=== PATIENT | male | born 1955 | race Caucasian/White ===

== ENCOUNTER → 2017-11-13 | Outpatient (CLI) | payer OTHER ==
[2017-11-13 12:43] LABS: HCT 47.3 % (39.0-53.0); HGB 15.1 gm/dL (13.0-17.5); MCH 33.3 pg (25.0-35.0); MCV 104.2 fL (80.0-100.0); Macrocytosis Slight; Mean Platelet Volume 8.4; Platelet Count 100 k/uL (150-450); RBC 4.54 m/uL (4.30-5.90); RDW 13.2 % (11.5-15.5); WBC 3.9 k/uL (3.8-10.6)
[2017-11-13 12:55] LABS: ALT 40 U/L (21-72); AST 31 U/L (17-59); Albumin 4.3 g/dL (3.5-5.0); Alkaline Phosphatase 77 U/L (38-126); Anion Gap 8 mmol/L; Blood Urea Nitrogen 22 mg/dL (9-20); Calcium 9.7 mg/dL (8.4-10.2); Carbon Dioxide 36 mmol/L (22-30); Chloride 96 mmol/L (98-107); Cholesterol 157 mg/dL (<200); Glucose 138 mg/dL (74-99); HDL Cholesterol 59 mg/dL (40-60); LDL Cholesterol,Calculated 84 mg/dL (0-99); Potassium 4.5 mmol/L (3.5-5.1); Sodium 140 mmol/L (137-145); Total Bilirubin 0.5 mg/dL (0.2-1.3); Total Protein 6.4 g/dL (6.3-8.2); Triglycerides 70 mg/dL (<150)
[2017-11-13 14:10] LABS: Band Neutrophils % 1 %; Eosinophils # (M) 0.27 k/uL (0-0.7); Lymphocytes # (M) 0.98 k/uL (1.0-4.8); Monocytes # (M) 0.31 k/uL (0-1.0); Neutrophils % (M) 59 %; Nucleated Red Blood Cells 0 /100 WBC (0-0); Poikilocytosis (M) Present; Total Cells Counted 100
== END | disposition home or self-care (01) ==
LOC: LABMAIN 12:02
PROVIDERS: ATTEND Nurse Practitioner Family
DX: E55.9 Vitamin D deficiency, unspecified (principal); E78.5 Hyperlipidemia, unspecified; R53.81 Other malaise; Z13.220 Encounter for screening for lipoid disorders
CPT/HCPCS: 36415; 80053; 80061; 82306; 84439; 84443; 85025

== ENCOUNTER → 2018-02-03 | Outpatient (CLI) | payer OTHER ==
[2018-02-03 14:47] LABS: ALT 34 U/L (21-72); AST 28 U/L (17-59); Albumin 3.9 g/dL (3.5-5.0); Alkaline Phosphatase 60 U/L (38-126); Anion Gap 7 mmol/L; Blood Urea Nitrogen 13 mg/dL (9-20); Carbon Dioxide 37 mmol/L (22-30); Chloride 94 mmol/L (98-107); Cholesterol 125 mg/dL (<200); Glucose 163 mg/dL (74-99); HDL Cholesterol 53 mg/dL (40-60); LDL Cholesterol,Calculated 62 mg/dL (0-99); Magnesium 1.8 mg/dL (1.6-2.3); Sodium 138 mmol/L (137-145); Total Bilirubin 0.5 mg/dL (0.2-1.3); Triglycerides 52 mg/dL (<150)
[2018-02-03 14:51] LABS: Basophils % (A) 0 %; Eosinophils # (A) 0.7 k/uL (0-0.7); Eosinophils % (A) 10 %; HCT 41.4 % (39.0-53.0); Hypochromasia Slight; Lymphocytes # (A) 0.9 k/uL (1.0-4.8); Lymphocytes % (A) 13 %; MCH 33.3 pg (25.0-35.0); MCHC 31.5 g/dL (31.0-37.0); MCV 105.7 fL (80.0-100.0); Macrocytosis Moderate; Monocytes # (A) 0.5 k/uL (0-1.0); Monocytes % (A) 7 %; Neutrophils # (A) 4.8 k/uL (1.3-7.7); Neutrophils % (A) 68 %; Platelet Count 121 k/uL (150-450); RBC 3.91 m/uL (4.30-5.90); RDW 14.3 % (11.5-15.5)
[2018-02-03 15:04] LABS: T4, Free (Free Thyroxine) 1.15 ng/dL (0.78-2.19)
[2018-02-03 15:18] LABS: Prostate Specific Antigen 0.17 ng/mL (0.00-4.00)
[2018-02-04 01:07] LABS: HIV AB P24 Non-Reactive (Non-Reactive); HIV P24 AG Non-Reactive (Non-Reactive); Hepatitis A Antibody IgM Non-Reactive (Non-Reactive); Hepatitis B Core IgM Non-Reactive (Non-Reactive)
[2018-02-04 01:36] LABS: Hemoglobin A1C 6.3 % (4.0-6.0)
== END | disposition home or self-care (01) ==
LOC: LABWHC1 13:09
PROVIDERS: ATTEND Physician Assistant Medical
DX: E78.5 Hyperlipidemia, unspecified (principal); B18.2 Chronic viral hepatitis C; Z12.5 Encounter for screening for malignant neoplasm of prostate
CPT/HCPCS: 36415; 80053; 80061; 80074; 82306; 82607; 83036; 83735; 84153; 84439; 84443; 85025; 87390

== ENCOUNTER → 2018-02-21 | Outpatient (CLI) | payer OTHER ==
--- NOTE | 2018-02-21 12:39 | XR ---
EXAMINATION TYPE: XR chest 2V DATE OF EXAM: 02/21/2018 COMPARISON: 09/09/2013 HISTORY: Follow-up for pneumonia. TECHNIQUE: Frontal and lateral views of the chest are obtained. FINDINGS: Although there is no recent exam for comparison in comparison to the prior 2013 there is w orsening right perihilar interstitial airspace disease. There is also pulmonary hyperinflation and bi apical lucency suggesting underlying COPD. Cardia mediastinal silhouette is within normal limits. Deg enerative changes of the right shoulder are similar to the prior with diffuse osseous demineralizatio n. Compression deformities appear similar to the prior with multilevel vertebral augmentation. Cholec ystectomy clips are again present. IMPRESSION: Right perihilar airspace disease most likely representing the patient's known underlying pneumonia. No recent prior for comparison to evaluate for change however this is new from the exam 2013. Continued follow-up to resolution is recommended if there is underlying COPD.
== END | disposition home or self-care (01) ==
LOC: RADXRMAIN 12:10
PROVIDERS: ATTEND Physician Assistant Medical
DX: J98.4 Other disorders of lung (principal)
CPT/HCPCS: 71046

== ENCOUNTER 2018-04-27 16:19 | Emergency (ER) | payer OTHER ==
[2018-04-27 16:30] VITALS: BP 127/76; PULSE 86; RESP 20; TEMP 98.5
--- NOTE | 2018-04-27 16:52 | ED ---
General Adult HPI - General Chief complaint: Psychiatric Symptoms Stated complaint: Mental health Source: patient Mode of arrival: ambulatory Limitations: no limitations - History of Present Illness Initial comments: Dictation was produced using [employer] dictation software. please excuse any grammatical, word or spelling errors. Chief Complaint: 62-year-old male past medical history diabetes and hypertension presents with depression History of Present Illness: A 62-year-old male with allegedly psychiatric history. He has had multiple suicide attempts in the past. Patient states that he's been hearing voices and seeing things. Patient is a poor historian at this time. Patient doesn't have any suicidal or homicidal ideation. He states he does hear voices in his head that are slightly more prominent than usual. Patient states he is going through a lot of changes. The ROS documented in this emergency department record has been reviewed and confirmed by me. Those systems with pertinent positive or negative responses have been documented in the HPI. All other systems are other negative and/or noncontributory. - Related Data Home Medications Medication Instructions Recorded Confirmed Benztropine Mesylate 1 mg PO BID 04/27/18 04/27/18 Cholecalciferol [Vitamin D3] 5,000 unit PO DAILY 04/27/18 04/27/18 Hydrocodone/Acetaminophen [[place] 1 tab PO DAILY PRN 04/27/18 04/27/18 5-325] Lisinopril [Zestril] 10 mg PO DAILY 04/27/18 04/27/18 Montelukast Sodium [Singulair] 10 mg PO HS 04/27/18 04/27/18 Allergies Allergy/AdvReac Type Severity Reaction Status Date / Time No Known Allergies Allergy Verified 04/27/18 16:44 Review of Systems ROS Statement: Those systems with pertinent positive or pertinent negative responses have been documented in the HPI. ROS Other: All systems not noted in ROS Statement are negative. Past Medical History Past Medical History: Hypertension History of Any Multi-Drug Resistant Organisms: None Reported Past Surgical History: Back Surgery Past Psychological History: Anxiety Smoking Status: Current every day smoker Past Alcohol Use History: Occasional Past Drug Use History: Marijuana General Exam - General Exam Comments Initial Comments: PHYSICAL EXAM: General Impression: Alert and oriented x3, not in acute distress HEENT: Normocephalic atraumatic, extra-ocular movements intact, pupils equal and reactive to light bilaterally, mucous membranes moist, mild scleral icterus Cardiovascular: Heart regular rate and rhythm, S1&S2 audible, no murmurs, rubs or gallops Chest: Lungs clear to auscultation bilaterally, no rhonchi, no wheeze, no rales Abdomen: Bowel sounds present, abdomen soft, non-tender, non-distended, no organomegaly Musculoskeletal: Pulses present and equal in all extremities, no peripheral edema Motor: Power 5/5 bilaterally, no focal deficits noted Neurological: CN II-XII grossly intact, no focal motor or sensory deficits noted Skin: Intact with no visualized rashes Psych: Tangential speech Limitations: no limitations Course Vital Signs 04/27/18 16:24 Temperature 98.5 F Pulse Rate 86 Respiratory 20 Rate Blood Pressure 127/76 O2 Sat by Pulse 94 L Oximetry Medical Decision Making - Medical Decision Making ED course: 62-year-old male with clinical presentation consistent with psychosis. Patient is a poor historian. There are no old charts on this patient. Patient is having voices in his head. Laboratory evaluation obtained. There is macrocytic anemia. Patient given multivitamin. Metabolic panel is unremarkable. Rapid urine drug shows opiates and marijuana. Pending EPS recommendations. Patient is sent out to oncoming physician for follow-up of EPS or conditions. Patient value by EPS. The recommendation was for discharge. More information was obtained by EPS nurse. She recommends that patient is likely seeking drugs. He does however have a history of schizophrenia. Patient is cooperative. Patient told that patient is going to be discharge. He is told to follow-up with outpatient [facility] for further care physician schizophrenia. Patient agreeable however did not entirely satisfied with the plan however he states that he will follow up with outpatient [facility]. - Lab Data Result diagrams: 04/27/18 17:20 04/27/18 17:20 Lab Results 04/27/18 04/27/18 04/27/18 Range/Units 17:20 17:20 17:20 WBC 3.8 (3.8-10.6) k/uL RBC 4.05 L (4.30-5.90) m/uL Hgb 13.6 (13.0-17.5) gm/dL Hct 41.6 (39.0-53.0) % MCV 102.7 H (80.0-100.0) fL MCH 33.6 (25.0-35.0) pg MCHC 32.8 (31.0-37.0) g/dL RDW 13.7 (11.5-15.5) % Plt Count 135 L (150-450) k/uL Neutrophils % 57 % Lymphocytes % 27 % Monocytes % 8 % Eosinophils % 4 % Basophils % 0 % Neutrophils # 2.2 (1.3-7.7) k/uL Lymphocytes # 1.0 (1.0-4.8) k/uL Monocytes # 0.3 (0-1.0) k/uL Eosinophils # 0.2 (0-0.7) k/uL Basophils # 0.0 (0-0.2) k/uL Macrocytosis Slight Sodium 138 (137-145) mmol/L Potassium 4.5 (3.5-5.1) mmol/L Chloride 102 (98-107) mmol/L Carbon Dioxide 29 (22-30) mmol/L Anion Gap 7 mmol/L BUN 15 (9-20) mg/dL Creatinine 0.71 (0.66-1.25) mg/dL Est GFR (CKD-EPI)AfAm >90 (>60 ml/min/1.73 sqM) Est GFR (CKD-EPI)NonAf >90 (>60 ml/min/1.73 sqM) Glucose 104 H (74-99) mg/dL Calcium 9.8 (8.4-10.2) mg/dL Total Bilirubin 0.5 (0.2-1.3) mg/dL AST 35 (17-59) U/L ALT 39 (21-72) U/L Alkaline Phosphatase 51 (38-126) U/L Total Protein 7.0 (6.3-8.2) g/dL Albumin 4.5 (3.5-5.0) g/dL Urine Opiates Screen Detected H (NotDetected) Ur Oxycodone Screen Not Detected (NotDetected) Urine Methadone Screen Not Detected (NotDetected) Ur Propoxyphene Screen Not Detected (NotDetected) Ur Barbiturates Screen Not Detected (NotDetected) U Tricyclic Antidepress Not Detected (NotDetected) Ur Phencyclidine Scrn Not Detected (NotDetected) Ur Amphetamines Screen Not Detected (NotDetected) U Methamphetamines Scrn Not Detected (NotDetected) U Benzodiazepines Scrn Not Detected (NotDetected) Urine Cocaine Screen Not Detected (NotDetected) U Marijuana (THC) Screen Detected H (NotDetected) Disposition Clinical Impression: Acute anxiety Disposition: HOME SELF-CARE Condition: Good Is patient prescribed a controlled substance at d/c from ED?: No Referrals: None,Stated [Primary Care Provider] - 1-2 days Time of Disposition: 21:04
[2018-04-27 17:31] LABS: Basophils % (A) 0 %; Eosinophils # (A) 0.2 k/uL (0-0.7); Eosinophils % (A) 4 %; HCT 41.6 % (39.0-53.0); HGB 13.6 gm/dL (13.0-17.5); Lymphocytes % (A) 27 %; MCH 33.6 pg (25.0-35.0); MCHC 32.8 g/dL (31.0-37.0); MCV 102.7 fL (80.0-100.0); Macrocytosis Slight; Mean Platelet Volume 7.9; Monocytes # (A) 0.3 k/uL (0-1.0); Monocytes % (A) 8 %; Neutrophils # (A) 2.2 k/uL (1.3-7.7); Neutrophils % (A) 57 %; Platelet Count 135 k/uL (150-450); RBC 4.05 m/uL (4.30-5.90); RDW 13.7 % (11.5-15.5); WBC 3.8 k/uL (3.8-10.6)
[2018-04-27 17:39] LABS: ALT 39 U/L (21-72); AST 35 U/L (17-59); Albumin 4.5 g/dL (3.5-5.0); Alkaline Phosphatase 51 U/L (38-126); Anion Gap 7 mmol/L; Blood Urea Nitrogen 15 mg/dL (9-20); Calcium 9.8 mg/dL (8.4-10.2); Carbon Dioxide 29 mmol/L (22-30); Chloride 102 mmol/L (98-107); Glucose 104 mg/dL (74-99); Potassium 4.5 mmol/L (3.5-5.1); Sodium 138 mmol/L (137-145); Total Bilirubin 0.5 mg/dL (0.2-1.3)
[2018-04-27 17:43] LABS: Amphetamine Screen,Urine Not Detected (NotDetected); Barbiturate Screen,Urine Not Detected (NotDetected); Benzodiazepines Screen,Urine Not Detected (NotDetected); Cocaine Screen,Urine Not Detected (NotDetected); Methadone Screen, Urine Not Detected (NotDetected); Opiate Screen,Urine Detected (NotDetected); Oxycodone Screen, Urine Not Detected (NotDetected); Phencyclidine Screen,Urine Not Detected (NotDetected); Tricyclic Antidepressant,Urine Not Detected (NotDetected); Urn Cannabinoid Scrn Detected (NotDetected)
== END 2018-04-27 21:25 | disposition home or self-care (01) ==
LOC: EC 16:19
DX: F41.9 Anxiety disorder, unspecified (principal); F20.9 Schizophrenia, unspecified; F32.9 Major depressive disorder, single episode, unspecified; D50.9 Iron deficiency anemia, unspecified; I10 Essential (primary) hypertension; F17.200 Nicotine dependence, unspecified, uncomplicated; Z79.899 Other long term (current) drug therapy
CPT/HCPCS: 36415; 80053; 80306; 85025; 99284

== ENCOUNTER → 2018-05-26 | Outpatient (CLI) | payer OTHER ==
--- NOTE | 2018-05-26 22:49 | MR ---
EXAMINATION TYPE: MR yogesh/lskurt wo con DATE OF EXAM: 05/26/2018 COMPARISON: CT abdomen and pelvis September 09, 2013 HISTORY: Cervicalgia and lumbago per order. Headache with neck pain and mid and low back pain radiati ng to both lower extremities per patient. TECHNIQUE: Multiplanar, multisequence imaging of the thoracic and lumbar spine are performed without IV contrast. FINDINGS: C-SPINE: FINDINGS: Coronal images show dextroconvex scoliotic curvature positioning centered in the upper to m id thoracic spine. Sagittal images of the cervical spine show the craniocervical junction to appear w ithin normal limits. The cervical and upper thoracic spinal cord is normal in course, caliber, and s ignal. There is reversal of normal cervical curvature and sagittal images. The vertebral body height s are normal. . Moderate disc space narrowing with mild to moderate anterior spurring at C4-C5 throug h C6-C7 levels. Small posterior disc herniations are seen at these levels effacing the anterior theca l sac on sagittal images. Heterogeneous Modic type I degenerative changes are seen at the C4-C5 disc space level. Axial images show the C2-C3 level to appear within normal limits. Axial images at C3-C4 level show left paracentral/foraminal spur disc complex effacing the anterolate ral thecal sac and causing asymmetric moderate left-sided neural foraminal narrowing. Right-sided sana ral foramen is patent. Axial images at C4-C5 level showed broad based posterior disc protrusion and posterior spurring effac e the anterior thecal sac and causing moderate bilateral neural foraminal narrowing, right greater th an left. Axial images at C5-C6 levels with broad-based posterior disc protrusion effaces the anterior thecal s ac and causing advanced right and moderate left-sided neural foraminal narrowing with some marginal s purring present. Axial images at C6-C7 levels with broad-based posterior disc protrusion effaces the anterior thecal s ac and causing moderate to advanced bilateral neural foraminal narrowing with some marginal spurring present, right greater than left. Axial images at C7-T1 levels are felt within normal limits. IMPRESSION: Loss of normal cervical curvature with multilevel degenerative changes most prominent at C4-C5 through C6-C7 levels as detailed above. L-SPINE: Sagittal images of the lumbar spine show persistent moderate height loss and vertebral plasty changes T12 and L2, and L4 levels. There is artifact degradation from posterior fusion hardware at L3-L5 lev els. Alignment is straightened. Some disc desiccation is seen but this space heights are fairly well- maintained. No large posterior disc herniations are seen on sagittal images The conus medullaris is n ormal in position and signal ending T12-L1 disc space level. The bone marrow signal intensity is ove rall heterogeneous. Note is made of new moderate height loss at T11 vertebra. Axial images show the T12-L1 and L1-L2 disc spaces to appear within normal limits. There is effacemen t of the anterior thecal sac due to posterior retropulsion of superior L2 level axial image 22. Axial images at L2-L3 level show artifact from posterior fusion hardware. There is broad-based floor service worker spring ior disc protrusion mildly facing anterior thecal sac. Bilateral neural foramina are patent. Axial images at the L3-L4 level and L4-L5 level are suboptimally evaluated due to marked artifact. Axial images at the L5-S1 level show artifact from posterior fusion hardware. Some distortion artifac t is present. Spinal canal is grossly preserved. Bilateral neural foramina are patent. No suspicious incidental retroperitoneal findings are seen. IMPRESSION: Exam noted suboptimal due to artifact degradation related to postsurgical change. There i s straightening of the lumbar spine with redemonstration of several moderate sized compression fractu res and multilevel vertebroplasty. Note is made of new moderate compression fracture T11 level.
== END | disposition home or self-care (01) ==
LOC: RADMRIMAIN 17:20
PROVIDERS: ATTEND Psychiatry & Neurology Pain Medicine
DX: S22.080A Wedge compression fracture of T11-T12 vertebra, initial encounter for closed fracture (principal); M47.812 Spondylosis without myelopathy or radiculopathy, cervical region; Z98.1 Arthrodesis status; Z98.890 Other specified postprocedural states
CPT/HCPCS: 72141; 72148

== ENCOUNTER 2018-07-23 10:12 | Emergency (ER) | payer OTHER ==
[2018-07-23 10:27] VITALS: BP 154/87; PULSE 90; RESP 18; TEMP 97.6
[2018-07-23] MEDS ORDERED: ACET/COD 300 MG/30 MG STARTER PACK 6 TAB BTL PO STA (11:19)
--- NOTE | 2018-07-23 11:19 | ED ---
Back Pain HPI - General Chief Complaint: Back Pain/Injury Stated Complaint: back pain, elevated BP Time Seen by Provider: 07/23/18 10:48 Source: patient, RN notes reviewed Mode of arrival: ambulatory Limitations: no limitations - History of Present Illness Initial Comments: 63-year-old male presents emergency Department chief complaint of low back pain. Patient states she has chronic back pain states he had a prior fracture with surgery in his lower thoracic and lumbar region. He was on chronic pain meds until he was discharged recently for using marijuana. Patient states that his last pain was 2 days ago. Patient states that he cannot tolerate the pain is time. Denies any chest pain or shortness of breath. Denies any headache or dizziness. Patient offers no other complaints. patient has no bowel bladder incontinence or retention. Denies any saddle anesthesias - Related Data Home Medications Medication Instructions Recorded Confirmed Benztropine Mesylate 1 mg PO BID 04/27/18 04/27/18 Cholecalciferol [Vitamin D3] 5,000 unit PO DAILY 04/27/18 04/27/18 Hydrocodone/Acetaminophen [[place] 1 tab PO DAILY PRN 04/27/18 04/27/18 5-325] Lisinopril [Zestril] 10 mg PO DAILY 04/27/18 04/27/18 Montelukast Sodium [Singulair] 10 mg PO HS 04/27/18 04/27/18 Allergies Allergy/AdvReac Type Severity Reaction Status Date / Time No Known Allergies Allergy Verified 07/23/18 10:28 Review of Systems ROS Statement: Those systems with pertinent positive or pertinent negative responses have been documented in the HPI. ROS Other: All systems not noted in ROS Statement are negative. Past Medical History Past Medical History: Hypertension History of Any Multi-Drug Resistant Organisms: None Reported Past Surgical History: Back Surgery Past Psychological History: Anxiety Smoking Status: Current every day smoker Past Alcohol Use History: Occasional Past Drug Use History: Marijuana General Exam Limitations: no limitations General appearance: alert, in no apparent distress Head exam: Present: atraumatic, normocephalic, normal inspection Respiratory exam: Present: normal lung sounds bilaterally. Absent: respiratory distress, wheezes, rales, rhonchi, stridor Cardiovascular Exam: Present: regular rate, normal rhythm, normal heart sounds. Absent: systolic murmur, diastolic murmur, rubs, gallop, clicks GI/Abdominal exam: Present: soft, normal bowel sounds. Absent: distended, tenderness, guarding, rebound, rigid Extremities exam: Present: other ( lower extremity neurovascular intact, full range of motion full-strength.) Back exam: Present: full ROM, tenderness ( mild lumbar tenderness), paraspinal tenderness. Absent: normal inspection ( old surgical scar noted), vertebral tenderness Neurological exam: Present: alert, oriented X3, CN II-XII intact, reflexes normal. Absent: motor sensory deficit Course Vital Signs 07/23/18 10:24 Temperature 97.6 F Pulse Rate 90 Respiratory 18 Rate Blood Pressure 154/87 O2 Sat by Pulse 98 Oximetry Medical Decision Making - Medical Decision Making 63-year-old presented for low back pain. He has chronic back pain no new injury. He is neurologically intact, no red flag symptoms. Patient will be given [facility] emergency Department and will be discharged with follow-up with PCP. Disposition Clinical Impression: Chronic back pain Disposition: HOME SELF-CARE Condition: Stable Instructions: Chronic Back Pain (ED) Additional Instructions: Please return for any worsen symptoms Is patient prescribed a controlled substance at d/c from ED?: No Referrals: None,Stated [Primary Care Provider] - 1-2 days Rolando Arndt MD [STAFF PHYSICIAN] - 1-2 days Time of Disposition: 11:19
== END 2018-07-23 11:28 | disposition home or self-care (01) ==
LOC: EC 10:12
DX: G89.29 Other chronic pain (principal); M54.5 Low back pain; I10 Essential (primary) hypertension; F17.200 Nicotine dependence, unspecified, uncomplicated; Z79.899 Other long term (current) drug therapy; Z98.890 Other specified postprocedural states
CPT/HCPCS: 99283

== ENCOUNTER 2018-08-02 21:29 | Inpatient (IN) | payer MEDICAID, OTHER ==
[2018-08-02] MEDS ORDERED: IPRATROPIUM-ALBUTEROL 3 ML NEB INHALATION STA (21:37)
[2018-08-02] MEDS ORDERED: methylPREDNISolone SOD SUCCI 125 MG/2 ML VIAL IV STA (21:37)
--- NOTE | 2018-08-02 21:40 | ED ---
General Adult HPI <Sacha Levy - Last Filed: 08/02/18 23:42> - General Source: police, EMS, RN notes reviewed Mode of arrival: EMS Limitations: no limitations <Chandrakant Rodrigues - Last Filed: 08/03/18 02:46> - General Stated complaint: Mental Health Time Seen by Provider: 08/02/18 21:31 - History of Present Illness Initial comments: This a 63-year-old male with past medical history of COPD, schizophrenia presents emergency from with police and EMS for change in behavior. Patient reportedly was not acting appropriate home, was smearing feces on the blair, and I even with family. Patient noted to have feces on himself upon arrival. Patient does complain of left ankle pain, shortness of breath. He does have a history of COPD and is, short of breath. Denies any chest pain, fever, chills, URI symptoms. Patient denies any homicidal or suicidal ideation at this time. Denies any illicit drug use no alcohol abuse. (Chandrakant Rodrigues) - Related Data Home Medications Medication Instructions Recorded Confirmed Benztropine Mesylate 1 mg PO BID 04/27/18 08/02/18 Cholecalciferol [Vitamin D3] 5,000 unit PO DAILY 04/27/18 08/02/18 Hydrocodone/Acetaminophen [[place] 1 tab PO DAILY 04/27/18 08/02/18 5-325] Lisinopril [Zestril] 10 mg PO DAILY 04/27/18 08/02/18 Albuterol Inhaler [Ventolin Hfa 1 - 2 puff INHALATION RT-Q6H PRN 08/02/18 Inhaler] Haloperidol Decanoate [Haldol 50 mg IM Q28D 08/02/18 08/02/18 Decanoate] Ipratropium/Albuterol Sulfate 1 puff INHALATION RT-QID 08/02/18 08/02/18 [Combivent Respimat Inhaler] Allergies Allergy/AdvReac Type Severity Reaction Status Date / Time No Known Allergies Allergy Verified 08/02/18 23:28 Review of Systems ROS Other: All systems not noted in ROS Statement are negative. <Sacha Levy - Last Filed: 08/02/18 23:42> ROS Other: All systems not noted in ROS Statement are negative. <Chandrakant Rodrigues - Last Filed: 08/03/18 02:46> ROS Statement: Those systems with pertinent positive or pertinent negative responses have been documented in the HPI. Past Medical History Past Medical History: Hypertension History of Any Multi-Drug Resistant Organisms: None Reported Past Surgical History: Back Surgery Past Psychological History: Anxiety Smoking Status: Current every day smoker Past Alcohol Use History: Occasional Past Drug Use History: Marijuana <Chandrakant Rodrigues - Last Filed: 08/03/18 02:46> General Exam General appearance: alert, in no apparent distress Head exam: Present: atraumatic, normocephalic, normal inspection Eye exam: Present: normal appearance, PERRL, EOMI. Absent: scleral icterus, conjunctival injection, periorbital swelling Neck exam: Present: normal inspection, full ROM. Absent: tenderness, meningismus, lymphadenopathy Respiratory exam: Present: wheezes. Absent: normal lung sounds bilaterally, respiratory distress, rales, rhonchi, stridor Cardiovascular Exam: Present: regular rate, normal rhythm, normal heart sounds. Absent: systolic murmur, diastolic murmur, rubs, gallop, clicks GI/Abdominal exam: Present: soft, normal bowel sounds. Absent: distended, tenderness, guarding, rebound, rigid Extremities exam: Present: other (Mild left foot tenderness) Neurological exam: Present: alert, oriented X3, CN II-XII intact, reflexes normal. Absent: motor sensory deficit Psychiatric exam: Present: flat affect Skin exam: Present: warm, dry, intact, normal color. Absent: rash <Chandrakant Rodrigues - Last Filed: 08/03/18 02:46> Course <Sacha Levy - Last Filed: 08/02/18 23:42> <Chandrakant Rodrigues - Last Filed: 08/03/18 02:46> Vital Signs 08/02/18 08/02/18 08/02/18 21:38 22:31 22:45 Temperature 98.2 F Pulse Rate 94 109 H 149 H Respiratory 20 20 20 Rate Blood Pressure 149/93 O2 Sat by Pulse 98 Oximetry 08/02/18 23:58 Temperature Pulse Rate 87 Respiratory 20 Rate Blood Pressure 137/90 O2 Sat by Pulse 96 Oximetry - Reevaluation(s) Reevaluation #1: 08/02/18 23:43 Patient was seen by mental health services with plans for either admission or transfer. Patient reevaluated by myself, Dr. Levy. Patient resting comfortably in bed. Patient admits to having problems. Patient admits to not taking his medications recently. Patient is having racing thoughts and states it is hard to concentrate. Patient does have some hallucinations however will not further provide detail on that. Patient states he does occasionally have suicidal thoughts. Positive clinical certificate completed. (Sacha Levy) Medical Decision Making - Lab Data Result diagrams: 08/02/18 22:46 <Sacha Levy - Last Filed: 08/02/18 23:42> - Lab Data Result diagrams: 08/02/18 22:46 08/02/18 22:46 <Chandrakant Rodrigues - Last Filed: 08/03/18 02:46> - Lab Data Lab Results 08/02/18 08/02/18 08/03/18 Range/Units 22:46 22:46 02:17 WBC 5.3 (3.8-10.6) k/uL RBC 4.51 (4.30-5.90) m/uL Hgb 15.0 (13.0-17.5) gm/dL Hct 50.0 (39.0-53.0) % MCV 110.7 H (80.0-100.0) fL MCH 33.3 (25.0-35.0) pg MCHC 30.0 L (31.0-37.0) g/dL RDW 12.9 (11.5-15.5) % Plt Count 112 L (150-450) k/uL Neutrophils % (Manual) 79 % Lymphocytes % (Manual) 12 % Monocytes % (Manual) 8 % Eosinophils % (Manual) 1 % Neutrophils # (Manual) 4.19 (1.3-7.7) k/uL Lymphocytes # (Manual) 0.64 L (1.0-4.8) k/uL Monocytes # (Manual) 0.42 (0-1.0) k/uL Eosinophils # (Manual) 0.05 (0-0.7) k/uL Nucleated RBCs 0 (0-0) /100 WBC Manual Slide Review Performed Hypochromasia Moderate Macrocytosis Marked Sodium 142 (137-145) mmol/L Potassium 4.4 (3.5-5.1) mmol/L Chloride 97 L (98-107) mmol/L Carbon Dioxide 38 H (22-30) mmol/L Anion Gap 7 mmol/L BUN 30 H (9-20) mg/dL Creatinine 0.72 (0.66-1.25) mg/dL Est GFR (CKD-EPI)AfAm >90 (>60 ml/min/1.73 sqM) Est GFR (CKD-EPI)NonAf >90 (>60 ml/min/1.73 sqM) Glucose 137 H (74-99) mg/dL POC Glucose (mg/dL) 149 H (75-99) mg/dL POC Glu Power Shovel Mechanic ID Zaida Cavazos Calcium 9.5 (8.4-10.2) mg/dL Total Bilirubin 0.7 (0.2-1.3) mg/dL AST 28 (17-59) U/L ALT 23 (21-72) U/L Alkaline Phosphatase 50 (38-126) U/L Total Protein 7.3 (6.3-8.2) g/dL Albumin 4.6 (3.5-5.0) g/dL Lipase 58 (23-300) U/L Disposition <Sacha Levy - Last Filed: 08/02/18 23:42> <Chandrakant Rodrigues - Last Filed: 08/03/18 02:46> Clinical Impression: Schizophrenia Disposition: ADMITTED IP TO THIS HOSP Condition: Stable Referrals: None,Stated [Primary Care Provider] - 1-2 days
--- NOTE | 2018-08-02 22:17 | XR ---
EXAMINATION: XR chest 1V portable DATE AND TIME: 08/02/2018 10:03 PM CLINICAL INDICATION: PHH; Cough/pain TECHNIQUE: Departmental protocol COMPARISON: 02/21/2018 FINDINGS: Prominent emphysematous changes are redemonstrated. There is diffuse hyperinflation. The lungs are cl ear. The pleural spaces are negative. The cardiac silhouette is not enlarged. The remainder of the mediastinal silhouette is unremarkable. The skeletal structures and soft tissues are negative for acute findings. IMPRESSION: NO ACUTE PLEURAL/PULMONARY PROCESS.
--- NOTE | 2018-08-02 22:23 | XR ---
EXAMINATION TYPE: XR foot complete LT DATE OF EXAM: 08/02/2018 COMPARISON: NONE HISTORY: Foot pain TECHNIQUE: 3 views FINDINGS: Metatarsals are intact. I see no fracture nor dislocation. Joint spaces are normal. IMPRESSION: Negative left foot exam.
[2018-08-02] MEDS ORDERED: methylPREDNISolone SOD SUCCI 125 MG/2 ML VIAL IM ONE (22:33)
[2018-08-02 23:30] LABS: Hypochromasia Moderate; MCH 33.3 pg (25.0-35.0); MCV 110.7 fL (80.0-100.0); Macrocytosis Marked; Mean Platelet Volume 7.4; Platelet Count 112 k/uL (150-450); RBC 4.51 m/uL (4.30-5.90); RDW 12.9 % (11.5-15.5); WBC 5.3 k/uL (3.8-10.6)
[2018-08-02 23:56] LABS: ALT 23 U/L (21-72); AST 28 U/L (17-59); Albumin 4.6 g/dL (3.5-5.0); Alkaline Phosphatase 50 U/L (38-126); Anion Gap 7 mmol/L; Blood Urea Nitrogen 30 mg/dL (9-20); Calcium 9.5 mg/dL (8.4-10.2); Carbon Dioxide 38 mmol/L (22-30); Chloride 97 mmol/L (98-107); Glucose 137 mg/dL (74-99); Lipase 58 U/L (23-300); Potassium 4.4 mmol/L (3.5-5.1); Sodium 142 mmol/L (137-145); Total Bilirubin 0.7 mg/dL (0.2-1.3); Total Protein 7.3 g/dL (6.3-8.2)
[2018-08-03] LABS: Eosinophils # (M) 0.05 k/uL (0-0.7); Lymphocytes # (M) 0.64 k/uL (1.0-4.8); Monocytes # (M) 0.42 k/uL (0-1.0); Neutrophils # (M) 4.19 k/uL (1.3-7.7); Neutrophils % (M) 79 %; Nucleated Red Blood Cells 0 /100 WBC (0-0); Total Cells Counted 100
[2018-08-03] MEDS ORDERED: LORazepam 1 MG TAB PO STA (01:05)
[2018-08-03 02:21] LABS: Glucose,Whole Blood 149 mg/dL (75-99)
[2018-08-03] MEDS ORDERED: MAG HYDROX/AL HYDROX/SIMETH 30 ML CUP PO PRN (03:31)
[2018-08-03] MEDS ORDERED: ACETAMINOPHEN TAB 325 MG TAB PO PRN (03:31)
[2018-08-03] MEDS ORDERED: MAGNESIUM HYDROXIDE 2,400 MG/10 ML CUP PO PRN (03:31)
[2018-08-03] MEDS ORDERED: ALBUTEROL INHALER 60 PUFF/8 GM INHALER INHALATION PRN (03:32)
[2018-08-03] MEDS ORDERED: LORazepam 2 MG/ML INJ IM PRN (03:35)
[2018-08-03] MEDS ORDERED: LORazepam 0.5 MG TAB PO PRN (03:36)
[2018-08-03] MEDS ORDERED: ZIPRASIDONE 20 MG VIAL IM PRN (03:36)
[2018-08-03] MEDS ORDERED: HYDROcodone/APAP 5-325MG 1 EACH TAB PO PRN (03:39)
[2018-08-03 06:33] LABS: Appearance,Urine Clear (Clear); Bilirubin,Urine Negative (Negative); Blood,Urine Negative (Negative); Color,Urine Yellow; Glucose,Urine (UA) 4+ (Negative); Ketones,Urine 1+ (Negative); Leukocyte Esterase,Urine Negative (Negative); Nitrite,Urine Negative (Negative); Protein,Urine Negative (Negative); Urobilinogen,Urine <2.0 mg/dL (<2.0)
[2018-08-03 06:43] LABS: Amphetamine Screen,Urine Not Detected (NotDetected); Barbiturate Screen,Urine Not Detected (NotDetected); Benzodiazepines Screen,Urine Detected (NotDetected); Cocaine Screen,Urine Not Detected (NotDetected); Methadone Screen, Urine Not Detected (NotDetected); Opiate Screen,Urine Not Detected (NotDetected); Oxycodone Screen, Urine Not Detected (NotDetected); Phencyclidine Screen,Urine Not Detected (NotDetected); Tricyclic Antidepressant,Urine Not Detected (NotDetected); Urn Cannabinoid Scrn Detected (NotDetected)
[2018-08-03 06:52] LABS: Glucose,Whole Blood 406 mg/dL (75-99)
[2018-08-03] MEDS ORDERED: IPRATROPIUM-ALBUTEROL 3 ML NEB INHALATION PRN (07:21)
[2018-08-03] MEDS ORDERED: INSULIN ASPART 100 UNIT/ML 1 ML 10 ML VIAL SQ SCH (07:30)
--- NOTE | 2018-08-03 07:32 | P.CONS ---
History of Present Illness - Reason for Consult Consult date: 08/03/18 Shortness of breath Requesting physician: Julio Vasquez - Chief Complaint Abnormal behavior - History of Present Illness 63-year-old male C3-year-old male with history of COPD, hypertension, and schizophrenia Patient was brought into the hospital by police and EMS, family notified authority due to abnormal behavior at home. Patient was being inappropriate smearing feces all over the wall and even on family. Patient is unable to giving me any meaningful history at this time but he does report shortness of breath. Denies any chest pain. Denies any coughing. Patient seems to be slightly confused. Patient denies any fevers or chills denies any abdominal pain nausea vomiting or headache. Upon arrival to the ED he was covered with feces and was short of breath improved after breathing treatment. Review of Systems Pertinent positives as noted in HPI. All other systems were reviewed and are negative Past Medical History Past Medical History: Hypertension History of Any Multi-Drug Resistant Organisms: None Reported Past Surgical History: Back Surgery Smoking Status: Current every day smoker Medications and Allergies Home Medications Medication Instructions Recorded Confirmed Type Benztropine Mesylate 1 mg PO BID 04/27/18 08/03/18 History Cholecalciferol [Vitamin D3] 5,000 unit PO DAILY 04/27/18 08/03/18 History Hydrocodone/Acetaminophen [[place] 1 tab PO DAILY 04/27/18 08/03/18 History 5-325] Lisinopril [Zestril] 10 mg PO DAILY 04/27/18 08/03/18 History Albuterol Inhaler [Ventolin Hfa 1 - 2 puff INHALATION RT-Q6H PRN 08/02/18 History Inhaler] Haloperidol Decanoate [Haldol 50 mg IM Q28D 08/02/18 08/03/18 History Decanoate] Ipratropium/Albuterol Sulfate 1 puff INHALATION RT-QID 08/02/18 08/03/18 History [Combivent Respimat Inhaler] Allergies Allergy/AdvReac Type Severity Reaction Status Date / Time No Known Allergies Allergy Verified 08/03/18 04:13 Physical Exam Vitals: Vital Signs Temp Pulse Pulse Resp BP BP Pulse Ox 08/03/18 07:16 98 F 87 18 138/74 92 L 08/03/18 03:56 98.1 F 87 16 139/81 90 L 08/02/18 23:58 87 20 137/90 96 08/02/18 22:45 149 H 20 08/02/18 22:31 109 H 20 08/02/18 21:38 98.2 F 94 20 149/93 98 Intake and Output 08/02/18 08/03/18 08/03/18 22:59 06:59 14:59 Other: Weight 68.039 kg Constitutional: No acute distress, alert but confused, reports some shortness of breath Eyes: Anicteric sclerae, moist conjunctiva, no lid-lag Pupils equal round reactive to light ENMT: NC/AT Oropharynx clear, no erythema, exudates Neck: Supple, FROM, no masses, or JVD No carotid bruits No thyromegaly Lungs: Decreased breath sounds with prolonged expiratory phase and diffuse wheezing Clear to percussion Patient using accessory muscle of respiration Cardiovascular: Heart regular in rate and rhythm, No murmurs, gallops, or rubs No peripheral edema Abdominal: Soft Nontender, no guarding, rebound or rigidity Abdomen moving with respiration Normoactive bowel sounds No hepatomegaly, No splenomegaly No palpable mass No abdominal wall hernia noted Skin: Normal temperature, tone, texture, turgor No induration No subcutaneous nodules No rash, lesions No ulcers Extremities: No digital cyanosis No clubbing Pedal pulses intact and symmetrical Radial pulses intact and symmetrical No calf tenderness Psychiatric: Alert but seems to be confused Neuro Muscles Strength 5/5 in all 4 extremities Sensation to light touch grossly present throughout Cranial nerves II-XII grossly intact No focal sensory deficits Lymphatics: no palpable cervical or supraclavicular , or inguinal lymph nodes Results CBC & Chem 7: 08/02/18 22:46 08/02/18 22:46 Labs: Abnormal Lab Results - Last 24 Hours (Table) 08/02/18 08/02/18 08/03/18 Range/Units 22:46 22:46 02:17 MCV 110.7 H (80.0-100.0) fL MCHC 30.0 L (31.0-37.0) g/dL Plt Count 112 L (150-450) k/uL Lymphocytes # (Manual) 0.64 L (1.0-4.8) k/uL Chloride 97 L (98-107) mmol/L Carbon Dioxide 38 H (22-30) mmol/L BUN 30 H (9-20) mg/dL Glucose 137 H (74-99) mg/dL POC Glucose (mg/dL) 149 H (75-99) mg/dL Urine Glucose (UA) (Negative) Urine Ketones (Negative) U Benzodiazepines Scrn (NotDetected) U Marijuana (THC) Screen (NotDetected) 08/03/18 08/03/18 Range/Units 06:00 06:48 MCV (80.0-100.0) fL MCHC (31.0-37.0) g/dL Plt Count (150-450) k/uL Lymphocytes # (Manual) (1.0-4.8) k/uL Chloride (98-107) mmol/L Carbon Dioxide (22-30) mmol/L BUN (9-20) mg/dL Glucose (74-99) mg/dL POC Glucose (mg/dL) 406 H (75-99) mg/dL Urine Glucose (UA) 4+ H (Negative) Urine Ketones 1+ H (Negative) U Benzodiazepines Scrn Detected H (NotDetected) U Marijuana (THC) Screen Detected H (NotDetected) Assessment and Plan Assessment: 63-year-old male with history of hypertension COPD presented to the hospital due to inappropriate behavior, medicine was consulted for shortness of breath patient has known history of COPD. Patient seems to be in a mild acute exacerbation of COPD at this point. Plan: Acute exacerbation of COPD COPD pathway DuoNeb's when necessary Combivent Prednisone by mouth Supplemental oxygen as needed Check ABG Acute psychosis Measurements per psych Hyperglycemia without diagnosis of diabetes mellitus Check A1c Insulin sliding scale This could be reactive secondary to steroids Hypertension Resume lisinopril DVT prophylaxis heparin subcu 3 times a day Thank you for allowing us to participate in the care of this patient. Do not hesitate to contact us with questions. Someone can be reached from the [facility] hospitalist group at all hours of the day at [phone].
[2018-08-03] MEDS ORDERED: IPRATROPIUM-ALBUTEROL 3 ML NEB INHALATION SCH ×2 (08:00→16:00)
[2018-08-03] MEDS ORDERED: HEPARIN SODIUM,PORCINE 5,000 UNIT/ML 1 ML VIAL SQ SCH (08:00)
[2018-08-03] MEDS ORDERED: SYMBICORT 160-4.5 MCG INHALER INHALATION SCH (08:00)
[2018-08-03 08:30] VITALS: TEMP 99.1
[2018-08-03] MEDS ORDERED: CHOLECALCIFEROL 1,000 UNIT TAB PO SCH (09:00)
[2018-08-03] MEDS ORDERED: LISINOPRIL 10 MG TAB PO SCH (09:00)
[2018-08-03] MEDS ORDERED: HYDROcodone/APAP 5-325MG 1 EACH TAB PO SCH (09:00)
[2018-08-03] MEDS ORDERED: NICOTINE 21MG/24HR PATCH TRANSDERM SCH (09:00)
[2018-08-03] MEDS ORDERED: predniSONE 20 MG TAB PO SCH (09:00)
[2018-08-03] MEDS ORDERED: BENZTROPINE MESYLATE 1 MG TAB PO SCH (09:00)
[2018-08-03 09:34] LABS: ABG Base Excess 14.4 mmol/L; ABG Oxygen Saturation 95.4 % (94-97); ABG PH 7.38 (7.35-7.45); ABG PO2 76 mmHg (83-108)
[2018-08-03 09:43] LABS: ABG HCO3 43 mmol/L (21-25); ABG PCO2 74 mmHg (35-45)
--- NOTE | 2018-08-03 10:17 | P.EN ---
Patient is being transferred to medical floor due to his inability to have adequate saturation of oxygen
--- NOTE | 2018-08-03 10:18 | P.HP ---
Psychiatric H&P - . H&P Date: 08/03/18 History & Physical: Allergies Allergy/AdvReac Type Severity Reaction Status Date / Time No Known Allergies Allergy Verified 08/03/18 04:13 Vital Signs Temp 99.1 F 08/03/18 08:29 Pulse 96 08/03/18 09:41 Resp 24 08/03/18 08:29 BP 144/87 08/03/18 08:29 Pulse Ox 89 L 08/03/18 08:29 Intake & Output 08/02/18 08/03/18 08/03/18 18:59 06:59 18:59 Weight 68.039 kg Laboratory Last Values WBC 5.3 k/uL (3.8-10.6) 08/02/18 22:46 RBC 4.51 m/uL (4.30-5.90) 08/02/18 22:46 Hgb 15.0 gm/dL (13.0-17.5) 08/02/18 22:46 Hct 50.0 % (39.0-53.0) 08/02/18 22:46 MCV 110.7 fL (80.0-100.0) H 08/02/18 22:46 MCH 33.3 pg (25.0-35.0) 08/02/18 22:46 MCHC 30.0 g/dL (31.0-37.0) L 08/02/18 22:46 RDW 12.9 % (11.5-15.5) 08/02/18 22:46 Plt Count 112 k/uL (150-450) L 08/02/18 22:46 Neutrophils % (Manual) 79 % 08/02/18 22:46 Lymphocytes % (Manual) 12 % 08/02/18 22:46 Monocytes % (Manual) 8 % 08/02/18 22:46 Eosinophils % (Manual) 1 % 08/02/18 22:46 Neutrophils # (Manual) 4.19 k/uL (1.3-7.7) 08/02/18 22:46 Lymphocytes # (Manual) 0.64 k/uL (1.0-4.8) L 08/02/18 22:46 Monocytes # (Manual) 0.42 k/uL (0-1.0) 08/02/18 22:46 Eosinophils # (Manual) 0.05 k/uL (0-0.7) 08/02/18 22:46 Nucleated RBCs 0 /100 WBC (0-0) 08/02/18 22:46 Manual Slide Review Performed 08/02/18 22:46 Hypochromasia Moderate 08/02/18 22:46 Macrocytosis Marked 08/02/18 22:46 Sodium 142 mmol/L (137-145) 08/02/18 22:46 Potassium 4.4 mmol/L (3.5-5.1) 08/02/18 22:46 Chloride 97 mmol/L (98-107) L 08/02/18 22:46 Carbon Dioxide 38 mmol/L (22-30) H 08/02/18 22:46 Anion Gap 7 mmol/L 08/02/18 22:46 BUN 30 mg/dL (9-20) H 08/02/18 22:46 Creatinine 0.72 mg/dL (0.66-1.25) 08/02/18 22:46 Est GFR (CKD-EPI)AfAm >90 (>60 ml/min/1.73 sqM) 08/02/18 22:46 Est GFR (CKD-EPI)NonAf >90 (>60 ml/min/1.73 sqM) 08/02/18 22:46 Glucose 137 mg/dL (74-99) H 08/02/18 22:46 POC Glucose (mg/dL) 406 mg/dL (75-99) H 08/03/18 06:48 POC Glu [employer] ID Carrie Kline 08/03/18 06:48 Calcium 9.5 mg/dL (8.4-10.2) 08/02/18 22:46 Total Bilirubin 0.7 mg/dL (0.2-1.3) 08/02/18 22:46 AST 28 U/L (17-59) 08/02/18 22:46 ALT 23 U/L (21-72) 08/02/18 22:46 Alkaline Phosphatase 50 U/L (38-126) 08/02/18 22:46 Total Protein 7.3 g/dL (6.3-8.2) 08/02/18 22:46 Albumin 4.6 g/dL (3.5-5.0) 08/02/18 22:46 Lipase 58 U/L (23-300) 08/02/18 22:46 Urine Color Yellow 08/03/18 06:00 Urine Appearance Clear (Clear) 08/03/18 06:00 Urine pH 7.0 (5.0-8.0) 08/03/18 06:00 Ur Specific [place] 1.020 (1.001-1.035) 08/03/18 06:00 Urine Protein Negative (Negative) 08/03/18 06:00 Urine Glucose (UA) 4+ (Negative) H 08/03/18 06:00 Urine Ketones 1+ (Negative) H 08/03/18 06:00 Urine Blood Negative (Negative) 08/03/18 06:00 Urine Nitrite Negative (Negative) 08/03/18 06:00 Urine Bilirubin Negative (Negative) 08/03/18 06:00 Urine Urobilinogen <2.0 mg/dL (<2.0) 08/03/18 06:00 Ur Leukocyte Esterase Negative (Negative) 08/03/18 06:00 Urine Opiates Screen Not Detected (NotDetected) 08/03/18 06:00 Ur Oxycodone Screen Not Detected (NotDetected) 08/03/18 06:00 Urine Methadone Screen Not Detected (NotDetected) 08/03/18 06:00 Ur Propoxyphene Screen Not Detected (NotDetected) 08/03/18 06:00 Ur Barbiturates Screen Not Detected (NotDetected) 08/03/18 06:00 U Tricyclic Antidepress Not Detected (NotDetected) 08/03/18 06:00 Ur Phencyclidine Scrn Not Detected (NotDetected) 08/03/18 06:00 Ur Amphetamines Screen Not Detected (NotDetected) 08/03/18 06:00 U Methamphetamines Scrn Not Detected (NotDetected) 08/03/18 06:00 U Benzodiazepines Scrn Detected (NotDetected) H 08/03/18 06:00 Urine Cocaine Screen Not Detected (NotDetected) 08/03/18 06:00 U Marijuana (THC) Screen Detected (NotDetected) H 08/03/18 06:00 Assessment and Plan Assessment: This a 63-year-old male with past medical history of COPD, schizophrenia presents emergency from with police and EMS for change in behavior. Patient reportedly was not acting appropriate home, was smearing feces on the blair, and I even with family. Patient noted to have feces on himself upon arrival. Patient does complain of left ankle pain, shortness of breath. He does have a history of COPD and is, short of breath. Denies any chest pain, fever, chills, URI symptoms. Patient denies any homicidal or suicidal ideation at this time. Denies any illicit drug use no alcohol abuse. - Related Data Home Medications Medication Instructions Recorded Confirmed Benztropine Mesylate 1 mg PO BID 04/27/18 08/02/18 Cholecalciferol [Vitamin D3] 5,000 unit PO DAILY 04/27/18 08/02/18 Hydrocodone/Acetaminophen [[place] 1 tab PO DAILY 04/27/18 08/02/18 5-325] Lisinopril [Zestril] 10 mg PO DAILY 04/27/18 08/02/18 Albuterol Inhaler [Ventolin Hfa 1 - 2 puff INHALATION RT-Q6H PRN 08/02/18 Inhaler] Haloperidol Decanoate [Haldol 50 mg IM Q28D 08/02/18 08/02/18 Decanoate] Ipratropium/Albuterol Sulfate 1 puff INHALATION RT-QID 08/02/18 08/02/18 [Combivent Respimat Inhaler] Allergies Allergy/AdvReac Type Severity Reaction Status Date / Time No Known Allergies Allergy Verified 08/02/18 23:28 Past Medical History Past Medical History: Hypertension History of Any Multi-Drug Resistant Organisms: None Reported Past Surgical History: Back Surgery Past Psychological History: Anxiety Smoking Status: Current every day smoker Past Alcohol Use History: Occasional Past Drug Use History: Marijuana Musculoskeletal Examination - Abnormal/Involuntary Movements: [none Strength: [greater than antigravity (greater than/equal to 3/5) in all extremities, weakness:] Muscle Tone: [no impairment Gait: [ limping, in wheelchair, wide-based] Station: [ unsteady, in wheelchair] Mental Status Examination - General Appearance: [disheveled, casual, bizarre, appears older than stated age , Speech/Language: [slow, slurred, soft, other] Attitude/Behavior: [cooperative, guarded, irritable, withdrawn, indifferent Mood: [ depressed, anxious, irritable, angry, fearful, hopelessness, other] Affect: [full range, lively, flat, incongruent, blunted constricted] Orientation: [Not time, person, place situation] Thought Content: [wnl, denies delusions, obsessions, phobias, other] Risk Factors: [suicidal (ideations, plan), and/or Homicidal (ideations, plan), other] Perception: [ hallucinations (auditory Thought Processes: [ concrete, circumstantial, tangential,] Concentration/Attention Span: impaired] [Per observation and interview with the patient] Recent Memory: [impaired] [0, 1, 2 or 3 out of 3 in 3 minutes] Remote Memory: impaired] [past events, as related history] Intelligence: [below average [based on history, based on vocabulary, syntax, grammar, and content] Judgement: [ poor] [per patient's behavior/history of present illness] Insight: [poor] [understanding severity of illness/history of present illness] Admitting Diagnosis: [Acute psychosis] Patient Strengths - Housing stability: [x] Able to vocalize needs: [x] Patient Limitations: [medication, non-compliance, pathological/unsupported environment, no interests, intellectual impairment, complicated medical illness Initial Plan of Care: [You be admitted to [facility] on a voluntary basis and will have usual 15 minute checks and max milieu therapeutic environment treatment. He will be evaluated by medicine, psychiatry, nursing staff, social work and occupational therapy. He will be expected to integrated in the max milieu therapeutic environment whereby he will be participating in group activities and psychotherapy. After a thorough biopsychosocial social evaluation and retrieval of records from [facility] a treatment plan can be developed. It appears that he's on haloperidol decanoate 50 mg every 28 days. He is an extremely poor historian. ] Estimated Length of Stay: [14] Initial Discharge Plan: [[place], [facility] Prognosis: [good Justification for Inpatient Hospitalization - [Hallucinations, delusions, agitation, anxiety, depression resulting in significant loss of functioning.] [Dangerous to self, others, or property with need for controlled environment.] [Emotional or behavioral conditions and complications requiring 24 hour medical and nursing care.] [Need for special drug therapy, or other therapeutic program requiring continuous hospitalization.] [Failure of social or occupational functioning.] [Inability to meet basic life and health needs.] (1) Schizophrenia Current Visit: Yes Status: Acute Code(s): F20.9 - SCHIZOPHRENIA, UNSPECIFIED SNOMED Code(s): 05595643 Time with Patient: Less than 30
[2018-08-03 10:26] VITALS: PULSE 88
[2018-08-03 11:22] VITALS: BP 136/81; RESP 24
[2018-08-03 11:34] LABS: Glucose,Whole Blood 151 mg/dL (75-99)
[2018-08-03 17:27] LABS: Hemoglobin A1C 5.8 % (4.0-6.0)
[2018-08-04] MEDS ORDERED: PANTOPRAZOLE 40 MG TABLET PO SCH (07:30)
[2018-08-04] MEDS ORDERED: NICOTINE 14MG/24HR PATCH TRANSDERM SCH (09:00)
--- NOTE | 2018-08-04 14:36 | P.DS ---
Providers Date of admission: 08/03/18 03:29 Expected date of discharge: 08/03/18 Attending physician: Ming Gonzalez DO Consults: 08/03/18 03:31 Consult Physician Routine Consulting Provider: Chica Terrazas Consult Reason/Comments: Medical management Do you want consulting provider notified?: Yes 08/03/18 11:23 Consult Physician Urgent Consulting Provider: Judy Nguyen Consult Reason/Comments: Hypercapnic resp failure Do you want consulting provider notified?: Yes Primary care physician: Stated None - Discharge Diagnosis(es) (1) Schizophrenia Assessment and Plan Assessment: This a 63-year-old male with past medical history of COPD, schizophrenia presents emergency from with police and EMS for change in behavior. Patient reportedly was not acting appropriate home, was smearing feces on the blair, and I even with family. Patient noted to have feces on himself upon arrival. Patient does complain of left ankle pain, shortness of breath. He does have a history of COPD and is, short of breath. Denies any chest pain, fever, chills, URI symptoms. Patient denies any homicidal or suicidal ideation at this time. Denies any illicit drug use no alcohol abuse. - Related Data Home Medications Medication Instructions Recorded Confirmed Benztropine Mesylate 1 mg PO BID 04/27/18 08/02/18 Cholecalciferol [Vitamin D3] 5,000 unit PO DAILY 04/27/18 08/02/18 Hydrocodone/Acetaminophen [[place] 1 tab PO DAILY 04/27/18 08/02/18 5-325] Lisinopril [Zestril] 10 mg PO DAILY 04/27/18 08/02/18 Albuterol Inhaler [Ventolin Hfa 1 - 2 puff INHALATION RT-Q6H PRN 08/02/18 Inhaler] Haloperidol Decanoate [Haldol 50 mg IM Q28D 08/02/18 08/02/18 Decanoate] Ipratropium/Albuterol Sulfate 1 puff INHALATION RT-QID 08/02/18 08/02/18 [Combivent Respimat Inhaler] Allergies Allergy/AdvReac Type Severity Reaction Status Date / Time No Known Allergies Allergy Verified 08/02/18 23:28 Past Medical History Past Medical History: Hypertension History of Any Multi-Drug Resistant Organisms: None Reported Past Surgical History: Back Surgery Past Psychological History: Anxiety Smoking Status: Current every day smoker Past Alcohol Use History: Occasional Past Drug Use History: Marijuana Musculoskeletal Examination - Abnormal/Involuntary Movements: [none Strength: [greater than antigravity (greater than/equal to 3/5) in all extremities, weakness:] Muscle Tone: [no impairment Gait: [ limping, in wheelchair, wide-based] Station: [ unsteady, in wheelchair] Mental Status Examination - General Appearance: [disheveled, casual, bizarre, appears older than stated age , Speech/Language: [slow, slurred, soft, other] Attitude/Behavior: [cooperative, guarded, irritable, withdrawn, indifferent Mood: [ depressed, anxious, irritable, angry, fearful, hopelessness, other] Affect: [full range, lively, flat, incongruent, blunted constricted] Orientation: [Not time, person, place situation] Thought Content: [wnl, denies delusions, obsessions, phobias, other] Risk Factors: [suicidal (ideations, plan), and/or Homicidal (ideations, plan), other] Perception: [ hallucinations (auditory Thought Processes: [ concrete, circumstantial, tangential,] Concentration/Attention Span: impaired] [Per observation and interview with the patient] Recent Memory: [impaired] [0, 1, 2 or 3 out of 3 in 3 minutes] Remote Memory: impaired] [past events, as related history] Intelligence: [below average [based on history, based on vocabulary, syntax, grammar, and content] Judgement: [ poor] [per patient's behavior/history of present illness] Insight: [poor] [understanding severity of illness/history of present illness] Admitting Diagnosis: [Acute psychosis] Patient Strengths - Housing stability: [x] Able to vocalize needs: [x] Patient Limitations: [medication, non-compliance, pathological/unsupported environment, no interests, intellectual impairment, complicated medical illness Initial Plan of Care: [You be admitted to 4 W. psychiatric unit [facility] on a voluntary basis and will have usual 15 minute checks and max milieu therapeutic environment treatment. He will be evaluated by medicine, psychiatry, nursing staff, social work and occupational therapy. He will be expected to integrated in the max milieu therapeutic environment whereby he will be participating in group activities and psychotherapy. After a thorough biopsychosocial social evaluation and retrieval of records from [facility] a treatment plan can be developed. It appears that he's on haloperidol decanoate 50 mg every 28 days. He is an extremely poor historian. ] Estimated Length of Stay: [14] Initial Discharge Plan: [[place] Prognosis: [good Justification for Inpatient Hospitalization - [Hallucinations, delusions, agitation, anxiety, depression resulting in significant loss of functioning.] [Dangerous to self, others, or property with need for controlled environment.] [Emotional or behavioral conditions and complications requiring 24 hour medical and nursing care.] [Need for special drug therapy, or other therapeutic program requiring continuous hospitalization.] [Failure of social or occupational functioning.] [Inability to meet basic life and health needs.] Status: Inactive Hospital Course: transfer to medical floor Patient Condition at Discharge: Serious Plan - Discharge Summary New Discharge Prescriptions: No Action Lisinopril [Zestril] 10 mg PO DAILY Hydrocodone/Acetaminophen [[place] 5-325] 1 tab PO DAILY Cholecalciferol [Vitamin D3] 5,000 unit PO DAILY Benztropine Mesylate 1 mg PO BID Haloperidol Decanoate [Haldol Decanoate] 50 mg IM Q28D Ipratropium/Albuterol Sulfate [Combivent Respimat Inhaler] 1 puff INHALATION RT-QID Albuterol Inhaler [Ventolin Hfa Inhaler] 1 - 2 puff INHALATION RT-Q6H PRN PRN Reason: Shortness Of Breath Discharge Medication List Benztropine Mesylate 1 mg PO BID 04/27/18 [History] Cholecalciferol [Vitamin D3] 5,000 unit PO DAILY 04/27/18 [History] Hydrocodone/Acetaminophen [[place] 5-325] 1 tab PO DAILY 04/27/18 [History] Lisinopril [Zestril] 10 mg PO DAILY 04/27/18 [History] Albuterol Inhaler [Ventolin Hfa Inhaler] 1 - 2 puff INHALATION RT-Q6H PRN [History] Haloperidol Decanoate [Haldol Decanoate] 50 mg IM Q28D 08/02/18 [History] Ipratropium/Albuterol Sulfate [Combivent Respimat Inhaler] 1 puff INHALATION RT- QID 08/02/18 [History] Follow up Appointment(s)/Referral(s): None,Stated [Primary Care Provider] - 1-2 days Discharge Disposition: TRANSFER TO SHORT TERM HOSP
== END 2018-08-03 11:53 | disposition short-term general hospital (02) | DRG 885 ==
LOC: EEVIPCON 21:29 → EC 21:29 → 3MHU 08-03 03:29
PROVIDERS: ADMIT Psychiatry & Neurology Psychiatry; ATTEND Psychiatry & Neurology Psychiatry
DX: F20.9 Schizophrenia, unspecified (principal); J44.1 Chronic obstructive pulmonary disease with (acute) exacerbation; F41.9 Anxiety disorder, unspecified; I10 Essential (primary) hypertension; F17.210 Nicotine dependence, cigarettes, uncomplicated; M25.579 Pain in unspecified ankle and joints of unspecified foot; R73.9 Hyperglycemia, unspecified; Z79.891 Long term (current) use of opiate analgesic; Z79.899 Other long term (current) drug therapy; Z91.19 Patient's noncompliance with other medical treatment and regimen; F79 Unspecified intellectual disabilities
CPT/HCPCS: 36415; 36600; 71045; 80053; 80306; 81003; 82075; 82805; 83036; 83690; 84443; 85025; 94640; 96372; 99285

== ENCOUNTER 2018-08-03 10:27 | Inpatient (IN) | payer OTHER ==
[2018-08-03] MEDS ORDERED: IPRATROPIUM-ALBUTEROL 3 ML NEB INHALATION PRN (13:09)
[2018-08-03] MEDS ORDERED: NALOXONE 0.4 MG/ML 1 ML VIAL IV PRN (13:10)
--- NOTE | 2018-08-03 13:32 | XR ---
EXAMINATION TYPE: XR chest 1V portable DATE OF EXAM: 08/03/2018 CLINICAL HISTORY: Difficulty breathing progress study. TECHNIQUE: Single AP portable upright view of the chest is obtained. COMPARISON: Chest x-ray from one day earlier and older studies. FINDINGS: There is chronic emphysematous and parenchymal changes seen bilaterally without new suspic ious focal airspace opacity, pleural effusion, or pneumothorax identified. Osseous structures are dem ineralized. Cardiac silhouette size is stable and within normal limits. Cystectomy clips are noted. T here is partial visualization of surgical change in the lumbar spine. IMPRESSION: Overall stable findings, chronic emphysematous and parenchymal changes without acute pu lmonary process.
[2018-08-03 13:59] LABS: ALT 28 U/L (21-72); AST 23 U/L (17-59); Albumin 4.5 g/dL (3.5-5.0); Alkaline Phosphatase 37 U/L (38-126); Blood Urea Nitrogen 37 mg/dL (9-20); Calcium 9.9 mg/dL (8.4-10.2); Chloride 96 mmol/L (98-107); Glucose 110 mg/dL (74-99); Magnesium 2.2 mg/dL (1.6-2.3); Sodium 143 mmol/L (137-145); Total Bilirubin 0.7 mg/dL (0.2-1.3)
[2018-08-03 14:05] LABS: Anion Gap 6 mmol/L; Basophils % (A) 0 %; Eosinophils % (A) 1 %; HCT 40.8 % (39.0-53.0); HGB 12.7 gm/dL (13.0-17.5); Hypochromasia Slight; Lymphocytes # (A) 0.4 k/uL (1.0-4.8); Lymphocytes % (A) 7 %; MCH 34.1 pg (25.0-35.0); MCHC 31.1 g/dL (31.0-37.0); MCV 109.5 fL (80.0-100.0); Macrocytosis Marked; Mean Platelet Volume 7.7; Monocytes # (A) 0.1 k/uL (0-1.0); Monocytes % (A) 2 %; Neutrophils # (A) 5.5 k/uL (1.3-7.7); Neutrophils % (A) 90 %; Platelet Count 109 k/uL (150-450); RBC 3.73 m/uL (4.30-5.90); RDW 12.9 % (11.5-15.5); WBC 6.1 k/uL (3.8-10.6)
[2018-08-03 14:11] LABS: Carbon Dioxide 41 mmol/L (22-30)
[2018-08-03 14:12] LABS: Potassium 4.7 mmol/L (3.5-5.1)
[2018-08-03 14:20] LABS: Polychromasia Present; Stomatocytes Present
[2018-08-03 14:29] LABS: Glucose,Whole Blood 144 mg/dL (75-99)
--- NOTE | 2018-08-03 14:30 | P.HPIM ---
History of Present Illness H&P Date: 08/03/18 The patient is a 63-year-old male with a past medical history of COPD, hypertension, and schizophrenia who was brought to the ED under police custody for bizarre behavior at home as reported by the family. As per the documentation, the patient was smearing feces on the blair and was combative towards the family members. The patient was admitted to the mental health unit for psychosis. During the subsequent medical consult, the patient reported shortness of breath and was found to be actively wheezing and in acute exacerbation of COPD. The patient was placed on supplemental oxygen and an ABG was obtained which revealed a pCO2 of 74 with pH 7.38 and HCO3 43 and his mental status began to deteriorate. The patient was subsequently transferred to the selective care unit with an overflow status hold the ICU. He was started on BiPAP with subsequent improvement in his mental status. Review of Systems Pertinent positives and negatives as discussed in HPI, a complete review of systems was performed and all other systems are negative. Past Medical History Past Medical History: COPD, Hypertension, Liver Disease Additional Past Medical History / Comment(s): SonAbraham, states pt is to wear oxygen prn but wears it ATC and has become oxygen dependent, back pain, hepatitis C, drug abuse, sonAbraham, states that pt is "pre" diabetic and has a glucometer which he is suppose to check blood sugars on occasionally but pt does not. History of Any Multi-Drug Resistant Organisms: MRSA Date of last positivie culture/infection: Summer 2017 MDRO Source:: finger-treated at [facility] per son Past Surgical History: Back Surgery Additional Past Surgical History / Comment(s): Pt has rods in his back. Past Anesthesia/Blood Transfusion Reactions: No Reported Reaction Smoking Status: Current every day smoker - Past Family History Father Family Medical History: Cancer Additional Family Medical History / Comment(s): Father had colon and pancreatic cancer and in his late 70s. Mother Family Medical History: Myocardial Infarction (ME) Additional Family Medical History / Comment(s): Mother of a ME in her late 70s. Medications and Allergies Home Medications Medication Instructions Recorded Confirmed Type Benztropine Mesylate 1 mg PO BID 04/27/18 08/03/18 History Cholecalciferol [Vitamin D3] 5,000 unit PO DAILY 04/27/18 08/03/18 History Hydrocodone/Acetaminophen [[place] 1 tab PO DAILY 04/27/18 08/03/18 History 5-325] Lisinopril [Zestril] 10 mg PO DAILY 04/27/18 08/03/18 History Albuterol Inhaler [Ventolin Hfa 1 - 2 puff INHALATION RT-Q6H PRN 08/02/18 History Inhaler] Haloperidol Decanoate [Haldol 50 mg IM Q28D 08/02/18 08/03/18 History Decanoate] Ipratropium/Albuterol Sulfate 1 puff INHALATION RT-QID 08/02/18 08/03/18 History [Combivent Respimat Inhaler] Allergies Allergy/AdvReac Type Severity Reaction Status Date / Time No Known Allergies Allergy Verified 08/03/18 04:13 Physical Exam Vitals: Vital Signs Temp Pulse Resp BP Pulse Ox 08/03/18 13:10 88 L 08/03/18 12:15 97.9 F 86 36 H 136/88 88 L Intake and Output 08/02/18 08/03/18 08/03/18 22:59 06:59 14:59 Output Total 0 Balance 0 Output: Urine 0 Other: Weight 54.3 kg General: [non toxic], in mild respiratory distress, [normal weight] Derm: [no unusual rashes/lesions] [no unusual ecchymoses], [warm], [dry] Head: [atraumatic], [normocephalic], [symmetric] Eyes: [EOMI], [no lid lag], [anicteric sclera], [pupils equal round reactive to light] ENT: [Nose and ears atraumatic], [no thrush], [no pharyngeal erythema] Neck: [No thyromegaly], [no cervical lymphadenopathy], [trachea midline], [ supple] Mouth: [no lip lesion], [mucus membranes moist] Cardiovascular: [S1S2 reg], [no murmur], [positive posterior tibial pulse bilateral], [no edema], [capillary refill less than 2 seconds] Lungs: Decreased air entry [place], expiratory wheezing, [no rhonchi, no rales] , mild accessory muscle use Abdominal: [soft], [nontender to palpation], [no guarding], [no appreciable organomegaly], [normal bowel sounds] Ext: [no gross muscle atrophy], no edema Neuro: [CN II-XI grossly intact], no focal motor or sensory deficits Psych: [Awake], oriented only to self Thrombosis Risk Factor Assmnt - Choose All That Apply Any of the Below Risk Factors Present?: Yes Each Factor Represents 1 point: Serious lung disease incl. 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 -IPCDs -Protonix
--- NOTE | 2018-08-03 15:30 | P.CNPUL ---
History of Present Illness Consult date: 08/03/18 Reason for consult: dyspnea, COPD History of present illness: A 63-year-old male patient who came in initially to the psych [facility] where he was petitioned by family members that the patient was found to be delirious. He is known to have schizophrenia and chronic psychiatric history addition to history of polysubstance abuse. He is known also to have COPD and chronic smoking. Apparently there has been a very complicated home dynamics. The patient is homeless and has been living with his son. Recently the family situation and living situation became so poor and the patient was causing more trouble probably due to his underlying psychiatric history and he was petitioned and he was brought to the psych unit. While in the psych unit, the patient was found to be unresponsive/lethargic. He was having increased shortness of breath and bronchospasm and wheezing. Immediately blood gases was done and showed a pH of 7.38 with a pCO2 of 74 and a pO2 of 76. Based on that, the patient was started on BiPAP therapy and the patient was moved to the intensive care unit. I saw the patient immediately after he dropped to the intensive care unit. The patient was started on a BiPAP at a pressure of 12/6 cm of water with an FiO2 of 40%. He was already doing better. He was a smoker spastic and wheezy. He was able to follow simple commands and answer questions appropriately. Blood work has been all negative. The chest x-ray at time of admission showed stable findings along with some hyperinflation and chronic COPD. The patient does not have any focal neurological deficits. He is moving all 4 extremities without any limitation. No seizure activity. No headaches. No nystagmus. No nausea. No vomiting. No aspiration. No other complaints otherwise. In general he is a poor historian. He admits to smoke even while wearing his oxygen at home. No leg edema. No swelling lower extremities. No angina. No pleurisy. The BiPAP will be briefly discontinued and the patient will be offered some soft diet at this point in time. Review of Systems Constitutional: Reports fatigue, Reports lethargy, Reports weakness Eyes: denies blurred vision, denies bulging eye, denies decreased vision Ears: deny: decreased hearing, ear discharge, earache, tinnitus Ears, nose, mouth and throat: Denies headache, Denies sore throat Cardiovascular: Reports decreased exercise tolerance, Reports dyspnea on exertion, Reports shortness of breath Respiratory: Reports cough, Reports cough with sputum, Reports dyspnea, Reports wheezing Gastrointestinal: Denies abdominal pain, Denies diarrhea, Denies nausea, Denies vomiting Genitourinary: Reports as per HPI Musculoskeletal: Reports as per HPI Musculoskeletal: absent: ankle pain, ankle stiffness, ankle swelling Integumentary: Denies pruritus, Denies rash Neurological: Reports weakness Psychiatric: Reports as per HPI (Disorder, bizarre behavior, history of delusions), Reports irritability Hematologic/Lymphatic: Reports as per HPI Allergic/Immunologic: Reports as per HPI Past Medical History Past Medical History: COPD, Hypertension, Liver Disease Additional Past Medical History / Comment(s): COPD, chronic hypoxic respiratory failure on oxygen 2 L per minute nasal cannula, chronic back pain, hepatitis C, history of IVDA, chronic liver disease, hypertension, diabetes mellitus, chronic anxiety, chronic depression, schizophrenia, history of IVDA, history of polysubstance abuse including LSD, ecstasy, mushrooms, history of paranoia, delusions History of Any Multi-Drug Resistant Organisms: MRSA Date of last positivie culture/infection: Summer 2017 MDRO Source:: finger-treated at [facility] per son Past Surgical History: Back Surgery Additional Past Surgical History / Comment(s): Pt has rods in his back. Past Anesthesia/Blood Transfusion Reactions: No Reported Reaction Smoking Status: Current every day smoker - Past Family History Father Family Medical History: Cancer Additional Family Medical History / Comment(s): Father had colon and pancreatic cancer and in his late 70s. Mother Family Medical History: Myocardial Infarction ([place]) Additional Family Medical History / Comment(s): Mother of a [place] in her late 70s. Medications and Allergies Home Medications Medication Instructions Recorded Confirmed Type Benztropine Mesylate 1 mg PO BID 04/27/18 08/03/18 History Cholecalciferol [Vitamin D3] 5,000 unit PO DAILY 04/27/18 08/03/18 History Hydrocodone/Acetaminophen [[place] 1 tab PO DAILY 04/27/18 08/03/18 History 5-325] Lisinopril [Zestril] 10 mg PO DAILY 04/27/18 08/03/18 History Albuterol Inhaler [Ventolin Hfa 1 - 2 puff INHALATION RT-Q6H PRN 08/02/18 History Inhaler] Haloperidol Decanoate [Haldol 50 mg IM Q28D 08/02/18 08/03/18 History Decanoate] Ipratropium/Albuterol Sulfate 1 puff INHALATION RT-QID 08/02/18 08/03/18 History [Combivent Respimat Inhaler] Allergies Allergy/AdvReac Type Severity Reaction Status Date / Time No Known Allergies Allergy Verified 08/03/18 14:05 Physical Exam Vitals: Vital Signs Temp Pulse Resp BP Pulse Ox 08/03/18 13:10 88 L 08/03/18 12:15 97.9 F 86 36 H 136/88 88 L Intake and Output 08/03/18 08/03/18 08/03/18 06:59 14:59 22:59 Output Total 0 0 Balance 0 0 Output: Urine 0 0 Other: Weight 54.3 kg No active agitation for now. He is less short of breath. Tolerating a full face BiPAP at a pressure of 12/6 cm of water. He is following commands and answering questions appropriately. Head exam was generally normal. There was no scleral icterus or corneal arcus. Mucous membranes were moist. Neck was supple and without jugular venous distension, thyromegaly, or carotid bruits. Carotids were easily palpable bilaterally. There was no adenopathy. Lungs sounds are diminished bilaterally along with few scattered wheezing heard throughout lung sesay. Scattered rhonchi also present. Abdominal exam revealed normal bowel sounds. The abdomen was soft, non-tender, and without masses, organomegaly, or appreciable enlargement of the abdominal aorta. Examination of the extremities revealed easily palpable radial, femoral and pedal pulses. There was no cyanosis, clubbing or edema. Examination of the skin revealed no evidence of significant rashes, suspicious appearing nevi or other concerning lesions. Neurologic the patient is awake and alert and moving all 4 extremities. No focal neurological deficit. Cranial nerves are intact. Psychiatric evaluation was done at the [facility]. Results - Laboratory Findings CBC and BMP: 08/03/18 13:25 08/03/18 13:25 Abnormal lab findings: Abnormal Labs 08/03/18 08/03/18 08/03/18 12:00 13:25 13:25 RBC 3.73 L Hgb 12.7 L MCV 109.5 H Plt Count 109 L Lymphocytes # 0.4 L Chloride 96 L Carbon Dioxide 41 H* BUN 37 H Glucose 110 H POC Glucose (mg/dL) 144 H Alkaline Phosphatase 37 L - Diagnostic Findings Chest x-ray: image reviewed Assessment and Plan Plan: 1 acute COPD exacerbation with impending respiratory failure. The patient was supported with BiPAP therapy 2 diminished level of consciousness, could be related to COPD exacerbation CO2 narcosis, improved while the patient on BiPAP 3 acute hypoxic respiratory failure on top of chronic hypoxic respiratory failure secondary to above. The patient is currently on BiPAP at a pressure of 12/6 cm the fourth of an FiO2 of 40% 4 chronic hypercapnic respiratory failure 5 delirium 6 schizophrenia along with history of anxiety and depression 7 history of polysubstance abuse including history of IVDA, LSD, ecstasy, mushrooms, etc. Unit endoscopy is positive for benzodiazepines and marijuana 8 history of hepatitis C 9 diabetes mellitus 7 hypertension 11 chronic back pain 12 smoker 13 homeless individual Plan We'll continue current treatment to optimize the patient's COPD. We'll put him on DuoNeb nebulized treatments around the clock. We'll put him on IV Solu Medrol 60 mg IV push every 6 hours. At Perforomist and Pulmicort neb last 2 minutes twice a day. Antibiotic coverage with Zithromax 5 mg by mouth daily. Follow-up chest x-ray with the next 24 hours. BiPAP on and off during the day and at nighttime to optimize his COPD. Monitor mental status. Watch for any neurologic deterioration. Watch for any signs of delirium and I will consult with psychiatry regarding any maintenance treatment for his schizophrenia and delirium. I am noted that the patient has been on Haldol IM probably related to drug and compliance. He is also on benztropine and maintenance. DVT and GI prophylaxis. Offered soft diet. Blood sugar monitoring. Insulin for blood sugar control utilizing a sliding scale coverage. We'll continue to follow and keep the patient denies to follow 24 hours for further monitoring. Smoking cessation counseling will be done at the later stage.
[2018-08-03] MEDS: IPRATROPIUM-ALBUTEROL 3 ML NEB INHALATION SCH ×2 (16:00→21:11)
[2018-08-03] MEDS: BENZTROPINE MESYLATE 1 MG TAB PO SCH ×2 (16:38→21:42)
[2018-08-03] MEDS: HEPARIN SODIUM,PORCINE 5,000 UNIT/ML 1 ML VIAL SQ SCH ×2 (16:44→23:12)
[2018-08-03] MEDS: INSULIN ASPART 100 UNIT/ML 1 ML 10 ML VIAL SQ SCH ×2 (17:41→21:42)
[2018-08-03] MEDS: methylPREDNISolone SOD SUCCI 125 MG/2 ML VIAL IV SCH ×2 (17:41→23:11)
[2018-08-03 17:49] LABS: Glucose,Whole Blood 298 mg/dL (75-99)
[2018-08-03 20:36] LABS: Glucose,Whole Blood 256 mg/dL (75-99)
[2018-08-03] MEDS ORDERED: BENZTROPINE MESYLATE 1 MG TAB PO SCH (21:00)
[2018-08-03] MEDS: BUDESONIDE 0.5 MG/2 ML NEBU INHALATION SCH (21:10)
[2018-08-03] MEDS: FORMOTEROL FUMARATE 20 MCG/2 ML NEBU INHALATION SCH (21:11)
[2018-08-03] MEDS: HALOPERIDOL LACTATE 5 MG/ML 1 ML VIAL IVP PRN (21:41)
[2018-08-03] MEDS: NICOTINE 21MG/24HR PATCH TRANSDERM SCH (23:12)
[2018-08-04] MEDS: HALOPERIDOL LACTATE 5 MG/ML 1 ML VIAL IVP PRN ×3 (00:41→20:23)
[2018-08-04] MEDS: ACETAMINOPHEN TAB 325 MG TAB PO PRN ×2 (00:41→09:02)
[2018-08-04 05:37] LABS: HCT 36.7 % (39.0-53.0); HGB 11.5 gm/dL (13.0-17.5); MCH 34.2 pg (25.0-35.0); MCHC 31.4 g/dL (31.0-37.0); MCV 109.1 fL (80.0-100.0); Macrocytosis Moderate; Mean Platelet Volume 7.7; RBC 3.36 m/uL (4.30-5.90); RDW 13.2 % (11.5-15.5); WBC 7.4 k/uL (3.8-10.6)
[2018-08-04 05:53] LABS: ALT 27 U/L (21-72); AST 17 U/L (17-59); Albumin 3.8 g/dL (3.5-5.0); Alkaline Phosphatase 41 U/L (38-126); Anion Gap 4 mmol/L; Blood Urea Nitrogen 31 mg/dL (9-20); Calcium 9.3 mg/dL (8.4-10.2); Carbon Dioxide 34 mmol/L (22-30); Chloride 97 mmol/L (98-107); Glucose 191 mg/dL (74-99); Potassium 4.1 mmol/L (3.5-5.1); Sodium 135 mmol/L (137-145); Total Bilirubin 0.5 mg/dL (0.2-1.3)
[2018-08-04 06:12] LABS: Platelet Count 85 k/uL (150-450)
[2018-08-04 07:18] LABS: Glucose,Whole Blood 188 mg/dL (75-99)
[2018-08-04] MEDS: methylPREDNISolone SOD SUCCI 125 MG/2 ML VIAL IV SCH ×3 (07:26→16:52)
[2018-08-04] MEDS: INSULIN ASPART 100 UNIT/ML 1 ML 10 ML VIAL SQ SCH ×4 (07:27→20:23)
[2018-08-04] MEDS: FORMOTEROL FUMARATE 20 MCG/2 ML NEBU INHALATION SCH ×2 (07:55→20:01)
[2018-08-04] MEDS: BUDESONIDE 0.5 MG/2 ML NEBU INHALATION SCH ×2 (07:55→20:01)
[2018-08-04] MEDS: IPRATROPIUM-ALBUTEROL 3 ML NEB INHALATION SCH ×4 (07:55→20:01)
--- NOTE | 2018-08-04 08:18 | XR ---
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 Multiple lines and tubes project over the left hemithorax and oxygen mask projects over the left apex. Hyperinflation with rel ative upper lung lucencies. No rolando consolidation or pleural effusion seen. Overall heart size withi n normal limits. Impression: Limited, rotated exam with multiple lines and tubes and facemask. No definite acute process.
[2018-08-04] MEDS: NICOTINE 21MG/24HR PATCH TRANSDERM SCH (08:46)
[2018-08-04] MEDS: PANTOPRAZOLE 40 MG TABLET PO SCH (08:46)
[2018-08-04] MEDS: BENZTROPINE MESYLATE 1 MG TAB PO SCH ×2 (08:46→20:23)
[2018-08-04] MEDS: HEPARIN SODIUM,PORCINE 5,000 UNIT/ML 1 ML VIAL SQ SCH ×2 (08:46→16:53)
[2018-08-04 11:45] LABS: ABG Base Excess 15.7 mmol/L; ABG HCO3 39 mmol/L (21-25); ABG Oxygen Saturation 88.1 % (94-97); ABG PCO2 51 mmHg (35-45); ABG PH 7.49 (7.35-7.45); ABG TCO2 41 mmol/L (19-24)
[2018-08-04 11:48] LABS: ABG PO2 50 mmHg (83-108)
[2018-08-04] MEDS: HYDROcodone/APAP 10-325MG 1 EACH TAB PO PRN ×2 (12:28→18:38)
[2018-08-04 12:29] LABS: Glucose,Whole Blood 203 mg/dL (75-99)
--- NOTE | 2018-08-04 13:12 | P.CN ---
Psychiatric Consult - . Consult date: 08/04/18 Consult:: 08/04/18 09:42 Acute psychosis Assessment and Plan Assessment: Assessment and Plan Assessment: This a 63-year-old male with past medical history of COPD, schizophrenia presents emergency from with police and EMS for change in behavior. Patient reportedly was not acting appropriate home, was smearing feces on the blair, and I even with family. Patient noted to have feces on himself upon arrival. Patient does complain of left ankle pain, shortness of breath. He does have a history of COPD and is, short of breath. Denies any chest pain, fever, chills, URI symptoms. Patient denies any homicidal or suicidal ideation at this time. Denies any illicit drug use no alcohol abuse. - Related Data Home Medications Medication Instructions Recorded Confirmed Benztropine Mesylate 1 mg PO BID 04/27/18 08/02/18 Cholecalciferol [Vitamin D3] 5,000 unit PO DAILY 04/27/18 08/02/18 Hydrocodone/Acetaminophen [[place] 1 tab PO DAILY 04/27/18 08/02/18 5-325] Lisinopril [Zestril] 10 mg PO DAILY 04/27/18 08/02/18 Albuterol Inhaler [Ventolin Hfa 1 - 2 puff INHALATION RT-Q6H PRN 08/02/18 Inhaler] Haloperidol Decanoate [Haldol 50 mg IM Q28D 08/02/18 08/02/18 Decanoate] Ipratropium/Albuterol Sulfate 1 puff INHALATION RT-QID 08/02/18 08/02/18 [Combivent Respimat Inhaler] Allergies Allergy/AdvReac Type Severity Reaction Status Date / Time No Known Allergies Allergy Verified 08/02/18 23:28 Past Medical History Past Medical History: Hypertension History of Any Multi-Drug Resistant Organisms: None Reported Past Surgical History: Back Surgery Past Psychological History: Anxiety Smoking Status: Current every day smoker Past Alcohol Use History: Occasional Past Drug Use History: Marijuana Musculoskeletal Examination - Abnormal/Involuntary Movements: [none Strength: [greater than antigravity (greater than/equal to 3/5) in all extremities, weakness:] Muscle Tone: [no impairment Gait: [ limping, in wheelchair, wide-based] Station: [ unsteady, in wheelchair] Mental Status Examination - General Appearance: [disheveled, casual, bizarre, appears older than stated age , Speech/Language: [slow, slurred, soft, other] Attitude/Behavior: [cooperative, guarded, irritable, withdrawn, indifferent Mood: [ depressed, anxious, irritable, angry, fearful, hopelessness, other] Affect: [full range, lively, flat, incongruent, blunted constricted] Orientation: [Not time, person, place situation] Thought Content: [wnl, denies delusions, obsessions, phobias, other] Risk Factors: [suicidal (ideations, plan), and/or Homicidal (ideations, plan), other] Perception: [ hallucinations (auditory Thought Processes: [ concrete, circumstantial, tangential,] Concentration/Attention Span: impaired] [Per observation and interview with the patient] Recent Memory: [impaired] [0, 1, 2 or 3 out of 3 in 3 minutes] Remote Memory: impaired] [past events, as related history] Intelligence: [below average [based on history, based on vocabulary, syntax, grammar, and content] Judgement: [ poor] [per patient's behavior/history of present illness] Insight: [poor] [understanding severity of illness/history of present illness] Psychiatric Diagnosis: [Acute psychosis] When he is medically stable and transferred back to the psychiatric unit since she's been ordered for treatment Thank you for the consult Ming Gonzalez DO PhD Time with Patient: Less than 30
[2018-08-04 16:20] LABS: Glucose,Whole Blood 178 mg/dL (75-99)
--- NOTE | 2018-08-04 16:51 | P.PN ---
Subjective Progress Note Date: 08/04/18 The patient was seen and examined at the bedside. He was compliant with BiPap overnight. He c/o chronic 8/10 LBP and noted that his shortness of breath is significantly improved from yesterday. He denied fever, chills, abdominal pain, nausea, vomiting, chest pain, palpitations or dizziness. Objective - Vital Signs Vital signs: Vital Signs Temp 98.6 F 08/04/18 07:00 Pulse 90 08/04/18 16:15 Resp 20 08/04/18 16:15 BP 127/76 08/04/18 07:00 Pulse Ox 90 L 08/03/18 21:33 Intake & Output 08/03/18 08/04/18 08/04/18 18:59 06:59 18:59 Intake Total 700 450 600 Output Total 1300 0 Balance -600 450 600 Weight 54.3 kg 55.4 kg Intake: Oral 700 450 600 Output: Urine 1300 0 Other: # Voids 1 - Exam General: Non-toxic, in no acute distress, appears stated age HEENT: NC/AT, anicteric sclerae, moist conjunctiva, no lid-lag, PERRLA Cardiovascular: S1/S2 wnl, no murmurs, rubs, or gallops Lungs: Mild wheezing diffusely, no rhonchi or rales appreciated, normal respiratory effort, no accessory muscle use Abdominal: Soft, nontender, non-distended, no guarding, rebound, or rigidity Skin: Warm, dry Extremities: No edema or contractures Psychiatric: Alert and oriented to person, place and time, appropriate affect, Intact judgment Neuro: CN II-XII grossly intact, Strength 5/5 in all 4 extremities, Speech intact, Sensation to light touch grossly intact throughout - Labs CBC & Chem 7: 08/04/18 05:11 08/04/18 05:11 Labs: Abnormal Lab Results - Last 24 Hours (Table) 08/03/18 08/03/18 08/04/18 Range/Units 17:38 20:23 05:11 RBC 3.36 L (4.30-5.90) m/uL Hgb 11.5 L (13.0-17.5) gm/dL Hct 36.7 L (39.0-53.0) % MCV 109.1 H (80.0-100.0) fL Plt Count 85 L (150-450) k/uL ABG pH (7.35-7.45) ABG pCO2 (35-45) mmHg ABG pO2 (83-108) mmHg ABG HCO3 (21-25) mmol/L ABG Total CO2 (19-24) mmol/L ABG O2 Saturation (94-97) % Sodium (137-145) mmol/L Chloride (98-107) mmol/L Carbon Dioxide (22-30) mmol/L BUN (9-20) mg/dL Creatinine (0.66-1.25) mg/dL Glucose (74-99) mg/dL POC Glucose (mg/dL) 298 H 256 H (75-99) mg/dL Total Protein (6.3-8.2) g/dL 08/04/18 08/04/18 08/04/18 Range/Units 05:11 07:06 11:34 RBC (4.30-5.90) m/uL Hgb (13.0-17.5) gm/dL Hct (39.0-53.0) % MCV (80.0-100.0) fL Plt Count (150-450) k/uL ABG pH 7.49 H (7.35-7.45) ABG pCO2 51 H (35-45) mmHg ABG pO2 50 L* (83-108) mmHg ABG HCO3 39 H (21-25) mmol/L ABG Total CO2 41 H (19-24) mmol/L ABG O2 Saturation 88.1 L (94-97) % Sodium 135 L (137-145) mmol/L Chloride 97 L (98-107) mmol/L Carbon Dioxide 34 H (22-30) mmol/L BUN 31 H (9-20) mg/dL Creatinine 0.60 L (0.66-1.25) mg/dL Glucose 191 H (74-99) mg/dL POC Glucose (mg/dL) 188 H (75-99) mg/dL Total Protein 6.0 L (6.3-8.2) g/dL 08/04/18 08/04/18 Range/Units 12:17 16:08 RBC (4.30-5.90) m/uL Hgb (13.0-17.5) gm/dL Hct (39.0-53.0) % MCV (80.0-100.0) fL Plt Count (150-450) k/uL ABG pH (7.35-7.45) ABG pCO2 (35-45) mmHg ABG pO2 (83-108) mmHg ABG HCO3 (21-25) mmol/L ABG Total CO2 (19-24) mmol/L ABG O2 Saturation (94-97) % Sodium (137-145) mmol/L Chloride (98-107) mmol/L Carbon Dioxide (22-30) mmol/L BUN (9-20) mg/dL Creatinine (0.66-1.25) mg/dL Glucose (74-99) mg/dL POC Glucose (mg/dL) 203 H 178 H (75-99) mg/dL Total Protein (6.3-8.2) g/dL Assessment and Plan Plan: Acute hypercapnic respiratory failure, secondary to COPD -Pulmonary consulted, recs appreciated -C/w Duonebs and Solumedrol 60 mg q6h -C/w BiPap for now Delirium, likely secondary to CO2 narcosis -Significantly improved -PCO2 improved on ABG Psychosis -Patient has history of erratic/violent behavior -Haldol prn -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 -IPCDs -Protonix
--- NOTE | 2018-08-04 16:56 | P.PN ---
Subjective Progress Note Date: 08/04/18 On today's evaluation of 08/04/2018, the patient seems to be less short of breath compared to yesterday. His spent the entire night yesterday on the BiPAP at a pressure of 12/6 cm of water and FiO2 of 40%. This morning I was able to take him off the BiPAP. Last bronchus spastic and less wheezy compared to yesterday. He has a congested cough. Unable to bring up any sputum. No chest pain. No pleurisy. He is awake and alert and is following commands and answering questions appropriately. The chest x-ray from today shows no acute abnormalities and there is no consolidation or airspace disease at this point in time. No altered mentation. No nausea. No vomiting. No abdominal pain. No palpitation. The patient remains on a combination of DuoNeb nebulized treatments around the clock, a combination of Perforomist and Pulmicort neb last 2 minutes twice a day, IV Solu-Medrol. The patient is on no antibiotics for now. No other significant events overnight. The patient has schizophrenia. The patient was seen by psychiatry today. The plan is to take this patient once stable back to the psychiatry unit. Objective - Vital Signs Vital signs: Vital Signs Temp 98.6 F 08/04/18 07:00 Pulse 90 08/04/18 16:15 Resp 20 08/04/18 16:15 BP 127/76 08/04/18 07:00 Pulse Ox 90 L 08/03/18 21:33 Intake & Output 08/03/18 08/04/18 08/04/18 18:59 06:59 18:59 Intake Total 700 450 600 Output Total 1300 0 Balance -600 450 600 Weight 54.3 kg 55.4 kg Intake: Oral 700 450 600 Output: Urine 1300 0 Other: # Voids 1 - Exam Calm and comfortable and there is no evidence of any acute respiratory distress and the patient is not using excessive muscle breathing. The patient is resting comfortably and he is able to speak of. This is. Head exam was generally normal. There was no scleral icterus or corneal arcus. Mucous membranes were moist. Neck was supple and without jugular venous distension, thyromegaly, or carotid bruits. Carotids were easily palpable bilaterally. There was no adenopathy. Lungs sounds are diminished bilaterally along with few scattered wheezing heard throughout lung sesay. Scattered rhonchi also present. Abdominal exam revealed normal bowel sounds. The abdomen was soft, non-tender, and without masses, organomegaly, or appreciable enlargement of the abdominal aorta. Examination of the extremities revealed easily palpable radial, femoral and pedal pulses. There was no cyanosis, clubbing or edema. Examination of the skin revealed no evidence of significant rashes, suspicious appearing nevi or other concerning lesions. Neurologic the patient is awake and alert and moving all 4 extremities. No focal neurological deficit. Cranial nerves are intact. Psychiatric evaluation was done at the [facility]. - Labs CBC & Chem 7: 08/04/18 05:11 08/04/18 05:11 Labs: Abnormal Lab Results - Last 24 Hours (Table) 08/03/18 08/03/18 08/04/18 Range/Units 17:38 20:23 05:11 RBC 3.36 L (4.30-5.90) m/uL Hgb 11.5 L (13.0-17.5) gm/dL Hct 36.7 L (39.0-53.0) % MCV 109.1 H (80.0-100.0) fL Plt Count 85 L (150-450) k/uL ABG pH (7.35-7.45) ABG pCO2 (35-45) mmHg ABG pO2 (83-108) mmHg ABG HCO3 (21-25) mmol/L ABG Total CO2 (19-24) mmol/L ABG O2 Saturation (94-97) % Sodium (137-145) mmol/L Chloride (98-107) mmol/L Carbon Dioxide (22-30) mmol/L BUN (9-20) mg/dL Creatinine (0.66-1.25) mg/dL Glucose (74-99) mg/dL POC Glucose (mg/dL) 298 H 256 H (75-99) mg/dL Total Protein (6.3-8.2) g/dL 08/04/18 08/04/18 08/04/18 Range/Units 05:11 07:06 11:34 RBC (4.30-5.90) m/uL Hgb (13.0-17.5) gm/dL Hct (39.0-53.0) % MCV (80.0-100.0) fL Plt Count (150-450) k/uL ABG pH 7.49 H (7.35-7.45) ABG pCO2 51 H (35-45) mmHg ABG pO2 50 L* (83-108) mmHg ABG HCO3 39 H (21-25) mmol/L ABG Total CO2 41 H (19-24) mmol/L ABG O2 Saturation 88.1 L (94-97) % Sodium 135 L (137-145) mmol/L Chloride 97 L (98-107) mmol/L Carbon Dioxide 34 H (22-30) mmol/L BUN 31 H (9-20) mg/dL Creatinine 0.60 L (0.66-1.25) mg/dL Glucose 191 H (74-99) mg/dL POC Glucose (mg/dL) 188 H (75-99) mg/dL Total Protein 6.0 L (6.3-8.2) g/dL 08/04/18 08/04/18 Range/Units 12:17 16:08 RBC (4.30-5.90) m/uL Hgb (13.0-17.5) gm/dL Hct (39.0-53.0) % MCV (80.0-100.0) fL Plt Count (150-450) k/uL ABG pH (7.35-7.45) ABG pCO2 (35-45) mmHg ABG pO2 (83-108) mmHg ABG HCO3 (21-25) mmol/L ABG Total CO2 (19-24) mmol/L ABG O2 Saturation (94-97) % Sodium (137-145) mmol/L Chloride (98-107) mmol/L Carbon Dioxide (22-30) mmol/L BUN (9-20) mg/dL Creatinine (0.66-1.25) mg/dL Glucose (74-99) mg/dL POC Glucose (mg/dL) 203 H 178 H (75-99) mg/dL Total Protein (6.3-8.2) g/dL Assessment and Plan Plan: 1 acute COPD exacerbation with impending respiratory failure. The patient was supported with BiPAP therapy and this morning the patient was taken off the BiPAP. He is improving and is less short of breath compared to yesterday and the patient is currently on 4 L of oxygen by nasal cannula to maintain a saturation above 90%. 2 diminished level of consciousness, could be related to COPD exacerbation CO2 narcosis, improved while the patient on BiPAP, and the patient's mentation is back to his baseline at this point in time. 3 acute hypoxic respiratory failure on top of chronic hypoxic respiratory failure secondary to above. 4 chronic hypercapnic respiratory failure 5 delirium 6 schizophrenia along with history of anxiety and depression 7 history of polysubstance abuse including history of IVDA, LSD, ecstasy, mushrooms, etc. Unit endoscopy is positive for benzodiazepines and marijuana 8 history of hepatitis C 9 diabetes mellitus 7 hypertension 11 chronic back pain 12 smoker 13 homeless individual Plan Discontinue BiPAP this morning. Proceed with breakfast. Proceed with oral intake. Continue bronchodilators and systemic steroids. We'll monitor him in the intensive care unit for another 24 hours. He is back on his Cogentin and his taken Haldol on an as-needed basis. Smoking cessation counseling was done and the patient is on nicotine patch. Ultimately plan is to take this patient back to psychiatry unit once his pulmonary status is further stabilized.
[2018-08-04 20:16] LABS: Glucose,Whole Blood 141 mg/dL (75-99)
[2018-08-05] MEDS: methylPREDNISolone SOD SUCCI 125 MG/2 ML VIAL IV SCH ×4 (00:35→17:37)
[2018-08-05] MEDS: HEPARIN SODIUM,PORCINE 5,000 UNIT/ML 1 ML VIAL SQ SCH ×3 (00:35→14:38)
[2018-08-05] MEDS: HYDROcodone/APAP 10-325MG 1 EACH TAB PO PRN ×4 (00:36→20:15)
[2018-08-05 05:07] LABS: HCT 36.1 % (39.0-53.0); HGB 11.5 gm/dL (13.0-17.5); MCH 33.9 pg (25.0-35.0); MCHC 31.9 g/dL (31.0-37.0); MCV 106.3 fL (80.0-100.0); Macrocytosis Moderate; Mean Platelet Volume 7.9; RBC 3.39 m/uL (4.30-5.90); RDW 13.4 % (11.5-15.5)
[2018-08-05 05:09] LABS: Platelet Count 91 k/uL (150-450)
[2018-08-05 05:28] LABS: Glucose 181 mg/dL (74-99); Total Protein 5.8 g/dL (6.3-8.2)
[2018-08-05 05:29] LABS: ALT 29 U/L (21-72); AST 19 U/L (17-59); Albumin 3.7 g/dL (3.5-5.0); Alkaline Phosphatase 38 U/L (38-126); Anion Gap 4 mmol/L; Blood Urea Nitrogen 32 mg/dL (9-20); Calcium 9.1 mg/dL (8.4-10.2); Carbon Dioxide 35 mmol/L (22-30); Chloride 93 mmol/L (98-107); Sodium 132 mmol/L (137-145); Total Bilirubin 0.5 mg/dL (0.2-1.3)
[2018-08-05 06:57] LABS: Glucose,Whole Blood 179 mg/dL (75-99)
[2018-08-05] MEDS: INSULIN ASPART 100 UNIT/ML 1 ML 10 ML VIAL SQ SCH ×4 (07:05→21:58)
[2018-08-05] MEDS: BUDESONIDE 0.5 MG/2 ML NEBU INHALATION SCH ×2 (07:27→21:07)
[2018-08-05] MEDS: FORMOTEROL FUMARATE 20 MCG/2 ML NEBU INHALATION SCH ×2 (07:28→21:06)
[2018-08-05] MEDS: IPRATROPIUM-ALBUTEROL 3 ML NEB INHALATION SCH ×4 (07:28→21:06)
[2018-08-05] MEDS: NICOTINE 21MG/24HR PATCH TRANSDERM SCH (07:43)
[2018-08-05] MEDS: PANTOPRAZOLE 40 MG TABLET PO SCH (07:45)
[2018-08-05] MEDS: BENZTROPINE MESYLATE 1 MG TAB PO SCH ×2 (07:45→17:39)
--- NOTE | 2018-08-05 08:13 | XR ---
EXAMINATION TYPE: XR chest 1V portable DATE OF EXAM: 08/05/2018 COMPARISON: 08/04/2018 HISTORY: Shortness of breath TECHNIQUE: Frontal and lateral views of the chest are obtained. FINDINGS: Scattered senescent parenchymal changes noted. Hyperinflation compatible with COPD. No evidence for infiltrate. No evidence for atelectasis. Heart size is stable. Mediastinal structures are stable and grossly unremarkable. No evidence for hilar prominence. Degenerative changes dorsal spine. IMPRESSION: 1. No evidence for acute pulmonary disease.
--- NOTE | 2018-08-05 09:52 | P.PN ---
Subjective Progress Note Date: 08/05/18 Patient was seen and examined at the bedside in the ICU. He was on BiPAP overnight and has been off it during the daytime. He notes that his breathing has improved significantly and he was free of any active complaints. He denied chest pain, nausea, vomiting, fever, chills, diarrhea, or abdominal pain. He did endorse continued chronic lower back pain. Objective - Vital Signs Vital signs: Vital Signs Temp 98.6 F 08/04/18 07:00 Pulse 86 08/05/18 08:14 Resp 20 08/05/18 08:00 BP 127/76 08/04/18 07:00 Pulse Ox 94 L 08/05/18 07:29 Intake & Output 08/04/18 08/05/18 08/05/18 18:59 06:59 18:59 Intake Total 1700 210 400 Output Total 900 0 0 Balance 800 210 400 Weight 55.7 kg Intake: Oral 1700 210 400 Output: Urine 900 0 0 Other: # Voids 0 1 - Exam General: Non-toxic, in no acute distress, appears stated age HEENT: NC/AT, anicteric sclerae, moist conjunctiva, no lid-lag, PERRLA Cardiovascular: S1/S2 wnl, no murmurs, rubs, or gallops Lungs: Mild wheezing diffusely, no rhonchi or rales appreciated, normal respiratory effort, no accessory muscle use Abdominal: Soft, nontender, non-distended, no guarding, rebound, or rigidity Skin: Warm, dry Extremities: No edema or contractures Psychiatric: Alert and oriented to person, place and time, appropriate affect, Intact judgment Neuro: CN II-XII grossly intact, Strength 5/5 in all 4 extremities, Speech intact, Sensation to light touch grossly intact throughout - Labs CBC & Chem 7: 08/05/18 04:53 08/05/18 04:53 Labs: Abnormal Lab Results - Last 24 Hours (Table) 08/04/18 08/04/18 08/04/18 Range/Units 11:34 12:17 16:08 RBC (4.30-5.90) m/uL Hgb (13.0-17.5) gm/dL Hct (39.0-53.0) % MCV (80.0-100.0) fL Plt Count (150-450) k/uL ABG pH 7.49 H (7.35-7.45) ABG pCO2 51 H (35-45) mmHg ABG pO2 50 L* (83-108) mmHg ABG HCO3 39 H (21-25) mmol/L ABG Total CO2 41 H (19-24) mmol/L ABG O2 Saturation 88.1 L (94-97) % Sodium (137-145) mmol/L Chloride (98-107) mmol/L Carbon Dioxide (22-30) mmol/L BUN (9-20) mg/dL Creatinine (0.66-1.25) mg/dL Glucose (74-99) mg/dL POC Glucose (mg/dL) 203 H 178 H (75-99) mg/dL Total Protein (6.3-8.2) g/dL 08/04/18 08/05/18 08/05/18 Range/Units 20:05 04:53 04:53 RBC 3.39 L (4.30-5.90) m/uL Hgb 11.5 L (13.0-17.5) gm/dL Hct 36.1 L (39.0-53.0) % MCV 106.3 H (80.0-100.0) fL Plt Count 91 L (150-450) k/uL ABG pH (7.35-7.45) ABG pCO2 (35-45) mmHg ABG pO2 (83-108) mmHg ABG HCO3 (21-25) mmol/L ABG Total CO2 (19-24) mmol/L ABG O2 Saturation (94-97) % Sodium 132 L (137-145) mmol/L Chloride 93 L (98-107) mmol/L Carbon Dioxide 35 H (22-30) mmol/L BUN 32 H (9-20) mg/dL Creatinine 0.63 L (0.66-1.25) mg/dL Glucose 181 H (74-99) mg/dL POC Glucose (mg/dL) 141 H (75-99) mg/dL Total Protein 5.8 L (6.3-8.2) g/dL 08/05/18 Range/Units 06:46 RBC (4.30-5.90) m/uL Hgb (13.0-17.5) gm/dL Hct (39.0-53.0) % MCV (80.0-100.0) fL Plt Count (150-450) k/uL ABG pH (7.35-7.45) ABG pCO2 (35-45) mmHg ABG pO2 (83-108) mmHg ABG HCO3 (21-25) mmol/L ABG Total CO2 (19-24) mmol/L ABG O2 Saturation (94-97) % Sodium (137-145) mmol/L Chloride (98-107) mmol/L Carbon Dioxide (22-30) mmol/L BUN (9-20) mg/dL Creatinine (0.66-1.25) mg/dL Glucose (74-99) mg/dL POC Glucose (mg/dL) 179 H (75-99) mg/dL Total Protein (6.3-8.2) g/dL Assessment and Plan Plan: Acute COPD exacerbation -Pulmonary recs appreciated -C/w Duonebs and Solumedrol 60 mg q6h -DC BiPAP Delirium, likely secondary to CO2 narcosis -Significantly improved -PCO2 improved on ABG Psychosis -Patient has history of erratic/violent behavior -Haldol prn -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 -IPCDs -Protonix
[2018-08-05 11:49] LABS: Glucose,Whole Blood 213 mg/dL (75-99)
--- NOTE | 2018-08-05 13:55 | P.PN ---
Subjective Progress Note Date: 08/05/18 On today's evaluation of 08/05/2018, the patient is doing much better. Awake and alert following commands and answering questions. Overnight, he wore his BiPAP again in this morning he is off the BiPAP at 42 x 2 by nasal cannula. Remains on DuoNeb, IV Solu-Medrol and a combination of Perforomist and Pulmicort nebulized treatments. There is a sitter at the bedside. The patient was seen by psychiatry and the plan is ultimately to switch her back to psych unit once his condition from the COPD standpoint is improved. No chest pain. No cough or sputum production. No hemoptysis or pleurisy. No nausea or vomiting. No altered mentation. He is following commands and answering questions appropriately, there has been no other significant events overnight. Objective - Vital Signs Vital signs: Vital Signs Temp 98.6 F 08/04/18 07:00 Pulse 88 08/05/18 11:20 Resp 20 08/05/18 08:00 BP 127/76 08/04/18 07:00 Pulse Ox 94 L 08/05/18 07:29 Intake & Output 08/04/18 08/05/18 08/05/18 18:59 06:59 18:59 Intake Total 1700 210 600 Output Total 900 0 0 Balance 800 210 600 Weight 55.7 kg Intake: Oral 1700 210 600 Output: Urine 900 0 0 Other: Voiding Method Toilet Urinal # Voids 0 1 - Exam Calm and comfortable and there is no evidence of any acute respiratory distress and the patient is not using excessive muscle breathing. Head exam was generally normal. There was no scleral icterus or corneal arcus. Mucous membranes were moist. Neck was supple and without jugular venous distension, thyromegaly, or carotid bruits. Carotids were easily palpable bilaterally. There was no adenopathy. Lungs sounds are diminished bilaterally along with few scattered wheezing heard throughout lung sesay. Scattered rhonchi also present. Abdominal exam revealed normal bowel sounds. The abdomen was soft, non-tender, and without masses, organomegaly, or appreciable enlargement of the abdominal aorta. Examination of the extremities revealed easily palpable radial, femoral and pedal pulses. There was no cyanosis, clubbing or edema. Examination of the skin revealed no evidence of significant rashes, suspicious appearing nevi or other concerning lesions. Neurologic the patient is awake and alert and moving all 4 extremities. No focal neurological deficit. Cranial nerves are intact. Psychiatric evaluation was done at the [facility]. - Labs CBC & Chem 7: 08/05/18 04:53 08/05/18 04:53 Labs: Abnormal Lab Results - Last 24 Hours (Table) 08/04/18 08/04/18 08/05/18 Range/Units 16:08 20:05 04:53 RBC 3.39 L (4.30-5.90) m/uL Hgb 11.5 L (13.0-17.5) gm/dL Hct 36.1 L (39.0-53.0) % MCV 106.3 H (80.0-100.0) fL Plt Count 91 L (150-450) k/uL Sodium (137-145) mmol/L Chloride (98-107) mmol/L Carbon Dioxide (22-30) mmol/L BUN (9-20) mg/dL Creatinine (0.66-1.25) mg/dL Glucose (74-99) mg/dL POC Glucose (mg/dL) 178 H 141 H (75-99) mg/dL Total Protein (6.3-8.2) g/dL 08/05/18 08/05/18 08/05/18 Range/Units 04:53 06:46 11:36 RBC (4.30-5.90) m/uL Hgb (13.0-17.5) gm/dL Hct (39.0-53.0) % MCV (80.0-100.0) fL Plt Count (150-450) k/uL Sodium 132 L (137-145) mmol/L Chloride 93 L (98-107) mmol/L Carbon Dioxide 35 H (22-30) mmol/L BUN 32 H (9-20) mg/dL Creatinine 0.63 L (0.66-1.25) mg/dL Glucose 181 H (74-99) mg/dL POC Glucose (mg/dL) 179 H 213 H (75-99) mg/dL Total Protein 5.8 L (6.3-8.2) g/dL Assessment and Plan Plan: 1 acute COPD exacerbation with impending respiratory failure. The patient was treated with a combination of bronchodilators steroids and BiPAP therapy/ noninvasive positive pressure ventilation patient is improved. Mental status back to his baseline. No significant respiratory distress on today's evaluation. Chest x-ray is not showing any acute abnormalities. 2 diminished level of consciousness, could be related to COPD exacerbation CO2 narcosis, improved 3 acute hypoxic respiratory failure on top of chronic hypoxic respiratory failure secondary to above. 4 chronic hypercapnic respiratory failure 5 delirium 6 schizophrenia along with history of anxiety and depression 7 history of polysubstance abuse including history of IVDA, LSD, ecstasy, mushrooms, etc. Unit endoscopy is positive for benzodiazepines and marijuana 8 history of hepatitis C 9 diabetes mellitus 7 hypertension 11 chronic back pain 12 smoker 13 homeless individual Plan Continue the current treatment and switch this patient to prednisone burst taper over the next 24 hours. Continue DuoNeb nebulized treatments around the clock. Continue Pulmicort and Perforomist overestimates twice a day. We'll transfer this patient to a medical floor and with a 24 hour sitter and ultimately will go to psych unit probably by tomorrow. We'll continue to follow. Advance diet. May be able to do limited activity and in the bedroom and walking. We'll continue to follow.
[2018-08-05 17:17] LABS: Glucose,Whole Blood 268 mg/dL (75-99)
[2018-08-05] MEDS: HALOPERIDOL LACTATE 5 MG/ML 1 ML VIAL IVP PRN (17:36)
[2018-08-05 21:30] LABS: Glucose,Whole Blood 196 mg/dL (75-99)
[2018-08-06] MEDS: methylPREDNISolone SOD SUCCI 125 MG/2 ML VIAL IV SCH ×2 (06:04)
[2018-08-06] MEDS: HYDROcodone/APAP 10-325MG 1 EACH TAB PO PRN ×2 (06:38→21:36)
[2018-08-06 06:58] LABS: Glucose,Whole Blood 304 mg/dL (75-99)
[2018-08-06] MEDS: FORMOTEROL FUMARATE 20 MCG/2 ML NEBU INHALATION SCH ×3 (09:15→18:54)
[2018-08-06] MEDS: BUDESONIDE 0.5 MG/2 ML NEBU INHALATION SCH ×3 (09:15→18:54)
[2018-08-06] MEDS: IPRATROPIUM-ALBUTEROL 3 ML NEB INHALATION SCH ×5 (09:15→18:54)
[2018-08-06 09:30] LABS: HCT 34.6 % (39.0-53.0); HGB 11.1 gm/dL (13.0-17.5); MCH 34.6 pg (25.0-35.0); MCHC 32.1 g/dL (31.0-37.0); MCV 107.7 fL (80.0-100.0); Macrocytosis Moderate; RBC 3.21 m/uL (4.30-5.90); RDW 13.2 % (11.5-15.5); WBC 5.4 k/uL (3.8-10.6)
[2018-08-06] MEDS: PANTOPRAZOLE 40 MG TABLET PO SCH (09:36)
[2018-08-06] MEDS: INSULIN ASPART 100 UNIT/ML 1 ML 10 ML VIAL SQ SCH ×4 (09:36→21:26)
[2018-08-06] MEDS: HEPARIN SODIUM,PORCINE 5,000 UNIT/ML 1 ML VIAL SQ SCH ×3 (09:36→17:00)
[2018-08-06] MEDS: NICOTINE 21MG/24HR PATCH TRANSDERM SCH (09:36)
[2018-08-06] MEDS: predniSONE 50 MG TAB PO SCH (09:36)
[2018-08-06 09:42] LABS: ALT 37 U/L (21-72); AST 24 U/L (17-59); Albumin 3.3 g/dL (3.5-5.0); Alkaline Phosphatase 39 U/L (38-126); Anion Gap 4 mmol/L; Blood Urea Nitrogen 29 mg/dL (9-20); Calcium 8.9 mg/dL (8.4-10.2); Carbon Dioxide 35 mmol/L (22-30); Chloride 94 mmol/L (98-107); Glucose 233 mg/dL (74-99); Platelet Count 83 k/uL (150-450); Potassium 4.5 mmol/L (3.5-5.1); Sodium 133 mmol/L (137-145); Total Bilirubin 0.5 mg/dL (0.2-1.3); Total Protein 5.2 g/dL (6.3-8.2)
[2018-08-06] MEDS: BENZTROPINE MESYLATE 1 MG TAB PO SCH ×2 (11:37→21:36)
[2018-08-06 12:17] LABS: Glucose,Whole Blood 73 mg/dL (75-99)
--- NOTE | 2018-08-06 15:04 | P.PN ---
Subjective Progress Note Date: 08/06/18 The patient is a 63 yo M with a PMH of COPD (on home oxygen 2 L NC), HTN, and schizophrenia was brought in the ED in police custody for reported bizarre and aggressive behavior at home. The patient lived at his son's home and allegedly had defecated on the floor and proceeded to smear them, at which time his son confronted him and called EMS. The patient was initially admitted to the psych inpatient unit for psychosis. During a medical consult, the patient reported shortness of breath and was found to be actively wheezing and in acute exacerbation of COPD. The patient was placed on supplemental oxygen and an ABG was obtained which revealed a pCO2 of 74 with pH 7.38 and HCO3 43 and his mental status began to deteriorate. The patient was subsequently transferred to the selective care unit with an overflow status hold the ICU. The patient was placed on BiPap with IV steroids and bronchodilators. The hypercapnia along with the patient's mental status gradually improved. He was subsequently downgraded to the Med/Surg unit. The patient was seen and examined at the bedside. He was in good spirits and denied any active complaints. He notes that his breathing has returned to baseline and he has been ambulating to the bathroom with some assistance. He denied chest pain, fever, chills, or cough. Further denied abdominal pain, nausea, vomiting, or diarrhea. Objective - Vital Signs Vital signs: Vital Signs Temp 98.0 F 08/06/18 14:42 Pulse 78 08/06/18 14:42 Resp 16 08/06/18 14:42 BP 108/66 08/06/18 14:42 Pulse Ox 97 08/06/18 14:42 Intake & Output 08/05/18 08/06/18 08/06/18 18:59 06:59 18:59 Intake Total 1700 Output Total 800 200 Balance 900 -200 Weight 58.5 kg Intake: Oral 1700 Output: Urine 800 200 Other: Voiding Method Toilet Toilet Toilet Urinal Urinal Urinal # Voids 2 0 3 # Bowel Movements 0 - Exam General: Non-toxic, in no acute distress, appears stated age HEENT: NC/AT, anicteric sclerae, moist conjunctiva, no lid-lag, PERRLA Cardiovascular: S1/S2 wnl, no murmurs, rubs, or gallops Lungs: Trace wheezing brodie, no rhonchi or rales appreciated, normal respiratory effort, no accessory muscle use Abdominal: Soft, nontender, non-distended, no guarding, rebound, or rigidity Skin: Warm, dry Extremities: No edema or contractures Psychiatric: Alert and oriented to person, place and time, appropriate affect Neuro: CN II-XII grossly intact, Strength 5/5 in all 4 extremities, Speech intact, Sensation to light touch grossly intact throughout - Labs CBC & Chem 7: 08/06/18 08:28 08/06/18 08:28 Labs: Abnormal Lab Results - Last 24 Hours (Table) 08/05/18 08/05/18 08/06/18 Range/Units 17:06 21:19 06:51 RBC (4.30-5.90) m/uL Hgb (13.0-17.5) gm/dL Hct (39.0-53.0) % MCV (80.0-100.0) fL Plt Count (150-450) k/uL Sodium (137-145) mmol/L Chloride (98-107) mmol/L Carbon Dioxide (22-30) mmol/L BUN (9-20) mg/dL Glucose (74-99) mg/dL POC Glucose (mg/dL) 268 H 196 H 304 H (75-99) mg/dL Total Protein (6.3-8.2) g/dL Albumin (3.5-5.0) g/dL 08/06/18 08/06/18 08/06/18 Range/Units 08:28 08:28 12:16 RBC 3.21 L (4.30-5.90) m/uL Hgb 11.1 L (13.0-17.5) gm/dL Hct 34.6 L (39.0-53.0) % MCV 107.7 H (80.0-100.0) fL Plt Count 83 L (150-450) k/uL Sodium 133 L (137-145) mmol/L Chloride 94 L (98-107) mmol/L Carbon Dioxide 35 H (22-30) mmol/L BUN 29 H (9-20) mg/dL Glucose 233 H (74-99) mg/dL POC Glucose (mg/dL) 73 L (75-99) mg/dL Total Protein 5.2 L (6.3-8.2) g/dL Albumin 3.3 L (3.5-5.0) g/dL Assessment and Plan Plan: Acute COPD exacerbation -Pulmonary recs appreciated -Will switch to oral prednisone -C/w Bronchodilators w/ inhaled steroids Delirium, likely secondary to CO2 narcosis -Resolved Psychosis -Patient has history of erratic/violent behavior -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 -IPCDs -Protonix
--- NOTE | 2018-08-06 16:24 | P.PN ---
Subjective Progress Note Date: 08/06/18 On 08/06/2018, I'm seeing this patient for a follow-up. The patient is currently released from the intensive care unit and the patient is on the medical floor. Doing well. No specific complaints. No agitation. No altered mentation. Still on 40s about 2 by nasal cannula. No significant cough or sputum production. Overall COPD exacerbations improved as the patient is being treated with a combination of bronchodilators and steroids. No other significant events overnight. The plan is to move this patient to psych floor once the treatment is complete. Objective - Vital Signs Vital signs: Vital Signs Temp 98.0 F 08/06/18 14:42 Pulse 78 08/06/18 14:42 Resp 16 08/06/18 14:42 BP 108/66 08/06/18 14:42 Pulse Ox 97 08/06/18 14:42 Intake & Output 08/05/18 08/06/18 08/06/18 18:59 06:59 18:59 Intake Total 1700 Output Total 800 200 Balance 900 -200 Weight 58.5 kg Intake: Oral 1700 Output: Urine 800 200 Other: Voiding Method Toilet Toilet Toilet Urinal Urinal Urinal # Voids 2 0 3 # Bowel Movements 0 - Exam Calm and comfortable and there is no evidence of any acute respiratory distress and the patient is not using excessive muscle breathing. Head exam was generally normal. There was no scleral icterus or corneal arcus. Mucous membranes were moist. Neck was supple and without jugular venous distension, thyromegaly, or carotid bruits. Carotids were easily palpable bilaterally. There was no adenopathy. Lungs sounds are diminished bilaterally along with few scattered wheezing heard throughout lung sesay. Scattered rhonchi also present. Abdominal exam revealed normal bowel sounds. The abdomen was soft, non-tender, and without masses, organomegaly, or appreciable enlargement of the abdominal aorta. Examination of the extremities revealed easily palpable radial, femoral and pedal pulses. There was no cyanosis, clubbing or edema. Examination of the skin revealed no evidence of significant rashes, suspicious appearing nevi or other concerning lesions. Neurologic the patient is awake and alert and moving all 4 extremities. No focal neurological deficit. Cranial nerves are intact. Psychiatric evaluation was done at the [facility]. - Labs CBC & Chem 7: 08/06/18 08:28 08/06/18 08:28 Labs: Abnormal Lab Results - Last 24 Hours (Table) 08/05/18 08/05/18 08/06/18 Range/Units 17:06 21:19 06:51 RBC (4.30-5.90) m/uL Hgb (13.0-17.5) gm/dL Hct (39.0-53.0) % MCV (80.0-100.0) fL Plt Count (150-450) k/uL Sodium (137-145) mmol/L Chloride (98-107) mmol/L Carbon Dioxide (22-30) mmol/L BUN (9-20) mg/dL Glucose (74-99) mg/dL POC Glucose (mg/dL) 268 H 196 H 304 H (75-99) mg/dL Total Protein (6.3-8.2) g/dL Albumin (3.5-5.0) g/dL 08/06/18 08/06/18 08/06/18 Range/Units 08:28 08:28 12:16 RBC 3.21 L (4.30-5.90) m/uL Hgb 11.1 L (13.0-17.5) gm/dL Hct 34.6 L (39.0-53.0) % MCV 107.7 H (80.0-100.0) fL Plt Count 83 L (150-450) k/uL Sodium 133 L (137-145) mmol/L Chloride 94 L (98-107) mmol/L Carbon Dioxide 35 H (22-30) mmol/L BUN 29 H (9-20) mg/dL Glucose 233 H (74-99) mg/dL POC Glucose (mg/dL) 73 L (75-99) mg/dL Total Protein 5.2 L (6.3-8.2) g/dL Albumin 3.3 L (3.5-5.0) g/dL Assessment and Plan Plan: 1 acute COPD exacerbation with impending respiratory failure. The patient was treated with a combination of bronchodilators steroids and BiPAP therapy/ noninvasive positive pressure ventilation patient is improved. Mental status back to his baseline. No significant respiratory distress on today's evaluation. Chest x-ray is not showing any acute abnormalities. 2 diminished level of consciousness, could be related to COPD exacerbation CO2 narcosis, improved 3 acute hypoxic respiratory failure on top of chronic hypoxic respiratory failure secondary to above. 4 chronic hypercapnic respiratory failure 5 delirium 6 schizophrenia along with history of anxiety and depression 7 history of polysubstance abuse including history of IVDA, LSD, ecstasy, mushrooms, etc. Unit endoscopy is positive for benzodiazepines and marijuana 8 history of hepatitis C 9 diabetes mellitus 7 hypertension 11 chronic back pain 12 smoker 13 homeless individual Plan Continue the current treatment and switch this patient to prednisone burst taper over the next 24 hours. Clinically improved. Psych floor transfer probably within next 24 hours.
[2018-08-06 17:20] LABS: Folate, Serum 11.4 ng/mL
[2018-08-06 17:24] LABS: Glucose,Whole Blood 221 mg/dL (75-99)
[2018-08-06 20:51] LABS: Glucose,Whole Blood 99 mg/dL (75-99)
[2018-08-07] MEDS: HEPARIN SODIUM,PORCINE 5,000 UNIT/ML 1 ML VIAL SQ SCH ×3 (00:03→16:06)
[2018-08-07] MEDS: HYDROcodone/APAP 10-325MG 1 EACH TAB PO PRN ×3 (04:46→20:45)
[2018-08-07] MEDS: IPRATROPIUM-ALBUTEROL 3 ML NEB INHALATION SCH ×4 (07:00→19:19)
[2018-08-07] MEDS: FORMOTEROL FUMARATE 20 MCG/2 ML NEBU INHALATION SCH ×2 (07:00→19:19)
[2018-08-07] MEDS: BUDESONIDE 0.5 MG/2 ML NEBU INHALATION SCH ×2 (07:00→19:19)
[2018-08-07 07:07] LABS: Glucose,Whole Blood 117 mg/dL (75-99)
--- NOTE | 2018-08-07 08:09 | XR ---
EXAMINATION TYPE: XR chest 1V portable DATE OF EXAM: 08/07/2018 HISTORY: SOB. REFERENCE: Previous study dated 08/05/2018. FINDINGS: Lung volumes are prominent. The heart is not enlarged. There is no evidence of pneumonia or edema. Pleural spaces are clear. IMPRESSION: COPD.
[2018-08-07] MEDS: predniSONE 50 MG TAB PO SCH (08:14)
[2018-08-07] MEDS: NICOTINE 21MG/24HR PATCH TRANSDERM SCH (08:14)
[2018-08-07] MEDS: INSULIN ASPART 100 UNIT/ML 1 ML 10 ML VIAL SQ SCH ×4 (08:14→20:49)
[2018-08-07] MEDS: BENZTROPINE MESYLATE 1 MG TAB PO SCH ×2 (08:14→20:48)
[2018-08-07] MEDS: PANTOPRAZOLE 40 MG TABLET PO SCH (08:14)
--- NOTE | 2018-08-07 12:02 | P.PN ---
Subjective Progress Note Date: 08/07/18 The patient is a 63 yo M with a PMH of COPD (on home oxygen 2 L NC), HTN, and schizophrenia was brought in the ED in police custody for reported bizarre and aggressive behavior at home. The patient lived at his son's home and allegedly had defecated on the floor and proceeded to smear them, at which time his son confronted him and called EMS. The patient was initially admitted to the psych inpatient unit for psychosis. During a medical consult, the patient reported shortness of breath and was found to be actively wheezing and in acute exacerbation of COPD. The patient was placed on supplemental oxygen and an ABG was obtained which revealed a pCO2 of 74 with pH 7.38 and HCO3 43 and his mental status began to deteriorate. The patient was subsequently transferred to the selective care unit with an overflow status hold the ICU. The patient was placed on BiPap with IV steroids and bronchodilators. The hypercapnia along with the patient's mental status gradually improved. He was subsequently downgraded to the Med/Surg unit. The patient seen and examined at the bedside on 08/07/18. He endorsed continued shortness of breath and diffuse chronic pains. Denied chest pain, palpitation, nausea, vomiting, abdominal pain, diarrhea, or fever/chills. Objective - Vital Signs Vital signs: Vital Signs Temp 97.7 F 08/07/18 06:48 Pulse 82 08/07/18 11:08 Resp 18 08/07/18 07:54 BP 129/79 08/07/18 06:48 Pulse Ox 100 08/07/18 06:48 Intake & Output 08/06/18 08/07/18 08/07/18 18:59 06:59 18:59 Output Total 800 Balance -800 Output: Urine 800 Other: Voiding Method Toilet Urinal # Voids 3 2 # Bowel Movements 1 - Exam General: Non-toxic, in no acute distress, appears stated age HEENT: NC/AT, anicteric sclerae, moist conjunctiva, no lid-lag, PERRLA Cardiovascular: S1/S2 wnl, no murmurs, rubs, or gallops Lungs: CTABL, no rhonchi or rales appreciated, normal respiratory effort, no accessory muscle use Abdominal: Soft, nontender, non-distended, no guarding, rebound, or rigidity Skin: Warm, dry Extremities: No edema or contractures Psychiatric: Alert and oriented to person, place and time, appropriate affect Neuro: CN II-XII grossly intact, Strength 5/5 in all 4 extremities, Speech intact, Sensation to light touch grossly intact throughout - Labs CBC & Chem 7: 08/06/18 08:28 08/06/18 08:28 Labs: Abnormal Lab Results - Last 24 Hours (Table) 08/06/18 08/06/18 08/07/18 Range/Units 12:16 17:21 06:44 POC Glucose (mg/dL) 73 L 221 H 117 H (75-99) mg/dL Assessment and Plan Plan: Acute COPD exacerbation -Pulmonary recs appreciated -C/w oral prednisone -C/w Bronchodilators w/ inhaled steroids Delirium, likely secondary to CO2 narcosis -Resolved Psychosis -Patient has history of erratic/violent behavior -Haldol prn -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 -IPCDs -Protonix
[2018-08-07 12:12] LABS: Glucose,Whole Blood 161 mg/dL (75-99)
--- NOTE | 2018-08-07 12:17 | P.PN ---
Subjective Progress Note Date: 08/07/18 Principal diagnosis: Acute COPD exacerbation with impending respiratory failure requiring BiPAP support, improved On 08/06/2018, I'm seeing this patient for a follow-up. The patient is currently released from the intensive care unit and the patient is on the medical floor. Doing well. No specific complaints. No agitation. No altered mentation. Still on 40s about 2 by nasal cannula. No significant cough or sputum production. Overall COPD exacerbations improved as the patient is being treated with a combination of bronchodilators and steroids. No other significant events overnight. The plan is to move this patient to psych floor once the treatment is complete. On 08/07/2018 patient seen in follow-up on medical surgical floor. He is awake and alert, [place] any distress, he is a 61 sitter at the bedside, he is currently on 4 L of oxygen per nasal cannula with pulse ox is 100%, did not require BiPAP support overnight, no fever or chills, hemodynamically stable, lung sounds are positive for some scattered rhonchi, acute events overnight, his breathing is improving, no cultures were sent, and his chest x-ray has been reviewed by Dr. Nguyen showed COPD but no acute pulmonary process. No new labs. Objective - Vital Signs Vital signs: Vital Signs Temp 97.7 F 08/07/18 06:48 Pulse 82 08/07/18 11:08 Resp 18 08/07/18 07:54 BP 129/79 08/07/18 06:48 Pulse Ox 100 08/07/18 06:48 Intake & Output 08/06/18 08/07/18 08/07/18 18:59 06:59 18:59 Output Total 800 Balance -800 Output: Urine 800 Other: Voiding Method Toilet Urinal # Voids 3 2 # Bowel Movements 1 - Exam GENERAL EXAM: Alert, pleasant 63-year-old white male, comfortable in no apparent distress. HEAD: Normocephalic/atraumatic. EYES: Normal reaction of pupils, equal size. Conjunctiva pink, sclera white. NOSE: Clear with pink turbinates. THROAT: No erythema or exudates. NECK: No masses, no JVD, no thyroid enlargement, no adenopathy. CHEST: No chest wall deformity. Symmetrical expansion. LUNGS: Equal air entry with no crackles, wheeze, rhonchi or dullness. CVS: Regular rate and rhythm, normal S1 and S2, no gallops, no murmurs, no rubs ABDOMEN: Soft, nontender. No hepatosplenomegaly, normal bowel sounds, no guarding or rigidity. EXTREMITIES: No clubbing, no edema, no cyanosis, 2+ pulses and upper and lower extremities. MUSCULOSKELETAL: Muscle strength and tone normal. SPINE: No scoliosis or deformity SKIN: No rashes CENTRAL NERVOUS SYSTEM: Alert and oriented -3. No focal deficits, tone is normal in all 4 extremities. PSYCHIATRIC: Alert and oriented -3. Appropriate affect. Intact judgment and insight. - Labs CBC & Chem 7: 08/06/18 08:28 08/06/18 08:28 Labs: Abnormal Lab Results - Last 24 Hours (Table) 08/06/18 08/06/18 08/07/18 Range/Units 12:16 17:21 06:44 POC Glucose (mg/dL) 73 L 221 H 117 H (75-99) mg/dL Assessment and Plan Plan: 1 acute COPD exacerbation with impending respiratory failure. The patient was treated with a combination of bronchodilators steroids and BiPAP therapy/ noninvasive positive pressure ventilation patient is improved. Mental status back to his baseline. No significant respiratory distress on today's evaluation. Chest x-ray is not showing any acute abnormalities. 2 diminished level of consciousness, could be related to COPD exacerbation CO2 narcosis, improved 3 acute hypoxic respiratory failure on top of chronic hypoxic respiratory failure secondary to above. 4 chronic hypercapnic respiratory failure 5 delirium 6 schizophrenia along with history of anxiety and depression 7 history of polysubstance abuse including history of IVDA, LSD, ecstasy, mushrooms, etc. Unit endoscopy is positive for benzodiazepines and marijuana 8 history of hepatitis C 9 diabetes mellitus 7 hypertension 11 chronic back pain 12 smoker 13 homeless individual Plan: Patient is doing well, we'll switch his IV Solu-Medrol to oral prednisone, signs are stable, no fever or chills, patient is stable for transfer to psychiatric inpatient unit today. Today's chest x-ray has been reviewed with Dr. Nguyen, did not show any acute abnormality. I performed a history & physical examination of the patient and discussed their management with my nurse practitioner, Juliana Mercado. I reviewed the nurse practitioner's note and agree with the documented findings and plan of care. Lung sounds are positive for a few scattered rhonchi. The findings and the impression was discussed with the patient. I attest to the documentation by the nurse practitioner. Time with Patient: Less than 30
[2018-08-07 17:13] LABS: Glucose,Whole Blood 249 mg/dL (75-99)
[2018-08-07 20:52] LABS: Glucose,Whole Blood 168 mg/dL (75-99)
[2018-08-08] MEDS: HEPARIN SODIUM,PORCINE 5,000 UNIT/ML 1 ML VIAL SQ SCH ×4 (02:31→23:38)
[2018-08-08] MEDS: HYDROcodone/APAP 10-325MG 1 EACH TAB PO PRN ×4 (05:46→23:36)
[2018-08-08] MEDS: FORMOTEROL FUMARATE 20 MCG/2 ML NEBU INHALATION SCH ×2 (07:15→18:57)
[2018-08-08] MEDS: BUDESONIDE 0.5 MG/2 ML NEBU INHALATION SCH ×2 (07:15→18:56)
[2018-08-08] MEDS: IPRATROPIUM-ALBUTEROL 3 ML NEB INHALATION SCH ×4 (07:15→18:57)
[2018-08-08 07:45] LABS: Glucose,Whole Blood 103 mg/dL (75-99)
[2018-08-08] MEDS: INSULIN ASPART 100 UNIT/ML 1 ML 10 ML VIAL SQ SCH ×4 (08:39→22:51)
[2018-08-08] MEDS: NICOTINE 21MG/24HR PATCH TRANSDERM SCH (08:49)
[2018-08-08] MEDS: predniSONE 50 MG TAB PO SCH (08:49)
[2018-08-08] MEDS: BENZTROPINE MESYLATE 1 MG TAB PO SCH ×2 (08:49→21:08)
[2018-08-08] MEDS: PANTOPRAZOLE 40 MG TABLET PO SCH (08:49)
[2018-08-08 09:54] LABS: HCT 38.7 % (39.0-53.0); HGB 12.3 gm/dL (13.0-17.5); Hypochromasia Slight; MCH 34.5 pg (25.0-35.0); MCHC 31.8 g/dL (31.0-37.0); MCV 108.8 fL (80.0-100.0); Macrocytosis Marked; Mean Platelet Volume 8.4; RBC 3.55 m/uL (4.30-5.90); WBC 4.3 k/uL (3.8-10.6)
[2018-08-08 10:07] LABS: Platelet Count 88 k/uL (150-450)
[2018-08-08 12:03] LABS: Glucose,Whole Blood 147 mg/dL (75-99)
[2018-08-08] MEDS: CYANOCOBALAMIN 500 MCG TAB PO SCH (13:09)
--- NOTE | 2018-08-08 13:19 | P.PN ---
Subjective Progress Note Date: 08/08/18 Principal diagnosis: COPD exacerbation Patient seen and examined. No acute events overnight. Patient reports lower back pain, controlled with [place] tens. He also complains of shortness of breath and wheezing, not improved since yesterday. He has been seen by Dr. Nguyen and cleared for DC back to psych unit. He denies any chest pain or palpitations. No changes in urination or bowel habits. Tolerating diet okay. Objective - Vital Signs Vital signs: Vital Signs Temp 97.9 F 08/08/18 07:00 Pulse 80 08/08/18 11:02 Resp 16 08/08/18 07:00 BP 113/71 08/08/18 07:00 Pulse Ox 93 L 08/08/18 08:51 Intake & Output 08/07/18 08/08/18 08/08/18 18:59 06:59 18:59 Intake Total 320 Output Total 800 Balance -480 Intake: Oral 320 Output: Urine 800 Other: Voiding Method Toilet Urinal # Voids 0 2 # Bowel Movements 0 - Exam General: [non toxic], [no distress], [appears at stated age] Derm: [warm], [dry] Head: [atraumatic], [normocephalic], [symmetric] Eyes: [EOMI], [no lid lag], [anicteric sclera] Mouth: [no lip lesion], [mucus membranes moist] Cardiovascular: [S1S2 reg], [no murmur], [positive DP pulse bilateral], Lungs: [Decreased breath sounds bilateral with mild expiratory wheezing on the right], [no rhonchi, no rales] , [no accessory muscle use] Abdominal: [soft], [ nontender to palpation], [no guarding], [no appreciable organomegaly] Ext: [no gross muscle atrophy], [no edema], [no contractures] Neuro: [no focal neuro deficits] Psych: [Alert], [oriented], [appropriate affect] - Labs CBC & Chem 7: 08/08/18 09:13 08/06/18 08:28 Labs: Abnormal Lab Results - Last 24 Hours (Table) 08/07/18 08/07/18 08/08/18 Range/Units 17:11 20:27 07:32 RBC (4.30-5.90) m/uL Hgb (13.0-17.5) gm/dL Hct (39.0-53.0) % MCV (80.0-100.0) fL Plt Count (150-450) k/uL POC Glucose (mg/dL) 249 H 168 H 103 H (75-99) mg/dL 08/08/18 08/08/18 Range/Units 09:13 11:54 RBC 3.55 L (4.30-5.90) m/uL Hgb 12.3 L (13.0-17.5) gm/dL Hct 38.7 L (39.0-53.0) % MCV 108.8 H (80.0-100.0) fL Plt Count 88 L (150-450) k/uL POC Glucose (mg/dL) 147 H (75-99) mg/dL Assessment and Plan Assessment: Assessment and Plan 1. COPD exacerbation 2. Macrocytosis 3. Thrombocytopenia 4. Hypertension 5. Psychosis Resolved; Delirium secondary to CO2 narcosis. 1. Resolved. Continue Pulmicort neb BID, Formoterol 20 mcg INH BID, DuoNeb QID scheduled and PRN. Continue Prednisone 50 mg PO QD for 2 more days. Pulmonology consulted, recommending DC back to [facility]. O2 per NC to maintain O2 sat > 92%. 2. MCV 108.8. B12 370 low-normal. Folate is within normal limits. Continue B12 1000 mcg PO QD. 3. Plt 88. Has history of Hepatitis C. Will need adequate FU in the outpatient setting. Daily CBC. 4. BP 113/71. Monitor vitals, adjust medications as necessary. 5. Management as per Psychiatry. Patient is stable from Pulmonology standpoint and is cleared for DC. He is pending admission to [facility].
[2018-08-08 15:13] LABS: ALT 82 U/L (21-72); AST 75 U/L (17-59); Albumin 3.5 g/dL (3.5-5.0); Alkaline Phosphatase 43 U/L (38-126); Anion Gap 4 mmol/L; Blood Urea Nitrogen 25 mg/dL (9-20); Calcium 8.8 mg/dL (8.4-10.2); Carbon Dioxide 36 mmol/L (22-30); Chloride 92 mmol/L (98-107); Glucose 141 mg/dL (74-99); Potassium 4.4 mmol/L (3.5-5.1); Sodium 132 mmol/L (137-145); Total Bilirubin 0.6 mg/dL (0.2-1.3); Total Protein 5.5 g/dL (6.3-8.2)
--- NOTE | 2018-08-08 16:28 | XR ---
EXAMINATION TYPE: XR chest 1V portable DATE OF EXAM: 08/08/2018 CLINICAL HISTORY: Difficulty breathing progress study. TECHNIQUE: Single AP portable upright view of the chest is obtained. COMPARISON: Chest x-ray from one day earlier and older studies. FINDINGS: There is chronic parenchymal change without suspicious new focal airspace opacity, pleural effusion, or pneumothorax seen bilaterally. Cardiac silhouette size is stable and within normal limi ts with atherosclerotic thoracic aorta redemonstrated. Osseous structures are somewhat demineralized. Sclerosis from healing or healed fracture right proximal humerus is partially imaged. There is parti al visualization of surgical change in the lumbar spine. IMPRESSION: Overall stable findings, chronic changes without new acute pulmonary process.
[2018-08-08 16:50] LABS: Glucose,Whole Blood 300 mg/dL (75-99)
[2018-08-08 21:34] LABS: Glucose,Whole Blood 177 mg/dL (75-99)
[2018-08-09] MEDS: ACETAMINOPHEN TAB 325 MG TAB PO PRN ×2 (00:25→19:51)
[2018-08-09] MEDS: HYDROcodone/APAP 10-325MG 1 EACH TAB PO PRN ×4 (05:37→21:11)
[2018-08-09 07:21] LABS: Glucose,Whole Blood 174 mg/dL (75-99)
[2018-08-09] MEDS: BUDESONIDE 0.5 MG/2 ML NEBU INHALATION SCH ×2 (07:24→19:54)
[2018-08-09] MEDS: FORMOTEROL FUMARATE 20 MCG/2 ML NEBU INHALATION SCH ×2 (07:24→19:54)
[2018-08-09] MEDS: IPRATROPIUM-ALBUTEROL 3 ML NEB INHALATION SCH ×4 (07:24→19:54)
[2018-08-09] MEDS: HEPARIN SODIUM,PORCINE 5,000 UNIT/ML 1 ML VIAL SQ SCH ×2 (07:54→16:23)
[2018-08-09] MEDS: INSULIN ASPART 100 UNIT/ML 1 ML 10 ML VIAL SQ SCH ×2 (07:54→12:18)
[2018-08-09] MEDS: predniSONE 50 MG TAB PO SCH (07:55)
[2018-08-09] MEDS: PANTOPRAZOLE 40 MG TABLET PO SCH (07:55)
[2018-08-09] MEDS: BENZTROPINE MESYLATE 1 MG TAB PO SCH ×2 (07:55→21:04)
[2018-08-09] MEDS: NICOTINE 21MG/24HR PATCH TRANSDERM SCH (07:55)
[2018-08-09 08:15] VITALS: RESP 16
--- NOTE | 2018-08-09 09:28 | XR ---
EXAMINATION TYPE: XR chest 1V portable DATE OF EXAM: 08/09/2018 COMPARISON: 08/08/2018 HISTORY: Shortness of breath TECHNIQUE: Single frontal view of the chest is obtained. FINDINGS: Right perihilar and lower lobe infiltrate stable. Underlying COPD suspected. No pneumothor ax. No sizable pleural effusion. Sclerosis involving the right humeral head may been the basis of pre vious trauma. Other etiologies not excluded. Atherosclerotic change aorta. IMPRESSION: COPD with right basilar and perihilar infiltrate stable in appearance
[2018-08-09 10:07] VITALS: BMI 20.2
[2018-08-09] MEDS: CYANOCOBALAMIN 500 MCG TAB PO SCH (11:58)
[2018-08-09 12:13] LABS: Glucose,Whole Blood 176 mg/dL (75-99)
--- NOTE | 2018-08-09 13:37 | P.PN ---
Progress Note - Text Progress Note Date: 08/09/18 [place] medically stable for transfer to mental health unit. Currently working on finding a bed. Formal note or discharge summary to follow pending bed availability.
[2018-08-09] MEDS ORDERED: CYCLOBENZAPRINE 5 MG TAB PO PRN (13:38)
[2018-08-09] MEDS ORDERED: IBUPROFEN 400 MG TAB PO PRN (13:38)
--- NOTE | 2018-08-09 15:19 | P.PN ---
Subjective Progress Note Date: 08/09/18 Principal diagnosis: altered mentation Patient is a 63-year-old male past medical history of COPD, hypertension, hepatitis C, schizophrenia who initially was admitted to the mental health unit for psychosis. During medical consultation the patient reported shortness of breath was found be actively wheezing and acute exacerbation of COPD. ABG was ordered, pCO2 74 the pH is 7.38 bicarbonate 43. His mental status began to deteriorate and he subsequently admitted to selective care unit at was in the ICU as overflow. He was placed on BiPAP and had improvement in his mental status. Pulmonary was consulted. He was started on steroids and bronchodilators. He had improvement in his breathing and mentation. His hospital course was rather uneventful and he was transferred to the medical surgical unit on 08/07/18. Patient seen and examined at bedside. He reports that he still feels slightly short of breath but better than yesterday. He is complaining of prednisone is causing pain in his chest. He reports that his chest feels tight when trying to take a deep breath. She denies any nausea or vomiting. He is feeling slightly off today. He denies any constipation. Objective - Vital Signs Vital signs: Vital Signs Temp 98.3 F 08/09/18 07:00 Pulse 80 08/09/18 11:05 Resp 16 08/09/18 07:00 BP 130/71 08/09/18 07:00 Pulse Ox 95 08/09/18 07:26 Intake & Output 08/08/18 08/09/18 08/09/18 18:59 06:59 18:59 Intake Total 1000 Output Total 700 1650 Balance -700 -650 Weight 58.5 kg Intake: Oral 1000 Output: Urine 700 1650 Other: # Voids 4 0 # Bowel Movements 0 - Exam General: non toxic, no distress, appears older than stated age Derm: warm, dry Head: atraumatic, normocephalic, symmetric Eyes: EOMI, no lid lag, anicteric sclera Mouth: no lip lesion, mucus membranes moist Cardiovascular: S1S2 reg, no murmur, positive posterior tibial pulse bilateral, Lungs: Rhonchi bilateral, no rales , no accessory muscle use Abdominal: soft, nontender to palpation, no guarding, no appreciable organomegaly Ext: no gross muscle atrophy, no edema, no contractures Neuro: CN II-XI grossly intact, no focal neuro deficits Psych: Alert, oriented, appropriate affect - Labs CBC & Chem 7: 08/08/18 09:13 08/08/18 09:13 Labs: Abnormal Lab Results - Last 24 Hours (Table) 08/08/18 08/08/18 08/08/18 Range/Units 09:13 16:46 21:32 Sodium 132 L (137-145) mmol/L Chloride 92 L (98-107) mmol/L Carbon Dioxide 36 H (22-30) mmol/L BUN 25 H (9-20) mg/dL Glucose 141 H (74-99) mg/dL POC Glucose (mg/dL) 300 H 177 H (75-99) mg/dL AST 75 H (17-59) U/L ALT 82 H (21-72) U/L Total Protein 5.5 L (6.3-8.2) g/dL 08/09/18 08/09/18 Range/Units 06:48 11:50 Sodium (137-145) mmol/L Chloride (98-107) mmol/L Carbon Dioxide (22-30) mmol/L BUN (9-20) mg/dL Glucose (74-99) mg/dL POC Glucose (mg/dL) 174 H 176 H (75-99) mg/dL AST (17-59) U/L ALT (21-72) U/L Total Protein (6.3-8.2) g/dL Assessment and Plan Assessment: Acute exacerbation of COPD - bronchodilators, budesonide, perforomist - on prednisone Acute hypercapnic respiratory failure - improved - need O2 ATC and has at home per records Macrocytic anemia and thrombocytopenia - B 12, folate, and TSH within normal - Likely due to known liver disease Diabetes mellitus - A1C 6 - will d/c SSI - no meds on discharge Hypertension, controlled - resume home lisinopril Chronic back pain - prn norco and flexeril Tobacco abuse - cessation - nicotine replacement Acute psychosis with history of schizophrenia - plans on d/c to [facility] Chronic: Hepatitis C Acute encephalopathy due to hypercapnia, resolved DVT prophylaxis: Heparin Discussed with: Patient, nursing, social work Anticipated discharge: once MHU bed available Anticipated discharge place: MHU A total of [45] minutes was spent on the care of this complex patient more than 50% of the time was spent in counseling and care coordination.
[2018-08-09 15:23] VITALS: BP 123/76; TEMP 98
[2018-08-09 20:47] VITALS: PULSE 88
--- NOTE | 2018-08-10 07:20 | P.DS ---
Providers Date of admission: 08/03/18 12:03 Expected date of discharge: 08/09/18 Attending physician: Kerry Bahena MD Consults: 08/03/18 12:50 Consult Physician Routine Consulting Provider: Judy Nguyen Consult Reason/Comments: shortness of breath Do you want consulting provider notified?: Yes Placement Type Exists?: Yes 08/03/18 13:27 Consult Physician Urgent Consulting Provider: Ming Gonzalez Consult Reason/Comments: acute psychosis Do you want consulting provider notified?: Already Contacted Primary care physician: Kerry Bahena MD Hospital Course: Discharge Diagnosis: Acute exacerbation of COPD Thank you hypoxic hypercapnic respiratory failure Macrocytic anemia and thrombocytopenia likely secondary to known liver disease Diabetes mellitus type 2 Hypertension Chronic back pain Tobacco abuse Acute psychosis with history of schizophrenia Acute metabolic encephalopathy due to hypercapnia Hepatitis C Hospital Course: Patient is a 63-year-old male past medical history of COPD, hypertension, hepatitis C, schizophrenia who initially was admitted to the mental health unit for psychosis. During medical consultation the patient reported shortness of breath was found be actively wheezing and acute exacerbation of COPD. ABG was ordered, pCO2 74 the pH is 7.38 bicarbonate 43. His mental status began to deteriorate and he subsequently admitted to selective care unit and was in the ICU as overflow. He was placed on BiPAP and had improvement in his mental status. Pulmonary was consulted. He was started on steroids and bronchodilators. He had improvement in his breathing and mentation. His hospital course was rather uneventful and he was transferred to the medical surgical unit on 08/07/18. He continued to improve and was determined stale for discharge back to the mental health unit. For physical exam on date of discharge please see progress note same date. A total of 37 minutes of time were spent preparing this complex discharge summary . Pertinent Studies: CXR- No acute process Patient Condition at Discharge: Stable Plan - Discharge Summary Discharge Rx Participant: No New Discharge Prescriptions: No Action Lisinopril [Zestril] 10 mg PO DAILY Hydrocodone/Acetaminophen [[place] 5-325] 1 tab PO DAILY Cholecalciferol [Vitamin D3] 5,000 unit PO DAILY Benztropine Mesylate 1 mg PO BID Haloperidol Decanoate [Haldol Decanoate] 50 mg IM Q28D Ipratropium/Albuterol Sulfate [Combivent Respimat Inhaler] 1 puff INHALATION RT-QID Albuterol Inhaler [Ventolin Hfa Inhaler] 1 - 2 puff INHALATION RT-Q6H PRN PRN Reason: Shortness Of Breath Discharge Medication List Benztropine Mesylate 1 mg PO BID 04/27/18 [History] Cholecalciferol [Vitamin D3] 5,000 unit PO DAILY 04/27/18 [History] Hydrocodone/Acetaminophen [[place] 5-325] 1 tab PO DAILY 04/27/18 [History] Lisinopril [Zestril] 10 mg PO DAILY 04/27/18 [History] Albuterol Inhaler [Ventolin Hfa Inhaler] 1 - 2 puff INHALATION RT-Q6H PRN [History] Haloperidol Decanoate [Haldol Decanoate] 50 mg IM Q28D 08/02/18 [History] Ipratropium/Albuterol Sulfate [Combivent Respimat Inhaler] 1 puff INHALATION RT- QID 08/02/18 [History] Discharge Disposition: TRANSFER TO PSYCH HOSP/UNIT
== END 2018-08-09 22:18 | DRG 190 ==
LOC: 2SICU 12:03 → 4MS4W 08-06 04:55
PROVIDERS: ADMIT Internal Medicine; ATTEND Internal Medicine
PROC: 5A09357 Assistance with Respiratory Ventilation, Less than 24 Consecutive Hours, Continuous Positive Airway Pressure (ICD-10-PCS; principal; 2018-08-03)
DX: J44.1 Chronic obstructive pulmonary disease with (acute) exacerbation (principal); G93.41 Metabolic encephalopathy; J96.21 Acute and chronic respiratory failure with hypoxia; J96.22 Acute and chronic respiratory failure with hypercapnia; I10 Essential (primary) hypertension; E11.9 Type 2 diabetes mellitus without complications; B19.20 Unspecified viral hepatitis C without hepatic coma; D53.9 Nutritional anemia, unspecified; M54.9 Dorsalgia, unspecified; G89.29 Other chronic pain; D69.59 Other secondary thrombocytopenia; D75.89 Other specified diseases of blood and blood-forming organs; F17.200 Nicotine dependence, unspecified, uncomplicated; F20.9 Schizophrenia, unspecified; F32.9 Major depressive disorder, single episode, unspecified; F41.9 Anxiety disorder, unspecified; Z99.81 Dependence on supplemental oxygen; Z82.49 Family history of ischemic heart disease and other diseases of the circulatory system; Z80.0 Family history of malignant neoplasm of digestive organs; Z79.899 Other long term (current) drug therapy; Z59.0 Homelessness; Z86.14 Personal history of Methicillin resistant Staphylococcus aureus infection; Z71.6 Tobacco abuse counseling
CPT/HCPCS: 71045; 80053; 82607; 82746; 82805; 83036; 83735; 85025; 85027; 94640; 94660; 94760

== ENCOUNTER 2018-08-09 21:37 | Inpatient (IN) | payer MEDICAID ==
[2018-08-09] MEDS ORDERED: MAGNESIUM HYDROXIDE 2,400 MG/10 ML CUP PO PRN (23:11)
[2018-08-09] MEDS ORDERED: ZIPRASIDONE 20 MG VIAL IM PRN (23:11)
[2018-08-09] MEDS ORDERED: MAG HYDROX/AL HYDROX/SIMETH 30 ML CUP PO PRN (23:11)
[2018-08-09] MEDS ORDERED: LORazepam 2 MG/ML INJ IM PRN (23:16)
[2018-08-10] MEDS: LORazepam 1 MG TAB PO PRN ×2 (01:44→20:08)
[2018-08-10] MEDS: ACETAMINOPHEN TAB 325 MG TAB PO PRN (01:45)
[2018-08-10] MEDS ORDERED: IPRATROPIUM-ALBUTEROL 3 ML NEB INHALATION PRN (02:48)
[2018-08-10 06:11] LABS: Glucose,Whole Blood 130 mg/dL (75-99)
[2018-08-10] MEDS ORDERED: ZIPRASIDONE 20 MG VIAL IM PRN (07:00)
[2018-08-10] MEDS ORDERED: INSULIN ASPART 100 UNIT/ML 1 ML 10 ML VIAL SQ SCH (07:30)
[2018-08-10] MEDS ORDERED: BUDESONIDE 0.5 MG/2 ML NEBU INHALATION SCH (08:00)
[2018-08-10] MEDS ORDERED: FORMOTEROL FUMARATE 20 MCG/2 ML NEBU INHALATION SCH (08:00)
[2018-08-10] MEDS: LISINOPRIL 10 MG TAB PO SCH (08:19)
[2018-08-10] MEDS: predniSONE 20 MG TAB PO SCH (08:19)
[2018-08-10] MEDS: NICOTINE 21MG/24HR PATCH TRANSDERM SCH (08:19)
--- NOTE | 2018-08-10 09:37 | P.HP ---
Psychiatric H&P - . H&P Date: 08/10/18 History & Physical: Allergies Allergy/AdvReac Type Severity Reaction Status Date / Time No Known Allergies Allergy Verified 08/10/18 01:51 Vital Signs Temp 97.3 F L 08/09/18 23:55 Pulse 118 H 08/10/18 08:26 Resp 22 08/10/18 08:26 BP 130/85 08/10/18 08:26 Pulse Ox 93 L 08/10/18 08:26 Intake & Output 08/09/18 08/10/18 08/10/18 18:59 06:59 18:59 Weight 58.5 kg Laboratory Last Values POC Glucose (mg/dL) 130 mg/dL (75-99) H 08/10/18 06:04 POC Glu Search Specialist ID Ximena Sainz 08/10/18 06:04 Assessment and Plan Assessment: Assessment: This a 63-year-old male with past medical history of COPD, schizophrenia presents emergency from with police and EMS for change in behavior. Patient reportedly was not acting appropriate home, was smearing feces on the blair, and I even with family. Patient noted to have feces on himself upon arrival. Patient does complain of left ankle pain, shortness of breath. He does have a history of COPD and is, short of breath. Denies any chest pain, fever, chills, URI symptoms. Patient denies any homicidal or suicidal ideation at this time. Denies any illicit drug use no alcohol abuse. - Related Data Home Medications Medication Instructions Recorded Confirmed Benztropine Mesylate 1 mg PO BID 04/27/18 08/02/18 Cholecalciferol [Vitamin D3] 5,000 unit PO DAILY 04/27/18 08/02/18 Hydrocodone/Acetaminophen [[place] 1 tab PO DAILY 04/27/18 08/02/18 5-325] Lisinopril [Zestril] 10 mg PO DAILY 04/27/18 08/02/18 Albuterol Inhaler [Ventolin Hfa 1 - 2 puff INHALATION RT-Q6H PRN 08/02/18 Inhaler] Haloperidol Decanoate [Haldol 50 mg IM Q28D 08/02/18 08/02/18 Decanoate] Ipratropium/Albuterol Sulfate 1 puff INHALATION RT-QID 08/02/18 08/02/18 [Combivent Respimat Inhaler] Allergies Allergy/AdvReac Type Severity Reaction Status Date / Time No Known Allergies Allergy Verified 08/02/18 23:28 Past Medical History Past Medical History: Hypertension History of Any Multi-Drug Resistant Organisms: None Reported Past Surgical History: Back Surgery Past Psychological History: Anxiety Smoking Status: Current every day smoker Past Alcohol Use History: Occasional Past Drug Use History: Marijuana Musculoskeletal Examination - Abnormal/Involuntary Movements: [none Strength: [greater than antigravity (greater than/equal to 3/5) in all extremities, weakness:] Muscle Tone: [no impairment Gait: [ limping, in wheelchair, wide-based] Station: [ unsteady, in wheelchair] Mental Status Examination - General Appearance: [casual, bizarre, appears older than stated age, Speech/Language: [slow, soft, other] Attitude/Behavior: [cooperative, irritable Mood: [ depressed, anxious, irritable, angry, fearful, hopelessness Affect: [full range, lively, flat, incongruent, blunted constricted] Orientation: [Not time, person, place situation] Thought Content: [wnl, denies delusions, obsessions, phobias, other] Risk Factors: [suicidal (ideations, plan), and/or Homicidal (ideations, plan), other] Perception: [ hallucinations (auditory Thought Processes: [ concrete, circumstantial, tangential,] Concentration/Attention Span: impaired] [Per observation and interview with the patient] Recent Memory: [impaired] [0, 1, 2 or 3 out of 3 in 3 minutes] Remote Memory: impaired] [past events, as related history] Intelligence: [below average [based on history, based on vocabulary, syntax, grammar, and content] Judgement: [ poor] [per patient's behavior/history of present illness] Insight: [poor] [understanding severity of illness/history of present illness] Admitting Diagnosis: [Acute psychosis stabilized, chronic schizophrenia and mild neurocognitive disorder] Patient Strengths - Housing stability: [x] Able to vocalize needs: [x] Patient Limitations: [medication, non-compliance, pathological/unsupported environment intellectual impairment, complicated medical illness Initial Plan of Care: [You be admitted to 4 W psychiatric unit [facility] on a voluntary basis and will have usual 15 minute checks and max milieu therapeutic environment treatment. He will be evaluated by medicine, psychiatry, nursing staff, social work and occupational therapy. He will be expected to integrated in the max milieu therapeutic environment whereby he will be participating in group activities and psychotherapy. After a thorough biopsychosocial social evaluation and retrieval of records from [facility] a treatment plan can be developed. It appears that he's on haloperidol decanoate 50 mg every 28 days. Today he is irritable that he could not get his clothes and he wants someone to quit on the store and get cigarettes so to candy bars because it's boring at night around here. Estimated Length of Stay: [2] Initial Discharge Plan: [[place], [facility] Prognosis: [good Justification for Inpatient Hospitalization - [Hallucinations, delusions, agitation, anxiety, depression resulting in significant loss of functioning.] [Emotional or behavioral conditions and complications requiring 24 hour medical and nursing care.] [Need for special drug therapy, or other therapeutic program requiring continuous hospitalization.] [Failure of social or occupational functioning.] [Inability to meet basic life and health needs.] (1) Schizophrenia, acute undifferentiated Current Visit: Yes Status: Acute Priority: Medium Code(s): F20.3 - UNDIFFERENTIATED SCHIZOPHRENIA SNOMED Code(s): 543198043 Time with Patient: Greater than 30
[2018-08-10] MEDS: SYMBICORT 160-4.5 MCG INHALER INHALATION SCH ×2 (09:43→21:07)
[2018-08-10] MEDS: IPRATROPIUM-ALBUTEROL 3 ML NEB INHALATION SCH ×4 (09:44→21:07)
--- NOTE | 2018-08-10 11:40 | P.HPMEDMHU ---
History of Present Illness H&P Date: 08/10/18 Chief Complaint: shortness of breath Patient is a 63-year-old male past medical history of COPD, hypertension, and schizophrenia who was initially admitted to the medical floor from 08/03 through 08/09 for acute exacerbation of COPD. He is well-known to our service from admission. He has subsequently been readmitted to the mental health unit for further treatment of his schizophrenia. He received a course of IV steroids as well as bronchodilators during his previous admission. He is completing the last 2 days of oral prednisone therapy. His diabetes is well controlled with an A1c of 6. He did not require insulin during her last hospitalization. Patient seen and examined at bedside. He states his breathing is fine, his cough is back to his chronic cough. He is asking for Andrew. He initially complains of back pain that bread pain, and then points to his ankle. I discussed with him that I do not think Andrew as a good option at this point in time. I offered him Motrin as well as Flexeril. He denies wanting either of these at this time. He is asked to signing out AMA. Denies any overt chest discomfort, palpitations, lightheadedness, or dizziness. He denies any nausea or vomiting Review of Systems Pertinent positives and negatives as discussed in HPI, a complete review of systems was performed and all other systems are negative. Past Medical History Past Medical History: COPD, Hypertension, Liver Disease Additional Past Medical History / Comment(s): COPD, chronic hypoxic respiratory failure on oxygen 2 L per minute nasal cannula, chronic back pain, hepatitis C, chronic liver disease, hypertension, diabetes mellitus, chronic anxiety, chronic depression, schizophrenia, history of polysubstance abuse including IVDA , LSD, ecstasy, mushrooms, history of paranoia, delusions History of Any Multi-Drug Resistant Organisms: MRSA Date of last positivie culture/infection: Summer 2017 MDRO Source:: finger-treated at [facility] per son Past Surgical History: Back Surgery Additional Past Surgical History / Comment(s): Pt has rods in his back. Past Anesthesia/Blood Transfusion Reactions: No Reported Reaction Past Psychological History: Anxiety, Schizophrenia Smoking Status: Current every day smoker Past Alcohol Use History: Occasional Additional Past Alcohol Use History / Comment(s): Pt smokes heavily, pipe tobacco that he rolls without filters. Past Drug Use History: Heroin, IV Drug Use, Marijuana, Methamphetamine, Opiates , Prescription Drug Abuse Additional Drug Use History / Comment(s): Per son, pt abuses opiates and marijuana. Per [facility] documents, pt has used Iv heroin, LSD, ecstacy, mushrooms, mescaline. - Past Family History Father Family Medical History: Cancer Additional Family Medical History / Comment(s): Father had colon and pancreatic cancer and in his late 70s. Mother Family Medical History: Myocardial Infarction (ME) Additional Family Medical History / Comment(s): Mother of a ME in her late 70s. Medications and Allergies Home Medications Medication Instructions Recorded Confirmed Type Benztropine Mesylate 1 mg PO BID 04/27/18 08/10/18 History Cholecalciferol [Vitamin D3] 5,000 unit PO DAILY 04/27/18 08/10/18 History Hydrocodone/Acetaminophen [[place] 1 tab PO DAILY 04/27/18 08/10/18 History 5-325] Lisinopril [Zestril] 10 mg PO DAILY 04/27/18 08/10/18 History Albuterol Inhaler [Ventolin Hfa 1 - 2 puff INHALATION RT-Q6H PRN 08/02/18 History Inhaler] Haloperidol Decanoate [Haldol 50 mg IM Q28D 08/02/18 08/10/18 History Decanoate] Ipratropium/Albuterol Sulfate 1 puff INHALATION RT-QID 08/02/18 08/10/18 History [Combivent Respimat Inhaler] Allergies Allergy/AdvReac Type Severity Reaction Status Date / Time No Known Allergies Allergy Verified 08/10/18 01:51 Physical Exam Osteopathic Statement: *. No significant issues noted on an osteopathic structural exam other than those noted in the History and Physical/Consult. Vitals: Vital Signs Temp Pulse Pulse Pulse Resp BP BP 08/10/18 09:59 108 H 08/10/18 09:45 108 H 08/10/18 08:26 118 H 22 130/85 08/10/18 02:27 91 14 138/79 08/09/18 23:55 97.3 F L 84 16 125/71 Pulse Ox 08/10/18 09:59 08/10/18 09:45 08/10/18 08:26 93 L 08/10/18 02:27 08/09/18 23:55 93 L Intake and Output 08/09/18 08/10/18 08/10/18 22:59 06:59 14:59 Other: Weight 58.5 kg General: non toxic, no distress, appears older than stated age, normal weight Derm: Multiple tattoos no unusual rashes/lesions no unusual ecchymoses, warm, dry Head: atraumatic, normocephalic, symmetric Eyes: EOMI, no lid lag, anicteric sclera, pupils equal round reactive to light ENT: Nose and ears atraumatic, no thrush, no pharyngeal erythema Neck: No thyromegaly, no cervical lymphadenopathy, trachea midline, supple Mouth: no lip lesion, mucus membranes moist Cardiovascular: S1S2 reg, no murmur, positive posterior tibial pulse bilateral, no edema, capillary refill less than 2 seconds Lungs: decreased bs bilateral, no rhonchi, no rales , no accessory muscle use Abdominal: soft, nontender to palpation, no guarding, no appreciable organomegaly, normal bowel sounds Ext: no gross muscle atrophy, muscle strength grossly intact in all 4 extremities, no contractures, Neuro: CN II-XI grossly intact, light touch intact all 4 extremities, finger to nose within normal limits, Psych: Alert, oriented, appropriate affect Cranial Nerve Examination - Cranial Nerves Cranial Nerve II- Optic: Intact Cranial Nerve III- Oculomotor: Intact Cranial Nerve IV- Trochlear: Intact Cranial Nerve V- Trigeminal: Intact Cranial Nerve - Abducens: Intact Cranial Nerve VII- Facial: Intact Cranial Nerve VIII- Auditory: Intact Cranial Nerve IX- Glossopharyngeal: Intact Cranial Nerve X- Vagus: Intact Cranial Nerve XI- Accessory: Intact Cranial Nerve XII- Hypoglossal: Intact Results Labs: Abnormal Lab Results - Last 24 Hours (Table) 08/10/18 Range/Units 06:04 POC Glucose (mg/dL) 130 H (75-99) mg/dL Thrombosis Risk Factor Assmnt - DVT/VTE Prophylaxis DVT/VTE Prophylaxis: Low risk, early ambulation encouraged - Choose All That Apply Any of the Below Risk Factors Present?: Yes Each Factor Represents 1 point: Abnormal pulmonary function (COPD) Other Risk Factors: Yes Each Risk Factor Represents 2 Points: Age 61-74 years Other congenital or acquired thrombophilia - If yes, enter type in comment: No Thrombosis Risk Factor Assessment Total Risk Factor Score: 3 Thrombosis Risk Factor Assessment Level: Moderate Risk Assessment and Plan Assessment: acute exacerbation of COPD - Symbicort, complete 2 more days of prednisone - duonebs - prn albuterol Costochronidritis - motrin and flexeril as needed for pain. Tobacco abuse - cessation, nicotine replacement Chronic hypoxic respiratory failure - prn O2 for SpO2 <90 DM 2 - A1C 6 - diet controlled - no further monitoring needed Schizophrenia - your psych management Macrocytic anemia and thrombocytopenia, stable - outpatient monitoring HTN, controlled - lisinopril - follow BP Thank you for allowing us to participate in the care of this patient. We will follow peripherally. Do not hesitate to contact us with questions. Someone can be reached from the [facility] hospitalist group at all hours of the day at [phone].
[2018-08-10] MEDS: IBUPROFEN 600 MG TAB PO PRN (22:47)
[2018-08-11] MEDS: IPRATROPIUM-ALBUTEROL 3 ML NEB INHALATION SCH ×4 (09:23→21:15)
[2018-08-11] MEDS: SYMBICORT 160-4.5 MCG INHALER INHALATION SCH ×2 (09:23→21:15)
[2018-08-11] MEDS: LISINOPRIL 10 MG TAB PO SCH (09:51)
[2018-08-11] MEDS: NICOTINE 21MG/24HR PATCH TRANSDERM SCH (09:51)
[2018-08-11] MEDS: predniSONE 20 MG TAB PO SCH (09:51)
--- NOTE | 2018-08-11 11:59 | P.PN ---
Subjective Progress Note Date: 08/11/18 Principal diagnosis: Acute psychosis stabilized, chronic schizophrenia and mild neurocognitive disorder Chart reviewed, teamed at meeting this morning, patient interviewed in his room one-on-one. He remains suicidal and depressed and withdrawn with occasional voices. He spends most of his time in the room and has not gone to group. I' ve encouraged and get up today and get to lunch and take the initiative to go to groups. Objective - Vital Signs Vital signs: Vital Signs Temp 98 F 08/11/18 06:30 Pulse 84 08/11/18 06:30 Resp 16 08/11/18 06:30 BP 116/62 08/11/18 06:30 Pulse Ox 95 08/11/18 06:30 Assessment and Plan Assessment: Assessment: This a 63-year-old male with past medical history of COPD, schizophrenia presents emergency from with police and EMS for change in behavior. Patient reportedly was not acting appropriate home, was smearing feces on the blair, and I even with family. Patient noted to have feces on himself upon arrival. Patient does complain of left ankle pain, shortness of breath. He does have a history of COPD and is, short of breath. Denies any chest pain, fever, chills, URI symptoms. Patient denies any homicidal or suicidal ideation at this time. Denies any illicit drug use no alcohol abuse. - Related Data Home Medications Medication Instructions Recorded Confirmed Benztropine Mesylate 1 mg PO BID 04/27/18 08/02/18 Cholecalciferol [Vitamin D3] 5,000 unit PO DAILY 04/27/18 08/02/18 Hydrocodone/Acetaminophen [[place] 1 tab PO DAILY 04/27/18 08/02/18 5-325] Lisinopril [Zestril] 10 mg PO DAILY 04/27/18 08/02/18 Albuterol Inhaler [Ventolin Hfa 1 - 2 puff INHALATION RT-Q6H PRN 08/02/18 Inhaler] Haloperidol Decanoate [Haldol 50 mg IM Q28D 08/02/18 08/02/18 Decanoate] Ipratropium/Albuterol Sulfate 1 puff INHALATION RT-QID 08/02/18 08/02/18 [Combivent Respimat Inhaler] Allergies Allergy/AdvReac Type Severity Reaction Status Date / Time No Known Allergies Allergy Verified 08/02/18 23:28 Past Medical History Past Medical History: Hypertension History of Any Multi-Drug Resistant Organisms: None Reported Past Surgical History: Back Surgery Past Psychological History: Anxiety Smoking Status: Current every day smoker Past Alcohol Use History: Occasional Past Drug Use History: Marijuana Musculoskeletal Examination - Abnormal/Involuntary Movements: [none Strength: [greater than antigravity (greater than/equal to 3/5) in all extremities, weakness:] Muscle Tone: [no impairment Gait: [ limping, in wheelchair, wide-based] Station: [ unsteady, in wheelchair] Mental Status Examination - General Appearance: [casual, bizarre, appears older than stated age, Speech/Language: [slow, soft, other] Attitude/Behavior: [cooperative, irritable Mood: [ depressed, anxious, irritable, angry, fearful, hopelessness Affect: [full range, lively, flat, incongruent, blunted constricted] Orientation: [Not time, person, place situation] Thought Content: [wnl, denies delusions, obsessions, phobias, other] Risk Factors: [suicidal (ideations, plan), and/or Homicidal (ideations, plan), other] Perception: [ hallucinations (auditory Thought Processes: [ concrete, circumstantial, tangential,] Concentration/Attention Span: impaired] [Per observation and interview with the patient] Recent Memory: [impaired] [0, 1, 2 or 3 out of 3 in 3 minutes] Remote Memory: impaired] [past events, as related history] Intelligence: [below average [based on history, based on vocabulary, syntax, grammar, and content] Judgement: [ poor] [per patient's behavior/history of present illness] Insight: [poor] [understanding severity of illness/history of present illness] Admitting Diagnosis: [Acute psychosis stabilized, chronic schizophrenia and mild neurocognitive disorder] Patient Strengths - Housing stability: [x] Able to vocalize needs: [x] Patient Limitations: [medication, non-compliance, pathological/unsupported environment intellectual impairment, complicated medical illness Initial Plan of Care: [You be admitted to 4 W. psychiatric unit [facility] on a voluntary basis and will have usual 15 minute checks and max milieu therapeutic environment treatment. He will be evaluated by medicine, psychiatry, nursing staff, social work and occupational therapy. He will be expected to integrated in the max milieu therapeutic environment whereby he will be participating in group activities and psychotherapy. After a thorough biopsychosocial social evaluation and retrieval of records from [facility] a treatment plan can be developed. It appears that he's on haloperidol decanoate 50 mg every 28 days. Today he is irritable that he could not get his clothes and he wants someone to quit on the store and get cigarettes so to candy bars because it's boring at night around here. Estimated Length of Stay: [2] Initial Discharge Plan: [[place], [facility] Prognosis: [good Justification for Inpatient Hospitalization - [Hallucinations, delusions, agitation, anxiety, depression resulting in significant loss of functioning.] [Emotional or behavioral conditions and complications requiring 24 hour medical and nursing care.] [Need for special drug therapy, or other therapeutic program requiring continuous hospitalization.] [Failure of social or occupational functioning.] [Inability to meet basic life and health needs.] (1) Schizophrenia, acute undifferentiated Current Visit: Yes Status: Acute Priority: Medium Code(s): F20.3 - UNDIFFERENTIATED SCHIZOPHRENIA SNOMED Code(s): 737945819 Plan: 08/10/2018: We'll add Invega for psychosis 3 mg by mouth daily at bedtime and add Lamictal 25 mg by mouth daily at bedtime for mood stabilization. Encourage patient to participate in groups and to take medications as written. Time with Patient: Less than 30
[2018-08-11] MEDS ORDERED: PALIPERIDONE 3 MG TAB.ER.24 PO SCH (21:00)
[2018-08-11] MEDS ORDERED: lamoTRIgine 25 MG TAB PO SCH (21:00)
[2018-08-11] MEDS: BENZTROPINE MESYLATE 0.5 MG TAB PO SCH (21:29)
[2018-08-11] MEDS: ACETAMINOPHEN TAB 325 MG TAB PO PRN (21:29)
[2018-08-11] MEDS: ALBUTEROL NEBULIZED 2.5 MG/3 ML INHALATION PRN (22:33)
[2018-08-12] MEDS: LISINOPRIL 10 MG TAB PO SCH (07:36)
[2018-08-12] MEDS: NICOTINE 21MG/24HR PATCH TRANSDERM SCH (07:36)
[2018-08-12] MEDS: IBUPROFEN 600 MG TAB PO PRN (08:32)
[2018-08-12] MEDS: IPRATROPIUM-ALBUTEROL 3 ML NEB INHALATION SCH ×4 (09:10→20:25)
[2018-08-12] MEDS: SYMBICORT 160-4.5 MCG INHALER INHALATION SCH ×2 (09:10→20:25)
--- NOTE | 2018-08-12 11:36 | P.PN ---
Subjective Progress Note Date: 08/12/18 Principal diagnosis: Acute psychosis stabilized, chronic schizophrenia and mild neurocognitive disorder Chart reviewed, teamed at meeting this morning, patient interviewed in his room one-on-one. He remains suicidal and depressed and withdrawn with occasional voices. He spends most of his time in the room and has not gone to group. I' ve encouraged and get up today and get to lunch and take the initiative to go to groups. 08/12/2018: Patient in room usually awake in laying on his side he still complains of cough, depression, suicidal and he tends to withdraw and isolate to his room. Objective - Vital Signs Vital signs: Vital Signs Temp 97.6 F 08/12/18 06:35 Pulse 86 08/12/18 09:21 Resp 20 08/12/18 07:41 BP 109/65 08/12/18 07:41 Pulse Ox 94 L 08/12/18 07:41 Assessment and Plan Assessment: Assessment: This a 63-year-old male with past medical history of COPD, schizophrenia presents emergency from with police and EMS for change in behavior. Patient reportedly was not acting appropriate home, was smearing feces on the blair, and I even with family. Patient noted to have feces on himself upon arrival. Patient does complain of left ankle pain, shortness of breath. He does have a history of COPD and is, short of breath. Denies any chest pain, fever, chills, URI symptoms. Patient denies any homicidal or suicidal ideation at this time. Denies any illicit drug use no alcohol abuse. - Related Data Home Medications Medication Instructions Recorded Confirmed Benztropine Mesylate 1 mg PO BID 04/27/18 08/02/18 Cholecalciferol [Vitamin D3] 5,000 unit PO DAILY 04/27/18 08/02/18 Hydrocodone/Acetaminophen [[place] 1 tab PO DAILY 04/27/18 08/02/18 5-325] Lisinopril [Zestril] 10 mg PO DAILY 04/27/18 08/02/18 Albuterol Inhaler [Ventolin Hfa 1 - 2 puff INHALATION RT-Q6H PRN 08/02/18 Inhaler] Haloperidol Decanoate [Haldol 50 mg IM Q28D 08/02/18 08/02/18 Decanoate] Ipratropium/Albuterol Sulfate 1 puff INHALATION RT-QID 08/02/18 08/02/18 [Combivent Respimat Inhaler] Allergies Allergy/AdvReac Type Severity Reaction Status Date / Time No Known Allergies Allergy Verified 08/02/18 23:28 Past Medical History Past Medical History: Hypertension History of Any Multi-Drug Resistant Organisms: None Reported Past Surgical History: Back Surgery Past Psychological History: Anxiety Smoking Status: Current every day smoker Past Alcohol Use History: Occasional Past Drug Use History: Marijuana Mental Status Examination - General Appearance: [casual, bizarre, appears older than stated age, Speech/Language: [slow, soft, other] Attitude/Behavior: [cooperative, irritable Mood: [ depressed, anxious, irritable, angry, fearful, hopelessness Affect: [full range, lively, flat, incongruent, blunted constricted] Orientation: [Not time, person, place situation] Thought Content: [wnl, denies delusions, obsessions, phobias, other] Risk Factors: [suicidal (ideations, plan), and/or Homicidal (ideations, plan), other] Perception: [ hallucinations (auditory Thought Processes: [ concrete, circumstantial, tangential,] Concentration/Attention Span: impaired] [Per observation and interview with the patient] Recent Memory: [impaired] [0, 1, 2 or 3 out of 3 in 3 minutes] Remote Memory: impaired] [past events, as related history] Intelligence: [below average [based on history, based on vocabulary, syntax, grammar, and content] Judgement: [ poor] [per patient's behavior/history of present illness] Insight: [poor] [understanding severity of illness/history of present illness] Admitting Diagnosis: [Acute psychosis stabilized, chronic schizophrenia and mild neurocognitive disorder] Initial Plan of Care: [He was admitted to 4 W. psychiatric unit [facility] on a voluntary basis and will have usual 15 minute checks and max milieu therapeutic environment treatment. He will be evaluated by medicine, psychiatry, nursing staff, social work and occupational therapy. He will be expected to integrated in the max milieu therapeutic environment whereby he will be participating in group activities and psychotherapy. After a thorough biopsychosocial social evaluation and retrieval of records from [facility] a treatment plan can be developed. It appears that he's on haloperidol decanoate 50 mg every 28 days. Today he is irritable that he could not get his clothes and he wants someone to go to the store and get cigarettes so to candy bars because it's boring at night around here. Estimated Length of Stay: [2] (1) Schizophrenia, acute undifferentiated Current Visit: Yes Status: Acute Priority: Medium Code(s): F20.3 - UNDIFFERENTIATED SCHIZOPHRENIA SNOMED Code(s): 415772747
[2018-08-12] MEDS: ACETAMINOPHEN TAB 325 MG TAB PO PRN (16:29)
[2018-08-12] MEDS: guaiFENesin-DM 100-10MG/5ML 10 ML CUP PO PRN (17:12)
[2018-08-12] MEDS: BENZTROPINE MESYLATE 0.5 MG TAB PO SCH (20:41)
[2018-08-12] MEDS: CYCLOBENZAPRINE 5 MG TAB PO PRN (20:41)
[2018-08-12] MEDS: lamoTRIgine 25 MG TAB PO SCH (20:41)
[2018-08-12] MEDS ORDERED: PALIPERIDONE 6 MG TAB.ER.24 PO SCH (21:00)
[2018-08-13] MEDS: guaiFENesin-DM 100-10MG/5ML 10 ML CUP PO PRN (01:04)
[2018-08-13] MEDS: NICOTINE 21MG/24HR PATCH TRANSDERM SCH (08:35)
[2018-08-13] MEDS: LISINOPRIL 10 MG TAB PO SCH ×2 (08:36→08:38)
[2018-08-13] MEDS ORDERED: BENZTROPINE MESYLATE 0.5 MG TAB ONE (17:35)
[2018-08-13] MEDS: lamoTRIgine 25 MG TAB PO SCH (21:18)
[2018-08-13] MEDS: BENZTROPINE MESYLATE 0.5 MG TAB PO SCH (21:18)
[2018-08-13] MEDS: SYMBICORT 160-4.5 MCG INHALER INHALATION SCH (21:41)
[2018-08-13] MEDS: IPRATROPIUM-ALBUTEROL 3 ML NEB INHALATION SCH ×2 (21:41→21:42)
[2018-08-14] MEDS: guaiFENesin-DM 100-10MG/5ML 10 ML CUP PO PRN ×3 (02:05→23:41)
[2018-08-14] MEDS: IPRATROPIUM-ALBUTEROL 3 ML NEB INHALATION SCH ×4 (07:40→19:35)
[2018-08-14] MEDS: NICOTINE 21MG/24HR PATCH TRANSDERM SCH (07:42)
[2018-08-14] MEDS: LISINOPRIL 10 MG TAB PO SCH (07:42)
[2018-08-14] MEDS: SYMBICORT 160-4.5 MCG INHALER INHALATION SCH ×2 (09:13→19:36)
--- NOTE | 2018-08-14 13:41 | P.PN ---
Progress Note - Text Progress Note Date: 08/14/18 IDENTIFICATION DATA: 63-year-old male with history of schizophrenia admitted for change in behavior. INTERVAL HISTORY: Patient reports there is nothing wrong with me psychiatrically, my son did this to me. He reports staying inside his room sleeping, saying he has nothing else to do here. He doesnt go to groups. No major behavioral problems reported on the unit. He reports good appetite. He wants to be started back on cogentin twice a day. He reports cogentin helps him with muscle spasms. He states he did not ask to come here. MENTAL STATUS EXAMINATION: The patient is alert and oriented 4 and in no apparent distress. Motor and speech behaviors are within normal limits. Mood is "okay" and affect is neutral with some range and reactivity. Thought process linear, thought content is negative for suicidal or homicidal ideation. insight and judgment are limited. ASSESSMENT AND PLAN: Patient reports to have received haldol decanote injection two weeks ago. Will start him on cogentin 0.5mg po bid. Monitor for safety and symptoms
[2018-08-14] MEDS: BENZTROPINE MESYLATE 0.5 MG TAB PO SCH ×2 (13:49→20:28)
[2018-08-14] MEDS: ACETAMINOPHEN TAB 325 MG TAB PO PRN ×2 (14:19→22:07)
[2018-08-14] MEDS: LORazepam 1 MG TAB PO PRN ×2 (15:15→23:13)
[2018-08-14] MEDS: lamoTRIgine 25 MG TAB PO SCH (20:29)
[2018-08-14] MEDS: IBUPROFEN 600 MG TAB PO PRN (20:29)
[2018-08-14] MEDS ORDERED: BENZTROPINE MESYLATE 0.5 MG TAB PO SCH (21:00)
[2018-08-15] MEDS: CYCLOBENZAPRINE 5 MG TAB PO PRN (00:30)
[2018-08-15] MEDS: LISINOPRIL 10 MG TAB PO SCH (08:14)
[2018-08-15] MEDS: BENZTROPINE MESYLATE 0.5 MG TAB PO SCH ×2 (08:14→20:18)
[2018-08-15] MEDS: NICOTINE 21MG/24HR PATCH TRANSDERM SCH (08:14)
[2018-08-15] MEDS: IPRATROPIUM-ALBUTEROL 3 ML NEB INHALATION SCH ×3 (09:26→19:14)
[2018-08-15] MEDS: SYMBICORT 160-4.5 MCG INHALER INHALATION SCH ×2 (09:26→19:14)
--- NOTE | 2018-08-15 11:27 | P.PN ---
Subjective Progress Note Date: 08/15/18 Principal diagnosis: Acute psychosis stabilized, chronic schizophrenia and mild neurocognitive disorder Chart reviewed, teamed at meeting this morning, patient interviewed in his room one-on-one. He remains suicidal and depressed and withdrawn with occasional voices. He spends most of his time in the room and has not gone to group. I' ve encouraged and get up today and get to lunch and take the initiative to go to groups. 08/12/2018: Patient in room usually awake in laying on his side he still complains of cough, depression, suicidal and he tends to withdraw and isolate to his room. 08/15/2018: He wants his narcotic. He is upset and agitated. Objective - Vital Signs Vital signs: Vital Signs Temp 98.1 F 08/15/18 00:33 Pulse 72 08/15/18 09:38 Resp 22 08/15/18 08:15 BP 108/71 08/15/18 08:15 Pulse Ox 96 08/15/18 00:33 Intake & Output 08/14/18 08/15/18 08/15/18 18:59 06:59 18:59 Weight 88 kg Assessment and Plan Assessment: Assessment: This a 63-year-old male with past medical history of COPD, schizophrenia presents emergency from with police and EMS for change in behavior. Patient reportedly was not acting appropriate home, was smearing feces on the blair, and I even with family. Patient noted to have feces on himself upon arrival. Patient does complain of left ankle pain, shortness of breath. He does have a history of COPD and is, short of breath. Denies any chest pain, fever, chills, URI symptoms. Patient denies any homicidal or suicidal ideation at this time. Denies any illicit drug use no alcohol abuse. - Related Data Home Medications Medication Instructions Recorded Confirmed Benztropine Mesylate 1 mg PO BID 04/27/18 08/02/18 Cholecalciferol [Vitamin D3] 5,000 unit PO DAILY 04/27/18 08/02/18 Hydrocodone/Acetaminophen [[place] 1 tab PO DAILY 04/27/18 08/02/18 5-325] Lisinopril [Zestril] 10 mg PO DAILY 04/27/18 08/02/18 Albuterol Inhaler [Ventolin Hfa 1 - 2 puff INHALATION RT-Q6H PRN 08/02/18 Inhaler] Haloperidol Decanoate [Haldol 50 mg IM Q28D 08/02/18 08/02/18 Decanoate] Ipratropium/Albuterol Sulfate 1 puff INHALATION RT-QID 08/02/18 08/02/18 [Combivent Respimat Inhaler] Allergies Allergy/AdvReac Type Severity Reaction Status Date / Time No Known Allergies Allergy Verified 08/02/18 23:28 Past Medical History Past Medical History: Hypertension History of Any Multi-Drug Resistant Organisms: None Reported Past Surgical History: Back Surgery Past Psychological History: Anxiety Smoking Status: Current every day smoker Past Alcohol Use History: Occasional Past Drug Use History: Marijuana Mental Status Examination - General Appearance: [casual, bizarre, appears older than stated age, Speech/Language: [slow, soft, other] Attitude/Behavior: [cooperative, irritable Mood: [ depressed, anxious, irritable, angry, fearful, hopelessness Affect: [full range, lively, flat, incongruent, blunted constricted] Orientation: [Not time, person, place situation] Thought Content: [wnl, denies delusions, obsessions, phobias, other] Risk Factors: [suicidal (ideations, plan), and/or Homicidal (ideations, plan), other] Perception: [ hallucinations (auditory Thought Processes: [ concrete, circumstantial, tangential,] Concentration/Attention Span: impaired] [Per observation and interview with the patient] Recent Memory: [impaired] [0, 1, 2 or 3 out of 3 in 3 minutes] Remote Memory: impaired] [past events, as related history] Intelligence: [below average [based on history, based on vocabulary, syntax, grammar, and content] Judgement: [ poor] [per patient's behavior/history of present illness] Insight: [poor] [understanding severity of illness/history of present illness] Admitting Diagnosis: [Acute psychosis stabilized, chronic schizophrenia and mild neurocognitive disorder] Initial Plan of Care: [He was admitted to 4 [address]. psychiatric unit [facility] on a voluntary basis and will have usual 15 minute checks and max milieu therapeutic environment treatment. He will be evaluated by medicine, psychiatry, nursing staff, social work and occupational therapy. He will be expected to integrated in the max milieu therapeutic environment whereby he will be participating in group activities and psychotherapy. After a thorough biopsychosocial social evaluation and retrieval of records from [facility] a treatment plan can be developed. It appears that he's on haloperidol decanoate 50 mg every 28 days. Today he is irritable that he could not get his clothes and he wants someone to go to the store and get cigarettes so to candy bars because it's boring at night around here. Estimated Length of Stay: [2] (1) Schizophrenia, acute undifferentiated Current Visit: Yes Status: Acute Priority: Medium Code(s): F20.3 - UNDIFFERENTIATED SCHIZOPHRENIA SNOMED Code(s): 878169234 Plan: 08/10/2018: We'll add Invega for psychosis 3 mg by mouth daily at bedtime and add Lamictal 25 mg by mouth daily at bedtime for mood stabilization. Encourage patient to participate in groups and to take medications as written. 08/15/2018:add mobic 7.5 mg po bid; increase lamictal 100 mg po qhs and will evaluate pain of back with ortho consult Time with Patient: Less than 30
[2018-08-15] MEDS: guaiFENesin-DM 100-10MG/5ML 10 ML CUP PO PRN ×2 (11:50→22:02)
[2018-08-15] MEDS: IBUPROFEN 600 MG TAB PO PRN (14:26)
[2018-08-15] MEDS: lamoTRIgine 100 MG TAB PO SCH (20:18)
[2018-08-15] MEDS: MELOXICAM 7.5 MG TAB PO SCH (20:18)
--- NOTE | 2018-08-15 20:41 | P.PAINCN ---
History of Present Illness - Reason for Consult Consult date: 08/15/18 - History of Present Illness This is a 63 years old male who was admitted to [facility] because of suicidal ideation, patient had schizophrenia, and also admitted because of acute exacerbation of COPD, patient had chronic pain syndrome and he was managed as an outpatient with the opioid/Grapevine, since patient was admitted to the psychiatric unit, the opioid discontinued on patient currently on Mobic 7.5 mg twice a day and Flexeril , patient reported that he continued to have low back pain with radiation to the lower extremity, according to the patient he had a history of lumbar laminectomy and fusion surgery done a few years ago, and he continued to have low back pain after the surgery, he denies any motor or sensory deficit he denies any fever or night sweats, and he denies any change in the bowel movement or urination Past Medical History Past Medical History: COPD, Hypertension, Liver Disease Additional Past Medical History / Comment(s): COPD, chronic hypoxic respiratory failure on oxygen 2 L per minute nasal cannula, chronic back pain, hepatitis C, chronic liver disease, hypertension, diabetes mellitus, chronic anxiety, chronic depression, schizophrenia, history of polysubstance abuse including IVDA , LSD, ecstasy, mushrooms, history of paranoia, delusions History of Any Multi-Drug Resistant Organisms: MRSA Year Discovered:: Summer 2017 MDRO Source:: finger-treated at [facility] per son Past Surgical History: Back Surgery Additional Past Surgical History / Comment(s): Pt has rods in his back. Past Anesthesia/Blood Transfusion Reactions: No Reported Reaction Past Psychological History: Anxiety, Schizophrenia Smoking Status: Current every day smoker Past Alcohol Use History: Occasional Additional Past Alcohol Use History / Comment(s): Pt smokes heavily, pipe tobacco that he rolls without filters. Past Drug Use History: Heroin, IV Drug Use, Marijuana, Methamphetamine, Opiates , Prescription Drug Abuse Additional Drug Use History / Comment(s): Per son, pt abuses opiates and marijuana. Per [facility] documents, pt has used Iv heroin, LSD, ecstacy, mushrooms, mescaline. - Past Family History Father Family Medical History: Cancer Additional Family Medical History / Comment(s): Father had colon and pancreatic cancer and in his late 70s. Mother Family Medical History: Myocardial Infarction ([place]) Additional Family Medical History / Comment(s): Mother of a [place] in her late 70s. Medications and Allergies Home Medications Medication Instructions Recorded Confirmed Type Benztropine Mesylate 1 mg PO BID 04/27/18 08/10/18 History Cholecalciferol [Vitamin D3] 5,000 unit PO DAILY 04/27/18 08/10/18 History Hydrocodone/Acetaminophen [[place] 1 tab PO DAILY 04/27/18 08/10/18 History 5-325] Lisinopril [Zestril] 10 mg PO DAILY 04/27/18 08/10/18 History Albuterol Inhaler [Ventolin Hfa 1 - 2 puff INHALATION RT-Q6H PRN 08/02/18 History Inhaler] Haloperidol Decanoate [Haldol 50 mg IM Q28D 08/02/18 08/10/18 History Decanoate] Ipratropium/Albuterol Sulfate 1 puff INHALATION RT-QID 08/02/18 08/10/18 History [Combivent Respimat Inhaler] Allergies Allergy/AdvReac Type Severity Reaction Status Date / Time No Known Allergies Allergy Verified 08/10/18 01:51 Physical Exam Vitals: Vital Signs Temp Pulse Pulse Pulse Pulse Resp BP 08/15/18 19:00 72 08/15/18 09:38 72 08/15/18 09:25 72 08/15/18 08:15 99 22 08/15/18 00:33 98.1 F 87 14 106/58 08/14/18 23:15 97 16 08/14/18 21:58 97 16 08/14/18 20:31 96 16 BP BP Pulse Ox 08/15/18 19:00 08/15/18 09:38 08/15/18 09:25 08/15/18 08:15 108/71 08/15/18 00:33 96 08/14/18 23:15 110/77 08/14/18 21:58 114/75 96 08/14/18 20:31 124/66 Social history= patient had a history of IV drug abuse heralding marijuana methamphetamine and opioid and prescription drug abuse Mother of [place], father of colon cancer and pancreatic cancer Physical Examinations : 1-Constitutiona : Cooperative , not in acute distress . 2-HEENT : nech ; supple , no Lymphadenopathy , normal thyroid size . eyes : no ptosis , no icterus, no photophobia . ENT : normal of hearing , normal oropharynx , no Thrush . 3- Respiratory : Chest clear to auscultations Bilaterally , no wheezing , no Rhonchi . 4- Cardiovascular : regular rate and rhythem , S1 , S2 , no S3 , no S4. 5- Gastrointestinal : abdomen soft no tenderness , bowel sounds , no organomegally . 6- Genitourinary : Defferred . 7- neurologic : Cranial nerve II to XII intact , no focal neurological deffecit . 8-psychatric : alert , oriented X 3 , appropriate affect , intact judgment and insight . 9-Lymphatic : no Lymphadenopathy . 10- musculoskeltal : Lumber spine moter stegnth lower extremities , thigh and legs 5/5 Right side , 5/5 Left side deep tendon reflexes : normal Knee Jerk , normal ankle Jerk positive lumber facet Loading Test Range of motion of the lumbar spine Flexion 60 degrees, extension 30 degrees strait leg raising test , positive at 60degree Fabere test negative bilaterally no tenderness over the Sacroiliac joint on the R and L sides Assessment and Plan Plan: Assessment and plan=1- lumbar radiculopathy 2-. Back surgery syndrome lumbar area. Patient is not candidate for interventional pain management because he has thrombocytopenia . Patient is not a candidate for opiates therapy, he has history of opioid abuse, and marijuana ,methamphetamine, and prescription drug abuse. Recommend to discontinue Motrin, continue Mobic, declined continue Flexeril 5 mg twice a day and patient could benefit from Neurontin 100 mg 3 times a day Time with Patient: Less than 30 PQRS Measure Charge Sheet PQRS Narrative: Smoking Status Current every day smoker Blood Pressure [Left Arm 106/58 Sitting] Blood Pressure [Right Arm] 108/71 Blood Pressure [Right Arm 114/75 Sitting] Pain Intensity [Back] 0 Pain Intensity 10 Pain Scale Used Numeric (1 - 10) Scale Used Numeric (1 - 10) Home Medications: Ambulatory Orders Benztropine Mesylate 1 mg PO BID 04/27/18 Cholecalciferol [Vitamin D3] 5,000 unit PO DAILY 04/27/18 Hydrocodone/Acetaminophen [[place] 5-325] 1 tab PO DAILY 04/27/18 Lisinopril [Zestril] 10 mg PO DAILY 04/27/18 Albuterol Inhaler [Ventolin Hfa Inhaler] 1 - 2 puff INHALATION RT-Q6H PRN Haloperidol Decanoate [Haldol Decanoate] 50 mg IM Q28D 08/02/18 Ipratropium/Albuterol Sulfate [Combivent Respimat Inhaler] 1 puff INHALATION RT- QID 08/02/18
[2018-08-15] MEDS: GABAPENTIN 100 MG CAP PO SCH (22:03)
[2018-08-16] MEDS: IPRATROPIUM-ALBUTEROL 3 ML NEB INHALATION SCH ×5 (02:25→21:43)
[2018-08-16] MEDS: ALBUTEROL NEBULIZED 2.5 MG/3 ML INHALATION PRN (02:26)
[2018-08-16] MEDS: BENZTROPINE MESYLATE 0.5 MG TAB PO SCH ×2 (08:47→20:14)
[2018-08-16] MEDS: GABAPENTIN 100 MG CAP PO SCH ×3 (08:47→20:16)
[2018-08-16] MEDS: LISINOPRIL 10 MG TAB PO SCH (08:47)
[2018-08-16] MEDS: NICOTINE 21MG/24HR PATCH TRANSDERM SCH (08:47)
[2018-08-16] MEDS: MELOXICAM 7.5 MG TAB PO SCH ×2 (08:48→20:14)
[2018-08-16] MEDS: SYMBICORT 160-4.5 MCG INHALER INHALATION SCH ×2 (09:49→21:43)
--- NOTE | 2018-08-16 11:44 | P.PN ---
Subjective Progress Note Date: 08/16/18 Principal diagnosis: Acute psychosis stabilized, chronic schizophrenia and mild neurocognitive disorder Chart reviewed, teamed at meeting this morning, patient interviewed in his room one-on-one. He remains suicidal and depressed and withdrawn with occasional voices. He spends most of his time in the room and has not gone to group. I' ve encouraged and get up today and get to lunch and take the initiative to go to groups. 08/12/2018: Patient in room usually awake in laying on his side he still complains of cough, depression, suicidal and he tends to withdraw and isolate to his room. 08/15/2018: He wants his narcotic. He is upset and agitated. 08/16/2018: Chart reviewed, discussed with pain management the use of gabapentin , discussed with team progress prognosis and interview the patient at bedside. He still is upset that he cannot get his narcotics he'll just wait until he gets out and he will go to his pain doctor and received them. Pain management did make a good discussion about came in the hospital suicidal and give somebody that on the psychiatric unit opiates to misuse. Team discussed today about placement in community mental health housing and ANC was discussed in which he does not have money to afford. Objective - Vital Signs Vital signs: Vital Signs Temp 98.1 F 08/16/18 06:58 Pulse 86 08/16/18 06:58 Resp 16 08/16/18 06:58 BP 107/69 08/16/18 06:58 Pulse Ox 96 08/15/18 00:33 Assessment and Plan Assessment: Assessment: This a 63-year-old male with past medical history of COPD, schizophrenia presents emergency from with police and EMS for change in behavior. Patient reportedly was not acting appropriate home, was smearing feces on the blair, and I even with family. Patient noted to have feces on himself upon arrival. Patient does complain of left ankle pain, shortness of breath. He does have a history of COPD and is, short of breath. Denies any chest pain, fever, chills, URI symptoms. Patient denies any homicidal or suicidal ideation at this time. Denies any illicit drug use no alcohol abuse. - Related Data Home Medications Medication Instructions Recorded Confirmed Benztropine Mesylate 1 mg PO BID 04/27/18 08/02/18 Cholecalciferol [Vitamin D3] 5,000 unit PO DAILY 04/27/18 08/02/18 Hydrocodone/Acetaminophen [[place] 1 tab PO DAILY 04/27/18 08/02/18 5-325] Lisinopril [Zestril] 10 mg PO DAILY 04/27/18 08/02/18 Albuterol Inhaler [Ventolin Hfa 1 - 2 puff INHALATION RT-Q6H PRN 08/02/18 Inhaler] Haloperidol Decanoate [Haldol 50 mg IM Q28D 08/02/18 08/02/18 Decanoate] Ipratropium/Albuterol Sulfate 1 puff INHALATION RT-QID 08/02/18 08/02/18 [Combivent Respimat Inhaler] Allergies Allergy/AdvReac Type Severity Reaction Status Date / Time No Known Allergies Allergy Verified 08/02/18 23:28 Past Medical History Past Medical History: Hypertension History of Any Multi-Drug Resistant Organisms: None Reported Past Surgical History: Back Surgery Past Psychological History: Anxiety Smoking Status: Current every day smoker Past Alcohol Use History: Occasional Past Drug Use History: Marijuana Mental Status Examination - General Appearance: [casual, bizarre, appears older than stated age, Speech/Language: [slow, soft, other] Attitude/Behavior: [cooperative, irritable Mood: [ depressed, anxious, irritable, angry, fearful, hopelessness Affect: [full range, lively, flat, incongruent, blunted constricted] Orientation: [Not time, person, place situation] Thought Content: [wnl, denies delusions, obsessions, phobias, other] Risk Factors: [suicidal (ideations, plan), and/or Homicidal (ideations, plan), other] Perception: [ hallucinations (auditory Thought Processes: [ concrete, circumstantial, tangential,] Concentration/Attention Span: impaired] [Per observation and interview with the patient] Recent Memory: [impaired] [0, 1, 2 or 3 out of 3 in 3 minutes] Remote Memory: impaired] [past events, as related history] Intelligence: [below average [based on history, based on vocabulary, syntax, grammar, and content] Judgement: [ poor] [per patient's behavior/history of present illness] Insight: [poor] [understanding severity of illness/history of present illness] Admitting Diagnosis: [Acute psychosis stabilized, chronic schizophrenia and mild neurocognitive disorder] Initial Plan of Care: [He was admitted to 4 W. psychiatric unit [facility] on a voluntary basis and will have usual 15 minute checks and max milieu therapeutic environment treatment. He will be evaluated by medicine, psychiatry, nursing staff, social work and occupational therapy. He will be expected to integrated in the max milieu therapeutic environment whereby he will be participating in group activities and psychotherapy. After a thorough biopsychosocial social evaluation and retrieval of records from [facility] a treatment plan can be developed. It appears that he's on haloperidol decanoate 50 mg every 28 days. Today he is irritable that he could not get his clothes and he wants someone to go to the store and get cigarettes so to candy bars because it's boring at night around here. Estimated Length of Stay: [2] (1) Schizophrenia, acute undifferentiated Current Visit: Yes Status: Acute Priority: Medium Code(s): F20.3 - UNDIFFERENTIATED SCHIZOPHRENIA SNOMED Code(s): 730745054 Plan: 08/10/2018: We'll add Invega for psychosis 3 mg by mouth daily at bedtime and add Lamictal 25 mg by mouth daily at bedtime for mood stabilization. Encourage patient to participate in groups and to take medications as written. 08/15/2018:add mobic 7.5 mg po bid; increase lamictal 100 mg po qhs and will evaluate pain of back with pain consult and and appreciate his recommendations. 08/16/2018: Patient still complains of pain in back and shoulders even after the addition of gabapentin along with Mobic and Lamictal. Patient continues to have a poor outlook and isolates and goes to minimal groups. He is doing his ADLs and meals. Awaiting placement at this time. Time with Patient: Less than 30
[2018-08-16] MEDS: guaiFENesin-DM 100-10MG/5ML 10 ML CUP PO PRN (16:09)
[2018-08-16] MEDS: IBUPROFEN 600 MG TAB PO PRN (17:09)
[2018-08-16] MEDS: lamoTRIgine 100 MG TAB PO SCH (20:14)
[2018-08-17] MEDS: LORazepam 1 MG TAB PO PRN (00:19)
[2018-08-17] MEDS: CYCLOBENZAPRINE 5 MG TAB PO PRN (00:36)
[2018-08-17] MEDS: guaiFENesin-DM 100-10MG/5ML 10 ML CUP PO PRN ×3 (00:36→18:09)
[2018-08-17] MEDS: ALBUTEROL NEBULIZED 2.5 MG/3 ML INHALATION PRN (01:29)
[2018-08-17] MEDS: NICOTINE 21MG/24HR PATCH TRANSDERM SCH (08:25)
[2018-08-17] MEDS: LISINOPRIL 10 MG TAB PO SCH (08:25)
[2018-08-17] MEDS: MELOXICAM 7.5 MG TAB PO SCH ×2 (08:25→20:11)
[2018-08-17] MEDS: BENZTROPINE MESYLATE 0.5 MG TAB PO SCH ×2 (08:28→20:11)
[2018-08-17] MEDS: GABAPENTIN 100 MG CAP PO SCH ×3 (08:28→20:11)
--- NOTE | 2018-08-17 10:24 | P.PN ---
Subjective Progress Note Date: 08/17/18 Principal diagnosis: Acute psychosis stabilized, chronic schizophrenia and mild neurocognitive disorder Chart reviewed, teamed at meeting this morning, patient interviewed in his room one-on-one. He remains suicidal and depressed and withdrawn with occasional voices. He spends most of his time in the room and has not gone to group. I' ve encouraged and get up today and get to lunch and take the initiative to go to groups. 08/12/2018: Patient in room usually awake in laying on his side he still complains of cough, depression, suicidal and he tends to withdraw and isolate to his room. 08/15/2018: He wants his narcotic. He is upset and agitated. 08/16/2018: Chart reviewed, discussed with pain management the use of gabapentin , discussed with team progress prognosis and interview the patient at bedside. He still is upset that he cannot get his narcotics he'll just wait until he gets out and he will go to his pain doctor and received them. Pain management did make a good discussion about came in the hospital suicidal and give somebody that on the psychiatric unit opiates to misuse. Team discussed today about placement in community mental health housing and [facility] was discussed in which he does not have money to afford. 08/17/2018: Chart reviewed and discussed with team interview patient. Discussed with patient he would be placed in [facility] housing in a residential one becomes available. Discussed again with him protocol for going to groups and interacting with peers and a positive manner and to be part of the max milieu therapeutic environment. Objective - Vital Signs Vital signs: Vital Signs Temp 97.9 F 08/17/18 00:15 Pulse 99 08/17/18 01:41 Resp 18 08/17/18 00:15 BP 150/65 08/17/18 00:15 Pulse Ox 90 L 08/17/18 00:15 Assessment and Plan Assessment: Assessment: This a 63-year-old male with past medical history of COPD, schizophrenia presents emergency from with police and EMS for change in behavior. Patient reportedly was not acting appropriate home, was smearing feces on the blair, and I even with family. Patient noted to have feces on himself upon arrival. Patient does complain of left ankle pain, shortness of breath. He does have a history of COPD and is, short of breath. Denies any chest pain, fever, chills, URI symptoms. Patient denies any homicidal or suicidal ideation at this time. Denies any illicit drug use no alcohol abuse. - Related Data Home Medications Medication Instructions Recorded Confirmed Benztropine Mesylate 1 mg PO BID 04/27/18 08/02/18 Cholecalciferol [Vitamin D3] 5,000 unit PO DAILY 04/27/18 08/02/18 Hydrocodone/Acetaminophen [[place] 1 tab PO DAILY 04/27/18 08/02/18 5-325] Lisinopril [Zestril] 10 mg PO DAILY 04/27/18 08/02/18 Albuterol Inhaler [Ventolin Hfa 1 - 2 puff INHALATION RT-Q6H PRN 08/02/18 Inhaler] Haloperidol Decanoate [Haldol 50 mg IM Q28D 08/02/18 08/02/18 Decanoate] Ipratropium/Albuterol Sulfate 1 puff INHALATION RT-QID 08/02/18 08/02/18 [Combivent Respimat Inhaler] Allergies Allergy/AdvReac Type Severity Reaction Status Date / Time No Known Allergies Allergy Verified 08/02/18 23:28 Past Medical History Past Medical History: Hypertension History of Any Multi-Drug Resistant Organisms: None Reported Past Surgical History: Back Surgery Past Psychological History: Anxiety Smoking Status: Current every day smoker Past Alcohol Use History: Occasional Past Drug Use History: Marijuana Mental Status Examination - this 63-year-old male remains tense and irritable and demanding his opiates General Appearance: [casual, appears older than stated age, Speech/Language: [slow, soft,] Attitude/Behavior: [cooperative, irritable Mood: [ depressed, anxious, irritable, angry, fearful, hopelessness Affect: [full range, lively, flat, incongruent, blunted constricted] Orientation: [Not time, person, place situation] Thought Content: [wnl, denies delusions, obsessions, phobias, other] Risk Factors: [suicidal (ideations, plan), and/or Homicidal (ideations, plan), other] Perception: [ hallucinations (auditory Thought Processes: [ concrete, circumstantial, tangential,] Concentration/Attention Span: impaired] [Per observation and interview with the patient] Recent Memory: [impaired] [0,out of 3 in 3 minutes] Remote Memory: impaired] [past events, as related history] Intelligence: [below average [based on history, based on vocabulary, syntax, grammar, and content] Judgement: [ poor] [per patient's behavior/history of present illness] Insight: [poor] [understanding severity of illness/history of present illness] Admitting Diagnosis: [Acute psychosis stabilized, chronic schizophrenia and mild neurocognitive disorder] Initial Plan of Care: [He was admitted to 4 W. psychiatric unit [facility] on a voluntary basis and will have usual 15 minute checks and max milieu therapeutic environment treatment. He will be evaluated by medicine, psychiatry, nursing staff, social work and occupational therapy. He will be expected to integrated in the max milieu therapeutic environment whereby he will be participating in group activities and psychotherapy. After a thorough biopsychosocial social evaluation and retrieval of records from [facility] a treatment plan can be developed. It appears that he's on haloperidol decanoate 50 mg every 28 days. Today he is irritable that he could not get his clothes and he wants someone to go to the store and get cigarettes so to candy bars because it's boring at night around here. He tends to isolate to his room and not participating even when encouraged by staff and myself. Estimated Length of Stay: [2] (1) Schizophrenia, acute undifferentiated Current Visit: Yes Status: Acute Priority: Medium Code(s): F20.3 - UNDIFFERENTIATED SCHIZOPHRENIA SNOMED Code(s): 050403498 Plan: 08/10/2018: We'll add Invega for psychosis 3 mg by mouth daily at bedtime and add Lamictal 25 mg by mouth daily at bedtime for mood stabilization. Encourage patient to participate in groups and to take medications as written. 08/15/2018:add mobic 7.5 mg po bid; increase lamictal 100 mg po qhs and will evaluate pain of back with pain consult and and appreciate his recommendations. 08/16/2018: Patient still complains of pain in back and shoulders even after the addition of gabapentin along with Mobic and Lamictal. Patient continues to have a poor outlook and isolates and goes to minimal groups. He is doing his ADLs and meals. Awaiting placement at this time. 08/17/2018: Patient does not complain of suicidal homicidal ideation's depression has decreased his anxiety has decreased we'll maintain him on gabapentin mobile and Lamictal as stated. Awaiting placement in residential Time with Patient: Less than 30
[2018-08-17] MEDS: IPRATROPIUM-ALBUTEROL 3 ML NEB INHALATION SCH ×4 (11:40→20:39)
[2018-08-17] MEDS: SYMBICORT 160-4.5 MCG INHALER INHALATION SCH ×2 (11:40→20:39)
[2018-08-17] MEDS: lamoTRIgine 100 MG TAB PO SCH (20:11)
[2018-08-18] MEDS: NICOTINE 21MG/24HR PATCH TRANSDERM SCH (08:02)
[2018-08-18] MEDS: BENZTROPINE MESYLATE 0.5 MG TAB PO SCH ×2 (08:02→20:07)
[2018-08-18] MEDS: LISINOPRIL 10 MG TAB PO SCH (08:02)
[2018-08-18] MEDS: MELOXICAM 7.5 MG TAB PO SCH ×2 (08:02→20:07)
[2018-08-18] MEDS: GABAPENTIN 100 MG CAP PO SCH ×3 (08:02→22:17)
--- NOTE | 2018-08-18 11:35 | P.PN ---
Subjective Progress Note Date: 08/18/18 Principal diagnosis: Acute psychosis stabilized, chronic schizophrenia and mild neurocognitive disorder Chart reviewed, teamed at meeting this morning, patient interviewed in his room one-on-one. He remains suicidal and depressed and withdrawn with occasional voices. He spends most of his time in the room and has not gone to group. I' ve encouraged and get up today and get to lunch and take the initiative to go to groups. 08/12/2018: Patient in room usually awake in laying on his side he still complains of cough, depression, suicidal and he tends to withdraw and isolate to his room. 08/15/2018: He wants his narcotic. He is upset and agitated. 08/16/2018: Chart reviewed, discussed with pain management the use of gabapentin , discussed with team progress prognosis and interview the patient at bedside. He still is upset that he cannot get his narcotics he'll just wait until he gets out and he will go to his pain doctor and received them. Pain management did make a good discussion about came in the hospital suicidal and give somebody that on the psychiatric unit opiates to misuse. Team discussed today about placement in community mental health housing and [facility] was discussed in which he does not have money to afford. 08/17/2018: Chart reviewed and discussed with team interview patient. Discussed with patient he would be placed in [facility] housing in a care home one becomes available. Discussed again with him protocol for going to groups and interacting with peers and a positive manner and to be part of the max milieu therapeutic environment. Objective - Vital Signs Vital signs: Vital Signs Temp 97.9 F 08/18/18 07:06 Pulse 71 08/18/18 07:06 Resp 16 08/18/18 07:06 BP 123/74 08/18/18 07:06 Pulse Ox 100 08/18/18 07:06 Assessment and Plan Assessment: Assessment: This a 63-year-old male with past medical history of COPD, schizophrenia presents emergency from with police and EMS for change in behavior. Patient reportedly was not acting appropriate home, was smearing feces on the blair, and I even with family. Patient noted to have feces on himself upon arrival. Patient does complain of left ankle pain, shortness of breath. He does have a history of COPD and is, short of breath. Denies any chest pain, fever, chills, URI symptoms. Patient denies any homicidal or suicidal ideation at this time. Denies any illicit drug use no alcohol abuse. - Related Data Home Medications Medication Instructions Recorded Confirmed Benztropine Mesylate 1 mg PO BID 04/27/18 08/02/18 Cholecalciferol [Vitamin D3] 5,000 unit PO DAILY 04/27/18 08/02/18 Hydrocodone/Acetaminophen [[place] 1 tab PO DAILY 04/27/18 08/02/18 5-325] Lisinopril [Zestril] 10 mg PO DAILY 04/27/18 08/02/18 Albuterol Inhaler [Ventolin Hfa 1 - 2 puff INHALATION RT-Q6H PRN 08/02/18 Inhaler] Haloperidol Decanoate [Haldol 50 mg IM Q28D 08/02/18 08/02/18 Decanoate] Ipratropium/Albuterol Sulfate 1 puff INHALATION RT-QID 08/02/18 08/02/18 [Combivent Respimat Inhaler] Allergies Allergy/AdvReac Type Severity Reaction Status Date / Time No Known Allergies Allergy Verified 08/02/18 23:28 Past Medical History Past Medical History: Hypertension History of Any Multi-Drug Resistant Organisms: None Reported Past Surgical History: Back Surgery Past Psychological History: Anxiety Smoking Status: Current every day smoker Past Alcohol Use History: Occasional Past Drug Use History: Marijuana Mental Status Examination - this 63-year-old male remains tense and irritable and demanding his opiates General Appearance: [casual, appears older than stated age, Speech/Language: [slow, soft,] Attitude/Behavior: [cooperative, irritable Mood: [ depressed, anxious, irritable, angry, fearful, hopelessness Affect: [full range, lively, flat, incongruent, blunted constricted] Orientation: [Not time, person, place situation] Thought Content: [wnl, denies delusions, obsessions, phobias, other] Risk Factors: [suicidal (ideations, plan), and/or Homicidal (ideations, plan), other] Perception: [ hallucinations (auditory Thought Processes: [ concrete, circumstantial, tangential,] Concentration/Attention Span: impaired] [Per observation and interview with the patient] Recent Memory: [impaired] [0,out of 3 in 3 minutes] Remote Memory: impaired] [past events, as related history] Intelligence: [below average [based on history, based on vocabulary, syntax, grammar, and content] Judgement: [ poor] [per patient's behavior/history of present illness] Insight: [poor] [understanding severity of illness/history of present illness] Admitting Diagnosis: [Acute psychosis stabilized, chronic schizophrenia and mild neurocognitive disorder] Initial Plan of Care: [He was admitted to 4 W. psychiatric unit [facility] on a voluntary basis and will have usual 15 minute checks and max milieu therapeutic environment treatment. He will be evaluated by medicine, psychiatry, nursing staff, social work and occupational therapy. He will be expected to integrated in the max milieu therapeutic environment whereby he will be participating in group activities and psychotherapy. After a thorough biopsychosocial social evaluation and retrieval of records from [facility] a treatment plan can be developed. It appears that he's on haloperidol decanoate 50 mg every 28 days. Today he is irritable that he could not get his clothes and he wants someone to go to the store and get cigarettes so to candy bars because it's boring at night around here. He tends to isolate to his room and not participating even when encouraged by staff and myself. Estimated Length of Stay: [2] (1) Schizophrenia, acute undifferentiated Current Visit: Yes Status: Acute Priority: Medium Code(s): F20.3 - UNDIFFERENTIATED SCHIZOPHRENIA SNOMED Code(s): 908433202 Plan: 08/10/2018: We'll add Invega for psychosis 3 mg by mouth daily at bedtime and add Lamictal 25 mg by mouth daily at bedtime for mood stabilization. Encourage patient to participate in groups and to take medications as written. 08/15/2018:add mobic 7.5 mg po bid; increase lamictal 100 mg po qhs and will evaluate pain of back with pain consult and and appreciate his recommendations. 08/16/2018: Patient still complains of pain in back and shoulders even after the addition of gabapentin along with Mobic and Lamictal. Patient continues to have a poor outlook and isolates and goes to minimal groups. He is doing his ADLs and meals. Awaiting placement at this time. 08/17/2018: Patient does not complain of suicidal homicidal ideation's depression has decreased his anxiety has decreased we'll maintain him on gabapentin mobile and Lamictal as stated. Awaiting placement in care home Time with Patient: Less than 30
[2018-08-18] MEDS: IPRATROPIUM-ALBUTEROL 3 ML NEB INHALATION SCH ×3 (12:59→20:52)
[2018-08-18] MEDS: SYMBICORT 160-4.5 MCG INHALER INHALATION SCH ×2 (12:59→20:55)
[2018-08-18] MEDS: guaiFENesin-DM 100-10MG/5ML 10 ML CUP PO PRN ×2 (15:13→22:50)
[2018-08-18] MEDS: LORazepam 1 MG TAB PO PRN ×2 (15:34→22:50)
[2018-08-18] MEDS: lamoTRIgine 100 MG TAB PO SCH (20:08)
[2018-08-19] MEDS: BENZTROPINE MESYLATE 0.5 MG TAB PO SCH ×2 (08:24→21:01)
[2018-08-19] MEDS: LISINOPRIL 10 MG TAB PO SCH (08:24)
[2018-08-19] MEDS: MELOXICAM 7.5 MG TAB PO SCH ×2 (08:24→21:01)
[2018-08-19] MEDS: NICOTINE 21MG/24HR PATCH TRANSDERM SCH (08:24)
[2018-08-19] MEDS: GABAPENTIN 100 MG CAP PO SCH ×3 (08:25→21:39)
[2018-08-19] MEDS: IPRATROPIUM-ALBUTEROL 3 ML NEB INHALATION SCH ×4 (09:28→19:36)
[2018-08-19] MEDS: SYMBICORT 160-4.5 MCG INHALER INHALATION SCH ×3 (09:28→21:18)
--- NOTE | 2018-08-19 11:26 | P.PN ---
Subjective Progress Note Date: 08/19/18 Principal diagnosis: Acute psychosis stabilized, chronic schizophrenia and mild neurocognitive disorder Chart reviewed, teamed at meeting this morning, patient interviewed in his room one-on-one. He remains suicidal and depressed and withdrawn with occasional voices. He spends most of his time in the room and has not gone to group. I' ve encouraged and get up today and get to lunch and take the initiative to go to groups. 08/12/2018: Patient in room usually awake in laying on his side he still complains of cough, depression, suicidal and he tends to withdraw and isolate to his room. 08/15/2018: He wants his narcotic. He is upset and agitated. 08/16/2018: Chart reviewed, discussed with pain management the use of gabapentin , discussed with team progress prognosis and interview the patient at bedside. He still is upset that he cannot get his narcotics he'll just wait until he gets out and he will go to his pain doctor and received them. Pain management did make a good discussion about came in the hospital suicidal and give somebody that on the psychiatric unit opiates to misuse. Team discussed today about placement in community mental health housing and [facility] was discussed in which he does not have money to afford. 08/17/2018: Chart reviewed and discussed with team interview patient. Discussed with patient he would be placed in [facility] housing in a long term one becomes available. Discussed again with him protocol for going to groups and interacting with peers and a positive manner and to be part of the max milieu therapeutic environment. 08/19/2018: Chart reviewed and patient discussed in team. Patient interviewed at bedside. Discussed again with patient waiting for her [facility] housing. He refuses to get up and go to groups. He denies any suicidal homicidal ideation or any auditory or visual hallucinations Objective - Vital Signs Vital signs: Vital Signs Temp 97.8 F 08/19/18 06:55 Pulse 91 08/19/18 08:35 Resp 24 08/19/18 08:35 BP 107/65 08/19/18 08:35 Pulse Ox 93 L 08/19/18 08:35 Assessment and Plan Assessment: Assessment: This a 63-year-old male with past medical history of COPD, schizophrenia presents emergency from with police and EMS for change in behavior. Patient reportedly was not acting appropriate home, was smearing feces on the blair, and I even with family. Patient noted to have feces on himself upon arrival. Patient does complain of left ankle pain, shortness of breath. He does have a history of COPD and is, short of breath. Denies any chest pain, fever, chills, URI symptoms. Patient denies any homicidal or suicidal ideation at this time. Denies any illicit drug use no alcohol abuse. - Related Data Home Medications Medication Instructions Recorded Confirmed Benztropine Mesylate 1 mg PO BID 04/27/18 08/02/18 Cholecalciferol [Vitamin D3] 5,000 unit PO DAILY 04/27/18 08/02/18 Hydrocodone/Acetaminophen [[place] 1 tab PO DAILY 04/27/18 08/02/18 5-325] Lisinopril [Zestril] 10 mg PO DAILY 04/27/18 08/02/18 Albuterol Inhaler [Ventolin Hfa 1 - 2 puff INHALATION RT-Q6H PRN 08/02/18 Inhaler] Haloperidol Decanoate [Haldol 50 mg IM Q28D 08/02/18 08/02/18 Decanoate] Ipratropium/Albuterol Sulfate 1 puff INHALATION RT-QID 08/02/18 08/02/18 [Combivent Respimat Inhaler] Allergies Allergy/AdvReac Type Severity Reaction Status Date / Time No Known Allergies Allergy Verified 08/02/18 23:28 Past Medical History Past Medical History: Hypertension History of Any Multi-Drug Resistant Organisms: None Reported Past Surgical History: Back Surgery Past Psychological History: Anxiety Smoking Status: Current every day smoker Past Alcohol Use History: Occasional Past Drug Use History: Marijuana Mental Status Examination - this 63-year-old male remains tense and irritable and demanding his opiates General Appearance: [casual, appears older than stated age, Speech/Language: [slow, soft,] Attitude/Behavior: [cooperative, irritable Mood: [ depressed, anxious, irritable, angry, fearful, hopelessness Affect: [full range, lively, flat, incongruent, blunted constricted] Orientation: [Not time, person, place situation] Thought Content: [wnl, denies delusions, obsessions, phobias, other] Risk Factors: [suicidal (ideations, plan), and/or Homicidal (ideations, plan), other] Perception: [ hallucinations (auditory Thought Processes: [ concrete, circumstantial, tangential,] Concentration/Attention Span: impaired] [Per observation and interview with the patient] Recent Memory: [impaired] [0,out of 3 in 3 minutes] Remote Memory: impaired] [past events, as related history] Intelligence: [below average [based on history, based on vocabulary, syntax, grammar, and content] Judgement: [ poor] [per patient's behavior/history of present illness] Insight: [poor] [understanding severity of illness/history of present illness] Admitting Diagnosis: [Acute psychosis stabilized, chronic schizophrenia and mild neurocognitive disorder] Initial Plan of Care: [He was admitted to 4 W. psychiatric unit [facility] on a voluntary basis and will have usual 15 minute checks and max milieu therapeutic environment treatment. He will be evaluated by medicine, psychiatry, nursing staff, social work and occupational therapy. He will be expected to integrated in the max milieu therapeutic environment whereby he will be participating in group activities and psychotherapy. After a thorough biopsychosocial social evaluation and retrieval of records from [facility] a treatment plan can be developed. It appears that he's on haloperidol decanoate 50 mg every 28 days. Today he is irritable that he could not get his clothes and he wants someone to go to the store and get cigarettes so to candy bars because it's boring at night around here. He tends to isolate to his room and not participating even when encouraged by staff and myself. Estimated Length of Stay: [2] (1) Schizophrenia, acute undifferentiated Current Visit: Yes Status: Acute Priority: Medium Code(s): F20.3 - UNDIFFERENTIATED SCHIZOPHRENIA SNOMED Code(s): 345305718 Plan: 08/10/2018: We'll add Invega for psychosis 3 mg by mouth daily at bedtime and add Lamictal 25 mg by mouth daily at bedtime for mood stabilization. Encourage patient to participate in groups and to take medications as written. 08/15/2018:add mobic 7.5 mg po bid; increase lamictal 100 mg po qhs and will evaluate pain of back with pain consult and and appreciate his recommendations. 08/16/2018: Patient still complains of pain in back and shoulders even after the addition of gabapentin along with Mobic and Lamictal. Patient continues to have a poor outlook and isolates and goes to minimal groups. He is doing his ADLs and meals. Awaiting placement at this time. 08/17/2018: Patient does not complain of suicidal homicidal ideation's depression has decreased his anxiety has decreased we'll maintain him on gabapentin yvon Rojas and Lamictal and Lamictal as stated. Awaiting placement in long term 08/19/2018 patient does not complain of suicidal ideation nor homicidal ideation depression has decreased and his anxiety is stable we'll maintain him on gabapentin awaiting placement
[2018-08-19] MEDS: LORazepam 1 MG TAB PO PRN (15:28)
[2018-08-19] MEDS: guaiFENesin-DM 100-10MG/5ML 10 ML CUP PO PRN (17:10)
[2018-08-19] MEDS: IBUPROFEN 600 MG TAB PO PRN (17:28)
[2018-08-19] MEDS: lamoTRIgine 100 MG TAB PO SCH (21:01)
[2018-08-19] MEDS: ALBUTEROL NEBULIZED 2.5 MG/3 ML INHALATION PRN (21:17)
[2018-08-20] MEDS: NICOTINE 21MG/24HR PATCH TRANSDERM SCH (08:13)
[2018-08-20] MEDS: MELOXICAM 7.5 MG TAB PO SCH ×2 (08:13→20:11)
[2018-08-20] MEDS: BENZTROPINE MESYLATE 0.5 MG TAB PO SCH ×2 (08:13→20:11)
[2018-08-20] MEDS: LISINOPRIL 10 MG TAB PO SCH (08:15)
[2018-08-20] MEDS: GABAPENTIN 100 MG CAP PO SCH ×3 (08:15→20:13)
[2018-08-20] MEDS: IPRATROPIUM-ALBUTEROL 3 ML NEB INHALATION SCH ×4 (09:07→20:41)
[2018-08-20] MEDS: SYMBICORT 160-4.5 MCG INHALER INHALATION SCH ×2 (09:08→20:40)
--- NOTE | 2018-08-20 11:31 | P.PN ---
Progress Note - Text Interval history: The patient's found in his room. He indicates his mood is okay but he voices frustration that he is not on [place]. He states he does not want to take Neurontin in place of [place]. He has received a Haldol decanoate. He is on Lamictal. He reports having no symptoms at this time and states he does not need to be here. In reviewing the chart the patient is going [facility] be [facility] at a [facility] once a bed is available. Mental status exam: The patient is a thin male lying in bed he is dressed in his own clothing. He is in no acute distress. He indicates his mood is fine. He reports no suicidal or homicidal ideation intent or plan. He reports no auditory or visual hallucinations or any specific delusions. He quickly dismisses those questions by stating "no". He demonstrates no verbal or physical aggressiveness he demonstrates no involuntary repetitive movements. Affect is constricted. Hygiene and grooming fair. Plan: The patient will continue on his current medication. We will monitor him for safety. Vital signs reviewed. He states he's not going to attend groups but is encouraged to participate in the milieu.
[2018-08-20] MEDS: IBUPROFEN 600 MG TAB PO PRN (17:37)
[2018-08-20] MEDS: lamoTRIgine 100 MG TAB PO SCH (20:11)
[2018-08-20] MEDS: guaiFENesin-DM 100-10MG/5ML 10 ML CUP PO PRN (20:14)
[2018-08-20] MEDS: LORazepam 1 MG TAB PO PRN (21:40)
[2018-08-21] MEDS: ACETAMINOPHEN TAB 325 MG TAB PO PRN (06:08)
[2018-08-21] MEDS: NICOTINE 21MG/24HR PATCH TRANSDERM SCH (08:21)
[2018-08-21] MEDS: BENZTROPINE MESYLATE 0.5 MG TAB PO SCH ×2 (08:22→20:11)
[2018-08-21] MEDS: LISINOPRIL 10 MG TAB PO SCH (08:22)
[2018-08-21] MEDS: MELOXICAM 7.5 MG TAB PO SCH ×2 (08:22→20:11)
[2018-08-21] MEDS: GABAPENTIN 100 MG CAP PO SCH ×3 (08:23→20:07)
[2018-08-21] MEDS: IPRATROPIUM-ALBUTEROL 3 ML NEB INHALATION SCH ×4 (08:31→21:10)
[2018-08-21] MEDS: SYMBICORT 160-4.5 MCG INHALER INHALATION SCH ×2 (08:31→21:10)
--- NOTE | 2018-08-21 12:55 | P.PN ---
Progress Note - Text Interval history: The patient is found in his room he is awake. He is willing to participate in a conversation. He states that he wants to be discharged. He feels at this facility is worst in long term. He indicates he doesn't feel safe and does not trust the staff. He reports he would feel safer in long term. He has not been attending groups stating they have no value for him. He has no questions regarding medication. Mental status exam: The patient is alert he is lying in bed he is wearing his nasal cannula oxygen. The most part is cooperative with questioning. He has a mildly irritable affect when discussing his current hospitalization. He reports no suicidal or homicidal ideation he quickly dismisses any questions regarding hallucinations or delusions. He indicates he has none of those symptoms. He demonstrated no verbal or physical aggressiveness he demonstrates no involuntary repetitive movements. Insight and judgment limited. Plan: The patient will continue on a psychotropic medication is written we will monitor him for safety. He is encouraged to attend groups but he has not been doing so. Vital signs reviewed.
[2018-08-21] MEDS: guaiFENesin-DM 100-10MG/5ML 10 ML CUP PO PRN (16:51)
[2018-08-21] MEDS: lamoTRIgine 100 MG TAB PO SCH (20:11)
[2018-08-21] MEDS: LORazepam 1 MG TAB PO PRN (21:07)
[2018-08-22] MEDS: ACETAMINOPHEN TAB 325 MG TAB PO PRN ×2 (01:04→22:38)
[2018-08-22] MEDS: GABAPENTIN 100 MG CAP PO SCH ×3 (08:22→20:36)
[2018-08-22] MEDS: LISINOPRIL 10 MG TAB PO SCH (08:22)
[2018-08-22] MEDS: NICOTINE 21MG/24HR PATCH TRANSDERM SCH (08:22)
[2018-08-22] MEDS: MELOXICAM 7.5 MG TAB PO SCH ×2 (08:22→20:35)
[2018-08-22] MEDS: BENZTROPINE MESYLATE 0.5 MG TAB PO SCH ×2 (08:23→20:35)
[2018-08-22] MEDS: SYMBICORT 160-4.5 MCG INHALER INHALATION SCH ×2 (09:09→21:09)
[2018-08-22] MEDS: IPRATROPIUM-ALBUTEROL 3 ML NEB INHALATION SCH ×4 (09:09→21:11)
--- NOTE | 2018-08-22 11:54 | P.DS ---
Providers Date of admission: 08/09/18 22:24 Expected date of discharge: 08/22/18 Attending physician: Ming Gonzalez DO Consults: 08/09/18 23:11 Consult Physician Routine Consulting Provider: Chica Terrazas Consult Reason/Comments: H&P and medical Do you want consulting provider notified?: Yes Primary care physician: Kerry Bahena MD - Discharge Diagnosis(es) (1) Schizophrenia, acute undifferentiated This a 63-year-old male with past medical history of COPD, schizophrenia presents emergency from with police and EMS for change in behavior. Patient reportedly was not acting appropriate home, was smearing feces on the blair, and I even with family. Patient noted to have feces on himself upon arrival. Patient does complain of left ankle pain, shortness of breath. He does have a history of COPD and is, short of breath. Denies any chest pain, fever, chills, URI symptoms. Patient denies any homicidal or suicidal ideation at this time. Denies any illicit drug use no alcohol abuse. - Related Data Home Medications Medication Instructions Recorded Confirmed Benztropine Mesylate 1 mg PO BID 04/27/18 08/02/18 Cholecalciferol [Vitamin D3] 5,000 unit PO DAILY 04/27/18 08/02/18 Hydrocodone/Acetaminophen [[place] 1 tab PO DAILY 04/27/18 08/02/18 5-325] Lisinopril [Zestril] 10 mg PO DAILY 04/27/18 08/02/18 Albuterol Inhaler [Ventolin Hfa 1 - 2 puff INHALATION RT-Q6H PRN 08/02/18 Inhaler] Haloperidol Decanoate [Haldol 50 mg IM Q28D 08/02/18 08/02/18 Decanoate] Ipratropium/Albuterol Sulfate 1 puff INHALATION RT-QID 08/02/18 08/02/18 [Combivent Respimat Inhaler] Allergies Allergy/AdvReac Type Severity Reaction Status Date / Time No Known Allergies Allergy Verified 08/02/18 23:28 Past Medical History Past Medical History: Hypertension History of Any Multi-Drug Resistant Organisms: None Reported Past Surgical History: Back Surgery Past Psychological History: Anxiety Smoking Status: Current every day smoker Past Alcohol Use History: Occasional Past Drug Use History: Marijuana Current Visit: Yes Status: Acute Priority: Medium Hospital Course: Plan of Care: [He was admitted to 4 [address]. psychiatric unit [facility] on a voluntary basis and will have usual 15 minute checks and max milieu therapeutic environment treatment. He will be evaluated by medicine, psychiatry , nursing staff, social work and occupational therapy. He will be expected to integrated in the max milieu therapeutic environment whereby he will be participating in group activities and psychotherapy. After a thorough biopsychosocial social evaluation and retrieval of records from community hospital a treatment plan can be developed. It appears that he's on haloperidol decanoate 50 mg every 28 days. Today he is irritable that he could not get his clothes and he wants someone to go to the store and get cigarettes so to candy bars because it's boring at night around here. He tends to isolate to his room and not participating even when encouraged by staff and myself. Mental status examination time of discharge: The patient presents alert, pleasant, and cooperative. There calmly seated without any agitated behavior. [He] reports that [his] mood is good. Affect is congruent and euthymic. [He] deny having any suicidal or homicidal ideation intent or plan. [He] denies any auditory or visual hallucinations. There is no evidence of any delusional thought content. [His] thought process is linear and goal-directed. [His] speech is fluent and nonpressured. [His] memory and concentration is grossly intact for the purposes of this session. His next shot Haldol decanoate should be 08/28/2018 and he is being transferred to community [facility] half-way. Discharge Medication List Cholecalciferol [Vitamin D3] 5,000 unit PO DAILY 04/27/18 [History] Albuterol Inhaler [Ventolin Hfa Inhaler] 1 - 2 puff INHALATION RT-Q6H PRN 30 Days #1 puff 08/22/18 [Rx] Benztropine Mesylate 1 mg PO BID 30 Days #60 tablet 08/22/18 [Rx] Budesonide-Formot 160-4.5 Mcg [Symbicort 160-4.5 Mcg Inhaler] 2 puff INHALATION RT-BID 30 Days #1 puff 08/22/18 [Rx] Cyclobenzaprine [Flexeril] 5 mg PO TID PRN 30 Days #90 tab 08/22/18 [Rx] Gabapentin [Neurontin] 100 mg PO TID 30 Days #90 cap 08/22/18 [Rx] Haloperidol Decanoate [Haldol D] 50 mg IM Q28D 28 Days #1 vial 08/22/18 [Rx] Lisinopril [Zestril] 10 mg PO DAILY 30 Days #30 tablet 08/22/18 [Rx] Meloxicam [Mobic] 7.5 mg PO BID 30 Days #60 tab 08/22/18 [Rx] guaiFENesin-DM 100-10MG/5ML [Robitussin DM] 10 ml PO Q8H PRN cup 08/22/18 [Rx] lamoTRIgine [LaMICtal] 100 mg PO 2100 30 Days #30 tab 08/22/18 [Rx] Patient Condition at Discharge: Stable Plan - Discharge Summary Discharge Rx Participant: Yes New Discharge Prescriptions: New Budesonide-Formot 160-4.5 Mcg [Symbicort 160-4.5 Mcg Inhaler] 2 puff INHALATION RT-BID 30 Days #1 puff Cyclobenzaprine [Flexeril] 5 mg PO TID PRN 30 Days #90 tab PRN Reason: Muscle Spasm Gabapentin [Neurontin] 100 mg PO TID 30 Days #90 cap guaiFENesin-DM 100-10MG/5ML [Robitussin DM] 10 ml PO Q8H PRN cup PRN Reason: Cough lamoTRIgine [LaMICtal] 100 mg PO 2100 30 Days #30 tab Meloxicam [Mobic] 7.5 mg PO BID 30 Days #60 tab Continue Cholecalciferol [Vitamin D3] 5,000 unit PO DAILY Albuterol Inhaler [Ventolin Hfa Inhaler] 1 - 2 puff INHALATION RT-Q6H PRN 30 Days #1 puff PRN Reason: Shortness Of Breath Benztropine Mesylate 1 mg PO BID 30 Days #60 tablet Haloperidol Decanoate [Haldol D] 50 mg IM Q28D 28 Days #1 vial Lisinopril [Zestril] 10 mg PO DAILY 30 Days #30 tablet Discontinued Hydrocodone/Acetaminophen [Quinter 5-325] 1 tab PO DAILY Ipratropium/Albuterol Sulfate [Combivent Respimat Inhaler] 1 puff INHALATION RT-QID Discharge Medication List Cholecalciferol [Vitamin D3] 5,000 unit PO DAILY 04/27/18 [History] Albuterol Inhaler [Ventolin Hfa Inhaler] 1 - 2 puff INHALATION RT-Q6H PRN 30 Days #1 puff 08/22/18 [Rx] Benztropine Mesylate 1 mg PO BID 30 Days #60 tablet 08/22/18 [Rx] Budesonide-Formot 160-4.5 Mcg [Symbicort 160-4.5 Mcg Inhaler] 2 puff INHALATION RT-BID 30 Days #1 puff 08/22/18 [Rx] Cyclobenzaprine [Flexeril] 5 mg PO TID PRN 30 Days #90 tab 08/22/18 [Rx] Gabapentin [Neurontin] 100 mg PO TID 30 Days #90 cap 08/22/18 [Rx] Haloperidol Decanoate [Haldol D] 50 mg IM Q28D 28 Days #1 vial 08/22/18 [Rx] Lisinopril [Zestril] 10 mg PO DAILY 30 Days #30 tablet 08/22/18 [Rx] Meloxicam [Mobic] 7.5 mg PO BID 30 Days #60 tab 08/22/18 [Rx] guaiFENesin-DM 100-10MG/5ML [Robitussin DM] 10 ml PO Q8H PRN cup 08/22/18 [Rx] lamoTRIgine [LaMICtal] 100 mg PO 2100 30 Days #30 tab 08/22/18 [Rx] Patient Instructions/Handouts: How to Stop Smoking (DC) Discharge Disposition: OTHER INSTITUTION NOT DEFINED
[2018-08-22] MEDS: guaiFENesin-DM 100-10MG/5ML 10 ML CUP PO PRN (16:20)
[2018-08-22] MEDS: lamoTRIgine 100 MG TAB PO SCH (20:36)
[2018-08-23] MEDS: IBUPROFEN 600 MG TAB PO PRN (01:36)
[2018-08-23 05:26] VITALS: TEMP 97.6
[2018-08-23] MEDS: LISINOPRIL 10 MG TAB PO SCH (08:17)
[2018-08-23] MEDS: MELOXICAM 7.5 MG TAB PO SCH (08:17)
[2018-08-23] MEDS: BENZTROPINE MESYLATE 0.5 MG TAB PO SCH (08:17)
[2018-08-23] MEDS: GABAPENTIN 100 MG CAP PO SCH ×2 (08:19→16:04)
[2018-08-23] MEDS: NICOTINE 21MG/24HR PATCH TRANSDERM SCH (08:19)
[2018-08-23 08:21] VITALS: BP 104/71; PULSE 75; RESP 22
[2018-08-23] MEDS: SYMBICORT 160-4.5 MCG INHALER INHALATION SCH (09:45)
[2018-08-23] MEDS: IPRATROPIUM-ALBUTEROL 3 ML NEB INHALATION SCH ×3 (09:46→15:31)
[2018-08-23 11:43] VITALS: BMI 23.7
--- NOTE | 2018-08-23 12:20 | P.PN ---
Subjective Progress Note Date: 08/23/18 Principal diagnosis: Acute psychosis stabilized, chronic schizophrenia and mild neurocognitive disorder Chart reviewed, teamed at meeting this morning, patient interviewed in his room one-on-one. He remains suicidal and depressed and withdrawn with occasional voices. He spends most of his time in the room and has not gone to group. I' ve encouraged and get up today and get to lunch and take the initiative to go to groups. 08/12/2018: Patient in room usually awake in laying on his side he still complains of cough, depression, suicidal and he tends to withdraw and isolate to his room. 08/15/2018: He wants his narcotic. He is upset and agitated. 08/16/2018: Chart reviewed, discussed with pain management the use of gabapentin , discussed with team progress prognosis and interview the patient at bedside. He still is upset that he cannot get his narcotics he'll just wait until he gets out and he will go to his pain doctor and received them. Pain management did make a good discussion about came in the hospital suicidal and give somebody that on the psychiatric unit opiates to misuse. Team discussed today about placement in community mental health housing and [facility] was discussed in which he does not have money to afford. 08/17/2018: Chart reviewed and discussed with team interview patient. Discussed with patient he would be placed in [facility] housing in a senior care one becomes available. Discussed again with him protocol for going to groups and interacting with peers and a positive manner and to be part of the max milieu therapeutic environment. 08/19/2018: Chart reviewed and patient discussed in team. Patient interviewed at bedside. Discussed again with patient waiting for her [facility] housing. He refuses to get up and go to groups. He denies any suicidal homicidal ideation or any auditory or visual hallucinations Objective - Vital Signs Vital signs: Vital Signs Temp 97.6 F 08/23/18 01:36 Pulse 75 08/23/18 08:20 Resp 22 08/23/18 08:20 BP 104/71 08/23/18 08:20 Pulse Ox 100 08/21/18 17:10 Intake & Output 08/22/18 08/23/18 08/23/18 18:59 06:59 18:59 Weight 60.7 kg Assessment and Plan Assessment: Assessment: This a 63-year-old male with past medical history of COPD, schizophrenia presents emergency from with police and EMS for change in behavior. Patient reportedly was not acting appropriate home, was smearing feces on the blair, and I even with family. Patient noted to have feces on himself upon arrival. Patient does complain of left ankle pain, shortness of breath. He does have a history of COPD and is, short of breath. Denies any chest pain, fever, chills, URI symptoms. Patient denies any homicidal or suicidal ideation at this time. Denies any illicit drug use no alcohol abuse. - Related Data Home Medications Medication Instructions Recorded Confirmed Benztropine Mesylate 1 mg PO BID 04/27/18 08/02/18 Cholecalciferol [Vitamin D3] 5,000 unit PO DAILY 04/27/18 08/02/18 Hydrocodone/Acetaminophen [[place] 1 tab PO DAILY 04/27/18 08/02/18 5-325] Lisinopril [Zestril] 10 mg PO DAILY 04/27/18 08/02/18 Albuterol Inhaler [Ventolin Hfa 1 - 2 puff INHALATION RT-Q6H PRN 08/02/18 Inhaler] Haloperidol Decanoate [Haldol 50 mg IM Q28D 08/02/18 08/02/18 Decanoate] Ipratropium/Albuterol Sulfate 1 puff INHALATION RT-QID 08/02/18 08/02/18 [Combivent Respimat Inhaler] Allergies Allergy/AdvReac Type Severity Reaction Status Date / Time No Known Allergies Allergy Verified 08/02/18 23:28 Past Medical History Past Medical History: Hypertension History of Any Multi-Drug Resistant Organisms: None Reported Past Surgical History: Back Surgery Past Psychological History: Anxiety Smoking Status: Current every day smoker Past Alcohol Use History: Occasional Past Drug Use History: Marijuana Mental Status Examination - this 63-year-old male remains tense and irritable and demanding his opiates General Appearance: [casual, appears older than stated age, Speech/Language: [slow, soft,] Attitude/Behavior: [cooperative, irritable Mood: [ depressed, anxious, irritable, angry, fearful, hopelessness Affect: [full range, lively, flat, incongruent, blunted constricted] Orientation: [Not time, person, place situation] Thought Content: [wnl, denies delusions, obsessions, phobias, other] Risk Factors: [suicidal (ideations, plan), and/or Homicidal (ideations, plan), other] Perception: [ hallucinations (auditory Thought Processes: [ concrete, circumstantial, tangential,] Concentration/Attention Span: impaired] [Per observation and interview with the patient] Recent Memory: [impaired] [0,out of 3 in 3 minutes] Remote Memory: impaired] [past events, as related history] Intelligence: [below average [based on history, based on vocabulary, syntax, grammar, and content] Judgement: [ poor] [per patient's behavior/history of present illness] Insight: [poor] [understanding severity of illness/history of present illness] Admitting Diagnosis: [Acute psychosis stabilized, chronic schizophrenia and mild neurocognitive disorder] Initial Plan of Care: [He was admitted to 4 W psychiatric [facility] on a voluntary basis and will have usual 15 minute checks and max milieu therapeutic environment treatment. He will be evaluated by medicine, psychiatry, nursing staff, social work and occupational therapy. He will be expected to integrated in the max milieu therapeutic environment whereby he will be participating in group activities and psychotherapy. After a thorough biopsychosocial social evaluation and retrieval of records from [facility] a treatment plan can be developed. It appears that he's on haloperidol decanoate 50 mg every 28 days. Today he is irritable that he could not get his clothes and he wants someone to go to the store and get cigarettes so to candy bars because it's boring at night around here. He tends to isolate to his room and not participating even when encouraged by staff and myself. Estimated Length of Stay: [2] (1) Schizophrenia, acute undifferentiated Current Visit: Yes Status: Acute Priority: Medium Code(s): F20.3 - UNDIFFERENTIATED SCHIZOPHRENIA SNOMED Code(s): 011297281 Plan: 08/10/2018: We'll add Invega for psychosis 3 mg by mouth daily at bedtime and add Lamictal 25 mg by mouth daily at bedtime for mood stabilization. Encourage patient to participate in groups and to take medications as written. 08/15/2018:add mobic 7.5 mg po bid; increase lamictal 100 mg po qhs and will evaluate pain of back with pain consult and and appreciate his recommendations. 08/16/2018: Patient still complains of pain in back and shoulders even after the addition of gabapentin along with Mobic and Lamictal. Patient continues to have a poor outlook and isolates and goes to minimal groups. He is doing his ADLs and meals. Awaiting placement at this time. 08/17/2018: Patient does not complain of suicidal homicidal ideation's depression has decreased his anxiety has decreased we'll maintain him on gabapentin mobic Tavo Rojas and Lamictal and Lamictal as stated. Awaiting placement in senior care 08/19/2018 patient does not complain of suicidal ideation nor homicidal ideation depression has decreased and his anxiety is stable we'll maintain him on gabapentin awaiting placement Time with Patient: Less than 30
[2018-08-23] MEDS: LORazepam 1 MG TAB PO PRN (16:05)
== END 2018-08-23 18:28 | disposition home or self-care (01) | DRG 885 ==
LOC: 3MHU 22:24
PROVIDERS: ADMIT Psychiatry & Neurology Psychiatry; ATTEND Psychiatry & Neurology Psychiatry
DX: F23 Brief psychotic disorder (principal); F17.200 Nicotine dependence, unspecified, uncomplicated; F32.9 Major depressive disorder, single episode, unspecified; F41.9 Anxiety disorder, unspecified; G31.84 Mild cognitive impairment of uncertain or unknown etiology; I10 Essential (primary) hypertension; J44.9 Chronic obstructive pulmonary disease, unspecified; Z91.19 Patient's noncompliance with other medical treatment and regimen; Z79.899 Other long term (current) drug therapy
CPT/HCPCS: 94640

== ENCOUNTER 2018-09-19 15:36 | Emergency (ER) | payer OTHER ==
[2018-09-19] MEDS ORDERED: HYDROcodone/APAP 5-325MG 1 EACH TAB PO STA (15:58)
[2018-09-19] MEDS ORDERED: ACET/COD 300 MG/30 MG STARTER PACK 6 TAB BTL PO STA (15:58)
--- NOTE | 2018-09-19 16:00 | ED ---
Back Pain HPI - General Chief Complaint: Back Pain/Injury Stated Complaint: Back pain Time Seen by Provider: 09/19/18 15:50 Source: patient, RN notes reviewed Limitations: no limitations - History of Present Illness Initial Comments: 63-year-old male sent emergency Department chief complaint of chronic low back pain. This is not out of the usual back pain forearm. He did have a fall a few months ago in which she had x-rays which were negative. Patient continues with chronic pain states that he has not had his pain medication because he was discharged for marijuana use. Patient states he used to receive 30 [place] monthly. Patient denies any bowel bladder incontinence or retention. Patient also is requesting refill of his vehicle inhaler. Patient offers no other complaints. - Related Data Previous Rx's Medication Instructions Recorded Albuterol Inhaler [Ventolin Hfa 1 - 2 puff INHALATION RT-Q6H PRN 08/22/18 Inhaler] 30 Days #1 puff Benztropine Mesylate 1 mg PO BID 30 Days #60 tablet 08/22/18 Budesonide-Formot 160-4.5 Mcg 2 puff INHALATION RT-BID 30 Days 08/22/18 [Symbicort 160-4.5 Mcg Inhaler] #1 puff Cyclobenzaprine [Flexeril] 5 mg PO TID PRN 30 Days #90 tab 08/22/18 Haloperidol Decanoate [Haldol D] 50 mg IM Q28D 28 Days #1 vial 08/22/18 Lisinopril [Zestril] 10 mg PO DAILY 30 Days #30 tablet 08/22/18 Meloxicam [Mobic] 7.5 mg PO BID 30 Days #60 tab 08/22/18 lamoTRIgine [LaMICtal] 100 mg PO 2100 30 Days #30 tab 08/22/18 Allergies Allergy/AdvReac Type Severity Reaction Status Date / Time No Known Allergies Allergy Verified 09/19/18 15:39 Review of Systems ROS Statement: Those systems with pertinent positive or pertinent negative responses have been documented in the HPI. ROS Other: All systems not noted in ROS Statement are negative. Past Medical History Past Medical History: COPD, Hypertension, Liver Disease Additional Past Medical History / Comment(s): COPD, chronic hypoxic respiratory failure on oxygen 2 L per minute nasal cannula, chronic back pain, hepatitis C, chronic liver disease, hypertension, diabetes mellitus, chronic anxiety, chronic depression, schizophrenia, history of polysubstance abuse including IVDA , LSD, ecstasy, mushrooms, history of paranoia, delusions History of Any Multi-Drug Resistant Organisms: MRSA Date of last positivie culture/infection: Summer 2017 MDRO Source:: finger-treated at [facility] per son Past Surgical History: Back Surgery Additional Past Surgical History / Comment(s): Pt has rods in his back. Past Anesthesia/Blood Transfusion Reactions: No Reported Reaction Past Psychological History: Anxiety, Schizophrenia Smoking Status: Current every day smoker Past Alcohol Use History: Occasional Past Drug Use History: Heroin, IV Drug Use, Marijuana, Methamphetamine, Opiates , Prescription Drug Abuse - Past Family History Father Family Medical History: Cancer Additional Family Medical History / Comment(s): Father had colon and pancreatic cancer and in his late 70s. Mother Family Medical History: Myocardial Infarction (PA) Additional Family Medical History / Comment(s): Mother of a PA in her late 70s. General Exam Limitations: no limitations General appearance: alert, in no apparent distress Head exam: Present: atraumatic, normocephalic, normal inspection Neck exam: Present: normal inspection. Absent: tenderness, meningismus, lymphadenopathy Respiratory exam: Present: normal lung sounds bilaterally. Absent: respiratory distress, wheezes, rales, rhonchi, stridor Cardiovascular Exam: Present: regular rate, normal rhythm, normal heart sounds. Absent: systolic murmur, diastolic murmur, rubs, gallop, clicks GI/Abdominal exam: Present: soft, normal bowel sounds. Absent: distended, tenderness, guarding, rebound, rigid Extremities exam: Present: normal inspection, full ROM, normal capillary refill. Absent: tenderness, pedal edema, joint swelling, calf tenderness Back exam: Present: normal inspection, full ROM, tenderness, paraspinal tenderness, other (Normal straight leg raise). Absent: vertebral tenderness Course Vital Signs 09/19/18 15:39 Temperature 98 F Pulse Rate 85 Respiratory 18 Rate Blood Pressure 165/114 O2 Sat by Pulse 95 Oximetry Medical Decision Making - Medical Decision Making 63-year-old male presented for chronic pain. Patient will be on a dose Austin in emergency department. Patient is advised follow-up PCP. Patient also had refill of his albuterol inhaler. Disposition Clinical Impression: Medication refill, Chronic low back pain Disposition: HOME SELF-CARE Condition: Stable Instructions (If sedation given, give patient instructions): Chronic Back Pain (ED) Additional Instructions: Please return to the Emergency Department if symptoms worsen or any other concerns. Is patient prescribed a controlled substance at d/c from ED?: No Referrals: [facility] [Primary Care Provider] - 1-2 days Time of Disposition: 16:00
[2018-09-19 16:18] VITALS: BP 161/94; PULSE 62; RESP 16; TEMP 97.3
== END 2018-09-19 16:16 | disposition home or self-care (01) ==
LOC: EC 15:36
DX: G89.29 Other chronic pain (principal); M54.5 Low back pain; Z76.0 Encounter for issue of repeat prescription; F17.200 Nicotine dependence, unspecified, uncomplicated; Z86.14 Personal history of Methicillin resistant Staphylococcus aureus infection; Z86.19 Personal history of other infectious and parasitic diseases
CPT/HCPCS: 99283

== ENCOUNTER 2018-09-26 12:28 | Emergency (ER) | payer OTHER ==
[2018-09-26 13:26] VITALS: BP 138/93; PULSE 84; RESP 20; TEMP 98.2
[2018-09-26] MEDS ORDERED: KETOROLAC 60 MG/2 ML VIAL IM STA (14:48)
--- NOTE | 2018-09-26 15:13 | XR ---
EXAMINATION TYPE: XR shoulder complete RT DATE OF EXAM: 09/26/2018 CLINICAL HISTORY: Right shoulder pain since injury a week ago. TECHNIQUE: Three views of the right shoulder are obtained. COMPARISON: None. FINDINGS: Demineralization is present. There is old fracture forming proximal right humerus. There i s no acute fracture/dislocation evident in the right shoulder. There is moderate to severe narrowing at acromioclavicular joint. There is moderate narrowing and glenohumeral joint. There is old posterio r lateral right fourth rib fracture. IMPRESSION: There is no acute fracture or dislocation in the right shoulder.
--- NOTE | 2018-09-26 15:45 | XR ---
EXAMINATION TYPE: XR lumbar spine 2 or 3V DATE OF EXAM: 09/26/2018 CLINICAL HISTORY: pain TECHNIQUE: Three views of the lumbar spine are submitted. COMPARISON: None. FINDINGS: Multiple vertebral body compression fractures with underlying vertebroplasty changes. Postoperative c hanges with pedicular screws in place and lumbar laminectomy noted. IMPRESSION: Multiple nonacute-appearing compression fractures of the lumbar spine with prior vertebroplasty cabello es. Correlate clinically.
[2018-09-26] MEDS ORDERED: ACET/COD 300 MG/30 MG STARTER PACK 6 TAB BTL PO STA (16:22)
--- NOTE | 2018-09-26 16:22 | ED ---
General Adult HPI - General Chief complaint: Back Pain/Injury Stated complaint: BACK PAIN Time Seen by Provider: 09/26/18 14:17 Source: patient, RN notes reviewed, old records reviewed Mode of arrival: ambulatory Limitations: no limitations - History of Present Illness Initial comments: 63-year-old male patient past medical history of chronic back pain, COPD presents ED with chronic lumbar back pain as well as right shoulder pain. Patient reports that his right shoulder pain since fall approximately 2 months ago. 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 Denies any loss of consciousness. Patient force that his back pain is typical for his chronic back pain. Patient reports that is in his right paralumbar region, extends down his right leg. Patient ambulatory without difficulty today. Patient denies any loss of bowel or bladder control, lower extremity weakness, saddle anesthesia, fever/chills. Patient denies any other complaints. Systemic: Pt denies fatigue, fever/chills, rash. Pt denies weakness, night sweats, weight loss. Neuro: Pt denies headache, visual disturbances, syncope or pre-syncope. HEENT: Pt denies ocular discharge or irritation, otalgia, rhinorrhea, pharyngitis or notable lymphadenopathy. Cardiopulmonary: Pt denies chest pain, SOB, heart palpitations, dyspnea on exertion. Abdominal/GI: Pt denies abdominal pain, n/v/d. : Pt denies dysuria, burning w/ urination, frequency/urgency. Denies new onset urinary or bowel incontinence. MSK: Pt denies loss of strength or function in extremities. Neuro: Pt denies new onset weakness, paresthesias. - Related Data Previous Rx's Medication Instructions Recorded Albuterol Inhaler [Ventolin Hfa 1 - 2 puff INHALATION RT-Q6H PRN 08/22/18 Inhaler] 30 Days #1 puff Benztropine Mesylate 1 mg PO BID 30 Days #60 tablet 08/22/18 Budesonide-Formot 160-4.5 Mcg 2 puff INHALATION RT-BID 30 Days 08/22/18 [Symbicort 160-4.5 Mcg Inhaler] #1 puff Cyclobenzaprine [Flexeril] 5 mg PO TID PRN 30 Days #90 tab 08/22/18 Haloperidol Decanoate [Haldol D] 50 mg IM Q28D 28 Days #1 vial 08/22/18 Lisinopril [Zestril] 10 mg PO DAILY 30 Days #30 tablet 08/22/18 Meloxicam [Mobic] 7.5 mg PO BID 30 Days #60 tab 08/22/18 lamoTRIgine [LaMICtal] 100 mg PO 2100 30 Days #30 tab 08/22/18 Albuterol Sulfate [Proair Hfa] 1 - 2 puff INHALATION Q4HR PRN #1 09/19/18 inhaler Allergies Allergy/AdvReac Type Severity Reaction Status Date / Time No Known Allergies Allergy Verified 09/26/18 13:25 Review of Systems ROS Statement: Those systems with pertinent positive or pertinent negative responses have been documented in the HPI. ROS Other: All systems not noted in ROS Statement are negative. Past Medical History Past Medical History: COPD, Hypertension, Liver Disease Additional Past Medical History / Comment(s): COPD, chronic hypoxic respiratory failure on oxygen 2 L per minute nasal cannula, chronic back pain, hepatitis C, chronic liver disease, hypertension, diabetes mellitus, chronic anxiety, chronic depression, schizophrenia, history of polysubstance abuse including IVDA, LSD, ecstasy, mushrooms, history of paranoia, delusions History of Any Multi-Drug Resistant Organisms: MRSA Date of last positivie culture/infection: Summer 2017 MDRO Source:: finger-treated at [facility] per son Past Surgical History: Back Surgery Additional Past Surgical History / Comment(s): Pt has rods in his back. Past Anesthesia/Blood Transfusion Reactions: No Reported Reaction Past Psychological History: Anxiety, Schizophrenia Smoking Status: Current every day smoker Past Alcohol Use History: Occasional Past Drug Use History: Heroin, IV Drug Use, Marijuana, Methamphetamine, Opiates, Prescription Drug Abuse - Past Family History Father Family Medical History: Cancer Additional Family Medical History / Comment(s): Father had colon and pancreatic cancer and in his late 70s. Mother Family Medical History: Myocardial Infarction ([place]) Additional Family Medical History / Comment(s): Mother of a [place] in her late 70s. General Exam - General Exam Comments Initial Comments: Constitutional: NAD, AOX3, Pt has pleasant affect. HEENT: NC/AT, trachea midline, neck supple, no lymphadenopathy. Posterior pharynx non erythematous, without exudates. External ears appear normal, without discharge. Mucous membranes moist. Eyes PERRLA, EOM intact. There is no scleral icterus. No pallor noted. Cardiopulmonary: RRR, no murmurs, rubs or gallops, no JVD noted. Lungs CTAB in anterior and posterior sesay. No peripheral edema. Abdominal exam: Abdomen soft and non-distended. Abdomen non-tender to palpation in all 4 quadrants. Bowel sounds active in LLQ. No hepatosplenomegaly. No ecchymosis Neuro: CN II-XII grossly intact. No nuchal rigidity. MSK: Right paralumbar region mildly tender to palpation. No midline tenderness cervical thoracic lumbar. Right straight leg raise positive. 5 out of 5 strength psoas and quadriceps muscles. Heel to toe walking intact. 2 out of 4 patellar and Achilles reflexes bilaterally. Right anterior shoulder mildly tender to palpation at the before meals joint. Empty can test positive. Pain with range of motion. Full active range of motion of shoulder. No posterior calf tenderness bilaterally, homans sign negative bilaterally. Posterior tibialis and radial pulse +2 bilaterally. Sensation intact in upper and lower extremities. Full active ROM in upper and lower extremities, 5/5 stregnth. Limitations: no limitations Course Vital Signs 09/26/18 13:22 Temperature 98.2 F Pulse Rate 84 Respiratory 20 Rate Blood Pressure 138/93 O2 Sat by Pulse 94 L Oximetry Medical Decision Making - Medical Decision Making 63-year-old male patient past medical history of chronic back pain, COPD presents ED with chronic lumbar back pain as well as right shoulder pain. Patient reports that his right shoulder pain since fall approximately 2 months ago. 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 Denies any loss of consciousness. Patient force that his back pain is typical for his chronic back pain. Patient reports that is in his right paralumbar region, extends down his right leg. Patient ambulatory without difficulty today. Patient denies any loss of bowel or bladder control, lower extremity weakness, saddle anesthesia, fever/chills. Patient denies any other complaints. Vital signs stable, afebrile. Physical exam displayed: Right paralumbar region mildly tender to palpation. No midline tenderness cervical thoracic lumbar. Right straight leg raise positive. 5 out of 5 strength psoas and quadriceps muscles. Heel to toe walking intact. 2 out of 4 patellar and Achilles reflexes bilaterally. Right anterior shoulder mildly tender to palpation at the before meals joint. Empty can test positive. Pain with range of motion. Full active range of motion of shoulder. Plain film of shoulder revealed no acute process. Plain film of lumbar spine revealed multiple nonacute-appearing compression fractures with prior vertebroplasty changes. Patient reportedly already aware of these findings. Patient given orthopedic follow-up. Patient follow up with primary care right 1-2 days. Patient to return to ER if descends symptoms develop or if condition worsens in any way. Case discussed with Dr. Levy. Disposition Clinical Impression: Lumbar back pain, Shoulder pain, right Disposition: HOME SELF-CARE Condition: Stable Instructions (If sedation given, give patient instructions): Musculoskeletal Pain (ED), Chronic Back Pain (ED) Additional Instructions: Patient to adhere to previously discussed treatment plan and will take medication(s) as directed. Patient to follow up with PCP in 1-2 days. Patient to return to ED if symptoms do not improve. Please up with primary care provider tomorrow. Please follow-up with orthopedic surgeon tomorrow. Please return to ER condition worsens in any way. Is patient prescribed a controlled substance at d/c from ED?: No Referrals: None,Stated [Primary Care Provider] - 1-2 days Onel Saeed MD [Medical Doctor] - 1-2 days
== END 2018-09-26 16:27 | disposition home or self-care (01) ==
LOC: EC 12:28
DX: M54.5 Low back pain (principal); M25.511 Pain in right shoulder; F17.200 Nicotine dependence, unspecified, uncomplicated; Z98.890 Other specified postprocedural states; Z86.14 Personal history of Methicillin resistant Staphylococcus aureus infection
CPT/HCPCS: 99284; 96372; 72100; 73030; J1885

== ENCOUNTER → 2018-09-29 | Outpatient (CLI) | payer OTHER ==
[2018-09-29 15:45] LABS: Basophils % (A) 0 %; Eosinophils # (A) 0.2 k/uL (0-0.7); Eosinophils % (A) 3 %; HCT 47.4 % (39.0-53.0); HGB 14.6 gm/dL (13.0-17.5); Lymphocytes # (A) 1.1 k/uL (1.0-4.8); Lymphocytes % (A) 24 %; MCH 32.1 pg (25.0-35.0); MCHC 30.8 g/dL (31.0-37.0); MCV 104.1 fL (80.0-100.0); Macrocytosis Slight; Mean Platelet Volume 8.6; Monocytes # (A) 0.4 k/uL (0-1.0); Monocytes % (A) 8 %; Neutrophils # (A) 2.8 k/uL (1.3-7.7); Neutrophils % (A) 62 %; Platelet Count 127 k/uL (150-450); RBC 4.55 m/uL (4.30-5.90); RDW 13.3 % (11.5-15.5); WBC 4.5 k/uL (3.8-10.6)
[2018-09-29 18:04] LABS: Albumin 4.7 g/dL (3.80-4.90); Albumin/Globulin Ratio 2.61 (1.60-3.17); Anion Gap 5.3 mmol/L (4.00-12.00); Calcium 9.4 mg/dL (8.7-10.3); Carbon Dioxide 31.7 mmol/L (21.6-31.8); Globulin 1.8 g/dL (1.6-3.3); LDL Cholesterol,Calculated 79.2 mg/dL (0.0-131.0); Magnesium 1.9 mg/dL (1.5-2.4); Potassium 4.8 mmol/L (3.5-5.5); Total Bilirubin 0.7 mg/dL (0.3-1.2); Total Protein 6.5 g/dL (6.2-8.2); VLDL Calculation 16.8 mg/dL (5.00-40.00)
[2018-09-29 18:05] LABS: Vitamin D 25 Hydroxy 33.2 ng/mL (30.0-100.0)
[2018-09-29 18:11] LABS: T4, Free (Free Thyroxine) 1.1 ng/dL (0.80-1.80)
[2018-09-29 23:37] LABS: Hemoglobin A1C 6.2 % (4.0-6.0)
== END | disposition home or self-care (01) ==
LOC: LABWHC1 14:41
PROVIDERS: ATTEND Physician Assistant Medical
DX: E11.9 Type 2 diabetes mellitus without complications (principal); I10 Essential (primary) hypertension; E55.9 Vitamin D deficiency, unspecified
CPT/HCPCS: 36415; 80053; 80061; 82306; 82607; 83036; 83735; 84439; 84443; 85025

== ENCOUNTER 2018-10-20 16:15 | Emergency (ER) | payer OTHER ==
[2018-10-20] MEDS ORDERED: DIAZEPAM 5 MG TAB PO STA (17:56)
[2018-10-20] MEDS ORDERED: Acetaminophen-Codeine 300-30mg TAB PO STA (17:56)
[2018-10-20] MEDS ORDERED: ACET/COD 300 MG/30 MG STARTER PACK 6 TAB BTL PO STA (17:56)
--- NOTE | 2018-10-20 17:57 | ED ---
Anxiety HPI - General Chief Complaint: Anxiety Stated Complaint: anxiety Time Seen by Provider: 10/20/18 17:02 Source: patient, RN notes reviewed, old records reviewed Mode of arrival: ambulatory - History of Present Illness Initial Comments: This is a 61-year-old male the ER for evaluation, patient complaining of anxiety and pain. CT cannot all pain medication and anxiety medications. Patient denies homicidal or suicidal thoughts denies drug or alcohol abuse currently. He does have significant history of illicit drug abuse, he was off with drugs and prescription drugs and unable to see primary care currently. Denies any new complaints MD Complaint: anxiety, other (needs pain meds and anxiety) -: hour(s) Symptoms: palpitations, muscle cramps Place: home Previous History of Same: Yes Severity: mild Quality: constant Provoking factors: emotional stress, medication change Improves With: nothing Worsens With: nothing - Related Data Home Medications: Home Medications Medication Instructions Recorded Confirmed Albuterol Sulfate [Proair Hfa] 1 - 2 puff INHALATION RT-Q4H PRN 10/20/18 10/20/18 Gabapentin [Neurontin] 100 mg PO TID 10/20/18 10/20/18 Lisinopril [Zestril] 20 mg PO DAILY 10/20/18 10/20/18 lamoTRIgine [LaMICtal] 100 mg PO DAILY 10/20/18 10/20/18 Previous Rx's Medication Instructions Recorded Benztropine Mesylate 1 mg PO BID 30 Days #60 tablet 08/22/18 Budesonide-Formot 160-4.5 Mcg 2 puff INHALATION RT-BID 30 Days 08/22/18 [Symbicort 160-4.5 Mcg Inhaler] #1 puff Cyclobenzaprine [Flexeril] 5 mg PO TID PRN 30 Days #90 tab 08/22/18 Haloperidol Decanoate [Haldol D] 50 mg IM Q28D 28 Days #1 vial 08/22/18 Meloxicam [Mobic] 7.5 mg PO BID 30 Days #60 tab 08/22/18 Allergies/Adverse Reactions: Allergies Allergy/AdvReac Type Severity Reaction Status Date / Time No Known Allergies Allergy Verified 10/20/18 17:02 Review of Systems ROS Statement: Those systems with pertinent positive or pertinent negative responses have been documented in the HPI. ROS Other: All systems not noted in ROS Statement are negative. Past Medical History Past Medical History: COPD, Hypertension, Liver Disease Additional Past Medical History / Comment(s): COPD, chronic hypoxic respiratory failure on oxygen 2 L per minute nasal cannula, chronic back pain, hepatitis C, chronic liver disease, hypertension, diabetes mellitus, chronic anxiety, chronic depression, schizophrenia, history of polysubstance abuse including IVDA, LSD, ecstasy, mushrooms, history of paranoia, delusions History of Any Multi-Drug Resistant Organisms: MRSA Date of last positivie culture/infection: Summer 2017 MDRO Source:: finger-treated at [facility] per son Past Surgical History: Back Surgery Additional Past Surgical History / Comment(s): Pt has rods in his back. Past Anesthesia/Blood Transfusion Reactions: No Reported Reaction Past Psychological History: Anxiety, Schizophrenia Smoking Status: Current every day smoker Past Alcohol Use History: Occasional Past Drug Use History: Heroin, IV Drug Use, Marijuana, Methamphetamine, Opiates, Prescription Drug Abuse - Past Family History Father Family Medical History: Cancer Additional Family Medical History / Comment(s): Father had colon and pancreatic cancer and in his late 70s. Mother Family Medical History: Myocardial Infarction ([place]) Additional Family Medical History / Comment(s): Mother of a [place] in her late 70s. General Exam Limitations: no limitations General appearance: alert, in no apparent distress Head exam: Present: atraumatic, normocephalic, normal inspection Eye exam: Present: normal appearance, PERRL, EOMI. Absent: scleral icterus, conjunctival injection, periorbital swelling ENT exam: Present: normal exam, mucous membranes moist Neck exam: Present: normal inspection. Absent: tenderness, meningismus, lymphadenopathy Respiratory exam: Present: normal lung sounds bilaterally. Absent: respiratory distress, wheezes, rales, rhonchi, stridor Cardiovascular Exam: Present: regular rate, normal rhythm, normal heart sounds. Absent: systolic murmur, diastolic murmur, rubs, gallop, clicks GI/Abdominal exam: Present: soft, normal bowel sounds. Absent: distended, tenderness, guarding, rebound, rigid Extremities exam: Present: normal inspection, full ROM, normal capillary refill. Absent: tenderness, pedal edema, joint swelling, calf tenderness Back exam: Present: normal inspection Neurological exam: Present: alert, oriented X3, CN II-XII intact Psychiatric exam: Present: normal affect, normal mood Skin exam: Present: warm, dry, intact, normal color. Absent: rash Course Vital Signs 10/20/18 10/20/18 16:17 18:20 Temperature 98.1 F 98.2 F Pulse Rate 77 70 Respiratory 18 20 Rate Blood Pressure 136/87 130/67 O2 Sat by Pulse 97 96 Oximetry Medical Decision Making - Medical Decision Making 61 female presenting for anxiety. Patient states he needs pain meds and anxiety meds. Patient aware that he can't prescription for either. Patient will be discharged home Disposition Clinical Impression: Panic disorder, Schizophrenia, acute undifferentiated, Chronic pain Disposition: HOME SELF-CARE Instructions (If sedation given, give patient instructions): Chronic Pain (ED), Generalized Anxiety Disorder (ED) Is patient prescribed a controlled substance at d/c from ED?: No Referrals: None,Stated [Primary Care Provider] - 1-2 days
[2018-10-20 18:26] VITALS: BP 130/67; PULSE 70; RESP 20; TEMP 98.2
== END 2018-10-20 18:20 | disposition home or self-care (01) ==
LOC: EC 16:15 → EEVIPCON 16:15 → EC 18:20
DX: F41.0 Panic disorder [episodic paroxysmal anxiety] (principal); F23 Brief psychotic disorder; G89.29 Other chronic pain; R25.2 Cramp and spasm; J44.9 Chronic obstructive pulmonary disease, unspecified; I10 Essential (primary) hypertension; F17.200 Nicotine dependence, unspecified, uncomplicated; Z86.14 Personal history of Methicillin resistant Staphylococcus aureus infection; Z79.899 Other long term (current) drug therapy
CPT/HCPCS: 99284

== ENCOUNTER 2018-10-27 17:02 | Emergency (ER) | payer OTHER ==
[2018-10-27 17:33] VITALS: BP 132/86; PULSE 80; RESP 20; TEMP 97.6
[2018-10-27] MEDS ORDERED: ACET/COD 300 MG/30 MG STARTER PACK 6 TAB BTL PO STA (19:00)
--- NOTE | 2018-10-27 19:05 | ED ---
General Adult HPI - General Chief complaint: Back Pain/Injury Stated complaint: Back pain Time Seen by Provider: 10/27/18 17:52 Source: patient, RN notes reviewed, old records reviewed Mode of arrival: ambulatory Limitations: no limitations - History of Present Illness Initial comments: 63-year-old male patient past medical history of chronic back pain presents ED for some time treatment of his chronic back pain. Patient seen for this problem one month ago which displayed multiple nonacute appearing question fracture of the lumbar spine and prior vertebroplasty changes. Patient denies any recent falls or trauma. Patient states that the back pain is left her lumbar. Denies any loss of bowel or bladder control. Denies any fevers or chills, lower extremity weakness, current IV drug use. Patient states that he has initial pain management appointment scheduled on 11 days primarily wants symptomatic treatment. Denies all other complaints. Systemic: Pt denies fatigue, fever/chills, rash. Pt denies weakness, night sweats, weight loss. Neuro: Pt denies headache, visual disturbances, syncope or pre-syncope. HEENT: Pt denies ocular discharge or irritation, otalgia, rhinorrhea, pharyngitis or notable lymphadenopathy. Cardiopulmonary: Pt denies chest pain, SOB, heart palpitations, dyspnea on exertion. Abdominal/GI: Pt denies abdominal pain, n/v/d. : Pt denies dysuria, burning w/ urination, frequency/urgency. Denies new onset urinary or bowel incontinence. MSK: Pt denies loss of strength or function in extremities. Neuro: Pt denies new onset weakness, paresthesias. - Related Data Home Medications Medication Instructions Recorded Confirmed Albuterol Sulfate [Proair Hfa] 1 - 2 puff INHALATION RT-Q4H PRN 10/20/18 10/20/18 Gabapentin [Neurontin] 100 mg PO TID 10/20/18 10/20/18 Lisinopril [Zestril] 20 mg PO DAILY 10/20/18 10/20/18 lamoTRIgine [LaMICtal] 100 mg PO DAILY 10/20/18 10/20/18 Previous Rx's Medication Instructions Recorded Benztropine Mesylate 1 mg PO BID 30 Days #60 tablet 08/22/18 Budesonide-Formot 160-4.5 Mcg 2 puff INHALATION RT-BID 30 Days 08/22/18 [Symbicort 160-4.5 Mcg Inhaler] #1 puff Cyclobenzaprine [Flexeril] 5 mg PO TID PRN 30 Days #90 tab 08/22/18 Haloperidol Decanoate [Haldol D] 50 mg IM Q28D 28 Days #1 vial 08/22/18 Meloxicam [Mobic] 7.5 mg PO BID 30 Days #60 tab 08/22/18 predniSONE 50 mg PO DAILY #5 tab 10/27/18 Allergies Allergy/AdvReac Type Severity Reaction Status Date / Time No Known Allergies Allergy Verified 10/27/18 17:32 Review of Systems ROS Statement: Those systems with pertinent positive or pertinent negative responses have been documented in the HPI. ROS Other: All systems not noted in ROS Statement are negative. Past Medical History Past Medical History: COPD, Hypertension, Liver Disease Additional Past Medical History / Comment(s): COPD, chronic hypoxic respiratory failure on oxygen 2 L per minute nasal cannula, chronic back pain, hepatitis C, chronic liver disease, hypertension, diabetes mellitus, chronic anxiety, chronic depression, schizophrenia, history of polysubstance abuse including IVDA, LSD, ecstasy, mushrooms, history of paranoia, delusions History of Any Multi-Drug Resistant Organisms: MRSA Date of last positivie culture/infection: Summer 2017 MDRO Source:: finger-treated at [facility] per son Past Surgical History: Back Surgery Additional Past Surgical History / Comment(s): Pt has rods in his back. Past Anesthesia/Blood Transfusion Reactions: No Reported Reaction Past Psychological History: Anxiety, Schizophrenia Smoking Status: Current every day smoker Past Alcohol Use History: Occasional Past Drug Use History: Heroin, IV Drug Use, Marijuana, Methamphetamine, Opiates, Prescription Drug Abuse - Past Family History Father Family Medical History: Cancer Additional Family Medical History / Comment(s): Father had colon and pancreatic cancer and in his late 70s. Mother Family Medical History: Myocardial Infarction ([place]) Additional Family Medical History / Comment(s): Mother of a [place] in her late 70s. General Exam - General Exam Comments Initial Comments: Constitutional: NAD, AOX3, Pt has pleasant affect. HEENT: NC/AT, trachea midline, neck supple, no lymphadenopathy. Posterior pharynx non erythematous, without exudates. External ears appear normal, without discharge. Mucous membranes moist. Eyes PERRLA, EOM intact. There is no scleral icterus. No pallor noted. Cardiopulmonary: RRR, no murmurs, rubs or gallops, no JVD noted. Lungs CTAB in anterior and posterior sesay. No peripheral edema. Abdominal exam: Abdomen soft and non-distended. Abdomen non-tender to palpation in all 4 quadrants. Bowel sounds active in LLQ. No hepatosplenomegaly. No ecchymosis Neuro: CN II-XII grossly intact. No nuchal rigidity. MSK: 5 out of 5 strength psoas and quadriceps muscles. Heel to toe walking in tact. No midline cervical thoracic lumbar tenderness. Mild left paralumbar tenderness. Left straight leg raise positive. Right straight leg raise negative. No posterior calf tenderness bilaterally, homans sign negative bilaterally. Posterior tibialis and radial pulse +2 bilaterally. Sensation intact in upper and lower extremities. Full active ROM in upper and lower extremities, 5/5 stregnth. Limitations: no limitations Course Vital Signs 10/27/18 17:30 Temperature 97.6 F Pulse Rate 80 Respiratory 20 Rate Blood Pressure 132/86 O2 Sat by Pulse 99 Oximetry Medical Decision Making - Medical Decision Making 63-year-old male patient past medical history of chronic back pain presents ED for some time treatment of his chronic back pain. Patient seen for this problem one month ago which displayed multiple nonacute appearing question fracture of the lumbar spine and prior vertebroplasty changes. Patient denies any recent falls or trauma. Patient states that the back pain is left her lumbar. Denies any loss of bowel or bladder control. Denies any fevers or chills, lower extremity weakness, current IV drug use. Patient states that he has initial pain management appointment scheduled on 11 days primarily wants symptomatic treatment. Denies all other complaints. Pt VSS, afebrile. 5 out of 5 strength psoas and quadriceps muscles. Heel to toe walking intact. No midline cervical thoracic lumbar tenderness. Mild left paralumbar tenderness. Left straight leg raise positive. Right straight leg raise negative. Patient declined imaging. Patient will be discharged symptomatic treatment. Patient discharged with, 3 starter pack, diabetes a prednisone. Patient will follow-up with pain management in 1 week. Patient return to ER condition worsens in any way. Case discussed with Dr. Levy. Disposition Clinical Impression: Lumbar back pain Disposition: HOME SELF-CARE Condition: Stable Instructions (If sedation given, give patient instructions): Chronic Back Pain (ED) Additional Instructions: Patient to adhere to previously discussed treatment plan and will take medication(s) as directed. Patient to follow up with PCP in 1-2 days. Patient to return to ED if symptoms do not improve. Please follow-up with primary care provider in 1-2 days. Please return to ER if condition worsens in any way. Prescriptions: predniSONE 50 mg PO DAILY #5 tab Is patient prescribed a controlled substance at d/c from ED?: No Referrals: None,Stated [Primary Care Provider] - 1-2 days [facility] [[facility]FF] - 1-2 days
== END 2018-10-27 19:09 | disposition home or self-care (01) ==
LOC: EC 17:02
DX: G89.29 Other chronic pain (principal); M54.5 Low back pain; J44.9 Chronic obstructive pulmonary disease, unspecified; I10 Essential (primary) hypertension; F17.200 Nicotine dependence, unspecified, uncomplicated; Z86.14 Personal history of Methicillin resistant Staphylococcus aureus infection; Z98.890 Other specified postprocedural states; Z79.899 Other long term (current) drug therapy
CPT/HCPCS: 99283

== ENCOUNTER 2018-11-08 22:56 | Inpatient (IN) | payer OTHER ==
[2018-11-08] MEDS ORDERED: IPRATROPIUM-ALBUTEROL 3 ML NEB INHALATION STA (23:56)
[2018-11-09] MEDS ORDERED: ALBUTEROL NEBULIZED 2.5 MG/3 ML INHALATION STA (00:21)
[2018-11-09] MEDS ORDERED: methylPREDNISolone SOD SUCCI 125 MG/2 ML VIAL IV STA (00:21)
[2018-11-09] MEDS ORDERED: SODIUM CHLORIDE 0.9% 500 ML 500 ML IV STA (00:21)
[2018-11-09 00:58] LABS: Basophils % (A) 0 %; Eosinophils # (A) 0.2 k/uL (0-0.7); Eosinophils % (A) 2 %; HCT 43.4 % (39.0-53.0); HGB 14.2 gm/dL (13.0-17.5); Lymphocytes # (A) 1.1 k/uL (1.0-4.8); Lymphocytes % (A) 13 %; MCH 34.4 pg (25.0-35.0); MCHC 32.6 g/dL (31.0-37.0); MCV 105.5 fL (80.0-100.0); Macrocytosis Slight; Mean Platelet Volume 7.6; Monocytes # (A) 0.6 k/uL (0-1.0); Monocytes % (A) 7 %; Neutrophils # (A) 6.4 k/uL (1.3-7.7); Neutrophils % (A) 76 %; Platelet Count 157 k/uL (150-450); RBC 4.12 m/uL (4.30-5.90); WBC 8.4 k/uL (3.8-10.6)
--- NOTE | 2018-11-09 01:20 | XR ---
EXAM: XR Chest, 2 Views CLINICAL HISTORY: ITS.REASON XR Reason: difficulty breathing TECHNIQUE: Frontal and lateral views of the chest. COMPARISON: Chest radiograph on 08/09/2018 FINDINGS: Hardware: None. Lungs/pleura: Hyperinflation of the lungs is suggestive of COPD. No focal consolidation. No pleural effusion or pneumothorax. Heart/mediastinum: Atherosclerotic calcifications of the aorta. No cardiomegaly. Soft tissues: Unremarkable. Bones: Osteopenia. Degenerative changes of the spine. Multiple age indeterminate but possibly chronic compression deformities in the thoracic spine. Degenerative changes of the acromioclavicular joints Upper abdomen: Normal. IMPRESSION: Hyperinflation of the lungs is suggestive of COPD. No acute disease.
[2018-11-09 02:15] LABS: ALT 34 U/L (21-72); AST 28 U/L (17-59); Albumin 4.6 g/dL (3.5-5.0); Alkaline Phosphatase 63 U/L (38-126); Anion Gap 9 mmol/L; Blood Urea Nitrogen 20 mg/dL (9-20); Calcium 9.5 mg/dL (8.4-10.2); Carbon Dioxide 27 mmol/L (22-30); Chloride 100 mmol/L (98-107); Glucose 118 mg/dL (74-99); Sodium 136 mmol/L (137-145); Total Bilirubin 0.7 mg/dL (0.2-1.3)
[2018-11-09 02:17] LABS: Potassium 4.6 mmol/L (3.5-5.1)
[2018-11-09 02:27] LABS: D-Dimer 0.29 mg/L FEU (<0.60); INR 0.9 (<1.2); Prothrombin Time 9.4 sec (9.0-12.0)
--- NOTE | 2018-11-09 02:34 | ED ---
General Adult HPI - General Chief complaint: Psychiatric Symptoms Stated complaint: Mental Health, Stress Time Seen by Provider: 11/08/18 23:32 Source: patient Mode of arrival: ambulatory Limitations: no limitations - History of Present Illness Initial comments: 63-year-old male patient presents to the emergency department today for evaluation of shortness of breath and cough. Patient states symptoms of an going on for the last week. Patient states he is short of breath and ambulated into the bathroom. Patient states he does have inhalers at home and has been using them more than directed however they don't seem to be helping. Patient states he is coughing up clear sputum with presence of blood at times. States he has had temperatures ranging from 99-99.7. Patient denies any chest pain with this. He denies any nausea, vomiting, abdominal pain, constipation, or diarrhea. Denies any difficulty with urination. States he is under a lot of stress recently but denies any suicidal or homicidal ideation. Patient denies any recent rash, abdominal pain, nausea, vomiting, diarrhea, constipation, back pain, numbness, tingling, dizziness, weakness, hematuria, dysuria, urinary urgency, urinary frequency, headache, visual changes, or any other complaints. - Related Data Home Medications Medication Instructions Recorded Confirmed Albuterol Sulfate [Proair Hfa] 1 - 2 puff INHALATION RT-Q4H PRN 10/20/18 Gabapentin [Neurontin] 100 mg PO TID 10/20/18 10/20/18 Lisinopril [Zestril] 20 mg PO DAILY 10/20/18 10/20/18 lamoTRIgine [LaMICtal] 100 mg PO DAILY 10/20/18 10/20/18 Previous Rx's Medication Instructions Recorded Benztropine Mesylate 1 mg PO BID 30 Days #60 tablet 08/22/18 Budesonide-Formot 160-4.5 Mcg 2 puff INHALATION RT-BID 30 Days 08/22/18 [Symbicort 160-4.5 Mcg Inhaler] #1 puff Cyclobenzaprine [Flexeril] 5 mg PO TID PRN 30 Days #90 tab 08/22/18 Haloperidol Decanoate [Haldol D] 50 mg IM Q28D 28 Days #1 vial 08/22/18 Meloxicam [Mobic] 7.5 mg PO BID 30 Days #60 tab 08/22/18 predniSONE 50 mg PO DAILY #5 tab 10/27/18 Allergies Allergy/AdvReac Type Severity Reaction Status Date / Time No Known Allergies Allergy Verified 10/27/18 17:32 Review of Systems ROS Statement: Those systems with pertinent positive or pertinent negative responses have been documented in the HPI. ROS Other: All systems not noted in ROS Statement are negative. Past Medical History Past Medical History: COPD, Hypertension, Liver Disease Additional Past Medical History / Comment(s): COPD, chronic hypoxic respiratory failure on oxygen 2 L per minute nasal cannula, chronic back pain, hepatitis C, chronic liver disease, hypertension, diabetes mellitus, chronic anxiety, chronic depression, schizophrenia, history of polysubstance abuse including IVDA, LSD, ecstasy, mushrooms, history of paranoia, delusions History of Any Multi-Drug Resistant Organisms: MRSA Date of last positivie culture/infection: Summer 2017 MDRO Source:: finger-treated at [facility] per son Past Surgical History: Back Surgery Additional Past Surgical History / Comment(s): Pt has rods in his back. Past Anesthesia/Blood Transfusion Reactions: No Reported Reaction Past Psychological History: Anxiety, Schizophrenia Smoking Status: Current every day smoker Past Alcohol Use History: Occasional Past Drug Use History: Heroin, IV Drug Use, Marijuana, Methamphetamine, Opiates, Prescription Drug Abuse - Past Family History Father Family Medical History: Cancer Additional Family Medical History / Comment(s): Father had colon and pancreatic cancer and in his late 70s. Mother Family Medical History: Myocardial Infarction (MT) Additional Family Medical History / Comment(s): Mother of a MT in her late 70s. General Exam Limitations: no limitations General appearance: alert, in no apparent distress, other (Physical well- developed, well-nourished adult male patient in mild respiratory distress. Vital signs upon presentation are temperature 97.9F, pulse 72, respirations 18, blood pressure 139/82, pulse ox 98% on room air.) Eye exam: Present: normal appearance, PERRL, EOMI. Absent: scleral icterus, conjunctival injection, periorbital swelling ENT exam: Present: normal exam, normal oropharynx, mucous membranes moist Respiratory exam: Present: respiratory distress (Mild), wheezes (Tight expiratory wheezing noted throughout the posterior lung sesay), other (Tachypnea). Absent: normal lung sounds bilaterally, rales, rhonchi, stridor Cardiovascular Exam: Present: regular rate, normal rhythm, normal heart sounds. Absent: systolic murmur, diastolic murmur, rubs, gallop, clicks GI/Abdominal exam: Present: soft, normal bowel sounds. Absent: distended, tenderness, guarding, rebound, rigid Neurological exam: Present: alert, oriented X3, CN II-XII intact Psychiatric exam: Present: normal affect, normal mood. Absent: homicidal ideation, suicidal ideation Skin exam: Present: warm, dry, intact, normal color. Absent: rash Course Vital Signs 11/08/18 11/09/18 11/09/18 23:03 00:00 00:12 Temperature 97.9 F Pulse Rate 72 72 72 Respiratory 18 Rate Blood Pressure 139/82 O2 Sat by Pulse 98 Oximetry 11/09/18 11/09/18 11/09/18 01:20 01:37 03:15 Temperature Pulse Rate 76 76 78 Respiratory 24 Rate Blood Pressure 148/79 O2 Sat by Pulse 98 Oximetry EKG Findings - EKG Comments: EKG Findings:: EKG obtained at 00 55 shows normal sinus rhythm with a pulmonary disease pattern. Ventricular rate is 85, ME interval is 160, QRS duration 98, QT 384, QTC 456. No evidence of ST elevation or depression Medical Decision Making - Medical Decision Making 63-year-old male patient presents to the emergency department today for evaluation of shortness of breath especially with activity and increased stress. Physical examination did reveal diffuse tight expiratory wheezing in the posterior lung sesay. Patient does appear short of breath at rest. Patient's oxygen saturation is satisfactory 98-99% on room air. Chest x-ray showed evidence for COPD but no other acute abnormalities. Labs reviewed and are unremarkable. D-dimer negative. Patient was given a DuoNeb breathing treatment here in the emergency department, states that did not help. He was then given additional 5 mg of albuterol. Patient states it did help for a short time but then started to feel short of breath again. Patient remains wheezy. We'll admit her for COPD exacerbation, continue IV steroids and breathing treatments. Did inform patient of all results and plan, he is agreeable. - Lab Data Result diagrams: 11/09/18 00:49 11/09/18 01:56 Lab Results 11/09/18 11/09/18 11/09/18 Range/Units 00:49 00:49 01:56 WBC 8.4 (3.8-10.6) k/uL RBC 4.12 L (4.30-5.90) m/uL Hgb 14.2 (13.0-17.5) gm/dL Hct 43.4 (39.0-53.0) % MCV 105.5 H (80.0-100.0) fL MCH 34.4 (25.0-35.0) pg MCHC 32.6 (31.0-37.0) g/dL RDW 13.0 (11.5-15.5) % Plt Count 157 (150-450) k/uL Neutrophils % 76 % Lymphocytes % 13 % Monocytes % 7 % Eosinophils % 2 % Basophils % 0 % Neutrophils # 6.4 (1.3-7.7) k/uL Lymphocytes # 1.1 (1.0-4.8) k/uL Monocytes # 0.6 (0-1.0) k/uL Eosinophils # 0.2 (0-0.7) k/uL Basophils # 0.0 (0-0.2) k/uL Macrocytosis Slight PT 9.4 (9.0-12.0) sec INR 0.9 (<1.2) APTT 19.1 L (22.0-30.0) sec D-Dimer 0.29 (<0.60) mg/L FEU Sodium (137-145) mmol/L Potassium (3.5-5.1) mmol/L Chloride (98-107) mmol/L Carbon Dioxide (22-30) mmol/L Anion Gap mmol/L BUN (9-20) mg/dL Creatinine (0.66-1.25) mg/dL Est GFR (CKD-EPI)AfAm (>60 ml/min/1.73 sqM) Est GFR (CKD-EPI)NonAf (>60 ml/min/1.73 sqM) Glucose (74-99) mg/dL Calcium (8.4-10.2) mg/dL Total Bilirubin (0.2-1.3) mg/dL AST (17-59) U/L ALT (21-72) U/L Alkaline Phosphatase (38-126) U/L Troponin I <0.012 (0.000-0.034) ng/mL Total Protein (6.3-8.2) g/dL Albumin (3.5-5.0) g/dL 11/09/18 Range/Units 01:56 WBC (3.8-10.6) k/uL RBC (4.30-5.90) m/uL Hgb (13.0-17.5) gm/dL Hct (39.0-53.0) % MCV (80.0-100.0) fL MCH (25.0-35.0) pg MCHC (31.0-37.0) g/dL RDW (11.5-15.5) % Plt Count (150-450) k/uL Neutrophils % % Lymphocytes % % Monocytes % % Eosinophils % % Basophils % % Neutrophils # (1.3-7.7) k/uL Lymphocytes # (1.0-4.8) k/uL Monocytes # (0-1.0) k/uL Eosinophils # (0-0.7) k/uL Basophils # (0-0.2) k/uL Macrocytosis PT (9.0-12.0) sec INR (<1.2) APTT (22.0-30.0) sec D-Dimer (<0.60) mg/L FEU Sodium 136 L (137-145) mmol/L Potassium 4.6 (3.5-5.1) mmol/L Chloride 100 (98-107) mmol/L Carbon Dioxide 27 (22-30) mmol/L Anion Gap 9 mmol/L BUN 20 (9-20) mg/dL Creatinine 0.62 L (0.66-1.25) mg/dL Est GFR (CKD-EPI)AfAm >90 (>60 ml/min/1.73 sqM) Est GFR (CKD-EPI)NonAf >90 (>60 ml/min/1.73 sqM) Glucose 118 H (74-99) mg/dL Calcium 9.5 (8.4-10.2) mg/dL Total Bilirubin 0.7 (0.2-1.3) mg/dL AST 28 (17-59) U/L ALT 34 (21-72) U/L Alkaline Phosphatase 63 (38-126) U/L Troponin I (0.000-0.034) ng/mL Total Protein 7.0 (6.3-8.2) g/dL Albumin 4.6 (3.5-5.0) g/dL - Radiology Data Radiology results: report reviewed, image reviewed Two-view x-ray of the chest is obtained. Report was reviewed in its entirety. Impression by Dr. Delgado shows hyperinflation of the lung suggestive of COPD. No acute disease. Disposition Clinical Impression: COPD exacerbation Disposition: [facility] Condition: Serious Referrals: [facility] [Primary Care Provider] - 1-2 days Decision to Admit Reason: Admit from EC Decision Date: 11/09/18 Decision Time: 03:24
[2018-11-09 02:36] LABS: Partial Thromboplastin Time 19.1 sec (22.0-30.0)
[2018-11-09] MEDS ORDERED: IPRATROPIUM-ALBUTEROL 3 ML NEB INHALATION PRN (03:20)
[2018-11-09] MEDS ORDERED: HYDROcodone/APAP 5-325MG 1 EACH TAB PO STA (03:22)
[2018-11-09 04:40] VITALS: BMI 21.5
[2018-11-09] MEDS: methylPREDNISolone SOD SUCCI 125 MG/2 ML VIAL IV SCH ×3 (05:39→17:47)
[2018-11-09 07:02] LABS: Glucose,Whole Blood 164 mg/dL (75-99)
[2018-11-09] MEDS: IPRATROPIUM-ALBUTEROL 3 ML NEB INHALATION SCH ×4 (07:32→20:07)
[2018-11-09] MEDS: INSULIN ASPART (NovoLOG) 100 UNIT/ML VIAL SQ SCH ×3 (10:51→17:48)
[2018-11-09] MEDS: NICOTINE 21MG/24HR PATCH TRANSDERM SCH (10:51)
[2018-11-09 11:54] LABS: Glucose,Whole Blood 254 mg/dL (75-99)
[2018-11-09] MEDS: SULFAMETHOX-TMP 800-160MG 1 EACH TAB PO SCH ×2 (12:18→20:40)
[2018-11-09] MEDS: NAPROXEN 250 MG TAB PO PRN (12:18)
[2018-11-09] MEDS: Acetaminophen-Codeine 300-30mg TAB PO PRN ×2 (12:19→20:38)
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
--- NOTE | 2018-11-09 15:08 | CONS ---
CONSULTATION PULMONARY CRITICAL CARE CONSULTATION: DATE OF SERVICE: 11/09/2018 This is a 63-year-old male who apparently was seen in the emergency room on November 08. He apparently came to the emergency room for complaints of shortness of breath and cough. Apparently, it had been going on for at least a week or so. Very poor historian. The patient states he was not able to even ambulate to the bathroom. He does have inhalers at home, which is apparently have been given to him from some doctor or practitioner at the [facility]. He states that they were not helping him. He was coughing up clear phlegm. He also states that occasionally he was coughing up some blood. He states he has also had a mild temperature elevation. Again, the patient is a very poor historian. The patient denied any chest pain or chest discomfort. Denied nausea, vomiting or abdominal pain. The patient denied any urinary complaints. The patient seems to be resting relatively comfortably over in the observation unit. We are asked to see him because of shortness of breath and COPD exacerbation. He had been seen in the past by Dr. Nguyen. Never came back to the office for evaluation. HOME MEDICATIONS: Include albuterol in the form of ProAir HFA, gabapentin, lisinopril, Lamictal, benztropine, Symbicort, Flexeril, Haldol, meloxicam, and prednisone. ALLERGIES: Denied. MEDICAL HISTORY: Includes COPD, hypertension, chronic liver disease, chronic hypoxemic respiratory failure, on oxygen 2 L/minute 24//365, chronic back pain, hepatitis C, chronic liver disease, benign essential hypertension, diabetes, chronic anxiety, chronic depression, schizophrenia, and polysubstance abuse including IVDA, LSD, ecstasy, mushrooms, marijuana use, etc. The patient also apparently has a previous history of MRSA infection of the finger. PAST SURGICAL HISTORY: Includes Morel rods in his back for scoliosis. SOCIAL HISTORY: Positive for current everyday tobacco use. He does drink occasionally and drug use as noted above, including heroin IV drug use, LSD, marijuana, methamphetamines, opiates, and prescription drug abuse. FAMILY HISTORY: Positive for myocardial infarction, and colon and pancreatic cancer. REVIEW OF SYSTEMS: CONSTITUTIONAL: Weakness. NEUROLOGIC: Negative. HEENT: Negative: CARDIOVASCULAR: Negative. PULMONARY: Shortness of breath, chest tightness, wheezing, cough. GI: Negative. : Negative. RHEUMATOLOGIC: Negative. IMMUNOLOGIC: Negative. ENDOCRINOLOGIC: Negative. DERMATOLOGIC: Negative. Current vital signs are reviewed, temperature is 98, heart rate 88, respiratory rate 18, blood pressure 120/67 mean 84, 2 L saturation 92%. Appears in no acute distress. HEENT: Examination is grossly unremarkable. Mucous membranes are moist. No oral lesions. NECK: Supple. Full range of motion. No neck vein distention. CARDIOVASCULAR: Examination reveals regular rhythm rate. Heart rate in mid 70s. S1, S2 normal. Heart sounds are distant. LUNGS: Reveal diffuse inspiratory and expiratory wheezes and rhonchi. There is prolongation on forced maneuver. The patient coughs on forced maneuver. ABDOMEN: Soft. Bowel sounds are heard. EXTREMITIES: Intact. No cyanosis, clubbing, or edema. SKIN: Without rash. NEUROLOGIC: Examination is brief but nonfocal. LABS: Reviewed. White count 8.4, hemoglobin 14.2, hematocrit 43.4, platelet count 157,000. PT, INR were normal. PTT 19.1. D-dimer 0.29. Sodium 136, potassium 4.6, chloride 100, CO2 is 27, BUN and creatinine were 20 and 0.62. The rest of the labs look okay. The patient had a chest x-ray which shows changes of COPD. Medications are reviewed. He is currently on Pulmicort 1 mg and formoterol 20 mcg twice a day. He is also getting updrafts in the form of both albuterol and Atrovent q.i.d. and p.r.n. The patient is getting Solu-Medrol 60 mg q.6. We have added a nicotine patch. We also added Bactrim DS b.i.d. The rest of his medications are all being managed by the hospital service. ASSESSMENT: 1. Chronic obstructive pulmonary disease exacerbation complicated by purulent tracheobronchitis. 2. History of ongoing tobacco use. 3. History of hypertension. 4. History of chronic liver disease. 5. History of chronic hypoxemic respiratory failure. 6. History of chronic back pain. 7. History of hepatitis C. 8. History of chronic liver disease. 9. History of diabetes mellitus. 10.History of chronic anxiety and depression. 11.History of schizophrenia. 12.Previous history of polysubstance abuse including IVDA, LSD ecstasy, mushrooms, marijuana as well as other substances. PLAN: The patient's medications have been adjusted accordingly. He is currently on Pulmicort along with formoterol twice a day. He is also getting albuterol and Atrovent updrafts q.i.d. and p.r.n. He is on systemic steroids and oral antibiotics. He is counseled about the importance of smoking cessation. No additional recommendations are made. Prognosis is guarded. MMODL / IJN: [id number] / MATTIE
[2018-11-09 16:39] LABS: Glucose,Whole Blood 90 mg/dL (75-99)
[2018-11-09] MEDS: HEPARIN SODIUM,PORCINE 5,000 UNIT/ML 1 ML VIAL SQ SCH (17:47)
[2018-11-09] MEDS: GABAPENTIN 100 MG CAP PO SCH ×2 (17:48→20:40)
[2018-11-09 19:53] LABS: Glucose,Whole Blood 315 mg/dL (75-99)
[2018-11-09] MEDS ORDERED: SYMBICORT 160-4.5 MCG INHALER INHALATION SCH (20:00)
[2018-11-09] MEDS: FORMOTEROL FUMARATE 20 MCG/2 ML NEBU INHALATION SCH (20:06)
[2018-11-09] MEDS: BUDESONIDE 1 MG/2 ML NEBU INHALATION SCH (20:07)
[2018-11-09] MEDS: FAMOTIDINE 20 MG TAB PO SCH (20:40)
[2018-11-09] MEDS: BENZTROPINE MESYLATE 1 MG TAB PO SCH (20:40)
[2018-11-10] MEDS: INSULIN ASPART (NovoLOG) 100 UNIT/ML VIAL SQ SCH ×5 (00:03→20:32)
[2018-11-10] MEDS: HEPARIN SODIUM,PORCINE 5,000 UNIT/ML 1 ML VIAL SQ SCH ×3 (00:08→15:54)
[2018-11-10] MEDS: methylPREDNISolone SOD SUCCI 125 MG/2 ML VIAL IV SCH ×4 (00:08→17:39)
[2018-11-10 06:31] LABS: HCT 40.3 % (39.0-53.0); HGB 12.9 gm/dL (13.0-17.5); MCV 106.3 fL (80.0-100.0); Macrocytosis Moderate; Mean Platelet Volume 7.6; Platelet Count 163 k/uL (150-450); WBC 11.9 k/uL (3.8-10.6)
[2018-11-10 06:53] LABS: Anion Gap 4 mmol/L; Blood Urea Nitrogen 18 mg/dL (9-20); Calcium 9.4 mg/dL (8.4-10.2); Carbon Dioxide 32 mmol/L (22-30); Chloride 97 mmol/L (98-107); Glucose 185 mg/dL (74-99); Potassium 5.1 mmol/L (3.5-5.1); Sodium 133 mmol/L (137-145)
[2018-11-10 07:01] LABS: Glucose,Whole Blood 190 mg/dL (75-99)
[2018-11-10] MEDS: NICOTINE 21MG/24HR PATCH TRANSDERM SCH (08:12)
[2018-11-10] MEDS: BENZTROPINE MESYLATE 1 MG TAB PO SCH ×2 (08:19→20:32)
[2018-11-10] MEDS: GABAPENTIN 100 MG CAP PO SCH ×3 (08:19→22:05)
[2018-11-10] MEDS: lamoTRIgine 100 MG TAB PO SCH (08:19)
[2018-11-10] MEDS: SULFAMETHOX-TMP 800-160MG 1 EACH TAB PO SCH (08:19)
[2018-11-10] MEDS: LISINOPRIL 20 MG TAB PO SCH (08:19)
[2018-11-10] MEDS: FAMOTIDINE 20 MG TAB PO SCH ×2 (08:19→20:32)
[2018-11-10] MEDS: Acetaminophen-Codeine 300-30mg TAB PO PRN ×2 (08:28→15:54)
[2018-11-10] MEDS: BUDESONIDE 1 MG/2 ML NEBU INHALATION SCH ×2 (09:22→20:02)
[2018-11-10] MEDS: IPRATROPIUM-ALBUTEROL 3 ML NEB INHALATION SCH ×4 (09:22→20:02)
[2018-11-10] MEDS: FORMOTEROL FUMARATE 20 MCG/2 ML NEBU INHALATION SCH ×2 (09:22→20:02)
[2018-11-10 11:48] LABS: Glucose,Whole Blood 118 mg/dL (75-99)
--- NOTE | 2018-11-10 12:46 | P.PN ---
Subjective Progress Note Date: 11/10/18 Principal diagnosis: Chronic obstructive pulmonary disease exacerbation complicated by purulent tracheobronchitis On 11/10/2018 patient seen in follow-up on observation unit. He states his breathing has not much improved since admission, still feels quite tight, wheezy and dyspneic. Sounds are positive for diffuse wheezes, he is bringing up some brown sputum at times, still feeling short of breath. Remains on 2 L of oxygen, and his pulse ox is only at 90% on supplemental oxygen, no fever or chills, his labs have been reviewed, and showed white blood cell, 11.9, hemoglobin of 12.9, sodium of 133, potassium is 5.1, chloride is 97, CO2 32, BUN was 18, creatinine is 0.65 Objective - Vital Signs Vital signs: Vital Signs Temp 97.6 F 11/10/18 00:00 Pulse 92 11/10/18 12:32 Resp 17 11/10/18 03:43 BP 113/58 11/10/18 00:00 Pulse Ox 90 L 11/10/18 00:00 Intake & Output 11/09/18 11/10/18 11/10/18 18:59 06:59 18:59 Intake Total 1122 840 Balance 1122 840 Intake: Oral 1122 240 Other 600 Other: Voiding Method Toilet Toilet Toilet # Voids 1 1 - Exam GENERAL EXAM: Alert, pleasant, 63-year-old white male, on 2 L of oxygen comfortable in no apparent distress. HEAD: Normocephalic/atraumatic. EYES: Normal reaction of pupils, equal size. Conjunctiva pink, sclera white. NOSE: Clear with pink turbinates. THROAT: No erythema or exudates. NECK: No masses, no JVD, no thyroid enlargement, no adenopathy. CHEST: No chest wall deformity. Symmetrical expansion. LUNGS: Equal air entry with diffuse wheezes CVS: Regular rate and rhythm, normal S1 and S2, no gallops, no murmurs, no rubs ABDOMEN: Soft, nontender. No hepatosplenomegaly, normal bowel sounds, no guarding or rigidity. EXTREMITIES: No clubbing, no edema, no cyanosis, 2+ pulses and upper and lower extremities. MUSCULOSKELETAL: Muscle strength and tone normal. SPINE: No scoliosis or deformity SKIN: No rashes CENTRAL NERVOUS SYSTEM: Alert and oriented -3. No focal deficits, tone is normal in all 4 extremities. PSYCHIATRIC: Alert and oriented -3. Appropriate affect. Intact judgment and insight. - Labs CBC & Chem 7: 11/10/18 06:05 11/10/18 06:05 Labs: Abnormal Lab Results - Last 24 Hours (Table) 11/09/18 11/10/18 11/10/18 Range/Units 19:47 06:05 06:05 WBC 11.9 H (3.8-10.6) k/uL RBC 3.80 L (4.30-5.90) m/uL Hgb 12.9 L (13.0-17.5) gm/dL MCV 106.3 H (80.0-100.0) fL Sodium 133 L (137-145) mmol/L Chloride 97 L (98-107) mmol/L Carbon Dioxide 32 H (22-30) mmol/L Creatinine 0.65 L (0.66-1.25) mg/dL Glucose 185 H (74-99) mg/dL POC Glucose (mg/dL) 315 H (75-99) mg/dL 11/10/18 11/10/18 Range/Units 06:59 11:45 WBC (3.8-10.6) k/uL RBC (4.30-5.90) m/uL Hgb (13.0-17.5) gm/dL MCV (80.0-100.0) fL Sodium (137-145) mmol/L Chloride (98-107) mmol/L Carbon Dioxide (22-30) mmol/L Creatinine (0.66-1.25) mg/dL Glucose (74-99) mg/dL POC Glucose (mg/dL) 190 H 118 H (75-99) mg/dL Assessment and Plan Plan: Assessment: #1. Acute exacerbation of chronic obstructive pulmonary disease, but get a by purulent tracheobronchitis #2. ongoing history of tobacco abuse #3. Hypertension #4. History of chronic liver disease #5. History of chronic hypoxemic respiratory failure secondary to COPD #6. Chronic back pain #7. History of hepatitis C #8. Diabetes mellitus #9. Anxiety/depression #10. History of schizophrenia #11. History of polysubstance abuse including IVDA, LSD, ecstasy, mushrooms, marijuana Plan: Continue with current medical treatment, breathing treatments, IV steroids, empiric antibiotics, patient is still quite dyspneic and wheezy, he reports not much improvement since he came in, we'll continue to follow and make further recommendations I performed a history & physical examination of the patient and discussed their management with my nurse practitioner, Juliana Mercado. I reviewed the nurse practitioner's note and agree with the documented findings and plan of care. Lung sounds are positive for diffuse wheezes throughout the lung sesay. The findings and the impression was discussed with the patient. I attest to the documentation by the nurse practitioner. Time with Patient: Less than 30
[2018-11-10 17:00] LABS: Glucose,Whole Blood 178 mg/dL (75-99)
[2018-11-10] MEDS ORDERED: traMADol 50 MG TAB PO STA (18:40)
[2018-11-10] MEDS: DOXYCYCLINE 100 MG CAP PO SCH (20:32)
[2018-11-10 20:51] LABS: Glucose,Whole Blood 190 mg/dL (75-99)
[2018-11-11] MEDS: HEPARIN SODIUM,PORCINE 5,000 UNIT/ML 1 ML VIAL SQ SCH ×4 (00:05→23:58)
[2018-11-11] MEDS: methylPREDNISolone SOD SUCCI 125 MG/2 ML VIAL IV SCH ×2 (00:05→06:01)
[2018-11-11] MEDS: Acetaminophen-Codeine 300-30mg TAB PO PRN ×3 (00:06→23:13)
[2018-11-11 06:51] LABS: Glucose,Whole Blood 187 mg/dL (75-99)
[2018-11-11] MEDS: IPRATROPIUM-ALBUTEROL 3 ML NEB INHALATION SCH ×4 (07:24→18:44)
[2018-11-11] MEDS: FORMOTEROL FUMARATE 20 MCG/2 ML NEBU INHALATION SCH (07:25)
[2018-11-11] MEDS: BUDESONIDE 1 MG/2 ML NEBU INHALATION SCH (07:25)
[2018-11-11] MEDS: INSULIN ASPART (NovoLOG) 100 UNIT/ML VIAL SQ SCH ×4 (08:26→23:15)
[2018-11-11] MEDS: DOXYCYCLINE 100 MG CAP PO SCH ×2 (08:26→20:13)
[2018-11-11] MEDS: FAMOTIDINE 20 MG TAB PO SCH ×2 (08:27→20:14)
[2018-11-11] MEDS: BENZTROPINE MESYLATE 1 MG TAB PO SCH ×2 (08:27→20:14)
[2018-11-11] MEDS: lamoTRIgine 100 MG TAB PO SCH (08:27)
[2018-11-11] MEDS: GABAPENTIN 100 MG CAP PO SCH ×3 (08:27→23:40)
[2018-11-11] MEDS: LISINOPRIL 20 MG TAB PO SCH (08:27)
[2018-11-11] MEDS: NICOTINE 21MG/24HR PATCH TRANSDERM SCH (08:28)
[2018-11-11 11:45] LABS: Glucose,Whole Blood 124 mg/dL (75-99)
[2018-11-11] MEDS: predniSONE 20 MG TAB PO SCH (12:11)
--- NOTE | 2018-11-11 13:54 | P.PN ---
Subjective Progress Note Date: 11/11/18 Principal diagnosis: Chronic obstructive pulmonary disease exacerbation complicated by purulent tracheobronchitis On 11/10/2018 patient seen in follow-up on observation unit. He states his breathing has not much improved since admission, still feels quite tight, wheezy and dyspneic. Sounds are positive for diffuse wheezes, he is bringing up some brown sputum at times, still feeling short of breath. Remains on 2 L of oxygen, and his pulse ox is only at 90% on supplemental oxygen, no fever or chills, his labs have been reviewed, and showed white blood cell, 11.9, hemoglobin of 12.9, sodium of 133, potassium is 5.1, chloride is 97, CO2 32, BUN was 18, creatinine is 0.65 On 11/11/2018 patient seen in follow-up in the observation unit, he is resting in bed, he states he still dyspneic and wheezy, but physical exam reveals some improvement in his lung sounds, patient still has residual wheezes, but less [place] spastic compared to yesterday's exam. Patient removes his oxygen walks to the bathroom, tolerates activity fairly well. His pulse ox on 2 L is 80-90%, he is in no acute distress, no fever or chills. Patient remains on nebulized bronchodilator, IV steroids, doxycycline for antibiotic coverage, can probably transition his IV steroids to oral prednisone. Objective - Vital Signs Vital signs: Vital Signs Temp 98.8 F 11/11/18 07:30 Pulse 94 11/11/18 12:30 Resp 18 11/11/18 07:30 BP 124/61 11/11/18 07:30 Pulse Ox 88 L 11/11/18 07:30 Intake & Output 11/10/18 11/11/18 11/11/18 18:59 06:59 18:59 Intake Total 2100 680 Balance 2100 680 Intake: Oral 1200 480 Other 900 200 Other: Voiding Method Toilet Toilet Toilet # Voids 2 - Exam GENERAL EXAM: Alert, pleasant, 63-year-old white male, on 2 L of oxygen comfortable in no apparent distress. HEAD: Normocephalic/atraumatic. EYES: Normal reaction of pupils, equal size. Conjunctiva pink, sclera white. NOSE: Clear with pink turbinates. THROAT: No erythema or exudates. NECK: No masses, no JVD, no thyroid enlargement, no adenopathy. CHEST: No chest wall deformity. Symmetrical expansion. LUNGS: Equal air entry with diffuse wheezes, patient has been noted to have some improvement in terms of wheezing since yesterday CVS: Regular rate and rhythm, normal S1 and S2, no gallops, no murmurs, no rubs ABDOMEN: Soft, nontender. No hepatosplenomegaly, normal bowel sounds, no guarding or rigidity. EXTREMITIES: No clubbing, no edema, no cyanosis, 2+ pulses and upper and lower extremities. MUSCULOSKELETAL: Muscle strength and tone normal. SPINE: No scoliosis or deformity SKIN: No rashes CENTRAL NERVOUS SYSTEM: Alert and oriented -3. No focal deficits, tone is normal in all 4 extremities. PSYCHIATRIC: Alert and oriented -3. Appropriate affect. Intact judgment and insight. - Labs CBC & Chem 7: 11/10/18 06:05 11/10/18 06:05 Labs: Abnormal Lab Results - Last 24 Hours (Table) 11/10/18 11/10/18 11/11/18 Range/Units 16:26 20:19 06:35 POC Glucose (mg/dL) 178 H 190 H 187 H (75-99) mg/dL 11/11/18 Range/Units 11:43 POC Glucose (mg/dL) 124 H (75-99) mg/dL Assessment and Plan Plan: Assessment: #1. Acute exacerbation of chronic obstructive pulmonary disease, but get a by purulent tracheobronchitis #2. ongoing history of tobacco abuse #3. Hypertension #4. History of chronic liver disease #5. History of chronic hypoxemic respiratory failure secondary to COPD #6. Chronic back pain #7. History of hepatitis C #8. Diabetes mellitus #9. Anxiety/depression #10. History of schizophrenia #11. History of polysubstance abuse including IVDA, LSD, ecstasy, mushrooms, marijuana Plan: Continue current medical treatment, continue the antibiotics, nebulized bronchodilators, as bronchospastic on today's exam, although he is still dyspneic, unable to tolerate ambulation, from pulmonary perspective with can switch the patient to oral prednisone, he can finish course of antibiotics, breathing treatments, is clinically improving, no acute complaints, no further recommendations at this time, we'll leave the decision regarding discharge to the attending physician, we'll see the patient on as-needed basis. I performed a history & physical examination of the patient and discussed their management with my nurse practitioner, Juliana Mercado. I reviewed the nurse practitioner's note and agree with the documented findings and plan of care. Lung sounds are positive for diffuse wheezes throughout the lung sesay. The findings and the impression was discussed with the patient. I attest to the documentation by the nurse practitioner. Time with Patient: Less than 30
--- NOTE | 2018-11-11 14:05 | P.DS ---
Providers Date of admission: 11/09/18 14:05 Attending physician: Jake Rico Consults: 11/09/18 03:20 Consult Physician Routine Consulting Provider: Philip Miller Consult Reason/Comments: COPD Exacerbation Do you want consulting provider notified?: Yes Primary care physician: [facility] Course: 63-year-old came in with the comments of shortness of breath does have history of COPD can use to smoke. Chest x-ray did not show any pneumonic process. Patient has significant wheezing on exam limited limited air entry into bilateral lung sesay patient probably will need to be inpatient patient was started on systemic steroids inhalational treatments. Patient denied any fever chills. No evidence of pneumonia at this time. Patient was evaluated by pulmonary. Patient was comparing of chronic low back pain and requesting opiate analgesics for that pain counseled him extensively and finally came to agreement that we will use Tylenol 3 and naproxen for pain. Patient was started on GI prophylaxis as well PHYSICAL EXAMINATION: GENERAL: The patient is alert and oriented x3, not in any acute distress. Well developed, well nourished. HEENT: Pupils are round and equally reacting to light. EOMI. No scleral icterus. No conjunctival pallor. Normocephalic, atraumatic. No pharyngeal erythema. No thyromegaly. CARDIOVASCULAR: S1 and S2 present. No murmurs, rubs, or gallops. PULMONARY: Limited air entry into bilateral lung sesay significant expiratory wheezing on exam ABDOMEN: Soft, nontender, nondistended, normoactive bowel sounds. No palpable organomegaly. MUSCULOSKELETAL: No joint swelling or deformity. EXTREMITIES: No cyanosis, clubbing, or pedal edema. NEUROLOGICAL: Gross neurological examination did not reveal any focal deficits. SKIN: No rashes. Assessment and Plan Plan: -Shortness of breath secondary to COPD exacerbation patient was on systemic steroids inhalational treatments his will be continued. -Continued nicotine use: Counseling was provided -Chronic back pain -Hypertension -Schizophrenia -Patient will need GI and DVT prophylaxis pharmacologically. Patient Condition at Discharge: Serious Plan - Discharge Summary Discharge Rx Participant: No New Discharge Prescriptions: New Famotidine [Pepcid] 20 mg PO BID #30 tab predniSONE 10 mg PO DAILY #30 tab Doxycycline [Vibramycin] 100 mg PO BID #4 cap Continue Budesonide-Formot 160-4.5 Mcg [Symbicort 160-4.5 Mcg Inhaler] 2 puff INHALATION RT-BID 30 Days #1 puff Benztropine Mesylate 1 mg PO BID 30 Days #60 tablet Haloperidol Decanoate [Haldol D] 50 mg IM Q28D 28 Days #1 vial Lisinopril [Zestril] 20 mg PO DAILY Gabapentin [Neurontin] 100 mg PO TID Albuterol Sulfate [Proair Hfa] 1 - 2 puff INHALATION RT-Q4H PRN PRN Reason: difficulty in breathing predniSONE 50 mg PO DAILY #5 tab lamoTRIgine [LaMICtal] 200 mg PO DAILY Cholecalciferol [Vitamin D3] 5,000 unit PO DAILY Discharge Medication List Benztropine Mesylate 1 mg PO BID 30 Days #60 tablet 08/22/18 [Rx] Budesonide-Formot 160-4.5 Mcg [Symbicort 160-4.5 Mcg Inhaler] 2 puff INHALATION RT-BID 30 Days #1 puff 08/22/18 [Rx] Haloperidol Decanoate [Haldol D] 50 mg IM Q28D 28 Days #1 vial 08/22/18 [Rx] Albuterol Sulfate [Proair Hfa] 1 - 2 puff INHALATION RT-Q4H PRN 10/20/18 [History] Gabapentin [Neurontin] 100 mg PO TID 10/20/18 [History] Lisinopril [Zestril] 20 mg PO DAILY 10/20/18 [History] predniSONE 50 mg PO DAILY #5 tab 10/27/18 [Rx] Cholecalciferol [Vitamin D3] 5,000 unit PO DAILY 11/09/18 [History] lamoTRIgine [LaMICtal] 200 mg PO DAILY 11/09/18 [History] Doxycycline [Vibramycin] 100 mg PO BID #4 cap 11/11/18 [Rx] Famotidine [Pepcid] 20 mg PO BID #30 tab 11/11/18 [Rx] predniSONE 10 mg PO DAILY #30 tab 11/11/18 [Rx] Follow up Appointment(s)/Referral(s): [facility] [Primary Care Provider] - 3 Days Discharge Disposition: HOME SELF-CARE
--- NOTE | 2018-11-11 14:07 | P.PN ---
Subjective Progress Note Date: 11/10/18 Patient was admitted for COPD exacerbation has minimal improvement still complaining of abdominal pain Objective - Vital Signs Vital signs: Vital Signs Temp 98.8 F 11/11/18 07:30 Pulse 94 11/11/18 12:30 Resp 18 11/11/18 07:30 BP 124/61 11/11/18 07:30 Pulse Ox 88 L 11/11/18 07:30 Intake & Output 11/10/18 11/11/18 11/11/18 18:59 06:59 18:59 Intake Total 2100 680 Balance 2100 680 Intake: Oral 1200 480 Other 900 200 Other: Voiding Method Toilet Toilet Toilet # Voids 2 - Exam PHYSICAL EXAMINATION: GENERAL: The patient is alert and oriented x3, not in any acute distress. Well developed, well nourished. HEENT: Pupils are round and equally reacting to light. EOMI. No scleral icterus. No conjunctival pallor. Normocephalic, atraumatic. No pharyngeal erythema. No thyromegaly. CARDIOVASCULAR: S1 and S2 present. No murmurs, rubs, or gallops. PULMONARY: Limited air entry into bilateral lung sesay wheezing improved ABDOMEN: Soft, nontender, nondistended, normoactive bowel sounds. No palpable organomegaly. MUSCULOSKELETAL: No joint swelling or deformity. EXTREMITIES: No cyanosis, clubbing, or pedal edema. NEUROLOGICAL: Gross neurological examination did not reveal any focal deficits. SKIN: No rashes. - Labs CBC & Chem 7: 11/10/18 06:05 11/10/18 06:05 Labs: Abnormal Lab Results - Last 24 Hours (Table) 11/10/18 11/10/18 11/11/18 Range/Units 16:26 20:19 06:35 POC Glucose (mg/dL) 178 H 190 H 187 H (75-99) mg/dL 11/11/18 Range/Units 11:43 POC Glucose (mg/dL) 124 H (75-99) mg/dL Assessment and Plan Plan: -Shortness of breath secondary to COPD exacerbation patient was on systemic steroids inhalational treatments his will be continued. Patient does have cough unable to bring up anything. Bactrim was discontinued because of high normal potassium and low sodium of 133 and patient will be started on doxycycline as stated -Continued nicotine use: Counseling was provided -Chronic back pain -Hypertension -Schizophrenia -Patient will need GI and DVT prophylaxis pharmacologically.
[2018-11-11] MEDS: SYMBICORT 160-4.5 MCG INHALER INHALATION SCH (18:44)
[2018-11-12 06:50] LABS: Glucose,Whole Blood 157 mg/dL (75-99)
[2018-11-12] MEDS: IPRATROPIUM-ALBUTEROL 3 ML NEB INHALATION SCH ×4 (07:29→19:18)
[2018-11-12] MEDS: SYMBICORT 160-4.5 MCG INHALER INHALATION SCH ×2 (07:30→19:18)
[2018-11-12] MEDS: NICOTINE 21MG/24HR PATCH TRANSDERM SCH ×2 (07:40→23:01)
[2018-11-12] MEDS: INSULIN ASPART (NovoLOG) 100 UNIT/ML VIAL SQ SCH ×4 (07:47→21:16)
[2018-11-12] MEDS: lamoTRIgine 100 MG TAB PO SCH (07:47)
[2018-11-12] MEDS: Acetaminophen-Codeine 300-30mg TAB PO PRN ×2 (07:47→16:05)
[2018-11-12] MEDS: LISINOPRIL 20 MG TAB PO SCH (07:48)
[2018-11-12] MEDS: BENZTROPINE MESYLATE 1 MG TAB PO SCH ×2 (07:48→20:26)
[2018-11-12] MEDS: FAMOTIDINE 20 MG TAB PO SCH ×2 (07:48→20:26)
[2018-11-12] MEDS: DOXYCYCLINE 100 MG CAP PO SCH ×2 (07:48→20:26)
[2018-11-12] MEDS: HEPARIN SODIUM,PORCINE 5,000 UNIT/ML 1 ML VIAL SQ SCH ×2 (07:48→16:05)
[2018-11-12] MEDS: GABAPENTIN 100 MG CAP PO SCH ×3 (07:48→21:16)
[2018-11-12 11:43] LABS: Glucose,Whole Blood 100 mg/dL (75-99)
[2018-11-12] MEDS: predniSONE 20 MG TAB PO SCH (12:02)
--- NOTE | 2018-11-12 16:42 | P.PN ---
Subjective 63-year-old came in with the comments of shortness of breath does have history of COPD can use to smoke. Chest x-ray did not show any pneumonic process. Patient has significant wheezing on exam limited limited air entry into bilateral lung sesay patient probably will need to be inpatient patient was started on systemic steroids inhalational treatments. Patient denied any fever chills. No evidence of pneumonia at this time. Patient was evaluated by pulmonary. Patient was comparing of chronic low back pain and requesting opiate analgesics for that pain counseled him extensively and finally came to agreement that we will use Tylenol 3 and naproxen for pain. Patient was started on GI prophylaxis as well 11/12/2018 Patient Was Discharged Yesterday Didn't End up Going to Home as son who is the legal guardian supposed to take care of him stop answering phone calls from hospital. Adult per protective services were notified as this consulted as abandonment and case management is looking into a public guardian. Patient wheezing although significantly improved not wearing oxygen and ambulating well without any hypoxemia Constitutional: Denied any fatigue denied any fever. Cardio vascular: denied any chest pain, palpitations Gastrointestinal denied any nausea vomiting Pulmonary: Denied any shortness of breath cough Neurologic denied any new focal deficits All inpatient medications were reviewed and appropriate changes in these medications as dictated in the interval history and assessment and plan. Objective - Vital Signs Vital signs: Vital Signs Temp 98.7 F 11/12/18 16:00 Pulse 90 11/12/18 16:23 Resp 18 11/12/18 16:00 BP 117/68 11/12/18 16:00 Pulse Ox 98 11/12/18 16:09 Intake & Output 11/11/18 11/12/18 11/12/18 18:59 06:59 18:59 Intake Total 1316 Balance 1316 Intake: Oral 1116 Other 200 Other: Voiding Method Toilet Toilet Toilet # Voids 1 2 - Exam PHYSICAL EXAMINATION: GENERAL: The patient is alert and oriented x3, not in any acute distress. Well developed, well nourished. HEENT: Pupils are round and equally reacting to light. EOMI. No scleral icterus. No conjunctival pallor. Normocephalic, atraumatic. No pharyngeal erythema. No thyromegaly. CARDIOVASCULAR: S1 and S2 present. No murmurs, rubs, or gallops. PULMONARY: Significantly improved wheezing good air entry into bilateral lung sesay. ABDOMEN: Soft, nontender, nondistended, normoactive bowel sounds. No palpable organomegaly. MUSCULOSKELETAL: No joint swelling or deformity. EXTREMITIES: No cyanosis, clubbing, or pedal edema. NEUROLOGICAL: Gross neurological examination did not reveal any focal deficits. SKIN: No rashes. - Labs CBC & Chem 7: 11/10/18 06:05 11/10/18 06:05 Labs: Abnormal Lab Results - Last 24 Hours (Table) 11/12/18 11/12/18 Range/Units 06:48 11:41 POC Glucose (mg/dL) 157 H 100 H (75-99) mg/dL Assessment and Plan Plan: -Shortness of breath secondary to COPD exacerbation patient was on systemic steroids inhalational treatments his will be continued. Patient does have cough unable to bring up anything. Continue doxycycline repeat basic metabolic profile tomorrow -Continued nicotine use: Counseling was provided -Chronic back pain -Hypertension -Schizophrenia -Patient will need GI and DVT prophylaxis pharmacologically. Social issues and disposition issues as mentioned in the interval history. Awaiting for a public guardian. Adult Protective Services were consulted
[2018-11-12 16:51] LABS: Glucose,Whole Blood 241 mg/dL (75-99)
[2018-11-12] MEDS: NAPROXEN 250 MG TAB PO PRN (17:28)
[2018-11-12 20:00] VITALS: RESP 16
[2018-11-12 21:14] LABS: Glucose,Whole Blood 215 mg/dL (75-99)
[2018-11-13 01:29] LABS: Glucose,Whole Blood 185 mg/dL (75-99)
[2018-11-13] MEDS: HEPARIN SODIUM,PORCINE 5,000 UNIT/ML 1 ML VIAL SQ SCH ×2 (02:37→08:12)
[2018-11-13] MEDS: Acetaminophen-Codeine 300-30mg TAB PO PRN ×2 (04:44→12:02)
[2018-11-13 06:34] LABS: Glucose,Whole Blood 223 mg/dL (75-99)
[2018-11-13 06:53] LABS: Anion Gap 4 mmol/L; Blood Urea Nitrogen 29 mg/dL (9-20); Calcium 9.2 mg/dL (8.4-10.2); Carbon Dioxide 38 mmol/L (22-30); Chloride 89 mmol/L (98-107); Glucose 205 mg/dL (74-99); Potassium 4.8 mmol/L (3.5-5.1); Sodium 131 mmol/L (137-145)
[2018-11-13] MEDS: IPRATROPIUM-ALBUTEROL 3 ML NEB INHALATION SCH ×2 (07:26→10:58)
[2018-11-13] MEDS: SYMBICORT 160-4.5 MCG INHALER INHALATION SCH (07:26)
[2018-11-13] MEDS: INSULIN ASPART (NovoLOG) 100 UNIT/ML VIAL SQ SCH ×2 (08:11→12:03)
[2018-11-13] MEDS: DOXYCYCLINE 100 MG CAP PO SCH (08:12)
[2018-11-13] MEDS: FAMOTIDINE 20 MG TAB PO SCH (08:12)
[2018-11-13] MEDS: LISINOPRIL 20 MG TAB PO SCH (08:12)
[2018-11-13] MEDS: lamoTRIgine 100 MG TAB PO SCH (08:12)
[2018-11-13] MEDS: BENZTROPINE MESYLATE 1 MG TAB PO SCH (08:12)
[2018-11-13] MEDS: GABAPENTIN 100 MG CAP PO SCH (08:13)
[2018-11-13 09:57] VITALS: BP 130/76; TEMP 97.7
[2018-11-13 11:10] VITALS: PULSE 88
[2018-11-13 11:51] LABS: Glucose,Whole Blood 124 mg/dL (75-99)
[2018-11-13] MEDS: predniSONE 20 MG TAB PO SCH (12:02)
--- NOTE | 2018-11-13 13:19 | P.DS ---
Providers Date of admission: 11/09/18 14:05 Attending physician: Jake Rico Consults: 11/09/18 03:20 Consult Physician Routine Consulting Provider: Philip Miller Consult Reason/Comments: COPD Exacerbation Do you want consulting provider notified?: Yes Primary care physician: [facility] Course: 63-year-old came in with the comments of shortness of breath does have history of COPD can use to smoke. Chest x-ray did not show any pneumonic process. Patient has significant wheezing on exam limited limited air entry into bilateral lung sesay patient probably will need to be inpatient patient was started on systemic steroids inhalational treatments. Patient denied any fever chills. No evidence of pneumonia at this time. Patient was evaluated by pulmonary. Patient was comparing of chronic low back pain and requesting opiate analgesics for that pain counseled him extensively and finally came to agreement that we will use Tylenol 3 and naproxen for pain. Patient was started on GI prophylaxis as well 11/12/2018 Patient Was Discharged Yesterday Didn't End up Going to Home as son who is the legal guardian supposed to take care of him stop answering phone calls from hospital. Adult per protective services were notified as this consulted as abandonment and case management is looking into a public guardian. Patient wheezing although significantly improved not wearing oxygen and ambulating well without any hypoxemia. 11/05/2018 Patient's son was here to pick him up today patient will be discharged today. Patient was pretty status is significantly improved since he came in saturating 98%. PHYSICAL EXAMINATION: GENERAL: The patient is alert and oriented x3, not in any acute distress. Well developed, well nourished. HEENT: Pupils are round and equally reacting to light. EOMI. No scleral icterus. No conjunctival pallor. Normocephalic, atraumatic. No pharyngeal erythema. No thyromegaly. CARDIOVASCULAR: S1 and S2 present. No murmurs, rubs, or gallops. PULMONARY: Wheezing significantly improved very minimal wheezing. ABDOMEN: Soft, nontender, nondistended, normoactive bowel sounds. No palpable organomegaly. MUSCULOSKELETAL: No joint swelling or deformity. EXTREMITIES: No cyanosis, clubbing, or pedal edema. NEUROLOGICAL: Gross neurological examination did not reveal any focal deficits. SKIN: No rashes. For further details of hospitalization course and other medical problems that were addressed please refer to my dictation of progress note from as today and discharge summary from day before Patient Condition at Discharge: Serious Plan - Discharge Summary Discharge Rx Participant: No New Discharge Prescriptions: New Famotidine [Pepcid] 20 mg PO BID #30 tab predniSONE 10 mg PO DAILY #30 tab Doxycycline [Vibramycin] 100 mg PO BID #4 cap Continue Budesonide-Formot 160-4.5 Mcg [Symbicort 160-4.5 Mcg Inhaler] 2 puff INHALATION RT-BID 30 Days #1 puff Benztropine Mesylate 1 mg PO BID 30 Days #60 tablet Haloperidol Decanoate [Haldol D] 50 mg IM Q28D 28 Days #1 vial Lisinopril [Zestril] 20 mg PO DAILY Gabapentin [Neurontin] 100 mg PO TID Albuterol Sulfate [Proair Hfa] 1 - 2 puff INHALATION RT-Q4H PRN PRN Reason: difficulty in breathing predniSONE 50 mg PO DAILY #5 tab lamoTRIgine [LaMICtal] 200 mg PO DAILY Cholecalciferol [Vitamin D3] 5,000 unit PO DAILY Discharge Medication List Benztropine Mesylate 1 mg PO BID 30 Days #60 tablet 08/22/18 [Rx] Budesonide-Formot 160-4.5 Mcg [Symbicort 160-4.5 Mcg Inhaler] 2 puff INHALATION RT-BID 30 Days #1 puff 08/22/18 [Rx] Haloperidol Decanoate [Haldol D] 50 mg IM Q28D 28 Days #1 vial 08/22/18 [Rx] Albuterol Sulfate [Proair Hfa] 1 - 2 puff INHALATION RT-Q4H PRN 10/20/18 [History] Gabapentin [Neurontin] 100 mg PO TID 10/20/18 [History] Lisinopril [Zestril] 20 mg PO DAILY 10/20/18 [History] predniSONE 50 mg PO DAILY #5 tab 10/27/18 [Rx] Cholecalciferol [Vitamin D3] 5,000 unit PO DAILY 11/09/18 [History] lamoTRIgine [LaMICtal] 200 mg PO DAILY 11/09/18 [History] Doxycycline [Vibramycin] 100 mg PO BID #4 cap 11/11/18 [Rx] Famotidine [Pepcid] 20 mg PO BID #30 tab 11/11/18 [Rx] predniSONE 10 mg PO DAILY #30 tab 11/11/18 [Rx] Follow up Appointment(s)/Referral(s): [facility] [Primary Care Provider] - 3 Days Discharge Disposition: HOME SELF-CARE
[2018-11-16] MEDS ORDERED: HALOPERIDOL DECANOATE 50 MG/ML 1 ML VIAL IM SCH (09:00)
== END 2018-11-13 12:33 | disposition home or self-care (01) | DRG 191 ==
LOC: EC 22:56 → 1SOBS 11-09 03:19 → EEVIPCON 11-09 03:19 → OBSVTOIN 11-09 14:05
PROVIDERS: ADMIT Hospitalist; ATTEND Hospitalist
DX: J44.1 Chronic obstructive pulmonary disease with (acute) exacerbation (principal); J96.11 Chronic respiratory failure with hypoxia; F11.20 Opioid dependence, uncomplicated; Z86.19 Personal history of other infectious and parasitic diseases; E11.9 Type 2 diabetes mellitus without complications; Z71.6 Tobacco abuse counseling; F17.210 Nicotine dependence, cigarettes, uncomplicated; F20.9 Schizophrenia, unspecified; F41.9 Anxiety disorder, unspecified; F32.9 Major depressive disorder, single episode, unspecified; G89.29 Other chronic pain; I10 Essential (primary) hypertension; M41.9 Scoliosis, unspecified; Z79.51 Long term (current) use of inhaled steroids; Z79.899 Other long term (current) drug therapy; Z80.0 Family history of malignant neoplasm of digestive organs; Z82.49 Family history of ischemic heart disease and other diseases of the circulatory system; Z86.14 Personal history of Methicillin resistant Staphylococcus aureus infection; Z99.81 Dependence on supplemental oxygen; Z65.3 Problems related to other legal circumstances; M54.5 Low back pain; Z60.9 Problem related to social environment, unspecified; F12.10 Cannabis abuse, uncomplicated
CPT/HCPCS: 36415; 71046; 80048; 80053; 84484; 85025; 85027; 85379; 85610; 85730; 93005; 94640; 96361; 96374; 99285

== ENCOUNTER 2018-12-21 10:11 | Inpatient (IN) | payer OTHER ==
--- NOTE | 2018-12-21 11:11 | ED ---
General Adult HPI - General Chief complaint: Weakness Stated complaint: altered mental status Time Seen by Provider: 12/21/18 10:30 Source: patient, family Mode of arrival: wheelchair Limitations: no limitations - History of Present Illness Initial comments: Dictation was produced using [employer] dictation software. please excuse any gram matical, word or spelling errors. Chief Complaint: 63-year-old male with past medical history of psychiatric disease, her with IV drug abuse meth use presents with increased weakness and l ethargy. History of Present Illness: Patient is 63-year-old male he is brought in by his guardian who is his son. Patient has a past medical history of psychiatric disease. He was admitted to inpatient psych several weeks ago. He had increased dose of IM Haldol. Since increasing his IM dose of Haldol peripneumonic patient has been more lethargic than usual. Cyanosis that he's been having signs of weakness, slurring of his speech. His concern that this is either secondary to Haldol or drug abuse. Patient is a history of drug abuse however denies any recent drug use. Patient feels well at this time. He has no significant complaints. Denies any focal neurologic deficit. The ROS documented in this emergency department record has been reviewed and confirmed by me. Those systems with pertinent positive or negative responses have been documented in the HPI. All other systems are other negative and/or noncontributory. PHYSICAL EXAM: General Impression: Alert and oriented x3, not in acute distress HEENT: Normocephalic atraumatic, extra-ocular movements intact, pupils equal and reactive to light bilaterally, mucous membranes moist, mild drooling Cardiovascular: Heart regular rate and rhythm, S1&S2 audible, no murmurs, rubs or gallops Chest: Mild wheezing bilaterally Abdomen: Bowel sounds present, abdomen soft, non-tender, non-distended, no organomegaly Musculoskeletal: Pulses present and equal in all extremities, no peripheral edema, 4+ weakness of bilateral lower extremities and bilateral extremities Motor: no focal deficits noted Neurological: CN II-XII grossly intact, no focal motor or sensory deficits noted, no upper extremity drift Skin: Intact with no visualized rashes Psych: Normal affect and mood ED course: 63-year-old male presents with generalized weakness. Vital signs upon arrival shows heart rate of 118. Blood pressure 95/56, Saturation was 76% on room air. Patient has history of COPD. He uses oxygen 4 L chronically for chronic hypoxic respiratory failure.Abdomen evaluation obtained. CBC is within patient's baseline. Coag panel and metabolic panel is within patient's baseline. Cardiac enzymes negative. Serum alcohol negative. Brain CT is unremarkable. Chest x-ray is negative. Patient medically cleared for EPS evaluation. There is concern that patient's psychiatric medications are likely to high causing his symptoms. Nonetheless patient medically cleared. Patient reevaluated at bedside on be stable medical condition. Tolerating by mouth. Patient evaluated by EPS. case discussed with psychiatrist who is aware that patient's haldol dose needs to be reduced. patient otherwise cleared for discharge. EKG interpretation: Ventricular rate 110, sinus tachycardia, MD interval 150, QS 100, QTC 460. No MD prolongation, no QTC prolongation, no ST or T-wave changes noted. EKG compared to 11/09/2089 showing no changes. Overall, this EKG is unremarkable - Related Data Home Medications Medication Instructions Recorded Confirmed Albuterol Sulfate [Proair Hfa] 1 - 2 puff INHALATION RT-Q4H PRN 10/20/18 12/21/18 Gabapentin [Neurontin] 100 mg PO TID 10/20/18 12/21/18 Lisinopril [Zestril] 20 mg PO DAILY 10/20/18 12/21/18 Cholecalciferol [Vitamin D3 (25 5,000 unit PO DAILY 11/09/18 12/21/18 Mcg = 1000 Iu)] lamoTRIgine [LaMICtal] 200 mg PO DAILY 11/09/18 12/21/18 Guaifenesin/Dextromethorphan 10 ml PO Q8H PRN 12/21/18 12/21/18 [guaiFENesin DM] Previous Rx's Medication Instructions Recorded Benztropine Mesylate 1 mg PO BID 30 Days #60 tablet 08/22/18 Budesonide-Formot 160-4.5 Mcg 2 puff INHALATION RT-BID 30 Days 08/22/18 [Symbicort 160-4.5 Mcg Inhaler] #1 puff Haloperidol Decanoate [Haldol D] 50 mg IM Q28D 28 Days #1 vial 08/22/18 Famotidine [Pepcid] 20 mg PO BID #30 tab 11/11/18 Allergies Allergy/AdvReac Type Severity Reaction Status Date / Time No Known Allergies Allergy Verified 12/21/18 10:44 Review of Systems ROS Statement: Those systems with pertinent positive or pertinent negative responses have been documented in the HPI. ROS Other: All systems not noted in ROS Statement are negative. Past Medical History Past Medical History: COPD, Hypertension, Liver Disease Additional Past Medical History / Comment(s): COPD, chronic hypoxic respiratory failure on oxygen 2 L per minute nasal cannula, chronic back pain, hepatitis C, chronic liver disease, hypertension, diabetes mellitus, chronic anxiety, chronic depression, schizophrenia, history of polysubstance abuse including IVDA, LSD, ecstasy, mushrooms, history of paranoia, delusions History of Any Multi-Drug Resistant Organisms: MRSA Date of last positivie culture/infection: Summer 2017 MDRO Source:: finger-treated at [facility] per son Past Surgical History: Back Surgery Additional Past Surgical History / Comment(s): Pt has rods in his back. Past Anesthesia/Blood Transfusion Reactions: No Reported Reaction Past Psychological History: Anxiety, Schizophrenia Smoking Status: Current every day smoker Past Alcohol Use History: Occasional Past Drug Use History: Heroin, IV Drug Use, Marijuana, Methamphetamine, Opiates, Prescription Drug Abuse - Past Family History Father Family Medical History: Cancer Additional Family Medical History / Comment(s): Father had colon and pancreatic cancer and in his late 70s. Mother Family Medical History: Myocardial Infarction (NC) Additional Family Medical History / Comment(s): Mother of a NC in her late 70s. General Exam Limitations: no limitations Course Vital Signs 12/21/18 12/21/18 12/21/18 10:18 11:21 11:46 Temperature 98.8 F Pulse Rate 118 H 104 H Respiratory 22 28 H 28 H Rate Blood Pressure 95/56 105/70 98/68 O2 Sat by Pulse 76 L 94 L Oximetry 12/21/18 12/21/18 12/21/18 11:55 12:00 12:05 Temperature Pulse Rate 101 H 99 99 Respiratory 24 18 Rate Blood Pressure 101/41 101/61 O2 Sat by Pulse 99 96 Oximetry 12/21/18 12/21/18 12/21/18 12:10 13:00 13:15 Temperature Pulse Rate 98 97 98 Respiratory 16 14 Rate Blood Pressure 80/50 95/59 O2 Sat by Pulse 98 99 Oximetry 12/21/18 12/21/18 12/21/18 13:30 14:00 14:34 Temperature Pulse Rate 88 103 H 104 H Respiratory 16 20 20 Rate Blood Pressure 108/68 111/90 106/93 O2 Sat by Pulse 99 94 L Oximetry 12/21/18 15:00 Temperature Pulse Rate 98 Respiratory 18 Rate Blood Pressure 108/65 O2 Sat by Pulse 98 Oximetry Medical Decision Making - Lab Data Result diagrams: 12/21/18 11:21 12/21/18 11:21 Lab Results 12/21/18 12/21/18 12/21/18 Range/Units 11:21 11:21 11:21 WBC 7.8 (3.8-10.6) k/uL RBC 4.10 L (4.30-5.90) m/uL Hgb 13.5 (13.0-17.5) gm/dL Hct 43.9 (39.0-53.0) % MCV 107.0 H (80.0-100.0) fL MCH 32.9 (25.0-35.0) pg MCHC 30.7 L (31.0-37.0) g/dL RDW 14.1 (11.5-15.5) % Plt Count 131 L (150-450) k/uL Neutrophils % (Manual) 60 % Band Neutrophils % 27 % Lymphocytes % (Manual) 4 % Monocytes % (Manual) 9 % Metamyelocytes % 1 % Neutrophils # (Manual) 6.70 (1.3-7.7) k/uL Lymphocytes # (Manual) 0.31 L (1.0-4.8) k/uL Monocytes # (Manual) 0.70 (0-1.0) k/uL Metamyelocytes # (Man) 0.08 H (0) k/uL Nucleated RBCs 0 (0-0) /100 WBC Manual Slide Review Performed Hypochromasia Slight Poikilocytosis (manual Present Anisocytosis (manual) Present Macrocytosis Moderate PT (9.0-12.0) sec INR (<1.2) Sodium 136 L (137-145) mmol/L Potassium 4.4 (3.5-5.1) mmol/L Chloride 93 L (98-107) mmol/L Carbon Dioxide 39 H (22-30) mmol/L Anion Gap 4 mmol/L BUN 21 H (9-20) mg/dL Creatinine 0.68 (0.66-1.25) mg/dL Est GFR (CKD-EPI)AfAm >90 (>60 ml/min/1.73 sqM) Est GFR (CKD-EPI)NonAf >90 (>60 ml/min/1.73 sqM) Glucose 171 H (74-99) mg/dL Plasma Lactic Acid Boyd 1.2 (0.7-2.0) mmol/L Calcium 8.8 (8.4-10.2) mg/dL Magnesium 2.0 (1.6-2.3) mg/dL Total Bilirubin 0.6 (0.2-1.3) mg/dL AST 22 (17-59) U/L ALT 21 (21-72) U/L Alkaline Phosphatase 69 (38-126) U/L Ammonia <9 (<30) umol/L Troponin I (0.000-0.034) ng/mL Total Protein 6.3 (6.3-8.2) g/dL Albumin 4.1 (3.5-5.0) g/dL Lipase 115 (23-300) U/L Serum Alcohol <10 mg/dL 12/21/18 12/21/18 Range/Units 11:21 11:21 WBC (3.8-10.6) k/uL RBC (4.30-5.90) m/uL Hgb (13.0-17.5) gm/dL Hct (39.0-53.0) % MCV (80.0-100.0) fL MCH (25.0-35.0) pg MCHC (31.0-37.0) g/dL RDW (11.5-15.5) % Plt Count (150-450) k/uL Neutrophils % (Manual) % Band Neutrophils % % Lymphocytes % (Manual) % Monocytes % (Manual) % Metamyelocytes % % Neutrophils # (Manual) (1.3-7.7) k/uL Lymphocytes # (Manual) (1.0-4.8) k/uL Monocytes # (Manual) (0-1.0) k/uL Metamyelocytes # (Man) (0) k/uL Nucleated RBCs (0-0) /100 WBC Manual Slide Review Hypochromasia Poikilocytosis (manual Anisocytosis (manual) Macrocytosis PT 10.3 (9.0-12.0) sec INR 1.0 (<1.2) Sodium (137-145) mmol/L Potassium (3.5-5.1) mmol/L Chloride (98-107) mmol/L Carbon Dioxide (22-30) mmol/L Anion Gap mmol/L BUN (9-20) mg/dL Creatinine (0.66-1.25) mg/dL Est GFR (CKD-EPI)AfAm (>60 ml/min/1.73 sqM) Est GFR (CKD-EPI)NonAf (>60 ml/min/1.73 sqM) Glucose (74-99) mg/dL Plasma Lactic Acid Boyd (0.7-2.0) mmol/L Calcium (8.4-10.2) mg/dL Magnesium (1.6-2.3) mg/dL Total Bilirubin (0.2-1.3) mg/dL AST (17-59) U/L ALT (21-72) U/L Alkaline Phosphatase (38-126) U/L Ammonia (<30) umol/L Troponin I <0.012 (0.000-0.034) ng/mL Total Protein (6.3-8.2) g/dL Albumin (3.5-5.0) g/dL Lipase (23-300) U/L Serum Alcohol mg/dL Disposition Clinical Impression: Wellness examination Disposition: HOME SELF-CARE Instructions (If sedation given, give patient instructions): Haloperidol (By injection) Is patient prescribed a controlled substance at d/c from ED?: No Referrals: [facility] [Primary Care Provider] - 1-2 days Time of Disposition: 17:19
[2018-12-21] MEDS ORDERED: IPRATROPIUM-ALBUTEROL 3 ML NEB INHALATION STA ×3 (11:39→20:43)
[2018-12-21] MEDS ORDERED: DEXAMETHASONE SOD PHOSPHATE 10 MG/ML 1 ML VIAL IV STA (11:39)
--- NOTE | 2018-12-21 11:48 | CT ---
EXAMINATION TYPE: CT brain wo con DATE OF EXAM: 12/21/2018 COMPARISON: None HISTORY: altered mental status CT DLP: 1129.4 mGycm Automated exposure control for dose reduction was used. TECHNIQUE: CT scan of the head is performed without contrast. FINDINGS: There is no acute intracranial hemorrhage or midline shift identified. There is diffuse v entricular and sulcal prominence consistent with diffuse age-related cerebral atrophy. There a few a reas of hypoattenuation in the periventricular white matter most commonly related to chronic small ve ssel ischemic change. The globes are intact. There is circumferential mucosal thickening within the right maxillary sinus, moderate and mild mucosal thickening of the ethmoid sinuses. Remaining paranas al sinuses and mastoid air cells are well aerated. Atherosclerosis is noted of the intracranial vascu lature. IMPRESSION: No acute intracranial process.
--- NOTE | 2018-12-21 11:51 | XR ---
EXAMINATION TYPE: XR chest 2V DATE OF EXAM: 12/21/2018 COMPARISON: Chest x-ray 11/09/2018. HISTORY: COPD with chest pain. TECHNIQUE: Frontal and lateral views of the chest are obtained. FINDINGS: Background chronic emphysematous changes redemonstrated. There is no focal air space opaci ty, pleural effusion, or pneumothorax seen. The cardiac silhouette size is within normal limits. Ov erlying EKG leads are present. There is partial visualization of surgical change in the lumbar spine. IMPRESSION: Chronic emphysematous change without acute pulmonary process.
[2018-12-21 11:52] LABS: HCT 43.9 % (39.0-53.0); HGB 13.5 gm/dL (13.0-17.5); Hypochromasia Slight; MCH 32.9 pg (25.0-35.0); MCHC 30.7 g/dL (31.0-37.0); Macrocytosis Moderate; Mean Platelet Volume 8.2; Platelet Count 131 k/uL (150-450); RDW 14.1 % (11.5-15.5); WBC 7.8 k/uL (3.8-10.6)
[2018-12-21 11:57] LABS: Ammonia <9 umol/L (<30); Lactic Acid, Venous 1.2 mmol/L (0.7-2.0)
[2018-12-21 11:59] LABS: ALT 21 U/L (21-72); AST 22 U/L (17-59); African American GFR (CKD) >90 (>60 ml/min/1.73 sqM); Albumin 4.1 g/dL (3.5-5.0); Alcohol <10 mg/dL; Alkaline Phosphatase 69 U/L (38-126); Anion Gap 4 mmol/L; Blood Urea Nitrogen 21 mg/dL (9-20); Calcium 8.8 mg/dL (8.4-10.2); Carbon Dioxide 39 mmol/L (22-30); Chloride 93 mmol/L (98-107); Glucose 171 mg/dL (74-99); Lipase 115 U/L (23-300); Potassium 4.4 mmol/L (3.5-5.1); Sodium 136 mmol/L (137-145); Total Bilirubin 0.6 mg/dL (0.2-1.3); Total Protein 6.3 g/dL (6.3-8.2)
[2018-12-21 12:12] LABS: Prothrombin Time 10.3 sec (9.0-12.0)
[2018-12-21 12:24] LABS: Band Neutrophils % 27 %; Lymphocytes # (M) 0.31 k/uL (1.0-4.8); Metamyelocytes # (M) 0.08 k/uL (0); Metamyelocytes % 1 %; Neutrophils % (M) 60 %; Nucleated Red Blood Cells 0 /100 WBC (0-0); Total Cells Counted 200
[2018-12-21 12:25] LABS: Anisocytosis (M) Present; Poikilocytosis (M) Present
[2018-12-21] MEDS ORDERED: SODIUM CHLORIDE 0.9% 1,000 ML IV STA ×2 (13:25→20:55)
[2018-12-21] MEDS ORDERED: NICOTINE 7MG/24HR PATCH TRANSDERM STA (16:48)
[2018-12-21 18:15] LABS: Appearance,Urine Clear (Clear); Bacteria,Urine Rare /hpf; Bilirubin,Urine Negative (Negative); Blood,Urine Trace (Negative); Color,Urine Yellow; Glucose,Urine (UA) 4+ (Negative); Ketones,Urine Negative (Negative); Leukocyte Esterase,Urine Negative (Negative); Nitrite,Urine Negative (Negative); PH, Urine 6.5 (5.0-8.0); Protein,Urine Trace (Negative); RBC,Urine 1 /hpf (0-5); Specific Gravity,Urine 1.036 (1.001-1.035); Squamous Epithelial Cell,Urine <1 /hpf (0-4); Urobilinogen,Urine <2.0 mg/dL (<2.0)
[2018-12-21 18:30] LABS: Amphetamine Screen,Urine Not Detected (NotDetected); Barbiturate Screen,Urine Not Detected (NotDetected); Benzodiazepines Screen,Urine Not Detected (NotDetected); Cocaine Screen,Urine Not Detected (NotDetected); Methadone Screen, Urine Not Detected (NotDetected); Opiate Screen,Urine Not Detected (NotDetected); Oxycodone Screen, Urine Not Detected (NotDetected); Phencyclidine Screen,Urine Not Detected (NotDetected); Tricyclic Antidepressant,Urine Not Detected (NotDetected); Urn Cannabinoid Scrn Detected (NotDetected)
[2018-12-21 20:22] LABS: ABG Base Excess 13.5 mmol/L; ABG Oxygen Saturation 99.1 % (94-97); ABG PH 7.25 (7.35-7.45); ABG PO2 154 mmHg (83-108); ABG TCO2 44 mmol/L (19-24); Allen Test Performed? Yes
[2018-12-21] MEDS ORDERED: MAGNESIUM SULFATE-D5W PMX 1 GM in DEXTROSE/WATER 1 100ML.BAG IVPB ONE (20:43)
[2018-12-21] MEDS ORDERED: methylPREDNISolone SOD SUCCI 125 MG/2 ML VIAL IV STA (20:43)
--- NOTE | 2018-12-21 20:43 | ED ---
Medical Decision Making - Medical Decision Making The patient had been noted to have difficulty with breathing prior to discharge his caregiver and family did come in and states he's been having this for several days initially thinking it was a held all shot the patient received last week but started the whole process. He states that normally his family member will have problems breathing with some altered mental status for couple days after the Haldol shot this is persisted past that time by several days. Evaluation by me demonstrated the patient was short of breath he did have inspiratory wheezes some tachypnea. Arterial blood gases did show evidence of hypercarbia and respiratory acidosis. Patient did receive nebulizing treatment as well as IV steroids BiPAP is started at this time. The patient will be admitted case is discussed with Dr. Meek. Reassessment after the BiPAP was started the patient is improving. The patient apparently was on 4 L of oxygen which she normally is at home during a blood gas which would explain the high pCO2. I did discuss the case with Dr. Miller as well as Dr. Meek. Patient be admitted ICU the parameters for the BiPAP will be an FiO2 35-40%. This is maintained the saturation from 85-92%. - Lab Data Result diagrams: 12/21/18 11:21 12/21/18 11:21 Lab Results 12/21/18 12/21/18 12/21/18 Range/Units 11:21 11:21 11:21 WBC 7.8 (3.8-10.6) k/uL RBC 4.10 L (4.30-5.90) m/uL Hgb 13.5 (13.0-17.5) gm/dL Hct 43.9 (39.0-53.0) % MCV 107.0 H (80.0-100.0) fL MCH 32.9 (25.0-35.0) pg MCHC 30.7 L (31.0-37.0) g/dL RDW 14.1 (11.5-15.5) % Plt Count 131 L (150-450) k/uL Neutrophils % (Manual) 60 % Band Neutrophils % 27 % Lymphocytes % (Manual) 4 % Monocytes % (Manual) 9 % Metamyelocytes % 1 % Neutrophils # (Manual) 6.70 (1.3-7.7) k/uL Lymphocytes # (Manual) 0.31 L (1.0-4.8) k/uL Monocytes # (Manual) 0.70 (0-1.0) k/uL Metamyelocytes # (Man) 0.08 H (0) k/uL Nucleated RBCs 0 (0-0) /100 WBC Manual Slide Review Performed Hypochromasia Slight Poikilocytosis (manual Present Anisocytosis (manual) Present Macrocytosis Moderate PT (9.0-12.0) sec INR (<1.2) Sample Site ABG pH (7.35-7.45) ABG pCO2 (35-45) mmHg ABG pO2 (83-108) mmHg ABG HCO3 (21-25) mmol/L ABG Total CO2 (19-24) mmol/L ABG O2 Saturation (94-97) % ABG Base Excess mmol/L Brandyn Test FiO2 % Sodium 136 L (137-145) mmol/L Potassium 4.4 (3.5-5.1) mmol/L Chloride 93 L (98-107) mmol/L Carbon Dioxide 39 H (22-30) mmol/L Anion Gap 4 mmol/L BUN 21 H (9-20) mg/dL Creatinine 0.68 (0.66-1.25) mg/dL Est GFR (CKD-EPI)AfAm >90 (>60 ml/min/1.73 sqM) Est GFR (CKD-EPI)NonAf >90 (>60 ml/min/1.73 sqM) Glucose 171 H (74-99) mg/dL Plasma Lactic Acid Boyd 1.2 (0.7-2.0) mmol/L Calcium 8.8 (8.4-10.2) mg/dL Magnesium 2.0 (1.6-2.3) mg/dL Total Bilirubin 0.6 (0.2-1.3) mg/dL AST 22 (17-59) U/L ALT 21 (21-72) U/L Alkaline Phosphatase 69 (38-126) U/L Ammonia <9 (<30) umol/L Troponin I (0.000-0.034) ng/mL NT-Pro-B Natriuret Pep pg/mL Total Protein 6.3 (6.3-8.2) g/dL Albumin 4.1 (3.5-5.0) g/dL Lipase 115 (23-300) U/L Urine Color Urine Appearance (Clear) Urine pH (5.0-8.0) Ur Specific [place] (1.001-1.035) Urine Protein (Negative) Urine Glucose (UA) (Negative) Urine Ketones (Negative) Urine Blood (Negative) Urine Nitrite (Negative) Urine Bilirubin (Negative) Urine Urobilinogen (<2.0) mg/dL Ur Leukocyte Esterase (Negative) Urine RBC (0-5) /hpf Urine WBC (0-5) /hpf Ur Squamous Epith Cells (0-4) /hpf Urine Bacteria (None) /hpf Urine Opiates Screen (NotDetected) Ur Oxycodone Screen (NotDetected) Urine Methadone Screen (NotDetected) Ur Propoxyphene Screen (NotDetected) Ur Barbiturates Screen (NotDetected) U Tricyclic Antidepress (NotDetected) Ur Phencyclidine Scrn (NotDetected) Ur Amphetamines Screen (NotDetected) U Methamphetamines Scrn (NotDetected) U Benzodiazepines Scrn (NotDetected) Urine Cocaine Screen (NotDetected) U Marijuana (THC) Screen (NotDetected) Serum Alcohol <10 mg/dL 12/21/18 12/21/18 12/21/18 Range/Units 11:21 11:21 11:21 WBC (3.8-10.6) k/uL RBC (4.30-5.90) m/uL Hgb (13.0-17.5) gm/dL Hct (39.0-53.0) % MCV (80.0-100.0) fL MCH (25.0-35.0) pg MCHC (31.0-37.0) g/dL RDW (11.5-15.5) % Plt Count (150-450) k/uL Neutrophils % (Manual) % Band Neutrophils % % Lymphocytes % (Manual) % Monocytes % (Manual) % Metamyelocytes % % Neutrophils # (Manual) (1.3-7.7) k/uL Lymphocytes # (Manual) (1.0-4.8) k/uL Monocytes # (Manual) (0-1.0) k/uL Metamyelocytes # (Man) (0) k/uL Nucleated RBCs (0-0) /100 WBC Manual Slide Review Hypochromasia Poikilocytosis (manual Anisocytosis (manual) Macrocytosis PT 10.3 (9.0-12.0) sec INR 1.0 (<1.2) Sample Site ABG pH (7.35-7.45) ABG pCO2 (35-45) mmHg ABG pO2 (83-108) mmHg ABG HCO3 (21-25) mmol/L ABG Total CO2 (19-24) mmol/L ABG O2 Saturation (94-97) % ABG Base Excess mmol/L Brandyn Test FiO2 % Sodium (137-145) mmol/L Potassium (3.5-5.1) mmol/L Chloride (98-107) mmol/L Carbon Dioxide (22-30) mmol/L Anion Gap mmol/L BUN (9-20) mg/dL Creatinine (0.66-1.25) mg/dL Est GFR (CKD-EPI)AfAm (>60 ml/min/1.73 sqM) Est GFR (CKD-EPI)NonAf (>60 ml/min/1.73 sqM) Glucose (74-99) mg/dL Plasma Lactic Acid Boyd (0.7-2.0) mmol/L Calcium (8.4-10.2) mg/dL Magnesium (1.6-2.3) mg/dL Total Bilirubin (0.2-1.3) mg/dL AST (17-59) U/L ALT (21-72) U/L Alkaline Phosphatase (38-126) U/L Ammonia (<30) umol/L Troponin I <0.012 (0.000-0.034) ng/mL NT-Pro-B Natriuret Pep 378 pg/mL Total Protein (6.3-8.2) g/dL Albumin (3.5-5.0) g/dL Lipase (23-300) U/L Urine Color Urine Appearance (Clear) Urine pH (5.0-8.0) Ur Specific [place] (1.001-1.035) Urine Protein (Negative) Urine Glucose (UA) (Negative) Urine Ketones (Negative) Urine Blood (Negative) Urine Nitrite (Negative) Urine Bilirubin (Negative) Urine Urobilinogen (<2.0) mg/dL Ur Leukocyte Esterase (Negative) Urine RBC (0-5) /hpf Urine WBC (0-5) /hpf Ur Squamous Epith Cells (0-4) /hpf Urine Bacteria (None) /hpf Urine Opiates Screen (NotDetected) Ur Oxycodone Screen (NotDetected) Urine Methadone Screen (NotDetected) Ur Propoxyphene Screen (NotDetected) Ur Barbiturates Screen (NotDetected) U Tricyclic Antidepress (NotDetected) Ur Phencyclidine Scrn (NotDetected) Ur Amphetamines Screen (NotDetected) U Methamphetamines Scrn (NotDetected) U Benzodiazepines Scrn (NotDetected) Urine Cocaine Screen (NotDetected) U Marijuana (THC) Screen (NotDetected) Serum Alcohol mg/dL 12/21/18 12/21/18 12/21/18 Range/Units 14:30 14:30 20:28 WBC (3.8-10.6) k/uL RBC (4.30-5.90) m/uL Hgb (13.0-17.5) gm/dL Hct (39.0-53.0) % MCV (80.0-100.0) fL MCH (25.0-35.0) pg MCHC (31.0-37.0) g/dL RDW (11.5-15.5) % Plt Count (150-450) k/uL Neutrophils % (Manual) % Band Neutrophils % % Lymphocytes % (Manual) % Monocytes % (Manual) % Metamyelocytes % % Neutrophils # (Manual) (1.3-7.7) k/uL Lymphocytes # (Manual) (1.0-4.8) k/uL Monocytes # (Manual) (0-1.0) k/uL Metamyelocytes # (Man) (0) k/uL Nucleated RBCs (0-0) /100 WBC Manual Slide Review Hypochromasia Poikilocytosis (manual Anisocytosis (manual) Macrocytosis PT (9.0-12.0) sec INR (<1.2) Sample Site R RADIAL ABG pH 7.25 L (7.35-7.45) ABG pCO2 93 H* (35-45) mmHg ABG pO2 154 H (83-108) mmHg ABG HCO3 41 H* (21-25) mmol/L ABG Total CO2 44 H (19-24) mmol/L ABG O2 Saturation 99.1 H (94-97) % ABG Base Excess 13.5 mmol/L Brandyn Test Yes FiO2 40 % Sodium (137-145) mmol/L Potassium (3.5-5.1) mmol/L Chloride (98-107) mmol/L Carbon Dioxide (22-30) mmol/L Anion Gap mmol/L BUN (9-20) mg/dL Creatinine (0.66-1.25) mg/dL Est GFR (CKD-EPI)AfAm (>60 ml/min/1.73 sqM) Est GFR (CKD-EPI)NonAf (>60 ml/min/1.73 sqM) Glucose (74-99) mg/dL Plasma Lactic Acid Boyd (0.7-2.0) mmol/L Calcium (8.4-10.2) mg/dL Magnesium (1.6-2.3) mg/dL Total Bilirubin (0.2-1.3) mg/dL AST (17-59) U/L ALT (21-72) U/L Alkaline Phosphatase (38-126) U/L Ammonia (<30) umol/L Troponin I (0.000-0.034) ng/mL NT-Pro-B Natriuret Pep pg/mL Total Protein (6.3-8.2) g/dL Albumin (3.5-5.0) g/dL Lipase (23-300) U/L Urine Color Yellow Urine Appearance Clear (Clear) Urine pH 6.5 (5.0-8.0) Ur Specific [place] 1.036 H (1.001-1.035) Urine Protein Trace H (Negative) Urine Glucose (UA) 4+ H (Negative) Urine Ketones Negative (Negative) Urine Blood Trace H (Negative) Urine Nitrite Negative (Negative) Urine Bilirubin Negative (Negative) Urine Urobilinogen <2.0 (<2.0) mg/dL Ur Leukocyte Esterase Negative (Negative) Urine RBC 1 (0-5) /hpf Urine WBC <1 (0-5) /hpf Ur Squamous Epith Cells <1 (0-4) /hpf Urine Bacteria Rare H (None) /hpf Urine Opiates Screen Not Detected (NotDetected) Ur Oxycodone Screen Not Detected (NotDetected) Urine Methadone Screen Not Detected (NotDetected) Ur Propoxyphene Screen Not Detected (NotDetected) Ur Barbiturates Screen Not Detected (NotDetected) U Tricyclic Antidepress Not Detected (NotDetected) Ur Phencyclidine Scrn Not Detected (NotDetected) Ur Amphetamines Screen Not Detected (NotDetected) U Methamphetamines Scrn Not Detected (NotDetected) U Benzodiazepines Scrn Not Detected (NotDetected) Urine Cocaine Screen Not Detected (NotDetected) U Marijuana (THC) Screen Detected H (NotDetected) Serum Alcohol mg/dL Critical Care Time Critical Care Time: Yes Critical Care Time: 31 minutes of critical care time which includes initial evaluation by me and discussed with family members multiple reevaluation the patient for response to therapy includes discussion with Dr. Miller and Dr. Leon as well as admission orders Disposition Clinical Impression: Wellness examination, Acute exacerbation of chronic obstructive pulmonary disease (COPD), Acute respiratory distress syndrome, Acute respiratory failure with hypoxia and hypercarbia, Acute respiratory acidosis Disposition[facility] Condition: Serious Instructions (If sedation given, give patient instructions): Haloperidol (By injection) Referrals: [facility] [Primary Care Provider] - 1-2 days
[2018-12-21 20:45] LABS: ABG PCO2 93 mmHg (35-45)
[2018-12-21] MEDS ORDERED: SODIUM CHLORIDE 0.9% 500 ML 500 ML IV STA (20:55)
[2018-12-21] MEDS ORDERED: ACETAMINOPHEN TAB 325 MG TAB PO PRN (21:16)
[2018-12-21] MEDS ORDERED: NALOXONE 0.4 MG/ML 1 ML VIAL IV PRN (21:16)
[2018-12-21] MEDS ORDERED: guaiFENesin-DM 100-10MG/5ML 10 ML CUP PO PRN (21:21)
[2018-12-21 23:48] LABS: Glucose,Whole Blood 231 mg/dL (75-99)
[2018-12-22] MEDS: IPRATROPIUM-ALBUTEROL 3 ML NEB INHALATION SCH ×7 (00:01→23:24)
[2018-12-22] MEDS: GABAPENTIN 100 MG CAP PO SCH ×4 (00:06→21:06)
[2018-12-22] MEDS: methylPREDNISolone SOD SUCCI 125 MG/2 ML VIAL IV SCH ×4 (00:21→17:31)
[2018-12-22 00:29] LABS: ABG Base Excess 10.9 mmol/L; ABG HCO3 38 mmol/L (21-25); ABG Oxygen Saturation 88.9 % (94-97); ABG PH 7.27 (7.35-7.45); ABG TCO2 40 mmol/L (19-24); Allen Test Performed? Yes
[2018-12-22 00:31] LABS: ABG PO2 59 mmHg (83-108)
[2018-12-22 00:33] VITALS: BMI 21.4
--- NOTE | 2018-12-22 00:40 | XR ---
EXAM: XR Chest, 1 View CLINICAL HISTORY: ITS.REASON XR Reason: SOB TECHNIQUE: Frontal view of the chest. COMPARISON: 11/09/18. FINDINGS: Lungs: Pulmonary hyperexpansion is again noted. No clear consolidation given limitations from overlying tubing Pleural space: Unremarkable. No pneumothorax. Heart: Unremarkable. No cardiomegaly. Mediastinum: Aortic calcification. Bones/joints: Degenerative changes. IMPRESSION: Pulmonary hyperexpansion is again noted. No clear consolidation given limitations from overlying tubing
[2018-12-22 05:18] LABS: HCT 40.1 % (39.0-53.0); HGB 12.4 gm/dL (13.0-17.5); Hypochromasia Marked; MCH 33.9 pg (25.0-35.0); MCV 109.5 fL (80.0-100.0); Macrocytosis Marked; Mean Platelet Volume 8.2; Platelet Count 111 k/uL (150-450); RBC 3.66 m/uL (4.30-5.90); RDW 14.1 % (11.5-15.5); WBC 3.5 k/uL (3.8-10.6)
[2018-12-22 05:31] LABS: ALT 17 U/L (21-72); AST 16 U/L (17-59); African American GFR (CKD) >90 (>60 ml/min/1.73 sqM); Albumin 3.5 g/dL (3.5-5.0); Alkaline Phosphatase 50 U/L (38-126); Anion Gap 5 mmol/L; Blood Urea Nitrogen 24 mg/dL (9-20); Calcium 8.6 mg/dL (8.4-10.2); Carbon Dioxide 35 mmol/L (22-30); Chloride 97 mmol/L (98-107); Glucose 208 mg/dL (74-99); Magnesium 2.2 mg/dL (1.6-2.3); Phosphorus 2.6 mg/dL (2.5-4.5); Potassium 4.9 mmol/L (3.5-5.1); Sodium 137 mmol/L (137-145); Total Bilirubin 0.4 mg/dL (0.2-1.3); Total Protein 5.6 g/dL (6.3-8.2)
[2018-12-22] MEDS: INSULIN ASPART (NovoLOG) 100 UNIT/ML VIAL SQ SCH ×3 (05:44→18:03)
[2018-12-22 05:47] LABS: Glucose,Whole Blood 204 mg/dL (75-99)
[2018-12-22 05:50] LABS: Band Neutrophils % 4 %; Lymphocytes # (M) 0.35 k/uL (1.0-4.8); Monocytes # (M) 0.04 k/uL (0-1.0); Neutrophils % (M) 85 %; Nucleated Red Blood Cells 0 /100 WBC (0-0); Total Cells Counted 100
[2018-12-22] MEDS ORDERED: SYMBICORT 160-4.5 MCG INHALER INHALATION SCH (08:00)
[2018-12-22] MEDS: PANTOPRAZOLE 40 MG/10 ML VIAL IV SCH (08:31)
[2018-12-22] MEDS: HEPARIN SODIUM,PORCINE 5,000 UNIT/ML 1 ML VIAL SQ SCH ×2 (08:31→17:31)
[2018-12-22] MEDS ORDERED: LISINOPRIL 20 MG TAB PO SCH (09:00)
[2018-12-22] MEDS ORDERED: FAMOTIDINE 20 MG TAB PO SCH (09:00)
[2018-12-22 12:05] LABS: Glucose,Whole Blood 171 mg/dL (75-99)
[2018-12-22] MEDS: CHOLECALCIFEROL 1,000 UNIT TAB PO SCH (12:28)
[2018-12-22] MEDS: BENZTROPINE MESYLATE 1 MG TAB PO SCH ×2 (12:29→21:06)
[2018-12-22] MEDS: lamoTRIgine 100 MG TAB PO SCH (12:29)
--- NOTE | 2018-12-22 13:00 | CONS ---
CONSULTATION This patient was seen in the emergency department yesterday on December 21. He apparently came in with weakness and mental status changes. The patient apparently has a history of extensive psychiatric disease, IV drug abuse, methamphetamine use and a whole host of other medical problems including COPD. The patient was brought in by guardian who is his son. The patient apparently had a recent admission to the psychiatric unit a couple weeks back. More recently, his dose of Haldol has been increased. When this occurs, he tends to be more lethargic than usual. The patient was seen by Dr. Luevano initially and signed out to Dr. Del Valle. The patient initially came in with weakness, slurred speech, and sedation with mental status changes. Subsequent to Dr. Luevano evaluating the patient, and turning over the patient to Dr. Del Valle, apparently the patient was found to have some respiratory difficulty. A blood gas showed hypercapnic respiratory failure. Dr. Del Valle called me. I thought the patient could have been admitted to [address] [place] [address]. We had a bad phone connection and maybe he did not hear what I suggested but anyway the patient ended up here in the ICU. It was just probably an honest mistake. Anyway, the patient is currently on BiPAP at 15 and 5 with an FiO2 of 35%. Saturations are acceptable 88%-90%. Most recent blood gases show a PO2 of 59, a pCO2 of 82, and a pH of 7.27. He is getting a 0.9 IV at 80 mL an hour. The patient is currently lethargic and somnolent but does arouse. He is sleeping on his left side. He does not appear to be in any respiratory distress. I did tell the nurses to take the BiPAP off and see how he does. I told him to place him on 2-3 L of nasal O2 and accept saturations in the high 80s, low 90s. HOME MEDICATIONS: Include albuterol inhaler, gabapentin, lisinopril, cholecalciferol, Lamictal with guaifenesin DM, benztropine, Symbicort, Haldol, and famotidine. ALLERGIES: Denied. MEDICAL HISTORY: Includes COPD, hypertension, chronic liver disease secondary to hepatitis C, chronic hypoxemic respiratory failure on 2 L nasal cannula 08/02, chronic back pain, diabetes, chronic anxiety, chronic depression, schizophrenia, polysubstance abuse including IVDA, LSD, ecstasy, mushrooms, and history of paranoia and delusions. The patient also has a previous MRSA infection. SURGICAL HISTORY: Includes back surgery. SOCIAL HISTORY: Positive for ongoing tobacco use. He is a chain smoker. He drinks occasionally. Drug use is significant and includes heroin, IV drugs, marijuana, methamphetamines, opiates, prescription drugs, etc. FAMILY HISTORY: Positive for a father with colon and pancreatic cancer, who in his late 70s. There is also a previous history of myocardial infarction. REVIEW OF SYSTEMS: Difficult to obtain. The patient is very lethargic and sleepy but does arouse. His primary complaint includes primarily weakness and fatigue. He also has some mild shortness of breath. The other 12 systems are reviewed and apparently are negative. Again in this regard, he is not a particularly good historian. Current vital signs are reviewed, temperature is 98.2, heart rate 96, respiratory rate about 30 breaths per minute, blood pressure 125/67 mean 86 and saturations are 92% on the BiPAP. Appears mildly tachypneic. HEENT: Examination is grossly unremarkable. BiPAP mask in place. NECK: Supple. Full range of motion. No adenopathy. No neck vein distention. CARDIOVASCULAR: Examination reveals regular rhythm and rate. Heart rate about 90 beats per minute. S1, S2 normal. Heart sounds are distant. LUNGS: Reveal severely diminished breath sounds throughout. A few scattered rhonchi. No wheezes or crackles. Breath sounds are equal. ABDOMEN: Soft. Bowel sounds are heard. EXTREMITIES: Intact. No significant cyanosis, clubbing, or edema. SKIN: Without rash. NEUROLOGIC: Examination seems to be reasonably normal. He does move all 4 extremities. His mental status is poor. He does respond appropriately. The patient had a chest x-ray done. It shows changes of COPD. I do not see any acute abnormalities. He has similarly had a chest x-ray yesterday in the emergency room, which again showed just chronic emphysematous changes. Brain CT scan showed no acute intracranial process. LABS: Reviewed. White count 3.5, hemoglobin 12.4, hematocrit 40.1, platelet count 111,000. His initial blood gases show PO2 of 154, pCO2 of 93, pH of 6.25. Subsequent blood gases on 30% FiO2 show PO2 of 59, pCO2 of 82, pH of 7.27. The first blood gas was done on 40%. Sodium 137, potassium 4.9, chloride 97, CO2 of 35, anion gap is 5, BUN and creatinine were 24 and 0.49. The rest of the labs look okay. Medications are reviewed. I will go through each of these medications carefully. ASSESSMENT: 1. Mental status changes, which may relate to worsening hypercapnic respiratory failure. 2. Chronic hypoxemic and hypercapnic respiratory failure, requiring BiPAP therapy, likely secondary to severe chronic obstructive pulmonary disease. 3. Somnolence, secondary to hypercarbia. 4. Questionable Haldol reaction as his Haldol dose was recently changed. 5. History of chronic liver disease secondary to hepatitis C. 6. Benign essential hypertension. 7. Chronic back pain. 8. Diabetes mellitus. 9. Chronic anxiety and depression. 10.History of schizophrenia. 11.History of polysubstance abuse including IVDA, LSD, Ecstasy, mushrooms, etc. PLAN: The patient will be given a trial off of BiPAP. I told the nurses to place nasal O2 on him between 2-3 L. Accept saturations of higher than 85%. We will make sure that his medications are reviewed. We will make sure he is not on anything that may depress his respiratory status. Overall prognosis remains very guarded. Code status should be discussed with this patient. No additional recommendations are made. Prognosis is poor. MMODL / IJN: [id number] / MTDD
[2018-12-22 14:13] LABS: Appearance,Urine Clear (Clear); Bacteria,Urine Rare /hpf; Bilirubin,Urine Negative (Negative); Blood,Urine Negative (Negative); Color,Urine Yellow; Glucose,Urine (UA) 2+ (Negative); Hyaline Casts,Urine 1 /lpf (0-2); Ketones,Urine Negative (Negative); Leukocyte Esterase,Urine Negative (Negative); Mucus,Urine Few /hpf; Nitrite,Urine Negative (Negative); Protein,Urine 1+ (Negative); Specific Gravity,Urine 1.034 (1.001-1.035); Urobilinogen,Urine <2.0 mg/dL (<2.0); WBC,Urine 1 /hpf (0-5)
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
[2018-12-22] MEDS ORDERED: LORazepam 2 MG/ML INJ IV STA (17:19)
[2018-12-22] MEDS: NICOTINE 21MG/24HR PATCH TRANSDERM SCH (17:31)
[2018-12-22 18:14] LABS: Glucose,Whole Blood 121 mg/dL (75-99)
[2018-12-22] MEDS: BUDESONIDE 1 MG/2 ML NEBU INHALATION SCH (19:50)
[2018-12-22] MEDS: FORMOTEROL FUMARATE 20 MCG/2 ML NEBU INHALATION SCH (19:50)
[2018-12-23 00:16] LABS: Glucose,Whole Blood 177 mg/dL (75-99)
[2018-12-23] MEDS: HEPARIN SODIUM,PORCINE 5,000 UNIT/ML 1 ML VIAL SQ SCH ×3 (00:21→15:31)
[2018-12-23] MEDS: methylPREDNISolone SOD SUCCI 125 MG/2 ML VIAL IV SCH ×4 (00:21→17:26)
[2018-12-23] MEDS: INSULIN ASPART (NovoLOG) 100 UNIT/ML VIAL SQ SCH ×4 (00:21→17:23)
[2018-12-23] MEDS: IPRATROPIUM-ALBUTEROL 3 ML NEB INHALATION SCH ×4 (03:16→17:32)
[2018-12-23 05:57] LABS: ABG Base Excess 12.9 mmol/L; ABG HCO3 39 mmol/L (21-25); ABG PH 7.33 (7.35-7.45); ABG PO2 72 mmHg (83-108); ABG TCO2 41 mmol/L (19-24); Allen Test Performed? Yes
[2018-12-23 06:02] LABS: HCT 40.8 % (39.0-53.0); Hypochromasia Slight; MCHC 31.9 g/dL (31.0-37.0); MCV 106.5 fL (80.0-100.0); Macrocytosis Moderate; Mean Platelet Volume 9.3; RBC 3.84 m/uL (4.30-5.90); RDW 14.5 % (11.5-15.5)
[2018-12-23 06:05] LABS: ABG PCO2 74 mmHg (35-45)
[2018-12-23 06:15] LABS: Platelet Count 94 k/uL (150-450)
[2018-12-23 06:30] LABS: Glucose,Whole Blood 134 mg/dL (75-99)
[2018-12-23 06:35] LABS: African American GFR (CKD) >90 (>60 ml/min/1.73 sqM); Anion Gap 4 mmol/L; Blood Urea Nitrogen 28 mg/dL (9-20); Calcium 9.1 mg/dL (8.4-10.2); Carbon Dioxide 34 mmol/L (22-30); Chloride 100 mmol/L (98-107); Glucose 126 mg/dL (74-99); Sodium 138 mmol/L (137-145)
[2018-12-23] MEDS ORDERED: INSULIN REGULAR 100 UNIT/ML VIAL IV ONE (07:42)
[2018-12-23] MEDS ORDERED: DEXTROSE 50% SYRINGE 50 ML IVP STA (07:45)
[2018-12-23] MEDS: BUDESONIDE 1 MG/2 ML NEBU INHALATION SCH (07:59)
--- NOTE | 2018-12-23 08:14 | XR ---
EXAMINATION TYPE: XR chest 1V DATE OF EXAM: 12/23/2018 COMPARISON: 12/22/2018 HISTORY: Shortness of breath TECHNIQUE: Single frontal view of the chest is obtained. FINDINGS: Diffuse hyperexpansion of the lungs compatible COPD. No pleural effusion or pneumothorax. No overt failure. Heart size stable. Atherosclerotic change aorta. There is a masslike density in the right perihilar region which was not clearly seen on the prior exa m may be potentially related to chest lead. Recommend follow-up chest x-ray with removal chest leads. IMPRESSION: 1. COPD. Masslike density in the right upper lobe may be related to chest bleed rather than true neop lasm. Recommend follow-up chest x-ray with removal of chest leads.
[2018-12-23] MEDS: FORMOTEROL FUMARATE 20 MCG/2 ML NEBU INHALATION SCH (08:18)
[2018-12-23] MEDS: PANTOPRAZOLE 40 MG/10 ML VIAL IV SCH (08:25)
[2018-12-23] MEDS: GABAPENTIN 100 MG CAP PO SCH ×2 (08:26→15:24)
[2018-12-23] MEDS: lamoTRIgine 100 MG TAB PO SCH (08:26)
[2018-12-23] MEDS: NICOTINE 21MG/24HR PATCH TRANSDERM SCH (08:26)
[2018-12-23] MEDS: CHOLECALCIFEROL 1,000 UNIT TAB PO SCH (08:26)
[2018-12-23] MEDS: BENZTROPINE MESYLATE 1 MG TAB PO SCH (08:27)
--- NOTE | 2018-12-23 08:35 | PN ---
PROGRESS NOTE This is a 63-year-old male who was seen yesterday in consultation. He apparently arrived into the emergency department with mental status changes and weakness. He apparently has a significant psychiatric history, IV drug abuse, methamphetamine use and a whole host of other medical problems including COPD. The patient apparently was seen initially by Dr. Luevano and then seen by Dr. Del Valle. Dr. Del Valle called me because of concerns of the patient's blood gases. Anyway, the patient has been on BiPAP pretty much the entire time he has been here. He currently remains on BiPAP with an IPAP of 15, EPAP of 5 and FiO2 of 35%. His IV is 0.9 at 80 mL an hours. The patient appears to have both hypoxemic and hypercapnic respiratory failure secondary to severe COPD from previous heavy tobacco use. The patient appears to be a bit more stable this morning than he was yesterday. He has pretty much been on the BiPAP the entire time. He does have a history also of schizophrenia, polysubstance abuse, diabetes, chronic back pain, benign essential hypertension and chronic liver disease secondary to hepatitis C. Current vital signs are reviewed, temperature is 98.5, heart rate is 92, respiratory rate is in the high 20s to low 30s, blood pressure 143/83 mean 103, saturations are 94%. Appears in no acute distress. HEENT: Examination is grossly unremarkable. BiPAP mask in place. NECK: Supple. Full range of motion. No adenopathy. CARDIOVASCULAR: Examination reveals regular rhythm and rate. Heart rate in the high 80s, low 90s. It is regular. Heart sounds are distant. LUNGS: Reveal severely diminished breath sounds. There is coarse rhonchi bilaterally. Some expiratory wheezes. Breath sounds are equal but diminished throughout. ABDOMEN: Scaphoid. Bowel sounds noted. EXTREMITIES: Intact. No cyanosis, clubbing, or edema. SKIN: Without rash. NEUROLOGIC: Examination is brief but non focal and because of his somnolence and lethargy, it is difficult to assess his neurologic status, though. LAB DATA: Reviewed. Nothing new from today. No new x-ray reports were ready to mention. Microbiology is thus far negative. Medications are reviewed. He is on appropriate medications for his severe COPD. ASSESSMENT: 1. Acute on chronic hypoxemic and hypercapnic respiratory failure secondary to chronic obstructive pulmonary disease exacerbation, the patient has been pretty much BiPAP dependent. 2. Mental status changes, likely related to his worsening hypercapnic respiratory failure. 3. Somnolence, secondary to hypercarbia. 4. Questionable Haldol reaction. 5. History of chronic liver disease, secondary to hepatitis C. 6. Benign essential hypertension. 7. Chronic back pain. 8. Diabetes mellitus. 9. Chronic anxiety/depression. 10.History of schizophrenia. 11.History of polysubstance abuse including IVDA, LSD, Ecstasy, mushrooms, and marijuana, etc. PLAN: The patient will continue on BiPAP. We will see if we can't give him. Time off the BiPAP. Remains on 0.9 at 80 mL an hour. Will await the chest x-ray. Additional recommendations and suggestions are forthcoming. I likely will ask for a blood gas today. MMTONJAL / DEEJAYN: [id number] /
[2018-12-23] MEDS ORDERED: LISINOPRIL 10 MG TAB PO SCH (09:00)
[2018-12-23] MEDS ORDERED: ALBUTEROL NEB (CONC) 2.5 MG/0.5 ML INHALATION ONE (09:00)
[2018-12-23] MEDS ORDERED: LORazepam 2 MG/ML INJ IV PRN (10:02)
[2018-12-23 12:12] LABS: Glucose,Whole Blood 213 mg/dL (75-99)
--- NOTE | 2018-12-23 14:22 | P.PN ---
Subjective Patient was admitted secondary to acute hypoxic respiratory failure failure secondary to COPD exacerbation his COPD appears to be worsening patient is on BiPAP patient has advancing COPD. Because of his poor prognosis overall, after discussion with the family pulmonology made him comfort care and hospice. Review of systems Unable to often and irrelevant at this time Objective - Vital Signs Vital signs: Vital Signs Temp 99 F 12/23/18 12:00 Pulse 92 12/23/18 14:00 Resp 33 H 12/23/18 14:00 BP 134/81 12/23/18 14:00 Pulse Ox 93 L 12/23/18 14:00 Intake & Output 12/22/18 12/23/18 12/23/18 18:59 06:59 18:59 Intake Total 1260 760 520 Output Total 650 430 310 Balance 610 330 210 Weight 60.21 kg 60 kg Intake: IV 960 560 520 Sodium Chloride 0.9% 1, 960 560 520 000 ml @ 80 mls/hr IV . [id number] STA Rx#:[id number] Oral 300 200 Output: Urine 650 430 310 Other: Voiding Method Indwelling Catheter - Exam PHYSICAL EXAMINATION: GENERAL: On BiPAP in respiratory distress barely arousable patient will be started on morphine drip once we're able to get the IV line or will be started on Roxanol CARDIOVASCULAR: S1 and S2 present. No murmurs, rubs, or gallops. Tachycardic PULMONARY: He did begin expiratory wheezing ABDOMEN: Soft, MUSCULOSKELETAL: No joint swelling or deformity. SKIN: No rashes. - Labs CBC & Chem 7: 12/23/18 05:55 12/23/18 11:40 Labs: Abnormal Lab Results - Last 24 Hours (Table) 12/22/18 12/23/18 12/23/18 Range/Units 18:03 00:04 05:55 RBC (4.30-5.90) m/uL MCV (80.0-100.0) fL Plt Count (150-450) k/uL ABG pH (7.35-7.45) ABG pCO2 (35-45) mmHg ABG pO2 (83-108) mmHg ABG HCO3 (21-25) mmol/L ABG Total CO2 (19-24) mmol/L Potassium 6.0 H (3.5-5.1) mmol/L Carbon Dioxide 34 H (22-30) mmol/L BUN 28 H (9-20) mg/dL Creatinine 0.53 L (0.66-1.25) mg/dL Glucose 126 H (74-99) mg/dL POC Glucose (mg/dL) 121 H 177 H (75-99) mg/dL 12/23/18 12/23/18 12/23/18 Range/Units 05:55 05:55 06:18 RBC 3.84 L (4.30-5.90) m/uL MCV 106.5 H (80.0-100.0) fL Plt Count 94 L (150-450) k/uL ABG pH 7.33 L (7.35-7.45) ABG pCO2 74 H* (35-45) mmHg ABG pO2 72 L (83-108) mmHg ABG HCO3 39 H (21-25) mmol/L ABG Total CO2 41 H (19-24) mmol/L Potassium (3.5-5.1) mmol/L Carbon Dioxide (22-30) mmol/L BUN (9-20) mg/dL Creatinine (0.66-1.25) mg/dL Glucose (74-99) mg/dL POC Glucose (mg/dL) 134 H (75-99) mg/dL 12/23/18 Range/Units 11:51 RBC (4.30-5.90) m/uL MCV (80.0-100.0) fL Plt Count (150-450) k/uL ABG pH (7.35-7.45) ABG pCO2 (35-45) mmHg ABG pO2 (83-108) mmHg ABG HCO3 (21-25) mmol/L ABG Total CO2 (19-24) mmol/L Potassium (3.5-5.1) mmol/L Carbon Dioxide (22-30) mmol/L BUN (9-20) mg/dL Creatinine (0.66-1.25) mg/dL Glucose (74-99) mg/dL POC Glucose (mg/dL) 213 H (75-99) mg/dL Microbiology - Last 24 Hours (Table) 12/21/18 11:21 Blood Culture - Preliminary Blood No Growth after 48 hours 12/22/18 13:00 Urine Culture - Preliminary Urine,Catheterized Assessment and Plan Plan: 1 acute hypercapnic respiratory failure secondary to COPD exacerbation -Respiratory acidosis secondary to hypercapnia -Toxic encephalopathy secondary to hypercapnia -Hepatitis -Schizophrenia Patient's comfort care and hospice all medications will be discontinued except for comfort medications.
[2018-12-23 16:05] VITALS: TEMP 98.9
[2018-12-23 17:34] LABS: Glucose,Whole Blood 128 mg/dL (75-99)
[2018-12-23 18:13] VITALS: BP 160/90; PULSE 108; RESP 41
[2018-12-24 11:29] LABS: ABG HCO3 41 mmol/L (21-25)
[2018-12-24 11:30] LABS: ABG PCO2 82 mmHg (35-45)
--- NOTE | 2018-12-24 14:56 | P.DS ---
Providers Date of admission: 12/21/18 21:16 Expected date of discharge: 12/23/18 Attending physician: Nagi Meek MD Consults: 12/21/18 21:16 Consult Physician Stat Consulting Provider: Philip Miller Consult Reason/Comments: Respiratory distress, hypercarbia, chronic COPD with exacerbation Do you want consulting provider notified?: Already Contacted Primary care physician: [facility] Course: Please of her to my progress note for further details of hospitalization course and patient was made hospice will be admitted to inpatient hospice Patient Condition at Discharge: Serious Plan - Discharge Summary Discharge Rx Participant: Yes New Discharge Prescriptions: No Action Budesonide-Formot 160-4.5 Mcg [Symbicort 160-4.5 Mcg Inhaler] 2 puff INHALATION RT-BID 30 Days #1 puff Benztropine Mesylate 1 mg PO BID 30 Days #60 tablet Haloperidol Decanoate [Haldol D] 50 mg IM Q28D 28 Days #1 vial Lisinopril [Zestril] 20 mg PO DAILY Gabapentin [Neurontin] 100 mg PO TID Albuterol Sulfate [Proair Hfa] 1 - 2 puff INHALATION RT-Q4H PRN PRN Reason: difficulty in breathing lamoTRIgine [LaMICtal] 200 mg PO DAILY Cholecalciferol [Vitamin D3 (25 Mcg = 1000 Iu)] 5,000 unit PO DAILY Famotidine [Pepcid] 20 mg PO BID #30 tab Guaifenesin/Dextromethorphan [guaiFENesin DM] 10 ml PO Q8H PRN PRN Reason: Cough Discharge Medication List Benztropine Mesylate 1 mg PO BID 30 Days #60 tablet 08/22/18 [Rx] Budesonide-Formot 160-4.5 Mcg [Symbicort 160-4.5 Mcg Inhaler] 2 puff INHALATION RT-BID 30 Days #1 puff 08/22/18 [Rx] Haloperidol Decanoate [Haldol D] 50 mg IM Q28D 28 Days #1 vial 08/22/18 [Rx] Albuterol Sulfate [Proair Hfa] 1 - 2 puff INHALATION RT-Q4H PRN 10/20/18 [History] Gabapentin [Neurontin] 100 mg PO TID 10/20/18 [History] Lisinopril [Zestril] 20 mg PO DAILY 10/20/18 [History] Cholecalciferol [Vitamin D3 (25 Mcg = 1000 Iu)] 5,000 unit PO DAILY 11/09/18 [History] lamoTRIgine [LaMICtal] 200 mg PO DAILY 11/09/18 [History] Famotidine [Pepcid] 20 mg PO BID #30 tab 11/11/18 [Rx] Guaifenesin/Dextromethorphan [guaiFENesin DM] 10 ml PO Q8H PRN 12/21/18 [History] Follow up Appointment(s)/Referral(s): [facility] [Primary [facility] Provider] - 1-2 days Patient Instructions/Handouts: Haloperidol (By injection) Discharge Disposition: DISCH TO [facility]
== END 2018-12-23 18:27 | disposition hospice, inpatient (51) | DRG 189 ==
LOC: EC 10:11 → 2SICU 21:16
PROVIDERS: ADMIT Internal Medicine; ATTEND Internal Medicine
PROC: 5A09457 Assistance with Respiratory Ventilation, 24-96 Consecutive Hours, Continuous Positive Airway Pressure (ICD-10-PCS; principal; 2018-12-23 14:00)
PROC: 06HY33Z Insertion of Infusion Device into Lower Vein, Percutaneous Approach (ICD-10-PCS; 2018-12-23 14:00)
PROC: B54MZZA Ultrasonography of Right Upper Extremity Veins, Guidance (ICD-10-PCS; 2018-12-23 14:00)
DX: J96.21 Acute and chronic respiratory failure with hypoxia (principal); G92 Toxic encephalopathy; E87.2 Acidosis; J44.1 Chronic obstructive pulmonary disease with (acute) exacerbation; F20.9 Schizophrenia, unspecified; J96.22 Acute and chronic respiratory failure with hypercapnia; F41.9 Anxiety disorder, unspecified; F17.200 Nicotine dependence, unspecified, uncomplicated; I10 Essential (primary) hypertension; B18.2 Chronic viral hepatitis C; M54.9 Dorsalgia, unspecified; E11.9 Type 2 diabetes mellitus without complications; F32.9 Major depressive disorder, single episode, unspecified; G89.29 Other chronic pain; Z51.5 Encounter for palliative care; Z79.51 Long term (current) use of inhaled steroids; Z79.899 Other long term (current) drug therapy; Z80.0 Family history of malignant neoplasm of digestive organs; Z82.49 Family history of ischemic heart disease and other diseases of the circulatory system; Z86.14 Personal history of Methicillin resistant Staphylococcus aureus infection; Z99.81 Dependence on supplemental oxygen; Z99.89 Dependence on other enabling machines and devices
CPT/HCPCS: 36410; 36415; 36600; 70450; 71045; 71046; 76937; 80048; 80053; 80306; 80320; 81001; 82140; 82805; 83605; 83690; 83735; 83880; 84100; 84132; 84484; 85025; 85027; 85610; 87040; 87086; 93005; 94640; 94660; 96360; 96361; 96365; 96375; 99291

== ENCOUNTER 2018-12-23 17:34 | Inpatient (IN) | payer MEDICAID ==
[2018-12-23] MEDS ORDERED: SODIUM CHLORIDE 0.9% 1,000 ML IV SCH (18:00)
[2018-12-23] MEDS ORDERED: LORazepam 2 MG/ML INJ IV PRN (18:21)
[2018-12-23] MEDS ORDERED: MORPHINE SULFATE 4 MG/ML SYRINGE IVP ONE (18:21)
[2018-12-23] MEDS ORDERED: ONDANSETRON 4 MG/2 ML VIAL IVP PRN (18:21)
[2018-12-23] MEDS ORDERED: MORPHINE SULFATE 2 MG/ML SYRINGE IV PRN (18:21)
[2018-12-23] MEDS ORDERED: ACETAMINOPHEN SUPPOSITORY 650 MG SUPP RECTAL PRN (18:21)
[2018-12-23] MEDS ORDERED: SCOPOLAMINE 1.5MG/72HR PATCH TRANSDERM SCH (18:30)
[2018-12-23] MEDS: MORPHINE SULFATE (100 MG/2 ML) 100 MG in SODIUM CHLORIDE 0.9% 100 ML IV SCH (19:04)
[2018-12-23 19:14] VITALS: BMI 21.3
[2018-12-23] MEDS: ATROPINE OPHTH SOLN 1% 5ML BTL SUBLINGUAL PRN (21:28)
[2018-12-23 21:56] VITALS: TEMP 98.3
[2018-12-23] MEDS: GLYCOPYRROLATE 0.2 MG/ML 2 ML VIAL IVP PRN (23:49)
[2018-12-24 07:03] VITALS: BP 61/41
[2018-12-24 08:09] VITALS: PULSE 101; RESP 3
[2018-12-24] MEDS: ATROPINE OPHTH SOLN 1% 5ML BTL SUBLINGUAL PRN (13:00)
[2018-12-24] MEDS: GLYCOPYRROLATE 0.2 MG/ML 2 ML VIAL IVP PRN (13:01)
[2018-12-24] MEDS: MORPHINE SULFATE (100 MG/2 ML) 100 MG in SODIUM CHLORIDE 0.9% 100 ML IV SCH (14:06)
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
--- NOTE | 2018-12-24 14:53 | P.DS ---
Providers Date of admission: 12/23/18 18:29 Attending physician: Nagi Meek MD Primary care physician: [facility] Course: Patient today patient is on hospice on IV morphine primary cause of is COPD please refer to nursing documentation for exact time of . Plan - Discharge Summary Discharge Rx Participant: No New Discharge Prescriptions: No Action Budesonide-Formot 160-4.5 Mcg [Symbicort 160-4.5 Mcg Inhaler] 2 puff INHALATION RT-BID 30 Days #1 puff Benztropine Mesylate 1 mg PO BID 30 Days #60 tablet Haloperidol Decanoate [Haldol D] 50 mg IM Q28D 28 Days #1 vial Lisinopril [Zestril] 20 mg PO DAILY Gabapentin [Neurontin] 100 mg PO TID Albuterol Sulfate [Proair Hfa] 1 - 2 puff INHALATION RT-Q4H PRN PRN Reason: difficulty in breathing lamoTRIgine [LaMICtal] 200 mg PO DAILY Cholecalciferol [Vitamin D3 (25 Mcg = 1000 Iu)] 5,000 unit PO DAILY Famotidine [Pepcid] 20 mg PO BID #30 tab Guaifenesin/Dextromethorphan [guaiFENesin DM] 10 ml PO Q8H PRN PRN Reason: Cough Discharge Medication List Benztropine Mesylate 1 mg PO BID 30 Days #60 tablet 08/22/18 [Rx] Budesonide-Formot 160-4.5 Mcg [Symbicort 160-4.5 Mcg Inhaler] 2 puff INHALATION RT-BID 30 Days #1 puff 08/22/18 [Rx] Haloperidol Decanoate [Haldol D] 50 mg IM Q28D 28 Days #1 vial 08/22/18 [Rx] Albuterol Sulfate [Proair Hfa] 1 - 2 puff INHALATION RT-Q4H PRN 10/20/18 [History] Gabapentin [Neurontin] 100 mg PO TID 10/20/18 [History] Lisinopril [Zestril] 20 mg PO DAILY 10/20/18 [History] Cholecalciferol [Vitamin D3 (25 Mcg = 1000 Iu)] 5,000 unit PO DAILY 11/09/18 [History] lamoTRIgine [LaMICtal] 200 mg PO DAILY 11/09/18 [History] Famotidine [Pepcid] 20 mg PO BID #30 tab 11/11/18 [Rx] Guaifenesin/Dextromethorphan [guaiFENesin DM] 10 ml PO Q8H PRN 12/21/18 [History]
== END 2018-12-24 17:00 | disposition expired | DRG 191 ==
LOC: 2SICU 18:29
PROVIDERS: ADMIT Internal Medicine; ATTEND Internal Medicine
DX: J44.1 Chronic obstructive pulmonary disease with (acute) exacerbation (principal); F11.20 Opioid dependence, uncomplicated; J96.11 Chronic respiratory failure with hypoxia; B18.2 Chronic viral hepatitis C; E11.9 Type 2 diabetes mellitus without complications; Z51.5 Encounter for palliative care; F17.210 Nicotine dependence, cigarettes, uncomplicated; F20.9 Schizophrenia, unspecified; F41.9 Anxiety disorder, unspecified; I10 Essential (primary) hypertension; Z79.51 Long term (current) use of inhaled steroids; Z79.899 Other long term (current) drug therapy; Z80.0 Family history of malignant neoplasm of digestive organs; Z82.49 Family history of ischemic heart disease and other diseases of the circulatory system; Z99.81 Dependence on supplemental oxygen; Z86.14 Personal history of Methicillin resistant Staphylococcus aureus infection; Z65.3 Problems related to other legal circumstances; F15.11 Other stimulant abuse, in remission; F12.11 Cannabis abuse, in remission; G89.29 Other chronic pain; M54.9 Dorsalgia, unspecified; B19.20 Unspecified viral hepatitis C without hepatic coma